=== PATIENT | male | born 1965 | race Caucasian/White ===

== ENCOUNTER → 2019-12-26 14:34 | Outpatient (CLI) | payer OTHER, SELFPAY ==
[2019-12-15 15:39] VITALS: BMI 32.6
--- NOTE | 2019-12-26 14:36 | ECHOD_ITS ---
Reason For Study: Palpitations Procedure This was a 2D Doppler, Color Flow transthoracic echocardiogram. The study was technically difficult. Exam performed in department. Left Ventricle Normal LV size. Mild concentric left ventricular hypertrophy. Left ventricular systolic function is normal. The estimated ejection fraction is 70 %. Transmitral doppler flow suggestive of impaired relaxation of left ventricle. No regional wall motion abnormalities noted. Right Ventricle Normal RV size. Normal systolic function. Atria The left atrium is mildly enlarged. Normal right atrium. No doppler evidence for ASD. Mitral Valve There is no mitral annular calcification. Mild (1+) mitral valve insufficiency. Tricuspid Valve Normal tricuspid valve. Trivial tricuspid valve insufficiency. Right ventricular systolic pressure estimated to be 27 mmHg. Aortic Valve The aortic valve is not well visualized, however, based upon the 2D echocardiographic images obtained there appears to be moderate focal thickening, calcification, and partial restriction. Mild to moderate aortic stenosis. Mild (1+) eccentric aortic valve insufficiency. Pulmonic Valve The pulmonic valve is not well visualized. Mild (1+) pulmonic valve insufficiency. Great Vessels Borderline enlarged aortic root. Pericardium/Pleural No pericardial effusion. MMode/2D Measurements & Calculations LVIDd: 4.3 cm IVSd: 1.3 cm LVOT diam: 2.2 cm LVIDs: 2.6 cm LVPWd: 1.3 cm LVOT area: 3.8 cm2 RVDd: 3.5 cm FS: 38.8 % Ao root diam: 3.9 cm LAV(MOD-bp): 57.0 ml LVAd ap4: 25.0 cm2 LAV(MOD-bp) Indexed: 26.7 ml/m2 EDV(MOD-sp4): 66.8 ml LAV(MOD-sp2): 43.8 ml EDV(sp4-el): 68.8 ml LAV(MOD-sp4): 54.8 ml LVAs ap4: 12.4 cm2 ESV(MOD-sp4): 21.3 ml ESV(sp4-el): 19.3 ml EF(MOD-sp4): 68.1 % EF(sp4-el): 71.9 % SV(MOD-sp4): 45.5 ml SV(sp4-el): 49.5 ml LA A4 area: 21.1 cm2 LA dimension(2D): 3.6 cm RA A4 area: 11.0 cm2 Doppler Measurements & Calculations MV E max tomas: 88.7 cm/sec Lat Peak E' Tomas: 12.3 cm/sec Med Peak E' Tomas: 7.7 cm/sec MV A max tomas: 101.9 cm/sec E/E' lat: 7.2 E/E' med: 11.5 MV E/A: 0.87 Ao V2 max: 328.5 cm/sec LV V1 max: 123.4 cm/sec SV(LVOT): 103.7 ml Ao max P.2 mmHg LV V1 max P.1 mmHg Ao V2 mean: 239.6 cm/sec LV V1 mean P.8 mmHg Ao mean P.8 mmHg LV V1 mean: 93.5 cm/sec Ao V2 VTI: 67.6 cm LV V1 VTI: 27.0 cm UMESH(I,D): 1.5 cm2 UMESH(V,D): 1.4 cm2 PA V2 max: 95.8 cm/sec TR max tomas: 244.6 cm/sec TR max P.9 mmHg Interpretation Summary The study was technically difficult. Left ventricular systolic function is normal. The estimated ejection fraction is 70 %. Mild concentric left ventricular hypertrophy. The left atrium is mildly enlarged. Mild (1+) mitral valve insufficiency. Trivial tricuspid valve insufficiency. The aortic valve is not well visualized, however, based upon the 2D echocardiographic images obtained there appears to be moderate focal thickening, calcification, and partial restriction. Mild to moderate aortic stenosis. Mild (1+) eccentric aortic valve insufficiency. Mild (1+) pulmonic valve insufficiency. Borderline enlarged aortic root. Right ventricular systolic pressure estimated to be 27 mmHg. Ordering Physician: Ruperto Villanueva Referring Physician: Verito Villegas Performed By: Ansley Scruggs, RDCS, RVT
== END ==
PROVIDERS: PCP Family Medicine; Referring Provider Internal Medicine Cardiovascular Disease; Visit Provider Internal Medicine Cardiovascular Disease
DX: I34.0 Nonrheumatic mitral (valve) insufficiency (principal); I49.9 Cardiac arrhythmia, unspecified
CPT/HCPCS: 93306

== ENCOUNTER → 2025-01-06 | Outpatient (CLI) | payer OTHER, SELFPAY ==
--- NOTE | 2025-01-06 06:21 | CT_ITS ---
PROCEDURE: CTA HEAD AND NECK W/ CONTRAST 01/06/2025 REASON FOR EXAM: TRANSIENT VISUAL LOSS, RULE OUT CAROTID OR VETEBRAL ARTERY DISSE Left visual loss. TECHNIQUE: Procedure Code: [id number].HDNCK Modality: CT Procedure: CTA HEAD AND NECK W/ CONTRAST Multiplanar Sagittal and Coronal images were obtained. 3D post processing was performed CONTRAST: Isovue 370 VOLUME: 100 mL One or more dose reduction techniques were used (e.g., Automated exposure control, adjustment of the mA and/or kV according to patient size, use of iterative reconstruction technique). RADIATION DOSE SUMMARY: CTDlvol: 90 mGy DLP: 1493 mGycm COMPARISON: None. FINDINGS: CT BRAIN: Cerebrum: Normal cerebral volume. Negative for mass the frontal, parietal, temporal and occipital lobes negative. White matter: Negative for periventricular white matter changes. Cerebellum: Negative. Negative for mass. Negative for acute infarction. CSF pathways and ventricles: Negative. Negative for ventricular dilatation or obstruction. Basal ganglia and thalami: Negative. No acute infarctions. Brainstem: Midbrain, diogo and medulla negative. Calvarium: Negative. Negative for fractures. Orbital structures: Globes negative. Extraocular muscles negative. Paranasal sinuses: No air fluid levels. Remainder of the sinuses negative. Vascular structures: [id number] calcifications of the intracranial structures. Other: : Negative for acute intracranial hemorrhage. Negative for acute infarction. Remainder of exam negative. CTA BRAIN: Codominant distal vertebral arteries. Otherwise distal vertebral arteries negative. Basilar artery negative. Posterior cerebral arteries: Right posterior communicating artery hypoplastic. Left posterior communicating artery hypoplastic. Negative for stenosis of the posterior cerebral arteries. Posterior cerebral arteries and distal branches negative. Distal internal carotid arteries: Mild vascular calcifications of the distal internal carotid arteries. Negative for stenosis. Anterior cerebral arteries: Anterior communicating artery patent. Anterior cerebral arteries and branches negative. Middle cerebral arteries: Negative for stenosis of the middle cerebral arteries. Middle cerebral arteries and distal branches negative. Negative for intracranial aneurysm or significant stenosis. CTA neck: Neck: Intracranial contents negative. Imaged orbits negative. Oropharynx, hypopharynx and larynx negative. Soft tissue neck negative. No cervical adenopathy. Imaged lungs and mediastinum negative. Aortic arch and branches patent. Right side: Origin of the right common carotid artery negative. Negative for vascular calcifications of the common carotid artery and/or internal carotid artery. Negative for hemodynamically significant stenosis of the right common carotid artery. Negative for hemodynamically significant stenosis of the right internal carotid artery. Left side: Origin of the left common carotid artery negative. Negative for vascular calcifications of the common carotid and/or internal carotid artery. Negative for hemodynamically significant stenosis of the right common carotid artery. Negative for hemodynamically significant stenosis of the left internal carotid artery. CT/CTA Head AND Neck W/ Contrast IMPRESSION: Negative CTA of the head. Negative CTA of the neck. Reading Location: [id number]
--- OUTSIDE RECORDS SUMMARY | 2025-01-06 06:21 | XMS RPT_ITS | CCD ---
Author Organization [facility] [place] [facility] Care Team Providers Care Senior Data Integration Developer Name Role Phone SNOW VILLEGAS DO Primary Care Physician Nicole PT, Rosetta Unavailable Unavailable NELLY DO, SNOW Primary Care Unavailable HEATHER ROBLES Attending Unavailable NELLY DO, SNOW Primary Care Unavailable HEATHER ROBLES Attending Unavailable NELLY ANTUNEZ, SNOW Primary Care Unavailable EDWIN MORAN, DR MAXWELL Attending Unavailab le NELLY ANTUNEZ, SNOW Primary Care Unavailable ALLISON MORAN, SHANAE Attending Unavailable NELLY DO, SNOW Primary Care Unavailable EDWIN MORAN, DR MAXWELL Attending Unavailab Kayla MORAN, SHANAE Admitting Unavailable DAYNA RENDON MD Consulting Unavailable NELLY DO, SNOW Primary Care Unavailable SHANAE COOPER MD Attending Unavailable CHELSEY MORAN, ILDA QUEVEDO Consulting U jacobo COOPER MD, SHANAE Consulting Unavailable EDWIN MORAN, DR MAXWELL Consulting Unavailab le NELLY ANTUNEZ, SNOW Primary Care Unavailable EDWIN MORAN, DR MAXWELL Attending Unavailab Kristopher MORAN, DR MAXWELL Consulting Unavailab le NELLY ANTUNEZ, SNOW Primary Care Unavailable EDWIN MORAN, DR MAXWELL Attending Unavailab le NELLY DO, SNOW Primary Care Unavailable HEATHER ROBLES Attending Unavailable NELLY DO, SNOW Primary Care Unavailable NELLY DOSNOW Attending Unavailable NELLY DO, SNOW Primary Care Unavailable NELLY DO, SNOW Attending Unavailable NELLY DO, SNOW Primary Care Unavailable HEATHER ROBLES Attending Unavailable NELLY DO, SNOW Primary Care Unavailable EDWIN MORAN, DR MAXWELL Attending Unavailab le NELLY DO, SNOW Primary Care Unavailable HEATHER ROBLES Attending Unavailable NELLY DO, SNOW Primary Care Unavailable HEATHER ROBLES Attending Unavailable NELLY DO, SNOW Primary Care Unavailable EDWIN MORAN, DR MAXWELL Attending Unavailab le NELLY DO, SNOW Primary Care Unavailable FLAVIO SQUAD SERGEANT, MELISSA TOMPKINS Attending Unavaila ble NELLY DO, SNOW Primary Care Unavailable FLAVIO SQUAD SERGEANT, MELISSA TOMPKINS Attending Unavaila ble NLELY DO, SNOW Primary Care Unavailable EDWIN MORAN, DR MAXWELL Attending Unavailab le NELLY DO, SNOW Primary Care Unavailable SHANAE COOPER MD Attending Unavailable NELLY DO, SNOW Primary Care Unavailable EDWIN MORAN, DR MAXWELL Attending Unavailab le NELLY DO, SNOW Primary Care Unavailable SHANAE COOPER MD Attending Unavailable NELLY DO, SNOW Primary Care Unavailable TUNG RN X RAY-ACCOUNTS RECEIVABLE ANALYST, JENNIFER Attending Unavailabl e NELLY DO, SNOW Primary Care Unavailable HEATHER ROBLES Attending Unavailable NELLY DO, SNOW Primary Care Unavailable FLAVIO SQUAD SERGEANT, MELISSA TOMPKINS Attending Unavaila ble NELLY DO, SNOW Primary Care Unavailable NELLY DO, SNWO Attending Unavailable NELLY DO, SNOW Primary Care Unavailable NELLY DO, SNOW Attending Unavailable NELLY DO, SNOW Primary Care Unavailable EDWIN MORAN, DR MAXWELL Attending Unavailab le NELLY DO, SNOW Primary Care Unavailable EDWIN MORAN, DR MAXWELL Attending Unavailab le NELLY DO, SNOW Primary Care Unavailable EDWIN MORAN, DR MAXWELL Attending Unavailab le NELLY DO, SNOW Primary Care Unavailable VIRAJ KOENGI PA-C Attending Unavailable NELLY DO, SNOW Primary Care Unavailable DR ALISSA KANG MD Attending Unavailab le NELLY DO, SNOW Primary Care Unavailable NELLY DO, SNOW Attending Unavailable NELLY DO, SNOW Primary Care Physician DR ALISSA KANG MD Attending Unavailab le NELLY DO, SNOW Primary Care Unavailable Nelly DO, Snow M Primary Care Provider [phone] BENTLEY ESCOBEDO Attending Unavailable BENTLEY ESCOBEDO Referring Unavailable NELLY, SNOW Primary Care Unavailable NELLY DO, SNOW Primary Care Unavailable NELLY DO, SNOW Attending Unavailable NELLY DO, SNOW Primary Care Unavailable NELLY DO, SNOW Attending Unavailable NELLY DO, SNOW Primary Care Unavailable EDWIN MORAN, DR MAXWELL Attending Unavailab mireya KANG MD, DR MAXWELL Attending Unavailab mireya VILLEGAS DO, SNOW Primary Care Unavailable NELLY ANTUNEZ, SNOW Primary Care Unavailable NELLY ANTUNEZ, SNOW Attending Unavailable NELLY ANTUNEZ, SNOW Primary Care Unavailable NELLY ANTUNEZ, SNOW Attending Unavailable NELLY ANTUNEZ, SNOW Attending Unavailable NELLY ANTUNEZ, SNOW Primary Care Unavailable Medications Current Medications Medication Drug Class(es) Dates Sig (Normalized) Sig (Original) acetaminophen 650 mg oral tablet (14 sources) Start: 08-02-2023 acetaminophen Dose : 650 mg = 2 tab(s), Oral, q4h, PRN Pain, scale 1-3, 0 Refill(s) Start Date: 08/02/23 Status: Ordered Start: 07-23-2023 Tylenol Extra Strength 500 mg oral tablet Dose : 1,000 mg = 2 tab(s), Oral, q4h, PRN as needed for pain, # 120 tab(s), 0 Refill(s) Start Date: 07/23/23 Status: Ordered amiodarone hydrochloride 200 mg oral tablet (4 sources) Antiarrhythmic Start: 08-02-2023 amiodarone 200 mg oral tablet Dose : 400 mg = 2 tab(s), Oral, BIDM, Take 2 tabs (400mg) twice a day through August 08 Take 1 tab (200mg) one a day starting August 09 for one month, # 56 tab(s), 0 Refill(s), Pharmacy: [id number], 175.3, cm, 07/28/23 6:13:00 EDT, Height, kg, 07/28/23 6:13:00 EDT, Dosing Weight Start Date: 08/02/23 Status: Ordered aspirin 81 mg delayed release oral tablet (20 sources) Platelet Aggregation Inhibitor, Nonsteroidal Anti-inflammatory Drug Start: 08-02-2023 aspirin 81 mg ora l delayed release tablet Dose : 81 mg = 1 tab(s), Oral, qDayM, 0 Refill(s) Start Date: 08/02/23 Status: Ordered Medication Dispense Status: Completed Total Allowed Fills: 1 Fills Dispensed: 0 Start: 12-30-2022 aspirin 81 mg oral delayed release tablet Dose : 81 mg = 1 tab(s), Oral, qHS, pt was not told to stop ASA but will ask tomorrow when talsk to [facility]vc to verify, # 90 tab(s), 3 Refill(s), Pharmacy: [id number], 175, cm, 12/19/22 8:22:00 EDT, Height, kg, 12/19/22 8:22:00 EDT, Dosing Weight Start Date: 12/30/22 Status: Ordered Start: 06-06-2022 aspirin 81 mg oral delayed release tablet Dose : 81 mg = 1 tab(s), Oral, qDay, # 30 tab(s), 6 Refill(s), [facility]: [id number], 175, cm, 06/06/22 10:12:00 EST, Height Start Date: 06/06/22 Status: Ordered betamethasone 0.5 mg/ml / clotrimazole 10 mg/ml topical cream (20 sources) Azole Antifungal, Corticosteroid Start: 08-16-2024 apply 1 dose topically twice daily betamethasone-clotrimazole 0.05%-1% topical cream Apply 1 appl, Topical, BID, # 45 gram(s), 1 Refill(s), Pharmacy: [id number], Cream, 175, cm, 04/01/24 9:02:00 EST, Height, 92.4, kg, 04/01/24 9:02:00 EST, Dosing Weight Start Date: 08/16/24 Status: Ordered Medication Dispense Status: Completed Quantity: 45.0 Unit: g Total Allowed Fills: 2 Fills Dispensed: 0 Indications: Tinea pedis; Start: 04-01-2024 betamethasone- clotrimazole 0.05%-1% topical cream Apply 1 appl, Topical, BID, # 45 gram(s), 1 Refill(s), Pharmacy: [id number], Cream, 175, cm, 04/01/24 9:02:00 EST, Height, 92.4, kg, 04/01/24 9:02:00 EST, Dosing Weight Start Date: 04/01/24 Status: Ordered Quantity: 45.0 Unit: g Repeat number: 2 Indications: Tinea pedis; Start: 04-03-2023 betamethasone- clotrimazole 0.05%-1% topical cream Apply 1 appl, Topical, BID, # 45 gram(s), 1 Refill(s), Pharmacy: [id number], Cream, 174, cm, 04/03/23 14:22:00 EST, Height, 97.4, kg, 04/03/23 14:22:00 EST, Dosing Weight Start Date: 04/03/23 Status: Ordered Start: 04-08-2022 betamethasone- clotrimazole 0.05%-1% topical cream Apply 1 appl, Topical, BID, # 45 gram(s), 1 Refill(s), [facility]acy: [facility] #[id number], Cream, 175, cm, 04/08/22 14:30:00 EST, Height, 98.5, kg, 04/08/22 14:30:00 EST, Dosing Weight Start Date: 04/08/22 Status: Ordered Start: 08-13-2021 betamethasone- clotrimazole 0.05%-1% topical cream Apply 1 appl, Topical, BID, # 45 gram(s), 1 Refill(s), [facility]acy: [facility], Cream, 175.5, cm, 08/13/21 9:45:00 EDT, Height, 95.5 Start Date: 08/13/21 Status: Ordered bumetanide 2 mg oral tablet (1 source) Loop Diuretic Start: 08-02-2023 End: 08-07-2023 bumetanide 2 mg oral tablet Dose : 2 mg = 1 tab(s), Oral, BID, # 10 tab(s), 0 Refill(s), Pharmacy: [id number], 175.3, cm, 07/28/23 6:13:00 EDT, Height, kg, 07/28/23 6:13:00 EDT, Dosing Weight Start Date: 08/02/23 Stop Date: 08/07/23 Status: Ordered cetirizine hydrochloride 10 mg oral tablet (8 sources) Histamine-1 Receptor Antagonist Start: 08-06-2023 Zyrtec 10 mg oral tablet Dose : 10 mg = 1 tab(s), Oral, qDay, # 30 tab(s), 0 Refill(s) Start Date: 08/06/23 Status: Ordered cyclobenzaprine hydrochloride 10 mg oral tablet (3 sources) Muscle Relaxant Start: 09-10-2023 End: 09-30-2023 cyclobenzaprine 10 mg oral tablet Dose : 10 mg = 1 tab(s), Oral, qHS, PRN for muscle spasm, X 10 day(s), # 10 tab(s), 1 Refill(s), 09/30/23 1:08:00 PM EDT, Pharmacy: [id number], Trapezius strain Spasm of thoracic back muscle, 174, cm, 09/10/23 11:55:00 EDT, Height, kg, 09/10/23 11:55:00 EDT, Dosing Weight Start Date: 09/10/23 Stop Date: 09/30/23 Status: Ordered dapagliflozin 5 mg oral tablet (8 sources) Sodium-Glucose Cotransporter 2 Inhibitor Start: 12-31-2023 Farxiga 5 mg oral tablet Dose : 5 mg = 1 tab(s), Oral, qDay, # 30 tab(s), 6 Refill(s), Pharmacy: [id number], 175, cm, 12/31/23 9:27:00 EDT, Height, kg, 12/31/23 9:27:00 EDT, Dosing Weight Start Date: 12/31/23 Status: Ordered Quantity: 30.0 Unit: tab(s) Repeat number: 7 Start: 09-14-2023 Farxiga 5 mg o ral tablet Dose : 5 mg = 1 tab(s), Oral, qDay, # 30 tab(s), 6 Refill(s), Pharmacy: [id number], 175.3, cm, 09/01/23 9:50:00 EDT, Height, kg, 09/01/23 9:50:00 EDT, Dosing Weight Start Date: 09/14/23 Status: Ordered Start: 09-14-2023 Farxiga 5 mg o ral tablet Dose : 5 mg = 1 tab(s), Oral, qDay, # 30 tab(s), 6 Refill(s), Pharmacy: [id number], 175.3, cm, 09/01/23 9:50:00 EDT, Height, kg, 09/01/23 9:50:00 EDT, Dosing Weight Start Date: 09/14/23 Status: Ordered Start: 09-14-2023 Farxiga 5 mg o ral tablet Dose : 5 mg = 1 tab(s), Oral, qDay, # 30 tab(s), 6 Refill(s), Pharmacy: [id number], 175.3, cm, 09/01/23 9:50:00 EDT, Height, kg, 09/01/23 9:50:00 EDT, Dosing Weight Start Date: 09/14/23 Status: Ordered Docusate (9 sources) Start: 09-29-2024 take 1 mg by mouth twice daily Dulcolax Stool Softener mg =, Oral, BID, 0 Refill(s) Start Date: 09/29/24 Status: Ordered Medication Dispense Status: Completed Total Allowed Fills: 1 Fills Dispensed: 0 Start: 08-06-2023 take 1 mg by mouth twice daily Dulcolax Stool Softener mg =, Oral, BID, 0 Refill(s) Start Date: 08/06/23 Status: Ordered ferrous sulfate 325 mg oral tablet (10 sources) Start: 09-29-2024 IRON (ferrous sulfate 325 mg) 65 mg oral tablet Dose : 325 mg = 1 tab(s), Oral, BIDM, Take with food., # 60 tab(s), 3 Refill(s) Start Date: 09/29/24 Status: Ordered Medication Dispense Status: Completed Quantity: 60.0 Unit: tab(s) Total Allowed Fills: 1 Fills Dispensed: 0 Start: 08-02-2023 End: 09-01-2023 ferrous sulfate 325 mg (65 m g elemental iron) oral tablet Dose : 325 mg = 1 tab(s), Oral, BIDM, # 60 tab(s), 0 Refill(s), Pharmacy: [id number], 175.3, cm, 07/28/23 6:13:00 EDT, Height, kg, 07/28/23 6:13:00 EDT, Dosing Weight Start Date: 08/02/23 Stop Date: 09/01/23 Status: Ordered 12 hr guaiFENesin 600 mg extended release oral tablet (5 sources) Start: 09-01-2023 Mucinex 600 mg oral tablet, extended release Dose : 600 mg = 1 tab(s), Oral, Daily, 0 Refill(s) Start Date: 09/01/23 Status: Ordered halobetasol propionate 0.0005 mg/mg topical ointment (19 sources) Corticosteroid Start: 04-01-2024 halobetasol 0. 05% topical ointment Apply 1 ycril, Topical, BID, APPLY TOPICALLY 2 TIMES A DAY FOR 10 DAYS, # 50 gram(s), 1 Refill(s), Pharmacy: [id number], Ointment, 175, cm, 04/01/24 9:02:00 EST, Height, 92.4, kg, 04/01/24 9:02:00 EST, Dosing Weight Start Date: 04/01/24 Status: Ordered Medication Dispense Status: Completed Quantity: 50.0 Unit: g Total Allowed Fills: 2 Fills Dispensed: 0 Indications: Psoriasis, unspecified; Start: 04-03-2023 End: 04-23-2023 halobetasol 0.05% topical oi ntment Apply 1 cyril, Topical, BID, X 10 day(s), # 50 gram(s), 1 Refill(s), Pharmacy: [id number], Ointment, 174, cm, 04/03/23 14:22:00 EST, Height, 97.4, kg, 04/03/23 14:22:00 EST, Dosing Weight Start Date: 04/03/23 Stop Date: 04/23/23 Status: Ordered Start: 10-11-2021 halobetasol 0. 05% topical ointment Apply 1 cyril, Topical, BID, # 15 gram(s), 0 Refill(s), Ointment, 95.5 Start Date: 10/11/21 Status: Ordered ibuprofen 200 mg oral tablet (2 sources) Nonsteroidal Anti-inflammatory Drug Start: 07-23-2023 ibuprofen 200 mg oral tablet Dose : 400 mg = 2 tab(s), Oral, q6h, PRN for pain, Take with food or milk., 0 Refill(s) Start Date: 07/23/23 Status: Ordered ipratropium bromide 0.021 mg/actuat metered dose nasal spray (3 sources) Anticholinergic Start: 08-21-2023 End: 09-10-2023 ipratropium 21 mcg/inh (0.03%) nasal spray 42 mcg Dose = 2 spray(s), Nasal, TID, X 10 day(s), # 1 EA, 1 Refill(s), Pharmacy: [id number], Nasal congestion, 175.3, cm, 08/12/23 14:31:00 EDT, Height, kg, 08/12/23 14:31:00 EDT, Dosing Weight Start Date: 08/21/23 Stop Date: 09/10/23 Status: Ordered levothyroxine sodium 0.125 mg oral tablet (20 sources) l-Thyroxine Start: 09-29-2024 levothyroxine 125 mcg (0.125 mg) oral tablet Dose : 125 mcg = 1 tab(s), Oral, qDay, Take 1 tablet daily except take 2 tablets by mouth daily on Wednesdays, # 110 tab(s), 1 Refill(s), Pharmacy: [id number], Hypothyroidism, 174, cm, 09/29/24 8:29:00 EDT, Height, kg, 09/29/24 8:29:00 EDT, Dosing Weight Start Date: 09/29/24 Status: Ordered Medication Dispense Status: Completed Quantity: 110.0 Unit: tab(s) Total Allowed Fills: 2 Fills Dispensed: 0 Indications: Hypothyroidism, unspecified; Start: 04-05-2024 levothyroxine 125 mcg (0.125 mg) oral tablet Dose : 125 mcg = 1 tab(s), Oral, qDay, Take 1 tablet daily except take 2 tablets by mouth daily on Wednesdays, # 110 tab(s), 1 Refill(s), Pharmacy: [id number], Hypothyroidism, 175, cm, 04/01/24 9:02:00 EST, Height, kg, 04/01/24 9:02:00 EST, Dosing Weight Start Date: 04/05/24 Status: Ordered Quantity: 110.0 Unit: tab(s) Repeat number: 2 Indications: Hypothyroidism, unspecified; Start: 11-13-2023 levothyroxine 100 mcg (0.1 mg) oral tablet Dose : 100 mcg = 1 tab(s), Oral, qDay, # 90 tab(s), 0 Refill(s), Pharmacy: [id number], Hypothyroidism, 174, cm, 11/13/23 9:16:00 EDT, Height, kg, 11/13/23 9:16:00 EDT, Dosing Weight Start Date: 11/13/23 Status: Ordered Start: 09-23-2023 levothyroxine 100 mcg (0.1 mg) oral tablet Dose : 100 mcg = 1 tab(s), Oral, qAM, # 90 tab(s), 0 Refill(s), Pharmacy: [facility] #330, 174, cm, 09/10/23 11:55:00 EDT, Height, kg, 09/10/23 11:55:00 EDT, Dosing Weight Start Date: 09/23/23 Status: Ordered Start: 04-03-2023 levothyroxine 100 mcg (0.1 mg) oral tablet Dose : 100 mcg = 1 tab(s), Oral, qAM, 0 Refill(s) Start Date: 04/03/23 Status: Ordered Start: 12-19-2022 take 1 tablet by reynaldo th in the morning levothyroxine 100 mcg (0.1 mg) oral tablet TAKE 1 TABLET BY MOUTH IN THE MORNING Start Date: 12/19/22 Status: Ordered Start: 08-12-2022 levothyroxine 50 mcg (0.05 mg) oral tablet Dose : 50 mcg = 1 tab(s), Oral, qDay, # 90 tab(s), 0 Refill(s), [facility]: [id number], Hypothyroidism, 175, cm, 06/06/22 10:12:00 EST, Height, kg, 06/06/22 10:12:00 EST, Dosing Weight Start Date: 08/12/22 Status: Ordered Start: 05-08-2022 levothyroxine 50 mcg (0.05 mg) oral tablet Dose : 50 mcg = 1 tab(s), Oral, qDay, # 90 tab(s), 0 Refill(s), [facility]: [facility] #[id number], Hypothyroidism, 174, cm, 05/08/22 13:26:00 EST, Height Start Date: 05/08/22 Status: Ordered 24 hr metoprolol succinate 25 mg extended release oral tablet (20 sources) beta-Adrenergic Waqas Start: 04-20-2024 metopr olol succinate 25 mg oral TABLET extended release Dose : 12.5 mg = 0.5 tab(s), Oral, qDay, Do not crush or chew (controlled release), # 60 tab(s), 6 Refill(s), Pharmacy: [id number], 175, cm, 04/01/24 9:02:00 EST, Height, kg, 04/01/24 9:02:00 EST, Dosing Weight Start Date: 04/20/24 Status: Ordered Medication Dispense Status: Completed Quantity: 60.0 Unit: tab(s) Total Allowed Fills: 7 Fills Dispensed: 0 Start: 09-01-2023 metoprolol suc cinate 25 mg oral TABLET extended release Dose : 25 mg = 1 tab(s), Oral, qDay, Do not crush or chew (controlled release), # 60 tab(s), 6 Refill(s), Pharmacy: [id number], 175.3, cm, 09/01/23 9:50:00 EDT, Height, kg, 09/01/23 9:50:00 EDT, Dosing Weight Start Date: 09/01/23 Status: Ordered Quantity: 60.0 Unit: tab(s) Repeat number: 7 Start: 08-02-2023 metoprolol tar trate 25 mg oral tablet Dose : 25 mg = 1 tab(s), Oral, BIDM, # 60 tab(s), 1 Refill(s), Pharmacy: [id number], 175.3, cm, 07/28/23 6:13:00 EDT, Height, kg, 07/28/23 6:13:00 EDT, Dosing Weight Start Date: 08/02/23 Status: Ordered Start: 08-02-2023 End: 08-02-2023 take 1 tablet by mouth in the morning metoprolol tartrate (Lopressor) Start: 08/02/23 8:00:00 AM EDT, Dose = 25 mg, = 1 tab(s), Oral, Hold if SBP (mmHg) Start Date: 08/02/23 Stop Date: 08/02/23 Status: Completed Start: 08-01-2023 End: 08-01-2023 take 1 tablet by mouth in the evening metoprolol tartrate (Lopressor) Start: 08/01/23 5:00:00 PM EDT, Dose = 25 mg, = 1 tab(s), Oral, Hold if SBP (mmHg) Start Date: 08/01/23 Stop Date: 08/01/23 Status: Completed Start: 08-01-2023 End: 08-01-2023 take 1 tablet by mouth in the morning metoprolol tartrate (Lopressor) Start: 08/01/23 8:00:00 AM EDT, Dose = 25 mg, = 1 tab(s), Oral, Hold if SBP (mmHg) Start Date: 08/01/23 Stop Date: 08/01/23 Status: Completed Start: 06-30-2023 metoprolol suc cinate 25 mg oral TABLET extended release Dose : 12.5 mg = 0.5 tab(s), Oral, qHS, Do not crush or chew (controlled release), # 15 tab(s), 6 Refill(s), Pharmacy: [id number], 175.3, cm, 06/30/23 9:00:00 EDT, Height, kg, 06/30/23 9:00:00 EDT, Dosing Weight Start Date: 06/30/23 Status: Ordered Start: 2023 metoprolol suc cinate 25 mg oral TABLET extended release Dose : 25 mg = 1 tab(s), Oral, qDay, Do not crush or chew (controlled release), # 30 tab(s), 6 Refill(s), Pharmacy: [id number], 175, cm, 06/01/23 9:46:00 EST, Height, kg, 06/01/23 9:46:00 EST, Dosing Weight Start Date: 06/01/23 Status: Ordered midodrine hydrochloride 5 mg oral tablet (1 source) alpha-Adrenergic Agonist Start: 08-02-2023 midod rine 5 mg oral tablet Dose : 10 mg = 2 tab(s), Oral, BID, # 120 tab(s), 0 Refill(s), Pharmacy: [facility], 175.3, cm, 07/28/23 6:13:00 EDT, Height, kg, 07/28/23 6:13:00 EDT, Dosing Weight Start Date: 08/02/23 Status: Ordered mupirocin 0.02 mg/mg topical ointment (2 sources) RNA Synthetase Inhibitor Antibacterial Start: 07-23-2023 mupirocin 2% topical ointment Apply 1 cyril, Topical, TID, APPLY IN BOTH NOSTRILS TWICE A DAY DIRECTED. START 5 DAYS PRIOR TO SURGERY Start Date: 07/23/23 Status: Ordered potassium chloride 20 meq oral tablet (1 source) Start: 08-02-2023 End: 08-07-2023 potassium chloride 20 mEq oral tablet, extended release Dose : 20 mEq = 1 tab(s), Oral, BID, take for 5 days with Bumex, # 10 tab(s), 0 Refill(s), Pharmacy: [id number], 175.3, cm, 07/28/23 6:13:00 EDT, Height, kg, 07/28/23 6:13:00 EDT, Dosing Weight Start Date: 08/02/23 Stop Date: 08/07/23 Status: Ordered rosuvastatin calcium 40 mg oral tablet (20 sources) HMG-CoA Reductase Inhibitor Start: 09-29-2024 rosuvastatin 40 mg oral tablet Dose : 40 mg = 1 tab(s), Oral, qDay, # 90 tab(s), 1 Refill(s), Pharmacy: [id number], Dyslipidemia, 174, cm, 09/29/24 8:29:00 EDT, Height, kg, 09/29/24 8:29:00 EDT, Dosing Weight Start Date: 09/29/24 Status: Ordered Medication Dispense Status: Completed Quantity: 90.0 Unit: tab(s) Total Allowed Fills: 2 Fills Dispensed: 0 Indications: Hyperlipidemia, unspecified; Start: 04-01-2024 rosuvastatin 4 0 mg oral tablet Dose : 40 mg = 1 tab(s), Oral, qDay, # 90 tab(s), 1 Refill(s), Pharmacy: [id number], Dyslipidemia, 175, cm, 04/01/24 9:02:00 EST, Height, kg, 04/01/24 9:02:00 EST, Dosing Weight Start Date: 05/31/24 Status: Ordered Quantity: 90.0 Unit: tab(s) Repeat number: 2 Indications: Hyperlipidemia, unspecified; Start: 11-13-2023 rosuvastatin 4 0 mg oral tablet Dose : 40 mg = 1 tab(s), Oral, qDay, # 90 tab(s), 1 Refill(s), Pharmacy: [id number], Dyslipidemia, 174, cm, 11/13/23 9:16:00 EDT, Height, kg, 11/13/23 9:16:00 EDT, Dosing Weight Start Date: 11/13/23 Status: Ordered Start: 07-15-2023 rosuvastatin 4 0 mg oral tablet Dose : 40 mg = 1 tab(s), Oral, qHS, # 90 tab(s), 0 Refill(s), Pharmacy: [id number], 175.3, cm, 07/13/23 9:24:00 EDT, Height, kg, 07/13/23 9:24:00 EDT, Dosing Weight Start Date: 07/15/23 Status: Ordered Start: 12-30-2022 rosuvastatin 4 0 mg oral tablet Dose : 40 mg = 1 tab(s), Oral, qDay, # 30 tab(s), 6 Refill(s), Pharmacy: [id number], 175, cm, 12/19/22 8:22:00 EDT, Height, kg, 12/19/22 8:22:00 EDT, Dosing Weight Start Date: 12/30/22 Status: Ordered Start: 06-06-2022 rosuvastatin 4 0 mg oral tablet Dose : 40 mg = 1 tab(s), Oral, qDay, # 30 tab(s), 6 Refill(s), [facility]acy: [facility] #[id number], 175, cm, 06/06/22 10:12:00 EST, Height Start Date: 06/06/22 Status: Ordered spironolactone 25 mg oral tablet (8 sources) Aldosterone Antagonist Start: 09-01-2023 spironolactone 25 mg oral tablet Dose : 12.5 mg = 0.5 tab(s), Oral, qDay, Take with food hold if sBP Start Date: 09/01/23 Status: Ordered traMADol hydrochloride 50 mg oral tablet (1 source) Opioid Agonist Start: 08-02-2023 End: 08-09-2023 traMADol 50 mg oral tablet Dose : 50 mg = 1 tab(s), Oral, q6hr, PRN Pain, scale 4-10, X 7 day(s), # 28 tab(s), 0 Refill(s), 08/09/23 1:49:00 PM EDT, Pharmacy: [id number], Aortic stenosis s/p AVR, ALONDRA Clipping 07/28/23, EF 55%, 175.3, cm, 07/28/23 6:13:00 EDT, Height, 96.5, kg, 07/28/23 6:13:00 EDT, Dosing Weight Start Date: 08/02/23 Stop Date: 08/09/23 Status: Ordered traZODone hydrochloride 100 mg oral tablet (20 sources) Serotonin Reuptake Inhibitor Start: 09-29-2024 traZODone 100 mg ora l tablet Dose : 100 mg = 1 tab(s), Oral, qHS, please be scored tablets, # 90 tab(s), 1 Refill(s), Pharmacy: [id number], Insomnia, 174, cm, 09/29/24 8:29:00 EDT, Height, kg, 09/29/24 8:29:00 EDT, Dosing Weight Start Date: 09/29/24 Status: Ordered Medication Dispense Status: Completed Quantity: 90.0 Unit: tab(s) Total Allowed Fills: 2 Fills Dispensed: 0 Indications: Insomnia, unspecified; Start: 04-01-2024 traZODone 100 mg oral tablet Dose : 100 mg = 1 tab(s), Oral, qHS, please be scored tablets, # 90 tab(s), 1 Refill(s), Pharmacy: [id number], Insomnia, 175, cm, 04/01/24 9:02:00 EST, Height, kg, 04/01/24 9:02:00 EST, Dosing Weight Start Date: 04/01/24 Status: Ordered Quantity: 90.0 Unit: tab(s) Repeat number: 2 Indications: Insomnia, unspecified; Start: 04-03-2023 traZODone 100 mg oral tablet Dose : 100 mg = 1 tab(s), Oral, qHS, please be scored tablets, # 90 tab(s), 3 Refill(s), Pharmacy: [facility]. [id number], Insomnia, 174, cm, 04/03/23 14:22:00 EST, Height, kg, 04/03/23 14:22:00 EST, Dosing Weight Start Date: 04/03/23 Status: Ordered Start: 04-08-2022 traZODone 100 mg oral tablet Dose : 100 mg = 1 tab(s), Oral, qHS, please be scored tablets, # 90 tab(s), 3 Refill(s), Pharmacy: [facility] #[id number], Insomnia, 175, cm, 04/08/22 14:30:00 EST, Height, kg, 04/08/22 14:30:00 EST, Dosing Weight Start Date: 04/08/22 Status: Ordered Start: 08-13-2021 traZODone 100 mg oral tablet Dose : 100 mg = 1 tab(s), Oral, qHS, please be scored tablets, # 90 tab(s), 1 Refill(s), Pharmacy: [id number], Insomnia, 175.5, cm, 08/13/21 9:45:00 EDT, Height, kg, 08/13/21 9:45:00 EDT, Dosing Weight Start Date: 08/13/21 Status: Ordered vitamin B12 (1 source) Vitamin B12 Start: 09-29-2024 Vitamin B12 0 Refill(s) Start Date: 09/29/24 Status: Ordered Medication Dispense Status: Completed Total Allowed Fills: 1 Fills Dispensed: 0 Completed/Discontinued Medications Medication Drug Class(es) Dates Sig (Normalized) Sig (Original) amoxicillin 875 mg / clavulanate 125 mg oral tablet (3 sources) Penicillin-class Antibacterial Start: 4 End: 4 take 1 tablet by mouth every twelve hours amoxicillin-clavulana te 875 mg-125 mg oral tablet 1 tab(s), Oral, q12h, # 20 tab(s), 0 Refill(s), 90 Start Date: 11/13/23 Stop Date: 11/23/23 Status: Ordered folic acid 0.4 mg oral tablet (9 sources) Start: 4 End: 4 folic acid 0.4 mg oral tablet Dose : 0.8 mg = 2 tab(s), Oral, qDay, # 60 tab(s), 0 Refill(s), Pharmacy: [id number], 175.3, cm, 07/28/23 6:13:00 EDT, Height, kg, 07/28/23 6:13:00 EDT, Dosing Weight Start Date: 08/02/23 Stop Date: 09/01/23 Status: Ordered meloxicam 15 mg oral tablet (1 source) Nonsteroidal Anti-inflammatory Drug Start: 5 End: 5 meloxicam 15 mg oral tablet Dose : 15 mg = 1 tab(s), Oral, qDay, Hold aspirin while taking meloxicam, # 14 tab(s), 0 Refill(s), Pharmacy: [id number], Neck pain on left side Cervical radiculopathy, 174, cm, 10/25/24 14:22:00 EDT, Height, kg, 10/25/24 14:14:00 EDT, Dosing Weight Start Date: 10/25/24 Stop Date: 11/08/24 Status: Ordered Medication Dispense Status: Completed Quantity: 14.0 Unit: tab(s) Total Allowed Fills: 1 Fills Dispensed: 0 Indications: Radiculopathy, cervical region; Cervicalgia; methylPREDNISolone Dosepak 4 mg tablet (3 sources) Start: 4 End: 4 methylPREDNISolone Dosepak 4 mg tablet 1 packet(s), Oral, qDay, as directed on package labeling, # 21 tab(s), 0 Refill(s) Start Date: 11/13/23 Stop Date: 11/19/23 Status: Ordered Problems Active Problems Problem Classification Problem Date Documented Da te Episodic/Chronic Acquired foot deformities (20 sources) Foot-drop 10-09-2020 Episodic Acute and unspecified renal failure (15 sources) Acute renal failure syndrome 08-06-2023 Episodic Acute posthemorrhagic anemia (2 sources) Acute posthemorrhagic anemia; Translations: [Acute posthemorrhagic anemia] Onset: 07-28-2023 Episodic Cardiac and circulatory congenital anomalies (1 source) Congenital insufficiency of aortic valve; Translations: [Congenital insufficiency of aortic valve] Onset: 07-28-2023 Chronic Cardiac dysrhythmias (19 sources) Unspecified atrial fibrillation; Translations: [Atrial fibrillation] Onset: 07-31-2023 Chronic Congestive heart failure; nonhypertensive (20 sources) Chronic diastolic heart failure; Translations: [Chronic diastolic (congestive) heart failure] Onset: 06-11-2023 10-11-2021 Chronic Coronary atherosclerosis and other heart disease (20 sources) Coronary arteriosclerosis; Translations: [Coronary atherosclerosis] Onset: 07-28-2023 06-30-2023 Chronic Deficiency and other anemia (1 source) Anemia; Translations: [Anemia, unspecified] Episodic Diabetes mellitus without complication (2 sources) Hyperglycemia; Translations: [Hyperglycemia, unspecified] Onset: 07-29-2023 Episodic Disorders of lipid metabolism (20 sources) Dyslipidemia; Translations: [Hyperlipidemia] Onset: 06-11-2023 10-11-2021 Chronic Heart valve disorders (20 sources) Aortic valve stenosis; Translations: [Mitral valve regurgitation] Onset: 06-11-2023 08-13-2021 Chronic Mycoses (20 sources) Tinea pedis 10-09-2020 Episodic Other aftercare (16 sources) Surgical follow-up; Translations: [Encounter for surgical aftercare following surgery on the circulatory system] Episodic Other aftercare (15 sources) Post-discharge follow-up 08-06-2023 Episodic Other bone disease and musculoskeletal deformities (3 sources) Segmental and somatic dysfunction; Translations: [Segmental and somatic dysfunction of cervical region] Onset: 12-14-2024 12-14-2024 Episodic Other bone disease and musculoskeletal deformities (1 source) Segmental and somatic dysfunction of cervical region; Translations: [Segmental and somatic dysfunction of cervical region] Onset: 12-14-2024 Episodic Other connective tissue disease (20 sources) Foot pain 10-09-2020 Episodic Other connective tissue disease (1 source) Pain in left arm; Translations: [Pain in left arm] Episodic Other gastrointestinal disorders (15 sources) Constipation 08-06-2023 Episodic Other inflammatory condition of skin (20 sources) Psoriasis 01-05-2019 Chronic Other liver diseases (15 sources) Elevated liver enzymes level 08-06-2023 Episodic Other lower respiratory disease (20 sources) Cough 03-18-2023 Episodic Other lower respiratory disease (20 sources) Orthopnea 03-18-2023 Episodic Other lower respiratory disease (12 sources) 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 Other nervous system disorders (20 sources) Paresthesia of foot 10-09-2020 Episodic Other nutritional; endocrine; and metabolic disorders (20 sources) Body mass index 30+ - obesity 10-19-2021 Chronic Other nutritional; endocrine; and metabolic disorders (10 sources) Overweight in adulthood with body mass index of 25 or more but less than 30 09-10-2023 Episodic Other upper respiratory disease (18 sources) Seasonal allergy 07-13-2023 Chronic Other upper respiratory infections (20 sources) Acute sinusitis; Translations: [Posterior rhinorrhea] 05-08-2022 Episodic Linda-; endo-; and myocarditis; cardiomyopathy (except that caused by tuberculosis or sexually transmitted disease) (20 sources) Heart valve disorder; Translations: [Endocarditis] 10-11-2021 Chronic Residual codes; unclassified (20 sources) Insomnia; Translations: [Insomnia, unspecified] Onset: 07-29-2023 01-05-2019 Episodic Residual codes; unclassified (20 sources) Needs influenza immunization 02-03-2020 Episodic Residual codes; unclassified (20 sources) Screening due 04-03-2023 Episodic Residual codes; unclassified (18 sources) Preoperative state 07-13-2023 Episodic Residual codes; unclassified (1 source) Past history of procedure; Translations: [Other specified postprocedural states] Episodic Residual codes; unclassified (1 source) FH: Alzheimer's disease 09-29-2024 Episodic Screening and history of mental health and substance abuse codes (20 sources) Ex-smoker 04-03-2023 Episodic Spondylosis; intervertebral disc disorders; other back problems (20 sources) Muscle spasm of thoracic back; Translations: [Neck pain] Onset: 12-14-2024 09-10-2023 Episodic Sprains and strains (11 sources) Strain of trapezius muscle; Translations: [Injury of muscle and tendon at thorax level] 09-10-2023 Episodic Syncope (20 sources) Near syncope; Translations: [Syncope and collapse] Onset: 06-11-2023 2023 Episodic Thyroid disorders (20 sources) Hypothyroidism; Translations: [Other specified hypothyroidism] Onset: 07-28-2023 10-08-2020 Chronic Unclassified (20 sources) Patient encounter status 01-06-2019 Unclassified (20 sources) Severe aortic valve stenosis 03-18-2023 Past or Other Problems Problem Classification Problem Date Documented Da te Episodic/Chronic Other screening for suspected conditions (not mental disorders or infectious disease) (20 sources) Viral screening status; Translations: [Encounter for screening for malignant neoplasm of prostate] Onset: 04-01-2024 04-08-2022 Episodic Results Test Name Value Interpretation Reference Range Facility .Auto Diffon 08-13-2024 Basophil, Absolute 0.0 10 3/mcL Normal 0.0-0.3 [place] Comment on above: Performed By: #### A RIVER, PBNP, ADIFF, BMP, TSHR, GFR, CBC, LIPID #### [address] [address] Basophils/100 WBC (Bld) 1.0 % Normal 0.0-2.5 [facility] Comment on above: Performed By: #### A RIVER, PBNP, ADIFF, BMP, TSHR, GFR, CBC, LIPID #### [address] [address] Eosinophil, Absolute 0.1 10 3/mcL Normal 0.0-0.7 [facility] Comment on above: Performed By: #### A RIVER, PBNP, ADIFF, BMP, TSHR, GFR, CBC, LIPID #### [address] [address] Eosinophils/100 WBC (Bld) 1.9 % Normal 0.0-6.0 [facility] Comment on above: Performed By: #### A RIVER, PBNP, ADIFF, BMP, TSHR, GFR, CBC, LIPID #### [address] [address] Lymphocyte, Absolute 1.5 10 3/mcL Normal 0.9-4.3 [facility] Comment on above: Performed By: #### A RIVER, PBNP, ADIFF, BMP, TSHR, GFR, CBC, LIPID #### [address] [address] Lymphocytes/100 WBC (Bld) 29.8 % Normal 20.0-40.0 [facility] Comment on above: Performed By: #### A RIVER, PBNP, ADIFF, BMP, TSHR, GFR, CBC, LIPID #### [address] [address] Monocyte, Absolute 0.7 10 3/mcL Normal 0.1-1.4 [place] Comment on above: Performed By: #### A RIVER, PBNP, ADIFF, BMP, TSHR, GFR, CBC, LIPID #### [place] [place], [place] [address] Monocytes/100 WBC (Bld) 13.1 % High 2.0-13.0 [facility] Comment on above: Performed By: #### A RIVER, PBNP, ADIFF, BMP, TSHR, GFR, CBC, LIPID #### [address] [place], [place] [address] Neutrophils/100 WBC (Bld) 54.2 % Normal 50.0-75.0 [facility] Comment on above: Performed By: #### A RIVER, PBNP, ADIFF, BMP, TSHR, GFR, CBC, LIPID #### [address] [address] .GFRon 08-13-2024 Estimated Glomerular Filtration Rate 100 ml/min/1.73sqm Normal [facility] Comment on above: Result Comment: Stages of Chronic Kidney Disease (CKD) Stage Description eGFR(ml/min/1.73 sq.m.) CKD 1 Normal kidney function or >=90 normal kindney function with possible kidney damage (ex. Proteinuria) CKD 2 Kidney damage with mild loss 60-89 of kidney function CKD 3a Mild to moderate loss of kidney 45-59 function CKD 3b Moderate to severe loss of 30-44 of kindey function CKD 4 Severe loss of kidney function 15-29 CKD 5 Kidney failure <15 Note: (go live 2024) the eGFR calculation was updated to the 2020 CKD-EPI creatinine equation without a race factor to calculate the eGFR results. Performed By: #### A RIVER, PBNP, ADIFF, BMP, TSHR, GFR, CBC, LIPID #### [address] [place], [place] [address] .NEUABSon 08-13-2024 Neutrophil, Absolute 2.8 10 3/mcL Normal 2.3-8.1 [facility] Comment on above: Performed By: #### A RIVER, PBNP, ADIFF, BMP, TSHR, GFR, CBC, LIPID #### [address] [address] BMPon 08-13-2024 BUN/Creatinine Ratio 16 ratio Normal 7-27 [place] Comment on above: Performed By: #### A RIVER, PBNP, ADIFF, BMP, TSHR, GFR, CBC, LIPID #### [address] [address] Calcium [Mass/Vol] 9.7 mg/dL Normal 8.4-10.2 [facility] Comment on above: Performed By: #### A RIVER, PBNP, ADIFF, BMP, TSHR, GFR, CBC, LIPID #### [address] [address] Chloride [Moles/Vol] 106 mmol/L Normal 98-107 [place] Comment on above: Performed By: #### A RIVER, PBNP, ADIFF, BMP, TSHR, GFR, CBC, LIPID #### [address] [address] CO2 [Moles/Vol] 29 mmol/L Normal 22-29 [facility] Comment on above: Performed By: #### A RIVER, PBNP, ADIFF, BMP, TSHR, GFR, CBC, LIPID #### [address] [address] Creatinine [Mass/Vol] 0.90 mg/dL Normal 0.67-1.17 [facility] Comment on above: Performed By: #### A RIVER, PBNP, ADIFF, BMP, TSHR, GFR, CBC, LIPID #### [address] [address] Electrolyte Balance 6.0 mEq/L Normal 4.0-15.0 [facility] Comment on above: Performed By: #### A RIVER, PBNP, ADIFF, BMP, TSHR, GFR, CBC, LIPID #### [address] [address] Glucose [Mass/Vol] 98 mg/dL Normal 70-105 [facility] Comment on above: Performed By: #### A RIVER, PBNP, ADIFF, BMP, TSHR, GFR, CBC, LIPID #### [address] [address] Potassium [Moles/Vol] 5.3 mmol/L High 3.5-5.1 [facility] Comment on above: Performed By: #### A RIVER, PBNP, ADIFF, BMP, TSHR, GFR, CBC, LIPID #### [place] [address] Sodium [Moles/Vol] 141 mmol/L Normal 136-145 [facility] Comment on above: Performed By: #### A RIVER, PBNP, ADIFF, BMP, TSHR, GFR, CBC, LIPID #### [place] [address] Urea nitrogen [Mass/Vol] 14 mg/dL Normal 7-18 [facility] Comment on above: Performed By: #### A RIVER, PBNP, ADIFF, BMP, TSHR, GFR, CBC, LIPID #### [address] [address] CBCon 08-13-2024 Erythrocyte distribution width (RBC) [Ratio] 14.3 % Normal 11.5-15.5 [facility] Comment on above: Performed By: #### A RIVER, PBNP, ADIFF, BMP, TSHR, GFR, CBC, LIPID #### [place] [address] Hematocrit (Bld) [Volume fraction] 42.7 % Normal 40.0-52.0 [facility] Comment on above: Performed By: #### A RIVER, PBNP, ADIFF, BMP, TSHR, GFR, CBC, LIPID #### [address] [address] Hgb 14.6 G/dL Normal 13.0-17.5 [facility] Comment on above: Performed By: #### A RIVER, PBNP, ADIFF, BMP, TSHR, GFR, CBC, LIPID #### [address] [address] MCH (RBC) [Entitic mass] 32.4 pg Normal 27.0-33.0 [facility] Comment on above: Performed By: #### A RIVER, PBNP, ADIFF, BMP, TSHR, GFR, CBC, LIPID #### [address] [address] MCHC 34.1 G/dL Normal 32.0-36.0 [facility] Comment on above: Performed By: #### A RIVER, PBNP, ADIFF, BMP, TSHR, GFR, CBC, LIPID #### [address] [address] MCV (RBC) [Entitic vol] 95.1 fL Normal 81.0-100.0 [facility] Comment on above: Performed By: #### A RIVER, PBNP, ADIFF, BMP, TSHR, GFR, CBC, LIPID #### [place] [address] Platelet 204 10 3/mcL Normal 150-450 [facility] Comment on above: Performed By: #### A RIVER, PBNP, ADIFF, BMP, TSHR, GFR, CBC, LIPID #### [address] [address] Platelet mean volume (Bld) [Entitic vol] 10.2 fL Normal 6.4-10.5 [facility] Comment on above: Performed By: #### A RIVER, PBNP, ADIFF, BMP, TSHR, GFR, CBC, LIPID #### [address] [address] RBC 4.49 10 6/mcL Low 4.50-6.00 [facility] Comment on above: Performed By: #### A RIVER, PBNP, ADIFF, BMP, TSHR, GFR, CBC, LIPID #### [address] [address] WBC 5.1 10 3/mcL Normal 4.5-10.8 [facility] Comment on above: Performed By: #### A RIVER, PBNP, ADIFF, BMP, TSHR, GFR, CBC, LIPID #### [place] [address] LABORATORYOrdered By: SYSTEM SYSTEM on 08-13-2024 Basophils (Bld) [#/Vol] 0.0 103/mcL Normal 0.0 - 0.3 10^3/mcL AO Workflow SS Basophils/100 WBC (Bld) 1.0 % Normal 0.0 - 2.5 % AO Workflow SS Calcium [Mass/Vol] 9.7 mg/dL Normal 8.4 - 10. 2 mg/dL AO ADM SS Chloride [Moles/Vol] 106 mmol/L Normal 98 - 10 7 mmol/L AO ADM SS CO2 [Moles/Vol] 29 mmol/L Normal 22 - 29 mmol/L AO ADM SS Creatinine [Mass/Vol] 0.90 mg/dL Normal 0.67 - 1.17 mg/dL AO ADM SS Electrolyte Balance 6.0 mEq/L Normal 4.0 - 15 .0 mEq/L AO ADM SS Eosinophil, Absolute 0.1 103/mcL Normal 0.0 - 0 .7 10^3/mcL AO Workflow SS Eosinophils/100 WBC (Bld) 1.9 % Normal 0.0 - 6.0 % AO Workflow SS Erythrocyte distribution width (RBC) [Ratio] 14.3 % Normal 11.5 - 15.5 % AO Workflow SS Estimated Glomerular Filtration Rate 100 ml/min/1.73sqm Invalid Interpretation Code AO Chemistry S Comment on above: Interpretive Data: Stages of Chronic Kidney Disease (CKD) Stage Description eGFR(ml/min/1.73 sq.m.) CKD 1 Normal kidney function or >=90 normal kindney function with possible kidney damage (ex. Proteinuria) CKD 2 Kidney damage with mild loss 60-89 of kidney function CKD 3a Mild to moderate loss of kidney 45-59 function CKD 3b Moderate to severe loss of 30-44 of kindey function CKD 4 Severe loss of kidney function 15-29 CKD 5 Kidney failure <15 Note: (go live 2024) the eGFR calculation was updated to the 2020 CKD-EPI creatinine equation without a race factor to calculate the eGFR results. Glucose [Mass/Vol] 98 mg/dL Normal 70 - 105 mg/dL AO ADM SS Hematocrit (Bld) [Volume fraction] 42.7 % Normal 40.0 - 52.0 % AO Workflow SS Hemoglobin (Bld) [Mass/Vol] 14.6 G/dL Normal 13.0 - 17.5 G/dL AO Workflow SS Lymphocytes (Bld) [#/Vol] 1.5 103/mcL Normal 0.9 - 4.3 10^3/mcL AO Workflow SS Lymphocytes/100 WBC (Bld) 29.8 % Normal 20.0 - 40.0 % AO Workflow SS MCH (RBC) [Entitic mass] 32.4 pg Normal 27.0 - 33.0 pg AO Workflow SS MCHC 34.1 G/dL Normal 32.0 - 36.0 G/dL AO Workflow SS MCV (RBC) [Entitic vol] 95.1 fL Normal 81.0 - 100.0 fL AO Workflow SS Monocytes (Bld) [#/Vol] 0.7 103/mcL Normal 0.1 - 1.4 10^3/mcL AO Workflow SS Monocytes/100 WBC (Bld) 13.1 % High 2.0 - 13.0 % AO Workflow SS Natriuretic peptide.B prohormone N-Terminal [Mass/Vol] 105 pg/mL Normal 0 - 125 pg/mL AO ADM SS Comment on above: Interpretive Data: N T-proBNP results of less than 300 pg/mL effectively rules out acute congestive heart failure with 99% negative predictive value. Neutrophils (Bld) [#/Vol] 2.8 103/mcL Normal 2.3 - 8.1 10^3/mcL AO Workflow SS Neutrophils/100 WBC (Bld) 54.2 % Normal 50.0 - 75.0 % AO Workflow SS Platelet mean volume (Bld) [Entitic vol] 10.2 fL Normal 6.4 - 10.5 fL AO Workflow SS Platelets (Bld) [#/Vol] 204 103/mcL Normal 150 - 450 10^3/mcL AO Workflow SS Potassium [Moles/Vol] 5.3 mmol/L High 3.5 - 5.1 mmol/L AO ADM SS RBC (Bld) [#/Vol] 4.49 106/mcL Low 4.50 - 6.0 0 10^6/mcL AO Workflow SS Sodium [Moles/Vol] 141 mmol/L Normal 136 - 145 mmol/L AO ADM SS TSH Qn 3.54 m[IU]/L Normal 0.36 - 3.74 mcIU/mL AO ADM SS Urea nitrogen [Mass/Vol] 14 mg/dL Normal 7 - 18 mg/dL AO ADM SS Urea nitrogen/Creatinine [Mass ratio] 16 ratio Normal 7 - 27 ratio AO ADM SS WBC (Bld) [#/Vol] 5.1 103/mcL Normal 4.5 - 10.8 10^3/mcL AO Workflow SS LABORATORYOrdered By: Merry Pinto on 08-13-2024 Cholesterol [Mass/Vol] 117 mg/dL Normal 0 - 200 mg/dL AO ADM SS Comment on above: Interpretive Data: C holesterol Reference Interval: Less than 200 Desirable 200-239 Borderline high risk 240 and above High risk Cholesterol in HDL [Mass/Vol] 66 mg/dL High 40 - 60 mg/dL AO ADM SS Cholesterol in LDL [Mass/Vol] 41 mg/dL Normal 0 - 130 mg/dL AO ADM SS Triglyceride [Mass/Vol] 51 mg/dL Normal 0 - 150 mg/dL AO ADM SS Comment on above: Interpretive Data: T riglyceride Reference Interval: Less than 150 Normal 150-199 Borderline high risk 200-499 High risk 500 or higher Very high risk LIPIDon 08-13-2024 Cholesterol [Mass/Vol] 117 mg/dL Normal 0-200 [facility] Comment on above: Result Comment: Chol esterol Reference Interval: Less than 200 Desirable 200-239 Borderline high risk 240 and above High risk Performed By: #### A RIVER, PBNP, ADIFF, BMP, TSHR, GFR, CBC, LIPID #### [address] [address] Cholesterol in HDL [Mass/Vol] 66 mg/dL High 40-60 [facility] Comment on above: Performed By: #### A RIVER, PBNP, ADIFF, BMP, TSHR, GFR, CBC, LIPID #### [address] [place], [place] [address] Cholesterol in LDL [Mass/Vol] 41 mg/dL Normal 0-130 [facility] Comment on above: Performed By: #### A RIVER, PBNP, ADIFF, BMP, TSHR, GFR, CBC, LIPID #### [address] [place], [place] [address] Triglyceride [Mass/Vol] 51 mg/dL Normal 0-150 [facility] Comment on above: Result Comment: Trig lyceride Reference Interval: Less than 150 Normal 150-199 Borderline high risk 200-499 High risk 500 or higher Very high risk Performed By: #### A RIVER, PBNP, ADIFF, BMP, TSHR, GFR, CBC, LIPID #### [place] [address] PBNPon 08-13-2024 Natriuretic peptide B (Bld) [Mass/Vol] 105 pg/mL Normal 0-125 [facility] Comment on above: Result Comment: NT-p roBNP results of less than 300 pg/mL effectively rules out acute congestive heart failure with 99% negative predictive value. Performed By: #### A RIVER, PBNP, ADIFF, BMP, TSHR, GFR, CBC, LIPID #### [place] [address] TSHRon 08-13-2024 TSH Qn 3.54 m[IU]/L Normal 0.36-3.74 [facility] Comment on above: Performed By: #### A RIVER, PBNP, ADIFF, BMP, TSHR, GFR, CBC, LIPID #### [place] [address] FT4on 05-30-2024 Free T4 [Mass/Vol] 1.07 ng/dL Normal 0.76-1.46 [facility] Comment on above: Order Comment: Order ed by Discern Performed By: #### B MP, GFR #### [place] [address] LABORATORYOrdered By: SYSTEM SYSTEM on 05-30-2024 Free T4 [Mass/Vol] 1.07 ng/dL Normal 0.76 - 1. 46 ng/dL AO ADM SS TSH Qn 4.25 m[IU]/L High 0.36 - 3.74 mcIU/mL AO ADM SS TSHRon 05-30-2024 TSH Qn 4.25 m[IU]/L High 0.36-3.74 [facility] Comment on above: Performed By: #### B MP, GFR #### [address] [address] .GFRon 04-01-2024 GFR 96 ml/min/1.73sqm Normal [facility] Comment on above: Result Comment: GFR Population mean for , Non- Americans Ages 20-29 = 116 mL/min/1.73 sq.m. Ages 30-39 = 107 mL/min/1.73 sq.m. Ages 40-49 = 99 mL/min/1.73 sq.m. Ages 50-59 = 93 mL/min/1.73 sq.m. Ages 60-69 = 85 mL/min/1.73 sq.m. Ages 70+ = 75 mL/min/1.73 sq.m. Chronic Kidney Disease: Less than 60 mL/min/1.73 square meters End Stage Renal Disease: Less than 15 mL/min/1.73 square meters Performed By: #### B MP, GFR #### [address] [address] GFR Non- 79 ml/min/1.73sqm Normal [facility] Comment on above: Result Comment: GFR Population mean for , Non- Americans Ages 20-29 = 116 mL/min/1.73 sq.m. Ages 30-39 = 107 mL/min/1.73 sq.m. Ages 40-49 = 99 mL/min/1.73 sq.m. Ages 50-59 = 93 mL/min/1.73 sq.m. Ages 60-69 = 85 mL/min/1.73 sq.m. Ages 70+ = 75 mL/min/1.73 sq.m. Chronic Kidney Disease: Less than 60 mL/min/1.73 square meters End Stage Renal Disease: Less than 15 mL/min/1.73 square meters Performed By: #### B MP, GFR #### [address] [address] CMPon 04-01-2024 Albumin Level 4.2 G/dL Normal 3.5-5.0 [facility] Comment on above: Performed By: #### B MP, GFR #### [address] [address] Albumin/Globulin [Mass ratio] 1.5 {ratio} Normal 1.1-2.5 [facility] Comment on above: Performed By: #### B MP, GFR #### [address] [address] ALP [Catalytic activity/Vol] 82 U/L Normal 40-135 [facility] Comment on above: Performed By: #### B MP, GFR #### [address] [address] ALT [Catalytic activity/Vol] 29 U/L Normal 16-63 [facility] Comment on above: Performed By: #### B MP, GFR #### [address] [address] AST [Catalytic activity/Vol] 14 U/L Normal 10-40 [facility] Comment on above: Performed By: #### B MP, GFR #### [address] [address] Bili Total 0.4 mg/dL Normal 0.2-1.0 [facility] Comment on above: Result Comment: Use of this assay is not recommended for patients undergoing treatment with eltrombopag due to the potential for falsely elevated results. Performed By: #### B MP, GFR #### [address] [address] BUN/Creatinine Ratio 13 ratio Normal 7-27 [place] Comment on above: Performed By: #### B MP, GFR #### [address] [address] Calcium [Mass/Vol] 9.5 mg/dL Normal 8.4-10.2 [facility] Comment on above: Performed By: #### B MP, GFR #### [address] [address] Chloride [Moles/Vol] 103 mmol/L Normal 98-107 [place] Comment on above: Performed By: #### B MP, GFR #### [address] [address] CO2 [Moles/Vol] 32 mmol/L High 22-29 [facility] Comment on above: Performed By: #### B MP, GFR #### [address] [address] Creatinine [Mass/Vol] 0.98 mg/dL Normal 0.70-1.30 [facility] Comment on above: Result Comment: Test ing performed on Siemens Dimension EXL analyzer using a modified kinetic Anastasiia technique. Performed By: #### B MP, GFR #### [address] [address] Electrolyte Balance 5.0 mEq/L Normal 4.0-15.0 [facility] Comment on above: Performed By: #### B MP, GFR #### [place] [address] Globulin 2.8 G/dL Normal [facility] Comment on above: Performed By: #### B MP, GFR #### [place] [address] Glucose [Mass/Vol] 70 mg/dL Normal 70-105 [facility] Comment on above: Performed By: #### B MP, GFR #### [address] [address] Potassium [Moles/Vol] 4.6 mmol/L Normal 3.5-5.1 [facility] Comment on above: Performed By: #### B MP, GFR #### [address] [address] Sodium [Moles/Vol] 140 mmol/L Normal 136-145 [facility] Comment on above: Performed By: #### B MP, GFR #### [address] [address] Total Protein 7.0 G/dL Normal 6.4-8.2 [facility] Comment on above: Performed By: #### B MP, GFR #### [address] [address] Urea nitrogen [Mass/Vol] 13 mg/dL Normal 7-18 [facility] Comment on above: Performed By: #### B MP, GFR #### [address] [place], [place] [address] FT4on 04-01-2024 Free T4 [Mass/Vol] 0.87 ng/dL Normal 0.76-1.46 [facility] Comment on above: Order Comment: Order ed by Discern Performed By: #### B MP, GFR #### [address] [place], [place] [address] LABORATORYOrdered By: SYSTEM SYSTEM on 04-01-2024 25-hydroxyvitamin D3 [Mass/Vol] 41.6 ng/mL Invalid Interpretation Code AO ADM SS Comment on above: Interpretive Data: I nterpretive Values Based on Total 25(OH) Vitamin D: Deficient <20 ng/mL Insufficient 20 - <30 ng/mL Sufficient 30-100 ng/mL Albumin BCP dye [Mass/Vol] 4.2 G/dL Normal 3.5 - 5.0 G/dL AO ADM SS Albumin/Globulin [Mass ratio] 1.5 {ratio} Normal 1.1 - 2.5 ratio AO ADM SS ALP [Catalytic activity/Vol] 82 U/L Normal 40 - 135 U/L AO ADM SS ALT With P-5'-P [Catalytic activity/Vol] 29 U/L Normal 16 - 63 U/L AO ADM SS AST With P-5'-P [Catalytic activity/Vol] 14 U/L Normal 10 - 40 U/L AO ADM SS Bilirubin [Mass/Vol] 0.4 mg/dL Normal 0.2 - 1 .0 mg/dL AO ADM SS Comment on above: Interpretive Data: U se of this assay is not recommended for patients undergoing treatment with eltrombopag due to the potential for falsely elevated results. Calcium [Mass/Vol] 9.5 mg/dL Normal 8.4 - 10. 2 mg/dL AO ADM SS Chloride [Moles/Vol] 103 mmol/L Normal 98 - 10 7 mmol/L AO ADM SS CO2 [Moles/Vol] 32 mmol/L High 22 - 29 mmol/L AO ADM SS Creatinine [Mass/Vol] 0.98 mg/dL Normal 0.70 - 1.30 mg/dL AO ADM SS Comment on above: Interpretive Data: T esting performed on i[employer] Dimension EXL analyzer using a modified kinetic Anastasiia technique. Electrolyte Balance 5.0 mEq/L Normal 4.0 - 15 .0 mEq/L AO ADM SS Free T4 [Mass/Vol] 0.87 ng/dL Normal 0.76 - 1. 46 ng/dL AO ADM SS GFR/1.73 sq M.predicted among blacks MDRD (S/P/Bld) [Vol rate/Area] 96 ml/min/1.73sqm Invalid Interpretation Code AO Chemistry S Comment on above: Interpretive Data: GFR Population mean for , Non- Americans Ages 20-29 = 116 mL/min/1.73 sq.m. Ages 30-39 = 107 mL/min/1.73 sq.m. Ages 40-49 = 99 mL/min/1.73 sq.m. Ages 50-59 = 93 mL/min/1.73 sq.m. Ages 60-69 = 85 mL/min/1.73 sq.m. Ages 70+ = 75 mL/min/1.73 sq.m. Chronic Kidney Disease: Less than 60 mL/min/1.73 square meters End Stage Renal Disease: Less than 15 mL/min/1.73 square meters GFR/1.73 sq M.predicted among non-blacks MDRD (S/P/Bld) [Vol rate/Area] 79 ml/min/1.73sqm Invalid Interpretation Code AO Chemistry S Comment on above: Interpretive Data: GFR Population mean for , Non- Americans Ages 20-29 = 116 mL/min/1.73 sq.m. Ages 30-39 = 107 mL/min/1.73 sq.m. Ages 40-49 = 99 mL/min/1.73 sq.m. Ages 50-59 = 93 mL/min/1.73 sq.m. Ages 60-69 = 85 mL/min/1.73 sq.m. Ages 70+ = 75 mL/min/1.73 sq.m. Chronic Kidney Disease: Less than 60 mL/min/1.73 square meters End Stage Renal Disease: Less than 15 mL/min/1.73 square meters Globulin 2.8 G/dL Invalid Interpretation Code AO ADM SS Glucose [Mass/Vol] 70 mg/dL Normal 70 - 105 mg/dL AO ADM SS Potassium [Moles/Vol] 4.6 mmol/L Normal 3.5 - 5.1 mmol/L AO ADM SS Prostate specific Ag [Mass/Vol] 2.19 ng/mL Normal 0.00 - 4.00 ng/mL AO ADM SS Protein [Mass/Vol] 7.0 G/dL Normal 6.4 - 8.2 G/dL AO ADM SS Sodium [Moles/Vol] 140 mmol/L Normal 136 - 145 mmol/L AO ADM SS TSH Qn 15.68 m[IU]/L High 0.36 - 3.74 mcIU/mL AO ADM SS Urea nitrogen [Mass/Vol] 13 mg/dL Normal 7 - 18 mg/dL AO ADM SS Urea nitrogen/Creatinine [Mass ratio] 13 ratio Normal 7 - 27 ratio AO ADM SS PSAon 04-01-2024 Prostate Specific Antigen 2.19 ng/mL Normal 0.00-4.00 [facility] Comment on above: Performed By: #### B MP, GFR #### [place] [address] TSHRon 04-01-2024 TSH Qn 15.68 m[IU]/L High 0.36-3.74 [facility] Comment on above: Performed By: #### B MP, GFR #### [address] [address] VIDHon 04-01-2024 Vit. D 25-Hydroxy 41.6 ng/mL Normal [facility] Comment on above: Result Comment: Inte rpretive Values Based on Total 25(OH) Vitamin D: Deficient <20 ng/mL Insufficient 20 - <30 ng/mL Sufficient 30-100 ng/mL Performed By: #### B MP, GFR #### [address] [address] .GFRon 01-15-2024 GFR 107 ml/min/1.73sqm Normal [facility] Comment on above: Result Comment: GFR Population mean for , Non- Americans Ages 20-29 = 116 mL/min/1.73 sq.m. Ages 30-39 = 107 mL/min/1.73 sq.m. Ages 40-49 = 99 mL/min/1.73 sq.m. Ages 50-59 = 93 mL/min/1.73 sq.m. Ages 60-69 = 85 mL/min/1.73 sq.m. Ages 70+ = 75 mL/min/1.73 sq.m. Chronic Kidney Disease: Less than 60 mL/min/1.73 square meters End Stage Renal Disease: Less than 15 mL/min/1.73 square meters Performed By: #### B MP, GFR #### [address] [address] GFR Non- 88 ml/min/1.73sqm Normal [facility] Comment on above: Result Comment: GFR Population mean for , Non- Americans Ages 20-29 = 116 mL/min/1.73 sq.m. Ages 30-39 = 107 mL/min/1.73 sq.m. Ages 40-49 = 99 mL/min/1.73 sq.m. Ages 50-59 = 93 mL/min/1.73 sq.m. Ages 60-69 = 85 mL/min/1.73 sq.m. Ages 70+ = 75 mL/min/1.73 sq.m. Chronic Kidney Disease: Less than 60 mL/min/1.73 square meters End Stage Renal Disease: Less than 15 mL/min/1.73 square meters Performed By: #### B MP, GFR #### [address] [address] BMPon 01-15-2024 BUN/Creatinine Ratio 11 ratio Normal 7-27 [place] Comment on above: Performed By: #### B MP, GFR #### [address] [address] Calcium [Mass/Vol] 9.1 mg/dL Normal 8.4-10.2 [facility] Comment on above: Performed By: #### B MP, GFR #### [address] [address] Chloride [Moles/Vol] 103 mmol/L Normal 98-107 [place] Comment on above: Performed By: #### B MP, GFR #### [address] [address] CO2 [Moles/Vol] 30 mmol/L High 22-29 [facility] Comment on above: Performed By: #### B MP, GFR #### [place] [id number] Creatinine [Mass/Vol] 0.89 mg/dL Normal 0.70-1.30 [facility] Comment on above: Result Comment: Test ing performed on Siemens Dimension EXL analyzer using a modified kinetic Anastasiia technique. Performed By: #### B MP, GFR #### [place] [id number] Electrolyte Balance 6.0 mEq/L Normal 4.0-15.0 [facility] Comment on above: Performed By: #### B MP, GFR #### [place] [address] Glucose [Mass/Vol] 85 mg/dL Normal 70-105 [facility] Comment on above: Performed By: #### B MP, GFR #### [place] [id number] Potassium [Moles/Vol] 5.0 mmol/L Normal 3.5-5.1 [facility] Comment on above: Performed By: #### B MP, GFR #### [place] [address] Sodium [Moles/Vol] 139 mmol/L Normal 136-145 [facility] Comment on above: Performed By: #### B MP, GFR #### [place] [address] Urea nitrogen [Mass/Vol] 10 mg/dL Normal 7-18 [facility] Comment on above: Performed By: #### B MP, GFR #### [place] [address] LABORATORYOrdered By: SYSTEM SYSTEM on 01-15-2024 Calcium [Mass/Vol] 9.1 mg/dL Normal 8.4 - 10. 2 mg/dL AO ADM SS Chloride [Moles/Vol] 103 mmol/L Normal 98 - 10 7 mmol/L AO ADM SS CO2 [Moles/Vol] 30 mmol/L High 22 - 29 mmol/L AO ADM SS Creatinine [Mass/Vol] 0.89 mg/dL Normal 0.70 - 1.30 mg/dL AO ADM SS Comment on above: Interpretive Data: T esting performed on Siemens Dimension EXL analyzer using a modified kinetic Anastasiia technique. Electrolyte Balance 6.0 mEq/L Normal 4.0 - 15 .0 mEq/L AO ADM SS GFR/1.73 sq M.predicted among blacks MDRD (S/P/Bld) [Vol rate/Area] 107 ml/min/1.73sqm Invalid Interpretation Code AO Chemistry S Comment on above: Interpretive Data: GFR Population mean for , Non- Americans Ages 20-29 = 116 mL/min/1.73 sq.m. Ages 30-39 = 107 mL/min/1.73 sq.m. Ages 40-49 = 99 mL/min/1.73 sq.m. Ages 50-59 = 93 mL/min/1.73 sq.m. Ages 60-69 = 85 mL/min/1.73 sq.m. Ages 70+ = 75 mL/min/1.73 sq.m. Chronic Kidney Disease: Less than 60 mL/min/1.73 square meters End Stage Renal Disease: Less than 15 mL/min/1.73 square meters GFR/1.73 sq M.predicted among non-blacks MDRD (S/P/Bld) [Vol rate/Area] 88 ml/min/1.73sqm Invalid Interpretation Code AO Chemistry S Comment on above: Interpretive Data: GFR Population mean for , Non- Americans Ages 20-29 = 116 mL/min/1.73 sq.m. Ages 30-39 = 107 mL/min/1.73 sq.m. Ages 40-49 = 99 mL/min/1.73 sq.m. Ages 50-59 = 93 mL/min/1.73 sq.m. Ages 60-69 = 85 mL/min/1.73 sq.m. Ages 70+ = 75 mL/min/1.73 sq.m. Chronic Kidney Disease: Less than 60 mL/min/1.73 square meters End Stage Renal Disease: Less than 15 mL/min/1.73 square meters Glucose [Mass/Vol] 85 mg/dL Normal 70 - 105 mg/dL AO ADM SS Potassium [Moles/Vol] 5.0 mmol/L Normal 3.5 - 5.1 mmol/L AO ADM SS Sodium [Moles/Vol] 139 mmol/L Normal 136 - 145 mmol/L AO ADM SS Urea nitrogen [Mass/Vol] 10 mg/dL Normal 7 - 18 mg/dL AO ADM SS Urea nitrogen/Creatinine [Mass ratio] 11 ratio Normal 7 - 27 ratio AO ADM SS LABORATORYOrdered By: Star Ellis on 12-22-2023 Cholesterol [Mass/Vol] 109 mg/dL Normal 0 - 200 mg/dL AO ADM SS Comment on above: Interpretive Data: C holesterol Reference Interval: Less than 200 Desirable 200-239 Borderline high risk 240 and above High risk Cholesterol in HDL [Mass/Vol] 66 mg/dL High 40 - 60 mg/dL AO ADM SS Cholesterol in LDL [Mass/Vol] 36 mg/dL Normal 0 - 130 mg/dL AO ADM SS Triglyceride [Mass/Vol] 33 mg/dL Normal 0 - 150 mg/dL AO ADM SS Comment on above: Interpretive Data: T riglyceride Reference Interval: Less than 150 Normal 150-199 Borderline high risk 200-499 High risk 500 or higher Very high risk LABORATORYOrdered By: SYSTEM SYSTEM on 12-22-2023 Natriuretic peptide.B prohormone N-Terminal [Mass/Vol] 414 pg/mL High 0 - 125 pg/mL AO ADM SS Comment on above: Interpretive Data: N T-proBNP results of less than 300 pg/mL effectively rules out acute congestive heart failure with 99% negative predictive value. .GFRon 09-25-2023 GFR 98 ml/min/1.73sqm Normal [facility] ([place]) Comment on above: Result Comment: GFR Population mean for , Non- Americans Ages 20-29 = 116 mL/min/1.73 sq.m. Ages 30-39 = 107 mL/min/1.73 sq.m. Ages 40-49 = 99 mL/min/1.73 sq.m. Ages 50-59 = 93 mL/min/1.73 sq.m. Ages 60-69 = 85 mL/min/1.73 sq.m. Ages 70+ = 75 mL/min/1.73 sq.m.Chronic Kidney Disease: Less than 60 mL/min/1.73 square metersEnd Stage Renal Disease: Less than 15 mL/min/1.73 square meters Performed By: #### G FR, CMP ####[id number] [place], [place] [address] GFR Non- 81 ml/min/1.73sqm Normal [facility] ([place]) Comment on above: Result Comment: GFR Population mean for , Non- Americans Ages 20-29 = 116 mL/min/1.73 sq.m. Ages 30-39 = 107 mL/min/1.73 sq.m. Ages 40-49 = 99 mL/min/1.73 sq.m. Ages 50-59 = 93 mL/min/1.73 sq.m. Ages 60-69 = 85 mL/min/1.73 sq.m. Ages 70+ = 75 mL/min/1.73 sq.m.Chronic Kidney Disease: Less than 60 mL/min/1.73 square metersEnd Stage Renal Disease: Less than 15 mL/min/1.73 square meters Performed By: #### G FR, CMP ####[id number] [place], [place] [address] GFR Non- 83 ml/min/1.73sqm Normal [facility] ([place]) Comment on above: Result Comment: GFR Population mean for , Non- Americans Ages 20-29 = 116 mL/min/1.73 sq.m. Ages 30-39 = 107 mL/min/1.73 sq.m. Ages 40-49 = 99 mL/min/1.73 sq.m. Ages 50-59 = 93 mL/min/1.73 sq.m. Ages 60-69 = 85 mL/min/1.73 sq.m. Ages 70+ = 75 mL/min/1.73 sq.m.Chronic Kidney Disease: Less than 60 mL/min/1.73 square metersEnd Stage Renal Disease: Less than 15 mL/min/1.73 square meters Performed By: #### G FR, BMP, PBNP ####[id number] [place], [place] [address] GFR 101 ml/min/1.73sqm Normal [facility] ([place]) Comment on above: Result Comment: GFR Population mean for , Non- Americans Ages 20-29 = 116 mL/min/1.73 sq.m. Ages 30-39 = 107 mL/min/1.73 sq.m. Ages 40-49 = 99 mL/min/1.73 sq.m. Ages 50-59 = 93 mL/min/1.73 sq.m. Ages 60-69 = 85 mL/min/1.73 sq.m. Ages 70+ = 75 mL/min/1.73 sq.m.Chronic Kidney Disease: Less than 60 mL/min/1.73 square metersEnd Stage Renal Disease: Less than 15 mL/min/1.73 square meters Performed By: #### JOSE HWEELER PBNP ####[address] [place], [place] [address] BMPon 09-25-2023 BUN/Creatinine Ratio 10 ratio Normal 7-27 [facility] ([place]) Comment on above: Performed By: #### JOSE WHEELER PBNP ####[address] [place], [place] [address] Calcium [Mass/Vol] 9.4 mg/dL Normal 8.4-10.2 [facility] ([place]) Comment on above: Performed By: #### JOSE WHEELER PBNP ####[address] [place], [place] [address] Chloride [Moles/Vol] 98 mmol/L Normal 98-107 [facility] ([place] Comment on above: Performed By: #### JOSE WHEELER PBJAVED ####[address] [place], [place] [address] CO2 [Moles/Vol] 29 mmol/L Normal 22-29 [facility] ([place]) Comment on above: Performed By: #### JOSE WHEELER PBNP ####[address] [place], [place] [address] Creatinine [Mass/Vol] 0.94 mg/dL Normal 0.70-1.30 [facility] ([place]) Comment on above: Performed By: #### JOSE WHEELER PBNP ####[address] [place], [place] [address] Electrolyte Balance 5.0 mEq/L Normal 4.0-15.0 [facility] ([place]) Comment on above: Performed By: #### JOSE WHEELER, PBNP ####[address] [place], [place] [address] Glucose [Mass/Vol] 105 mg/dL Normal 70-105 [facility] ([place] Comment on above: Performed By: #### JOSE WHEELER, PBNP ####[address] [place], [place] [address] Potassium [Moles/Vol] 4.6 mmol/L Normal 3.5-5.1 [facility] ([place] Comment on above: Performed By: #### JOSE WHEELER, PBNP ####[address] [place], [place] [address] Sodium [Moles/Vol] 132 mmol/L Low 136-145 [facility] ([place] Comment on above: Performed By: #### JOSE WHEELER, PBNP ####[address] [place], [place] [address] Urea nitrogen [Mass/Vol] 9 mg/dL Normal 7-18 [facility] ([place] Comment on above: Performed By: #### JOSE WHEELER, PBNP ####[address] [place], [place] [address] CMPon 09-25-2023 Albumin Level 4.2 G/dL Normal 3.5-5.0 [facility] ([place] Comment on above: Performed By: #### Jaron STEVENS, CMP ####[address] [place], [place] [address] Albumin/Globulin [Mass ratio] 1.4 {ratio} Normal 1.1-2.5 [facility] ([place] Comment on above: Performed By: #### Jaron STEVENS, CMP ####[address] [place], [place] [address] ALP [Catalytic activity/Vol] 97 U/L Normal 40-135 [facility] ([place] Comment on above: Performed By: #### Jaron STEVENS, CMP ####[address] [place], [place] [address] ALT [Catalytic activity/Vol] 32 U/L Normal 16-63 [facility] ([place] Comment on above: Performed By: #### Jaron STEVENS, CMP ####[address] [place], [place] [address] AST [Catalytic activity/Vol] 19 U/L Normal 10-40 [facility] ([place] Comment on above: Performed By: #### Jaron STEVENS, CMP ####[id number] [place], [place] [address] Bili Total 0.4 mg/dL Normal 0.2-1.0 [facility] ([place]) Comment on above: Result Comment: Use of this assay is not recommended for patients undergoing treatment with eltrombopag due to the potential for falsely elevated results. Performed By: #### Jaron STEVENS, CMP ####[address] [place], [place] [address] BUN/Creatinine Ratio 8 ratio Normal 7-27 [facility] ([place] Comment on above: Performed By: #### Jaron STEVENS, CMP ####[id number] [place], [place] [address] Calcium [Mass/Vol] 9.3 mg/dL Normal 8.4-10.2 [facility] ([place] Comment on above: Performed By: #### Jaron STEVENS, CMP ####[address] [place], [place] [address] Chloride [Moles/Vol] 100 mmol/L Normal 98-107 [facility] ([place] Comment on above: Performed By: #### Jaron STEVENS, CMP ####[id number] [place], [place] [address] CO2 [Moles/Vol] 28 mmol/L Normal 22-29 [facility] ([place] Comment on above: Performed By: #### Jaron STEVENS, CMP ####[id number] [place], [place] [address] Creatinine [Mass/Vol] 0.96 mg/dL Normal 0.70-1.30 [facility] ([place] Comment on above: Performed By: #### Jaron STEVENS, CMP ####[id number] [place], [place] [address] Electrolyte Balance 7.0 mEq/L Normal 4.0-15.0 [facility] ([place]) Comment on above: Performed By: #### Jaron STEVENS, CMP ####[address] [place], [place] [address] Globulin 3.1 G/dL Normal [facility] ([place] Comment on above: Performed By: #### Jaron STEVENS, CMP ####[address] [place], [place] [address] Glucose [Mass/Vol] 105 mg/dL Normal 70-105 [facility] ([place] Comment on above: Performed By: #### Jaron STEVENS, CMP ####[address] [place], [place] [address] Potassium [Moles/Vol] 4.8 mmol/L Normal 3.5-5.1 [facility] ([place] Comment on above: Performed By: #### Jaron STEVENS, CMP ####[address] [place], [place] [address] Sodium [Moles/Vol] 135 mmol/L Low 136-145 [facility] ([place] Comment on above: Performed By: #### Jaron STEVENS, CMP ####[address] [place], [place] [address] Total Protein 7.3 G/dL Normal 6.4-8.2 [facility] ([place] Comment on above: Performed By: #### Jaron STEVENS, CMP ####[address] [place], [place] [address] Urea nitrogen [Mass/Vol] 8 mg/dL Normal 7-18 [facility] ([place] Comment on above: Performed By: #### Jaron STEVENS, CMP ####[id number] [place], [place] [address] LABORATORYOrdered By: SYSTEM SYSTEM on 09-25-2023 Albumin BCP dye [Mass/Vol] 4.2 G/dL Normal 3.5 - 5.0 G/dL AO ADM SS Albumin/Globulin [Mass ratio] 1.4 {ratio} Normal 1.1 - 2.5 ratio AO ADM SS ALP [Catalytic activity/Vol] 97 U/L Normal 40 - 135 U/L AO ADM SS ALT With P-5'-P [Catalytic activity/Vol] 32 U/L Normal 16 - 63 U/L AO ADM SS AST With P-5'-P [Catalytic activity/Vol] 19 U/L Normal 10 - 40 U/L AO ADM SS Bilirubin [Mass/Vol] 0.4 mg/dL Normal 0.2 - 1 .0 mg/dL AO ADM SS Comment on above: Interpretive Data: U se of this assay is not recommended for patients undergoing treatment with eltrombopag due to the potential for falsely elevated results. Calcium [Mass/Vol] 9.3 mg/dL Normal 8.4 - 10. 2 mg/dL AO ADM SS Chloride [Moles/Vol] 100 mmol/L Normal 98 - 10 7 mmol/L AO ADM SS CO2 [Moles/Vol] 28 mmol/L Normal 22 - 29 mmol/L AO ADM SS Creatinine [Mass/Vol] 0.96 mg/dL Normal 0.70 - 1.30 mg/dL AO ADM SS Electrolyte Balance 7.0 mEq/L Normal 4.0 - 15 .0 mEq/L AO ADM SS GFR/1.73 sq M.predicted among blacks MDRD (S/P/Bld) [Vol rate/Area] 98 ml/min/1.73sqm Invalid Interpretation Code AO Chemistry S Comment on above: Interpretive Data: GFR Population mean for , Non- Americans Ages 20-29 = 116 mL/min/1.73 sq.m. Ages 30-39 = 107 mL/min/1.73 sq.m. Ages 40-49 = 99 mL/min/1.73 sq.m. Ages 50-59 = 93 mL/min/1.73 sq.m. Ages 60-69 = 85 mL/min/1.73 sq.m. Ages 70+ = 75 mL/min/1.73 sq.m. Chronic Kidney Disease: Less than 60 mL/min/1.73 square meters End Stage Renal Disease: Less than 15 mL/min/1.73 square meters GFR/1.73 sq M.predicted among non-blacks MDRD (S/P/Bld) [Vol rate/Area] 81 ml/min/1.73sqm Invalid Interpretation Code AO Chemistry S Comment on above: Interpretive Data: GFR Population mean for , Non- Americans Ages 20-29 = 116 mL/min/1.73 sq.m. Ages 30-39 = 107 mL/min/1.73 sq.m. Ages 40-49 = 99 mL/min/1.73 sq.m. Ages 50-59 = 93 mL/min/1.73 sq.m. Ages 60-69 = 85 mL/min/1.73 sq.m. Ages 70+ = 75 mL/min/1.73 sq.m. Chronic Kidney Disease: Less than 60 mL/min/1.73 square meters End Stage Renal Disease: Less than 15 mL/min/1.73 square meters Globulin 3.1 G/dL Invalid Interpretation Code AO ADM SS Glucose [Mass/Vol] 105 mg/dL Normal 70 - 105 mg/dL AO ADM SS Potassium [Moles/Vol] 4.8 mmol/L Normal 3.5 - 5.1 mmol/L AO ADM SS Protein [Mass/Vol] 7.3 G/dL Normal 6.4 - 8.2 G/dL AO ADM SS Sodium [Moles/Vol] 135 mmol/L Low 136 - 145 mmol/L AO ADM SS Urea nitrogen [Mass/Vol] 8 mg/dL Normal 7 - 18 mg/dL AO ADM SS Urea nitrogen/Creatinine [Mass ratio] 8 ratio Normal 7 - 27 ratio AO ADM SS Calcium [Mass/Vol] 9.4 mg/dL Normal 8.4 - 10. 2 mg/dL AO ADM SS Chloride [Moles/Vol] 98 mmol/L Normal 98 - 10 7 mmol/L AO ADM SS CO2 [Moles/Vol] 29 mmol/L Normal 22 - 29 mmol/L AO ADM SS Creatinine [Mass/Vol] 0.94 mg/dL Normal 0.70 - 1.30 mg/dL AO ADM SS Electrolyte Balance 5.0 mEq/L Normal 4.0 - 15 .0 mEq/L AO ADM SS GFR/1.73 sq M.predicted among blacks MDRD (S/P/Bld) [Vol rate/Area] 101 ml/min/1.73sqm Invalid Interpretation Code AO Chemistry S Comment on above: Interpretive Data: GFR Population mean for , Non- Americans Ages 20-29 = 116 mL/min/1.73 sq.m. Ages 30-39 = 107 mL/min/1.73 sq.m. Ages 40-49 = 99 mL/min/1.73 sq.m. Ages 50-59 = 93 mL/min/1.73 sq.m. Ages 60-69 = 85 mL/min/1.73 sq.m. Ages 70+ = 75 mL/min/1.73 sq.m. Chronic Kidney Disease: Less than 60 mL/min/1.73 square meters End Stage Renal Disease: Less than 15 mL/min/1.73 square meters GFR/1.73 sq M.predicted among non-blacks MDRD (S/P/Bld) [Vol rate/Area] 83 ml/min/1.73sqm Invalid Interpretation Code AO Chemistry S Comment on above: Interpretive Data: GFR Population mean for , Non- Americans Ages 20-29 = 116 mL/min/1.73 sq.m. Ages 30-39 = 107 mL/min/1.73 sq.m. Ages 40-49 = 99 mL/min/1.73 sq.m. Ages 50-59 = 93 mL/min/1.73 sq.m. Ages 60-69 = 85 mL/min/1.73 sq.m. Ages 70+ = 75 mL/min/1.73 sq.m. Chronic Kidney Disease: Less than 60 mL/min/1.73 square meters End Stage Renal Disease: Less than 15 mL/min/1.73 square meters Glucose [Mass/Vol] 105 mg/dL Normal 70 - 105 mg/dL AO ADM SS Natriuretic peptide.B prohormone N-Terminal [Mass/Vol] 290 pg/mL High 0 - 125 pg/mL AO ADM SS Comment on above: Interpretive Data: N T-proBNP results of less than 300 pg/mL effectively rules out acute congestive heart failure with 99% negative predictive value. Potassium [Moles/Vol] 4.6 mmol/L Normal 3.5 - 5.1 mmol/L AO ADM SS Sodium [Moles/Vol] 132 mmol/L Low 136 - 145 mmol/L AO ADM SS Urea nitrogen [Mass/Vol] 9 mg/dL Normal 7 - 18 mg/dL AO ADM SS Urea nitrogen/Creatinine [Mass ratio] 10 ratio Normal 7 - 27 ratio AO ADM SS PBNPon 09-25-2023 Natriuretic peptide B (Bld) [Mass/Vol] 290 pg/mL High 0-125 [facility] ([place]) Comment on above: Result Comment: NT-p roBNP results of less than 300 pg/mL effectivelyrules out acute congestive heart failure with 99% negative predictive value. Performed By: #### G FR, BMP, PBNP ####[address] [place], [place] [address] .GFRon 09-04-2023 GFR 93 ml/min/1.73sqm Normal [facility] ([place]) Comment on above: Result Comment: GFR Population mean for , Non- Americans Ages 20-29 = 116 mL/min/1.73 sq.m. Ages 30-39 = 107 mL/min/1.73 sq.m. Ages 40-49 = 99 mL/min/1.73 sq.m. Ages 50-59 = 93 mL/min/1.73 sq.m. Ages 60-69 = 85 mL/min/1.73 sq.m. Ages 70+ = 75 mL/min/1.73 sq.m.Chronic Kidney Disease: Less than 60 mL/min/1.73 square metersEnd Stage Renal Disease: Less than 15 mL/min/1.73 square meters Performed By: #### T 4 ####[place] [address]#### PBNP, CMP, GFR, TSH ####[id number] [place] [id number] GFR Non- 76 ml/min/1.73sqm Normal [facility] ([place]) Comment on above: Result Comment: GFR Population mean for , Non- Americans Ages 20-29 = 116 mL/min/1.73 sq.m. Ages 30-39 = 107 mL/min/1.73 sq.m. Ages 40-49 = 99 mL/min/1.73 sq.m. Ages 50-59 = 93 mL/min/1.73 sq.m. Ages 60-69 = 85 mL/min/1.73 sq.m. Ages 70+ = 75 mL/min/1.73 sq.m.Chronic Kidney Disease: Less than 60 mL/min/1.73 square metersEnd Stage Renal Disease: Less than 15 mL/min/1.73 square meters Performed By: #### T 4 ####[place] [address]#### PBNP, CMP, GFR, TSH ####[address] [place], [place] [address] CMPon 09-04-2023 Albumin Level 3.8 G/dL Normal 3.5-5.0 [facility] ([place]) Comment on above: Performed By: #### T 4 ####[place] [address]#### PBNP, CMP, GFR, TSH ####[address] [place], [place] [address] Albumin/Globulin [Mass ratio] 1.1 {ratio} Normal 1.1-2.5 [facility] ([place]) Comment on above: Performed By: #### T 4 ####[place] [address]#### PBNP, CMP, GFR, TSH ####[address] [place], [place] [address] ALP [Catalytic activity/Vol] 134 U/L Normal 40-135 [facility] ([place]) Comment on above: Performed By: #### T 4 ####[place] [address]#### PBNP, CMP, GFR, TSH ####[address] [place], [place] [address] ALT [Catalytic activity/Vol] 41 U/L Normal 16-63 [facility] ([place]) Comment on above: Performed By: #### T 4 ####[place] [address]#### PBNP, CMP, GFR, TSH ####[address] [place], [place] [address] AST [Catalytic activity/Vol] 18 U/L Normal 10-40 [facility] ([place]) Comment on above: Performed By: #### T 4 ####[place] [address]#### PBNP, CMP, GFR, TSH ####[employer] [address] [place], [place] [address] Bili Total 0.2 mg/dL Normal 0.2-1.0 [facility] ([place]) Comment on above: Result Comment: Use of this assay is not recommended for patients undergoing treatment with eltrombopag due to the potential for falsely elevated results. Performed By: #### T 4 ####[place] [address]#### PBNP, CMP, GFR, TSH ####[place] [address] [place], [place] [address] BUN/Creatinine Ratio 10 ratio Normal 7-27 [facility] ([place]) Comment on above: Performed By: #### T 4 ####[place] [address]#### PBNP, CMP, GFR, TSH ####[place] [address] [place] [id number] Calcium [Mass/Vol] 9.2 mg/dL Normal 8.4-10.2 [facility] ([place]) Comment on above: Performed By: #### T 4 ####[place] [address]#### PBNP, CMP, GFR, TSH ####[facility] [place], [place] [address] Chloride [Moles/Vol] 102 mmol/L Normal 98-107 [facility] ([place]) Comment on above: Performed By: #### T 4 ####[place] [address]#### PBNP, CMP, GFR, TSH ####[facility] [place], [place] [address] CO2 [Moles/Vol] 25 mmol/L Normal 22-29 [facility] ([place]) Comment on above: Performed By: #### T 4 ####[place] [address]#### PBNP, CMP, GFR, TSH ####[facility] [place], [place] [address] Creatinine [Mass/Vol] 1.01 mg/dL Normal 0.70-1.30 [facility] ([place]) Comment on above: Performed By: #### T 4 ####[address] [address]#### PBNP, CMP, GFR, TSH ####[place] [address] [place], [place] [address] Electrolyte Balance 12.0 mEq/L Normal 4.0-15.0 [facility] ([place]) Comment on above: Performed By: #### T 4 ####[place] [address]#### PBNP, CMP, GFR, TSH ####[place] [address] [place] [address] Globulin 3.6 G/dL Normal [facility] ([place]) Comment on above: Performed By: #### T 4 ####[place] [address]#### PBNP, CMP, GFR, TSH ####[place] [address] [place], [place] [address] Glucose [Mass/Vol] 125 mg/dL High 70-105 [facility] ([place]) Comment on above: Performed By: #### T 4 ####[place] [address]#### PBNP, CMP, GFR, TSH ####[address] [place], [place] [address] Potassium [Moles/Vol] 4.8 mmol/L Normal 3.5-5.1 [facility] ([place]) Comment on above: Performed By: #### T 4 ####[place] [address]#### PBNP, CMP, GFR, TSH ####[place] [address] [place], [place] [address] Sodium [Moles/Vol] 139 mmol/L Normal 136-145 [facility] ([place]) Comment on above: Performed By: #### T 4 ####[address] [address]#### PBNP, CMP, GFR, TSH ####[facility] [address] [place], [place] [address] Total Protein 7.4 G/dL Normal 6.4-8.2 [facility] ([place]) Comment on above: Performed By: #### T 4 ####[address] [address]#### PBNP, CMP, GFR, TSH ####[address] [place], [place] [address] Urea nitrogen [Mass/Vol] 10 mg/dL Normal 7-18 [facility] ([place]) Comment on above: Performed By: #### T 4 ####[place] [address]#### PBNP, CMP, GFR, TSH ####[address] [place], [place] [address] LABORATORYOrdered By: SYSTEM SYSTEM on 09-04-2023 Albumin BCP dye [Mass/Vol] 3.8 G/dL Normal 3.5 - 5.0 G/dL AO ADM SS Albumin/Globulin [Mass ratio] 1.1 {ratio} Normal 1.1 - 2.5 ratio AO ADM SS ALP [Catalytic activity/Vol] 134 U/L Normal 40 - 135 U/L AO ADM SS ALT With P-5'-P [Catalytic activity/Vol] 41 U/L Normal 16 - 63 U/L AO ADM SS AST With P-5'-P [Catalytic activity/Vol] 18 U/L Normal 10 - 40 U/L AO ADM SS Bilirubin [Mass/Vol] 0.2 mg/dL Normal 0.2 - 1 .0 mg/dL AO ADM SS Comment on above: Interpretive Data: U se of this assay is not recommended for patients undergoing treatment with eltrombopag due to the potential for falsely elevated results. Calcium [Mass/Vol] 9.2 mg/dL Normal 8.4 - 10. 2 mg/dL AO ADM SS Chloride [Moles/Vol] 102 mmol/L Normal 98 - 10 7 mmol/L AO ADM SS CO2 [Moles/Vol] 25 mmol/L Normal 22 - 29 mmol/L AO ADM SS Creatinine [Mass/Vol] 1.01 mg/dL Normal 0.70 - 1.30 mg/dL AO ADM SS Electrolyte Balance 12.0 mEq/L Normal 4.0 - 15 .0 mEq/L AO ADM SS GFR/1.73 sq M.predicted among blacks MDRD (S/P/Bld) [Vol rate/Area] 93 ml/min/1.73sqm Invalid Interpretation Code AO Chemistry S Comment on above: Interpretive Data: GFR Population mean for , Non- Americans Ages 20-29 = 116 mL/min/1.73 sq.m. Ages 30-39 = 107 mL/min/1.73 sq.m. Ages 40-49 = 99 mL/min/1.73 sq.m. Ages 50-59 = 93 mL/min/1.73 sq.m. Ages 60-69 = 85 mL/min/1.73 sq.m. Ages 70+ = 75 mL/min/1.73 sq.m. Chronic Kidney Disease: Less than 60 mL/min/1.73 square meters End Stage Renal Disease: Less than 15 mL/min/1.73 square meters GFR/1.73 sq M.predicted among non-blacks MDRD (S/P/Bld) [Vol rate/Area] 76 ml/min/1.73sqm Invalid Interpretation Code AO Chemistry S Comment on above: Interpretive Data: GFR Population mean for , Non- Americans Ages 20-29 = 116 mL/min/1.73 sq.m. Ages 30-39 = 107 mL/min/1.73 sq.m. Ages 40-49 = 99 mL/min/1.73 sq.m. Ages 50-59 = 93 mL/min/1.73 sq.m. Ages 60-69 = 85 mL/min/1.73 sq.m. Ages 70+ = 75 mL/min/1.73 sq.m. Chronic Kidney Disease: Less than 60 mL/min/1.73 square meters End Stage Renal Disease: Less than 15 mL/min/1.73 square meters Globulin 3.6 G/dL Invalid Interpretation Code AO ADM SS Glucose [Mass/Vol] 125 mg/dL High 70 - 105 mg/dL AO ADM SS Natriuretic peptide.B prohormone N-Terminal [Mass/Vol] 383 pg/mL High 0 - 125 pg/mL AO ADM SS Comment on above: Interpretive Data: N T-proBNP results of less than 300 pg/mL effectively rules out acute congestive heart failure with 99% negative predictive value. Potassium [Moles/Vol] 4.8 mmol/L Normal 3.5 - 5.1 mmol/L AO ADM SS Protein [Mass/Vol] 7.4 G/dL Normal 6.4 - 8.2 G/dL AO ADM SS Sodium [Moles/Vol] 139 mmol/L Normal 136 - 145 mmol/L AO ADM SS T4 [Mass/Vol] 12.7 ug/dL High 4.5 - 10.9 mcg/dL AH ADM SS Comment on above: Interpretive Data: * *Note - New Reference Range in effect 19 TSH Qn 8.47 m[IU]/L High 0.36 - 3.74 mcIU/mL AO ADM SS Urea nitrogen [Mass/Vol] 10 mg/dL Normal 7 - 18 mg/dL AO ADM SS Urea nitrogen/Creatinine [Mass ratio] 10 ratio Normal 7 - 27 ratio AO ADM SS PBNPon 09-04-2023 Natriuretic peptide B (Bld) [Mass/Vol] 383 pg/mL High 0-125 [facility] ([place]) Comment on above: Result Comment: NT-p roBNP results of less than 300 pg/mL effectivelyrules out acute congestive heart failure with 99% negative predictive value. Performed By: #### T 4 ####[place] [address]#### PBNP, CMP, GFR, TSH ####[address] [place], [place] [address] T409-04-2023 T4 [Mass/Vol] 12.7 ug/dL High 4.5-10.9 [facility] ([place]) Comment on above: Result Comment: No te - New Reference Range in effect 19 Performed By: #### T 4 ####[place] [address]#### PBNP, CMP, GFR, TSH ####[place] [address] [place], [place] [address] TSHon 09-04-2023 TSH Qn 8.47 m[IU]/L High 0.36-3.74 [facility] ([place]) Comment on above: Performed By: #### T 4 ####[place] [address]#### PBNP, CMP, GFR, TSH ####[facility] [place], [place] [address] CT THORAX W/O CONTRASTon CT THORAX W/O CONTRAST Normal [facility] ([place]) XR CHEST FLUOROSCOPY (SNIFF TEST)on 08-27-2023 XR CHEST FLUOROSCOPY (SNIFF TEST) Normal [facility] ([place]) .Auto Diffon 08-17-2023 Basophil, Absolute 0.1 10 3/mcL Normal 0.0-0.2 [facility] ([place]) Comment on above: Performed By: #### V IDH, ANEU, GFR, CMP, ADIFF, CBC ####[place] [address]#### B12 ####[place] [address] Basophils/100 WBC (Bld) 1.0 % Normal 0.0-2.5 [facility] ([place]) Comment on above: Performed By: #### V IDH, ANEU, GFR, CMP, ADIFF, CBC ####[place] [address]#### B12 ####[place] [address] Eosinophil, Absolute 0.1 10 3/mcL Normal 0.0-0.4 [facility] ([place]) Comment on above: Performed By: #### V IDH, ANEU, GFR, CMP, ADIFF, CBC ####[place] [address]#### B12 ####[place] [address] Eosinophils/100 WBC (Bld) 1.8 % Normal 0.0-7.0 [facility] ([place] Comment on above: Performed By: #### V IDH, ANEU, GFR, CMP, ADIFF, CBC ####[place] [address]#### B12 ####[address] [address] Lymphocyte, Absolute 0.7 10 3/mcL Low 0.8-3.9 [facility] ([place]) Comment on above: Performed By: #### V IDH, ANEU, GFR, CMP, ADIFF, CBC ####[place] [address]#### B12 ####[address] [address] Lymphocytes/100 WBC (Bld) 13.6 % Normal 10.0-50.0 [facility] ([place] Comment on above: Performed By: #### V IDH, ANEU, GFR, CMP, ADIFF, CBC ####[place] [address]#### B12 ####[address] [address] Monocyte, Absolute 0.6 10 3/mcL Normal 0.2-1.0 [facility] ([place] Comment on above: Performed By: #### V IDH, ANEU, GFR, CMP, ADIFF, CBC ####[place] [address]#### B12 ####[address] [address] Monocytes/100 WBC (Bld) 10.1 % Normal 1.7-13.0 [facility] ([place] Comment on above: Performed By: #### V IDH, ANEU, GFR, CMP, ADIFF, CBC ####[place] [address]#### B12 ####[address] [address] Neutrophils/100 WBC (Bld) 73.5 % Normal 37.0-80.0 [facility] ([place] Comment on above: Performed By: #### V IDH, ANEU, GFR, CMP, ADIFF, CBC ####[place] [address]#### B12 ####[address] [address] .GFRon 08-17-2023 GFR 96 ml/min/1.73sqm Normal [facility] ([place]) Comment on above: Result Comment: GFR Population mean for , Non- Americans Ages 20-29 = 116 mL/min/1.73 sq.m. Ages 30-39 = 107 mL/min/1.73 sq.m. Ages 40-49 = 99 mL/min/1.73 sq.m. Ages 50-59 = 93 mL/min/1.73 sq.m. Ages 60-69 = 85 mL/min/1.73 sq.m. Ages 70+ = 75 mL/min/1.73 sq.m.Chronic Kidney Disease: Less than 60 mL/min/1.73 square metersEnd Stage Renal Disease: Less than 15 mL/min/1.73 square meters Performed By: #### V IDH, ANEU, GFR, CMP, ADIFF, CBC ####[facility] [address] [place] [id number]#### B12 ####[place] [address] GFR Non- 79 ml/min/1.73sqm Normal [facility] ([place] Comment on above: Result Comment: GFR Population mean for , Non- Americans Ages 20-29 = 116 mL/min/1.73 sq.m. Ages 30-39 = 107 mL/min/1.73 sq.m. Ages 40-49 = 99 mL/min/1.73 sq.m. Ages 50-59 = 93 mL/min/1.73 sq.m. Ages 60-69 = 85 mL/min/1.73 sq.m. Ages 70+ = 75 mL/min/1.73 sq.m.Chronic Kidney Disease: Less than 60 mL/min/1.73 square metersEnd Stage Renal Disease: Less than 15 mL/min/1.73 square meters Performed By: #### V IDH, ANEU, GFR, CMP, ADIFF, CBC ####[facility] [address] [place], [place] [address]#### B12 ####[place] [id number] .NEUABSon 08-17-2023 Neutrophil, Absolute 4.0 10 3/mcL Normal 2.9-6.2 [facility] ([place]) Comment on above: Performed By: #### V IDH, ANEU, GFR, CMP, ADIFF, CBC ####[place] [address]#### B12 ####[place] [address] B12on 08-17-2023 Cobalamin (Vitamin B12) [Mass/Vol] 526 pg/mL Normal 211-911 [facility] ([place]) Comment on above: Performed By: #### V IDH, ANEU, GFR, CMP, ADIFF, CBC ####[place] [address]#### B12 ####[place] [address] CBCon 08-17-2023 Erythrocyte distribution width (RBC) [Ratio] 16.8 % High 11.5-14.5 [facility] ([place] Comment on above: Performed By: #### V IDH, ANEU, GFR, CMP, ADIFF, CBC ####[place] [address]#### B12 ####[place] [address] Hematocrit (Bld) [Volume fraction] 27.4 % Low 42.0-52.0 [facility] ([place] Comment on above: Performed By: #### V IDH, ANEU, GFR, CMP, ADIFF, CBC ####[place] [address]#### B12 ####[place] [address] Hgb 9.5 G/dL Low 14.0-18.0 [facility] ([place] Comment on above: Performed By: #### V IDH, ANEU, GFR, CMP, ADIFF, CBC ####[place] [address]#### B12 ####[place] [address] MCH (RBC) [Entitic mass] 33.9 pg High 27.0-31.2 [facility] ([place] Comment on above: Performed By: #### V IDH, ANEU, GFR, CMP, ADIFF, CBC ####[place] [address]#### B12 ####[place] [address] MCHC 34.5 G/dL Normal 31.8-35.4 [facility] ([place] Comment on above: Performed By: #### V IDH, ANEU, GFR, CMP, ADIFF, CBC ####[place] [address]#### B12 ####[place] [address] MCV (RBC) [Entitic vol] 98.3 fL High 80.0-94.0 [facility] ([place] Comment on above: Performed By: #### V IDH, ANEU, GFR, CMP, ADIFF, CBC ####[place] [address]#### B12 ####[place] [address] Platelet 436 10 3/mcL High 130-400 [facility] ([place]) Comment on above: Performed By: #### V IDH, ANEU, GFR, CMP, ADIFF, CBC ####[place] [address]#### B12 ####[place] [address] Platelet mean volume (Bld) [Entitic vol] 7.8 fL Normal 7.4-10.4 [facility] ([place] Comment on above: Performed By: #### V IDH, ANEU, GFR, CMP, ADIFF, CBC ####[place] [address]#### B12 ####[place] [address] RBC 2.79 10 6/mcL Low 4.04-6.13 [facility] ([place] Comment on above: Performed By: #### V IDH, ANEU, GFR, CMP, ADIFF, CBC ####[place] [address]#### B12 ####[address] [address] WBC 5.5 10 3/mcL Normal 4.6-10.8 [facility] ([place] Comment on above: Performed By: #### V IDH, ANEU, GFR, CMP, ADIFF, CBC ####[place] [address]#### B12 ####[place] [address] CMPon 08-17-2023 Albumin Level 3.4 G/dL Low 3.5-5.0 [facility] ([place] Comment on above: Performed By: #### V IDH, ANEU, GFR, CMP, ADIFF, CBC ####[place] [address]#### B12 ####[place] [address] Albumin/Globulin [Mass ratio] 1.1 {ratio} Normal 1.1-2.5 [facility] ([place] Comment on above: Performed By: #### V IDH, ANEU, GFR, CMP, ADIFF, CBC ####[place] [address]#### B12 ####[address] [address] ALP [Catalytic activity/Vol] 150 U/L High 40-135 [facility] ([place] Comment on above: Performed By: #### V IDH, ANEU, GFR, CMP, ADIFF, CBC ####[place] [address]#### B12 ####[address] [address] ALT [Catalytic activity/Vol] 51 U/L Normal 16-63 [facility] ([place] Comment on above: Performed By: #### V IDH, ANEU, GFR, CMP, ADIFF, CBC ####[place] [address]#### B12 ####[place] [address] AST [Catalytic activity/Vol] 21 U/L Normal 10-40 [facility] ([place] Comment on above: Performed By: #### V IDH, ANEU, GFR, CMP, ADIFF, CBC ####[place] [address]#### B12 ####[place] [address] Bili Total 0.3 mg/dL Normal 0.2-1.0 [facility] ([place] Comment on above: Result Comment: Use of this assay is not recommended for patients undergoing treatment with eltrombopag due to the potential for falsely elevated results. Performed By: #### V IDH, ANEU, GFR, CMP, ADIFF, CBC ####[place] [address]#### B12 ####[place] [address] BUN/Creatinine Ratio 15 ratio Normal 7-27 [facility] [place] Comment on above: Performed By: #### V IDH, ANEU, GFR, CMP, ADIFF, CBC ####[place] [address]#### B12 ####[place] [address] Calcium [Mass/Vol] 8.9 mg/dL Normal 8.4-10.2 [facility] ([place] Comment on above: Performed By: #### V IDH, ANEU, GFR, CMP, ADIFF, CBC ####[place] [address]#### B12 ####[place] [address] Chloride [Moles/Vol] 103 mmol/L Normal 98-107 [facility] ([place] Comment on above: Performed By: #### V IDH, ANEU, GFR, CMP, ADIFF, CBC ####[place] [address]#### B12 ####[place] [address] CO2 [Moles/Vol] 25 mmol/L Normal 22-29 [facility] ([place] Comment on above: Performed By: #### V IDH, ANEU, GFR, CMP, ADIFF, CBC ####[place] [address]#### B12 ####[place] [address] Creatinine [Mass/Vol] 0.98 mg/dL Normal 0.70-1.30 [facility] ([place] Comment on above: Performed By: #### V IDH, ANEU, GFR, CMP, ADIFF, CBC ####[place] [address]#### B12 ####[place] [address] Electrolyte Balance 11.0 mEq/L Normal 4.0-15.0 [facility] ([place] Comment on above: Performed By: #### V IDH, ANEU, GFR, CMP, ADIFF, CBC ####[place] [address]#### B12 ####[place] [address] Globulin 3.1 G/dL Normal [facility] ([place] Comment on above: Performed By: #### V IDH, ANEU, GFR, CMP, ADIFF, CBC ####[place] [address]#### B12 ####[place] [address] Glucose [Mass/Vol] 90 mg/dL Normal 70-105 [facility] ([place] Comment on above: Performed By: #### V IDH, ANEU, GFR, CMP, ADIFF, CBC ####[place] [address]#### B12 ####[address] [address] Potassium [Moles/Vol] 4.7 mmol/L Normal 3.5-5.1 [facility] ([place] Comment on above: Performed By: #### V IDH, ANEU, GFR, CMP, ADIFF, CBC ####[address] [address]#### B12 ####[address] [address] Sodium [Moles/Vol] 139 mmol/L Normal 136-145 [facility] ([place] Comment on above: Performed By: #### V IDH, ANEU, GFR, CMP, ADIFF, CBC ####[place] [address]#### B12 ####[address] [address] Total Protein 6.5 G/dL Normal 6.4-8.2 [facility] ([place] Comment on above: Performed By: #### V IDH, ANEU, GFR, CMP, ADIFF, CBC ####[place] [address]#### B12 ####[address] [address] Urea nitrogen [Mass/Vol] 15 mg/dL Normal 7-18 [facility] ([place] Comment on above: Performed By: #### V IDH, ANEU, GFR, CMP, ADIFF, CBC ####[place] [address]#### B12 ####[address] [address] LIPIDon 08-17-2023 Cholesterol [Mass/Vol] 141 mg/dL Normal 0-200 [facility] ([place] Comment on above: Result Comment: Chol esterol Reference Interval:Less than 200 [id number] Borderline high [id number] and above High risk Performed By: #### P BNP, LIPID ####[facility] [place], [place] [address] Cholesterol in HDL [Mass/Vol] 45 mg/dL Normal 40-60 [facility] ([place] Comment on above: Performed By: #### P BNP, LIPID ####[facility] [place], [place] [address] Cholesterol in LDL [Mass/Vol] 74 mg/dL Normal 0-130 [facility] ([place] Comment on above: Performed By: #### P BNP, LIPID ####[facility] [address] [place], [place] [address] Triglyceride [Mass/Vol] 112 mg/dL Normal 0-150 [facility] ([place] Comment on above: Result Comment: Trig lyceride Reference Interval:Less than 150 [id number] Borderline high [id number] High [id number] or higher Very high risk Performed By: #### P BNP, LIPID ####[facility] [address] [place], [place] [address] PBNPon 08-17-2023 Natriuretic peptide B (Bld) [Mass/Vol] 979 pg/mL High 0-125 [facility] ([place] Comment on above: Result Comment: NT-p roBNP results of less than 300 pg/mL effectivelyrules out acute congestive heart failure with 99% negative predictive value. Performed By: #### P BNP, LIPID ####[facility] [address] [place], [place] [address] VIDHon 08-17-2023 Vit. D 25-Hydroxy 28.7 ng/mL Normal [facility] ([place] Comment on above: Result Comment: Inte rpretive Values Based on Total 25(OH) Vitamin D:Deficient <20 ng/mLInsufficient 20 - <30 ng/mLSufficient 30-100 ng/mL Performed By: #### V IDH, ANEU, GFR, CMP, ADIFF, CBC ####[facility] [place] [id number]#### B12 ####[place] [address] XR CHEST 2 VIEWSon 4 XR CHEST 2 VIEWS Normal [facility] ([place]) .Auto Diffon 08-12-2023 Basophil, Absolute 0.0 10 3/mcL Normal 0.0-0.2 [facility] [place] Comment on above: Performed By: #### A DIFF, BMP, CBC, GFR, ANEU ####[facility] [address] [place], [place] [address] Basophils/100 WBC (Bld) 0.6 % Normal 0.0-2.5 [facility] ([place] Comment on above: Performed By: #### A DIFF, BMP, CBC, GFR, ANEU ####[facility] [address] [place], [place] [address] Eosinophil, Absolute 0.1 10 3/mcL Normal 0.0-0.4 [facility] ([place]) Comment on above: Performed By: #### A DIFF, BMP, CBC, GFR, ANEU ####[facility] [address] [place], [place] [address] Eosinophils/100 WBC (Bld) 0.9 % Normal 0.0-7.0 [facility] ([place] Comment on above: Performed By: #### A DIFF, BMP, CBC, GFR, ANEU ####[address] [place] [address] Lymphocyte, Absolute 1.1 10 3/mcL Normal 0.8-3.9 [facility] ([place] Comment on above: Performed By: #### A DIFF, BMP, CBC, GFR, ANEU ####[address] [place] [address] Lymphocytes/100 WBC (Bld) 15.0 % Normal 10.0-50.0 [facility] ([place] Comment on above: Performed By: #### A DIFF, BMP, CBC, GFR, ANEU ####[address] [place] [address] Monocyte, Absolute 0.8 10 3/mcL Normal 0.2-1.0 [facility] [place] Comment on above: Performed By: #### A DIFF, BMP, CBC, GFR, ANEU ####[facility] [address] [place], [place] [address] Monocytes/100 WBC (Bld) 10.7 % Normal 1.7-13.0 [facility] ([place] Comment on above: Performed By: #### A DIFF, BMP, CBC, GFR, ANEU ####Case [address] [place], [place] [address] Neutrophils/100 WBC (Bld) 72.8 % Normal 37.0-80.0 [facility] ([place] Comment on above: Performed By: #### A DIFF, BMP, CBC, GFR, ANEU ####Case [address] [place], [place] [address] .GFRon 08-12-2023 GFR Non- 76 ml/min/1.73sqm Normal [facility] ([place] Comment on above: Result Comment: GFR Population mean for , Non- Americans Ages 20-29 = 116 mL/min/1.73 sq.m. Ages 30-39 = 107 mL/min/1.73 sq.m. Ages 40-49 = 99 mL/min/1.73 sq.m. Ages 50-59 = 93 mL/min/1.73 sq.m. Ages 60-69 = 85 mL/min/1.73 sq.m. Ages 70+ = 75 mL/min/1.73 sq.m.Chronic Kidney Disease: Less than 60 mL/min/1.73 square metersEnd Stage Renal Disease: Less than 15 mL/min/1.73 square meters Performed By: #### A DIFF, BMP, CBC, GFR, ANEU ####Case [address] [place], [place] [address] GFR 92 ml/min/1.73sqm Normal [facility] ([place] Comment on above: Result Comment: GFR Population mean for , Non- Americans Ages 20-29 = 116 mL/min/1.73 sq.m. Ages 30-39 = 107 mL/min/1.73 sq.m. Ages 40-49 = 99 mL/min/1.73 sq.m. Ages 50-59 = 93 mL/min/1.73 sq.m. Ages 60-69 = 85 mL/min/1.73 sq.m. Ages 70+ = 75 mL/min/1.73 sq.m.Chronic Kidney Disease: Less than 60 mL/min/1.73 square metersEnd Stage Renal Disease: Less than 15 mL/min/1.73 square meters Performed By: #### A DIFF, BMP, CBC, GFR, ANEU ####Case [address] [place], [place] [address] .NEUABSon 08-12-2023 Neutrophil, Absolute 5.3 10 3/mcL Normal 2.9-6.2 [facility] ([place] Comment on above: Performed By: #### A DIFF, BMP, CBC, GFR, ANEU ####Case [address] [place], [place] [address] BMPon 08-12-2023 BUN/Creatinine Ratio 18 ratio Normal 7-27 [facility] [place] Comment on above: Performed By: #### A DIFF, BMP, CBC, GFR, ANEU ####Case [address] [place], [place] [address] Calcium [Mass/Vol] 9.0 mg/dL Normal 8.4-10.2 [facility] [place] Comment on above: Performed By: #### A DIFF, BMP, CBC, GFR, ANEU ####Case [address] [place], [place] [address] Chloride [Moles/Vol] 103 mmol/L Normal 98-107 [facility] [place] Comment on above: Performed By: #### A DIFF, BMP, CBC, GFR, ANEU ####Case [address] [place], [place] [address] CO2 [Moles/Vol] 26 mmol/L Normal 22-29 [facility] [place] Comment on above: Performed By: #### A DIFF, BMP, CBC, GFR, ANEU ####Case [address] [place], [place] [address] Creatinine [Mass/Vol] 1.02 mg/dL Normal 0.70-1.30 [facility] ([place] Comment on above: Performed By: #### A DIFF, BMP, CBC, GFR, ANEU ####Case [address] [place], [place] [address] Electrolyte Balance 10.0 mEq/L Normal 4.0-15.0 [facility] ([place] Comment on above: Performed By: #### A DIFF, BMP, CBC, GFR, ANEU ####[facility] [place] [place], [place] [address] Glucose [Mass/Vol] 97 mg/dL Normal 70-105 [facility] [place] Comment on above: Performed By: #### A DIFF, BMP, CBC, GFR, ANEU ####[facility] [address] [place], [place] [address] Potassium [Moles/Vol] 5.4 mmol/L High 3.5-5.1 [facility] ([place] Comment on above: Performed By: #### A DIFF, BMP, CBC, GFR, ANEU ####[facility] [address] [place], [place] [address] Sodium [Moles/Vol] 139 mmol/L Normal 136-145 [facility] [place] Comment on above: Performed By: #### A DIFF, BMP, CBC, GFR, ANEU ####[facility] [address] [place], [place] [address] Urea nitrogen [Mass/Vol] 18 mg/dL Normal 7-18 [facility] [place] Comment on above: Performed By: #### A DIFF, BMP, CBC, GFR, ANEU ####[facility] [address] [place], [place] [address] CBCon 08-12-2023 Erythrocyte distribution width (RBC) [Ratio] 16.6 % High 11.5-14.5 [facility] ([place] Comment on above: Performed By: #### A DIFF, BMP, CBC, GFR, ANEU ####[facility] [address] [place], [place] [address] Hematocrit (Bld) [Volume fraction] 26.6 % Low 42.0-52.0 [facility] [place]) Comment on above: Performed By: #### A DIFF, BMP, CBC, GFR, ANEU ####[id number] [place], [place] [address] Hgb 9.2 G/dL Low 14.0-18.0 [facility] [place] Comment on above: Performed By: #### A DIFF, BMP, CBC, GFR, ANEU ####[address] [place], [place] [address] MCH (RBC) [Entitic mass] 33.8 pg High 27.0-31.2 [facility] ([place] Comment on above: Performed By: #### A DIFF, BMP, CBC, GFR, ANEU ####[address] [place], [place] [address] MCHC 34.4 G/dL Normal 31.8-35.4 [facility] ([place] Comment on above: Performed By: #### A DIFF, BMP, CBC, GFR, ANEU ####[address] [place], [place] [address] MCV (RBC) [Entitic vol] 98.3 fL High 80.0-94.0 [facility] ([place]) Comment on above: Performed By: #### A DIFF, BMP, CBC, GFR, ANEU ####[address] [place], [place] [address] Platelet 403 10 3/mcL High 130-400 [facility] ([place]) Comment on above: Performed By: #### A DIFF, BMP, CBC, GFR, ANEU ####[address] [place], [place] [address] Platelet mean volume (Bld) [Entitic vol] 7.5 fL Normal 7.4-10.4 [facility] ([place] Comment on above: Performed By: #### A DIFF, BMP, CBC, GFR, ANEU ####[address] [place], [place] [address] RBC 2.71 10 6/mcL Low 4.04-6.13 [facility] ([place] Comment on above: Performed By: #### A DIFF, BMP, CBC, GFR, ANEU ####[address] [place], [place] [address] WBC 7.3 10 3/mcL Normal 4.6-10.8 [facility] ([place]) Comment on above: Performed By: #### A DIFF, BMP, CBC, GFR, ANEU ####[address] [place], [place] [address] LABORATORYOrdered By: SYSTEM SYSTEM on 08-12-2023 Basophil, Absolute 0.0 103/mcL Normal 0.0 - 0.2 10^3/mcL AO Workflow SS Basophils/100 WBC (Bld) 0.6 % Normal 0.0 - 2.5 % AO Workflow SS Calcium [Mass/Vol] 9.0 mg/dL Normal 8.4 - 10. 2 mg/dL AO ADM SS Chloride [Moles/Vol] 103 mmol/L Normal 98 - 10 7 mmol/L AO ADM SS CO2 [Moles/Vol] 26 mmol/L Normal 22 - 29 mmol/L AO ADM SS Creatinine [Mass/Vol] 1.02 mg/dL Normal 0.70 - 1.30 mg/dL AO ADM SS Electrolyte Balance 10.0 mEq/L Normal 4.0 - 15 .0 mEq/L AO ADM SS Eosinophil, Absolute 0.1 103/mcL Normal 0.0 - 0 .4 10^3/mcL AO Workflow SS Eosinophils/100 WBC (Bld) 0.9 % Normal 0.0 - 7.0 % AO Workflow SS Erythrocyte distribution width (RBC) [Ratio] 16.6 % High 11.5 - 14.5 % AO Workflow SS GFR/1.73 sq M.predicted among blacks MDRD (S/P/Bld) [Vol rate/Area] 92 ml/min/1.73sqm Invalid Interpretation Code AO Chemistry S Comment on above: Interpretive Data: GFR Population mean for , Non- Americans Ages 20-29 = 116 mL/min/1.73 sq.m. Ages 30-39 = 107 mL/min/1.73 sq.m. Ages 40-49 = 99 mL/min/1.73 sq.m. Ages 50-59 = 93 mL/min/1.73 sq.m. Ages 60-69 = 85 mL/min/1.73 sq.m. Ages 70+ = 75 mL/min/1.73 sq.m. Chronic Kidney Disease: Less than 60 mL/min/1.73 square meters End Stage Renal Disease: Less than 15 mL/min/1.73 square meters GFR/1.73 sq M.predicted among non-blacks MDRD (S/P/Bld) [Vol rate/Area] 76 ml/min/1.73sqm Invalid Interpretation Code AO Chemistry S Comment on above: Interpretive Data: GFR Population mean for , Non- Americans Ages 20-29 = 116 mL/min/1.73 sq.m. Ages 30-39 = 107 mL/min/1.73 sq.m. Ages 40-49 = 99 mL/min/1.73 sq.m. Ages 50-59 = 93 mL/min/1.73 sq.m. Ages 60-69 = 85 mL/min/1.73 sq.m. Ages 70+ = 75 mL/min/1.73 sq.m. Chronic Kidney Disease: Less than 60 mL/min/1.73 square meters End Stage Renal Disease: Less than 15 mL/min/1.73 square meters Glucose [Mass/Vol] 97 mg/dL Normal 70 - 105 mg/dL AO ADM SS Hematocrit (Bld) [Volume fraction] 26.6 % Low 42.0 - 52.0 % AO Workflow SS Hemoglobin (Bld) [Mass/Vol] 9.2 G/dL Low 14.0 - 18.0 G/dL AO Workflow SS Lymphocyte, Absolute 1.1 103/mcL Normal 0.8 - 3 .9 10^3/mcL AO Workflow SS Lymphocytes/100 WBC (Bld) 15.0 % Normal 10.0 - 50.0 % AO Workflow SS MCH (RBC) [Entitic mass] 33.8 pg High 27.0 - 31.2 pg AO Workflow SS MCHC 34.4 G/dL Normal 31.8 - 35.4 G/dL AO Workflow SS MCV (RBC) [Entitic vol] 98.3 fL High 80.0 - 94.0 fL AO Workflow SS Monocyte, Absolute 0.8 103/mcL Normal 0.2 - 1.0 10^3/mcL AO Workflow SS Monocytes/100 WBC (Bld) 10.7 % Normal 1.7 - 13.0 % AO Workflow SS Neutrophil, Absolute 5.3 103/mcL Normal 2.9 - 6 .2 10^3/mcL AO Workflow SS Neutrophils/100 WBC (Bld) 72.8 % Normal 37.0 - 80.0 % AO Workflow SS Platelet mean volume (Bld) [Entitic vol] 7.5 fL Normal 7.4 - 10.4 fL AO Workflow SS Platelets (Bld) [#/Vol] 403 103/mcL High 130 - 400 10^3/mcL AO Workflow SS Potassium [Moles/Vol] 5.4 mmol/L High 3.5 - 5.1 mmol/L AO ADM SS RBC (Bld) [#/Vol] 2.71 106/mcL Low 4.04 - 6.1 3 10^6/mcL AO Workflow SS Sodium [Moles/Vol] 139 mmol/L Normal 136 - 145 mmol/L AO ADM SS Urea nitrogen [Mass/Vol] 18 mg/dL Normal 7 - 18 mg/dL AO ADM SS Urea nitrogen/Creatinine [Mass ratio] 18 ratio Normal 7 - 27 ratio AO ADM SS WBC (Bld) [#/Vol] 7.3 103/mcL Normal 4.6 - 10.8 10^3/mcL AO Workflow SS .GFRon 08-04-2023 GFR 68 ml/min/1.73sqm Normal [facility] ([place]) Comment on above: Result Comment: GFR Population mean for , Non- Americans Ages 20-29 = 116 mL/min/1.73 sq.m. Ages 30-39 = 107 mL/min/1.73 sq.m. Ages 40-49 = 99 mL/min/1.73 sq.m. Ages 50-59 = 93 mL/min/1.73 sq.m. Ages 60-69 = 85 mL/min/1.73 sq.m. Ages 70+ = 75 mL/min/1.73 sq.m.Chronic Kidney Disease: Less than 60 mL/min/1.73 square metersEnd Stage Renal Disease: Less than 15 mL/min/1.73 square meters Performed By: #### G FR, BMP ####[id number] [place], [place] [address] GFR Non- 56 ml/min/1.73sqm Normal [facility] ([place]) Comment on above: Result Comment: GFR Population mean for , Non- Americans Ages 20-29 = 116 mL/min/1.73 sq.m. Ages 30-39 = 107 mL/min/1.73 sq.m. Ages 40-49 = 99 mL/min/1.73 sq.m. Ages 50-59 = 93 mL/min/1.73 sq.m. Ages 60-69 = 85 mL/min/1.73 sq.m. Ages 70+ = 75 mL/min/1.73 sq.m.Chronic Kidney Disease: Less than 60 mL/min/1.73 square metersEnd Stage Renal Disease: Less than 15 mL/min/1.73 square meters Performed By: #### G , BMP ####[address] [place], [place] [address] BMPon 08-04-2023 BUN/Creatinine Ratio 15 ratio Normal 7-27 [facility] ([place]) Comment on above: Performed By: #### G , BMP ####[address] [place], [place] [address] Calcium [Mass/Vol] 9.1 mg/dL Normal 8.4-10.2 [facility] ([place]) Comment on above: Performed By: #### Jaron STVEENS, BMP ####[address] [place], [place] [address] Chloride [Moles/Vol] 97 mmol/L Low 98-107 [facility] ([place] Comment on above: Performed By: #### Jaron STEVENS, BMP ####[address] [place], [place] [address] CO2 [Moles/Vol] 29 mmol/L Normal 22-29 [facility] ([place] Comment on above: Performed By: #### Jaron STEVENS, BMP ####[address] [place], [place] [address] Creatinine [Mass/Vol] 1.32 mg/dL High 0.70-1.30 [facility] ([place]) Comment on above: Performed By: #### Jaron STEVENS, BMP ####[id number] [place], [place] [address] Electrolyte Balance 11.0 mEq/L Normal 4.0-15.0 [facility] ([place]) Comment on above: Performed By: #### G FR, BMP ####[id number] [place], [place] [address] Glucose [Mass/Vol] 122 mg/dL High 70-105 [facility] ([place] Comment on above: Performed By: #### G FR, BMP ####[address] [place], [place] [address] Potassium [Moles/Vol] 4.5 mmol/L Normal 3.5-5.1 [facility] ([place] Comment on above: Performed By: #### G FR, BMP ####[address] [place], [place] [address] Sodium [Moles/Vol] 137 mmol/L Normal 136-145 [facility] ([place] Comment on above: Performed By: #### G FR, BMP ####[id number] [place], [place] [address] Urea nitrogen [Mass/Vol] 20 mg/dL High 7-18 [facility] ([place] Comment on above: Performed By: #### G FR, BMP ####[address] [place], [place] [address] XR CHEST 2 VIEWSon XR CHEST 2 VIEWS Normal [facility] ([place]) .Auto Diffon 08-02-2023 Basophil, Absolute 0.0 10 3/mcL Normal 0.0-0.3 [facility] ([place] Comment on above: Performed By: #### A RIVER, GFR, CMP, CBC, ADIFF ####[address] [address] Basophils/100 WBC (Bld) 0.6 % Normal 0.0-2.5 [facility] ([place] Comment on above: Performed By: #### A RIVER, GFR, CMP, CBC, ADIFF ####[place] [id number] [place] [address] Eosinophil, Absolute 0.1 10 3/mcL Normal 0.0-0.7 [facility] ([place]) Comment on above: Performed By: #### A RIVER, GFR, CMP, CBC, ADIFF ####[facility] [place] [address] Eosinophils/100 WBC (Bld) 1.3 % Normal 0.0-6.0 [facility] ([place] Comment on above: Performed By: #### A RIVER, GFR, CMP, CBC, ADIFF ####[place] [id number] [place] [address] Lymphocyte, Absolute 1.4 10 3/mcL Normal 0.9-4.3 [facility] ([place] Comment on above: Performed By: #### A RIVER, GFR, CMP, CBC, ADIFF ####[address] [address] Lymphocytes/100 WBC (Bld) 21.3 % Normal 20.0-40.0 [facility] ([place] Comment on above: Performed By: #### A RIVER, GFR, CMP, CBC, ADIFF ####[address] [address] Monocyte, Absolute 1.0 10 3/mcL Normal 0.1-1.4 [facility] ([place] Comment on above: Performed By: #### A RIVER, GFR, CMP, CBC, ADIFF ####[address] [address] Monocytes/100 WBC (Bld) 15.4 % High 2.0-13.0 [facility] ([place] Comment on above: Performed By: #### A RIVER, GFR, CMP, CBC, ADIFF ####[address] [address] Neutrophils/100 WBC (Bld) 61.4 % Normal 50.0-75.0 [facility] ([place] Comment on above: Performed By: #### A RIVER, GFR, CMP, CBC, ADIFF ####[address] [address] .GFRon 08-02-2023 GFR Non- >60 Normal [facility] ([place] Comment on above: Result Comment: GFR Population mean for , Non- Americans Ages 20-29 = 116 mL/min/1.73 sq.m. Ages 30-39 = 107 mL/min/1.73 sq.m. Ages 40-49 = 99 mL/min/1.73 sq.m. Ages 50-59 = 93 mL/min/1.73 sq.m. Ages 60-69 = 85 mL/min/1.73 sq.m. Ages 70+ = 75 mL/min/1.73 sq.m.Chronic Kidney Disease: Less than 60 mL/min/1.73 square metersEnd Stage Renal Disease: Less than 15 mL/min/1.73 square meters Performed By: #### A RIVER, GFR, CMP, CBC, ADIFF ####[address] [address] GFR >60 Normal [facility] ([place] Comment on above: Result Comment: GFR Population mean for , Non- Americans Ages 20-29 = 116 mL/min/1.73 sq.m. Ages 30-39 = 107 mL/min/1.73 sq.m. Ages 40-49 = 99 mL/min/1.73 sq.m. Ages 50-59 = 93 mL/min/1.73 sq.m. Ages 60-69 = 85 mL/min/1.73 sq.m. Ages 70+ = 75 mL/min/1.73 sq.m.Chronic Kidney Disease: Less than 60 mL/min/1.73 square metersEnd Stage Renal Disease: Less than 15 mL/min/1.73 square meters Performed By: #### A RIVER, GFR, CMP, CBC, ADIFF ####[place] [address] .NEUABSon 08-02-2023 Neutrophil, Absolute 3.9 10 3/mcL Normal 2.3-8.1 [facility] ([place] Comment on above: Performed By: #### A RIVER, GFR, CMP, CBC, ADIFF ####[place] [address] CBCon 08-02-2023 Erythrocyte distribution width (RBC) [Ratio] 13.9 % Normal 11.5-15.5 [facility] ([place] Comment on above: Performed By: #### A RIVER, GFR, CMP, CBC, ADIFF ####[place] [address] Hematocrit (Bld) [Volume fraction] 22.3 % Low 40.0-52.0 [facility] ([place] Comment on above: Performed By: #### A RIVER, GFR, CMP, CBC, ADIFF ####[place] [address] Hgb 7.7 G/dL Low 13.0-17.5 [facility] ([place] Comment on above: Performed By: #### A RIVER, GFR, CMP, CBC, ADIFF ####[place] [address] MCH (RBC) [Entitic mass] 32.6 pg Normal 27.0-33.0 [facility] ([place] Comment on above: Performed By: #### A RIVER, GFR, CMP, CBC, ADIFF ####[place] [address] MCHC 34.3 G/dL Normal 32.0-36.0 [facility] ([place] Comment on above: Performed By: #### A RIVER, GFR, CMP, CBC, ADIFF ####[place] [address] MCV (RBC) [Entitic vol] 94.9 fL Normal 81.0-100.0 [facility] ([place] Comment on above: Performed By: #### A RIVER, GFR, CMP, CBC, ADIFF ####[place] [address] Platelet 213 10 3/mcL Normal 150-450 [facility] ([place] Comment on above: Performed By: #### A RIVER, GFR, CMP, CBC, ADIFF ####[place] [address] Platelet mean volume (Bld) [Entitic vol] 8.6 fL Normal 6.4-10.5 [facility] ([place] Comment on above: Performed By: #### A RIVER, GFR, CMP, CBC, ADIFF ####[place] [address] RBC 2.35 10 6/mcL Low 4.50-6.00 [facility] ([place] Comment on above: Performed By: #### A RIVER, GFR, CMP, CBC, ADIFF ####[place] [address] WBC 6.4 10 3/mcL Normal 4.5-10.8 [facility] ([place] Comment on above: Performed By: #### A RIVER, GFR, CMP, CBC, ADIFF ####[place] [address] CMPon 08-02-2023 Albumin Level 3.5 G/dL Normal 3.2-4.8 [facility] ([place] Comment on above: Performed By: #### A RIVER, GFR, CMP, CBC, ADIFF ####[address] [address] Albumin/Globulin [Mass ratio] 1.1 {ratio} Normal 0.9-1.6 [facility] ([place] Comment on above: Performed By: #### A RIVER, GFR, CMP, CBC, ADIFF ####[address] [address] ALP [Catalytic activity/Vol] 96 U/L Normal 38-126 [facility] ([place] Comment on above: Performed By: #### A RIVER, GFR, CMP, CBC, ADIFF ####[address] [address] ALT [Catalytic activity/Vol] 63 U/L High 12-55 [facility] ([place] Comment on above: Performed By: #### A RIVER, GFR, CMP, CBC, ADIFF ####[address] [address] AST [Catalytic activity/Vol] 55 U/L High 8-34 [facility] ([place] Comment on above: Performed By: #### A RIVER, GFR, CMP, CBC, ADIFF ####[address] [address] Bili Total 0.70 mg/dL Normal 0.20-1.20 [facility] ([place] Comment on above: Result Comment: Use of this assay is not recommended for patients undergoing treatment with eltrombopag due to the potential for falsely elevated results. Performed By: #### A RIVER, GFR, CMP, CBC, ADIFF ####[address] [address] BUN/Creatinine Ratio 21.5 ratio Normal 10.0-22.0 [facility] ([place] Comment on above: Performed By: #### A RIVER, GFR, CMP, CBC, ADIFF ####[address] [address] Calcium [Mass/Vol] 8.9 mg/dL Normal 8.7-10.4 [facility] ([place] Comment on above: Performed By: #### A RIVER, GFR, CMP, CBC, ADIFF ####[address] [address] Chloride [Moles/Vol] 100 mmol/L Normal 98-110 [facility] ([place] Comment on above: Performed By: #### A RIVER, GFR, CMP, CBC, ADIFF ####[address] [address] CO2 [Moles/Vol] 30 mmol/L Normal 22-32 [facility] ([place] Comment on above: Performed By: #### A RIVER, GFR, CMP, CBC, ADIFF ####[address] [address] Creatinine [Mass/Vol] 0.93 mg/dL Normal 0.60-1.40 [facility] ([place] Comment on above: Performed By: #### A RIVER, GFR, CMP, CBC, ADIFF ####[place] [address] Electrolyte Balance 7.0 mEq/L Normal 4.0-15.0 [facility] ([place] Comment on above: Performed By: #### A RIVER, GFR, CMP, CBC, ADIFF ####[place] [address] Globulin 3.1 G/dL Normal 1.5-3.8 [facility] ([place] Comment on above: Performed By: #### A RIVER, GFR, CMP, CBC, ADIFF ####[address] [address] Glucose [Mass/Vol] 119 mg/dL High 70-110 [facility] ([place] Comment on above: Performed By: #### A RIVER, GFR, CMP, CBC, ADIFF ####[address] [address] Potassium [Moles/Vol] 3.8 mmol/L Normal 3.5-5.0 [facility] ([place] Comment on above: Performed By: #### A RIVER, GFR, CMP, CBC, ADIFF ####[address] [address] Sodium [Moles/Vol] 137 mmol/L Normal 136-145 [facility] ([place] Comment on above: Performed By: #### A RIVER, GFR, CMP, CBC, ADIFF ####[facility] [place] [address] Total Protein 6.6 G/dL Normal 5.7-8.2 [facility] ([place] Comment on above: Result Comment: No te - New Reference Range in effect 19 Performed By: #### A RIVER, GFR, CMP, CBC, ADIFF ####[facility] [place] [address] Urea nitrogen [Mass/Vol] 20.0 mg/dL Normal 8.0-22.0 [facility] ([place] Comment on above: Performed By: #### A RIVER, GFR, CMP, CBC, ADIFF ####[facility] [place] [address] LABORATORYOrdered By: SYSTEM SYSTEM on 08-02-2023 Albumin BCP dye [Mass/Vol] 3.5 G/dL Normal 3.2 - 4.8 G/dL ADM SS Albumin/Globulin [Mass ratio] 1.1 {ratio} Normal 0.9 - 1.6 ratio AH ADM SS ALP [Catalytic activity/Vol] 96 U/L Normal 38 - 126 U/L ADM SS ALT No additional P-5'-P [Catalytic activity/Vol] 63 U/L High 12 - 55 U/L ADM SS AST [Catalytic activity/Vol] 55 U/L High 8 - 34 U/L AH ADM SS Basophils (Bld) [#/Vol] 0.0 103/mcL Normal 0.0 - 0.3 10^3/mcL Workflow SS Basophils/100 WBC (Bld) 0.6 % Normal 0.0 - 2.5 % Workflow SS Bilirubin [Mass/Vol] 0.70 mg/dL Normal 0.20 - 1.20 mg/dL ADM SS Comment on above: Interpretive Data: U se of this assay is not recommended for patients undergoing treatment with eltrombopag due to the potential for falsely elevated results. Calcium [Mass/Vol] 8.9 mg/dL Normal 8.7 - 10. 4 mg/dL AH ADM SS Chloride [Moles/Vol] 100 mmol/L Normal 98 - 11 0 mEq/L ADM SS CO2 [Moles/Vol] 30 mmol/L Normal 22 - 32 mEq/L ADM SS Creatinine [Mass/Vol] 0.93 mg/dL Normal 0.60 - 1.40 mg/dL ADM SS Electrolyte Balance 7.0 mEq/L Normal 4.0 - 15 .0 mEq/L ADM SS Eosinophils (Bld) [#/Vol] 0.1 103/mcL Normal 0.0 - 0.7 10^3/mcL Workflow SS Eosinophils/100 WBC (Bld) 1.3 % Normal 0.0 - 6.0 % Workflow SS Erythrocyte distribution width (RBC) [Ratio] 13.9 % Normal 11.5 - 15.5 % Workflow SS GFR/1.73 sq M.predicted among blacks MDRD (S/P/Bld) [Vol rate/Area] ml/min/1.73sqm Invalid Interpretation Code ADM SS Comment on above: Interpretive Data: GFR Population mean for , Non- Americans Ages 20-29 = 116 mL/min/1.73 sq.m. Ages 30-39 = 107 mL/min/1.73 sq.m. Ages 40-49 = 99 mL/min/1.73 sq.m. Ages 50-59 = 93 mL/min/1.73 sq.m. Ages 60-69 = 85 mL/min/1.73 sq.m. Ages 70+ = 75 mL/min/1.73 sq.m. Chronic Kidney Disease: Less than 60 mL/min/1.73 square meters End Stage Renal Disease: Less than 15 mL/min/1.73 square meters GFR/1.73 sq M.predicted among non-blacks MDRD (S/P/Bld) [Vol rate/Area] ml/min/1.73sqm Invalid Interpretation Code ADM SS Comment on above: Interpretive Data: GFR Population mean for , Non- Americans Ages 20-29 = 116 mL/min/1.73 sq.m. Ages 30-39 = 107 mL/min/1.73 sq.m. Ages 40-49 = 99 mL/min/1.73 sq.m. Ages 50-59 = 93 mL/min/1.73 sq.m. Ages 60-69 = 85 mL/min/1.73 sq.m. Ages 70+ = 75 mL/min/1.73 sq.m. Chronic Kidney Disease: Less than 60 mL/min/1.73 square meters End Stage Renal Disease: Less than 15 mL/min/1.73 square meters Globulin 3.1 G/dL Normal 1.5 - 3.8 G/dL AH ADM SS Glucose [Mass/Vol] 119 mg/dL High 70 - 110 mg/dL AH ADM SS Hematocrit (Bld) [Volume fraction] 22.3 % Low 40.0 - 52.0 % AH Workflow SS Hemoglobin (Bld) [Mass/Vol] 7.7 G/dL Low 13.0 - 17.5 G/dL AH Workflow SS Lymphocytes (Bld) [#/Vol] 1.4 103/mcL Normal 0.9 - 4.3 10^3/mcL AH Workflow SS Lymphocytes/100 WBC (Bld) 21.3 % Normal 20.0 - 40.0 % AH Workflow SS MCH (RBC) [Entitic mass] 32.6 pg Normal 27.0 - 33.0 pg AH Workflow SS MCHC 34.3 G/dL Normal 32.0 - 36.0 G/dL AH Workflow SS MCV (RBC) [Entitic vol] 94.9 fL Normal 81.0 - 100.0 fL AH Workflow SS Monocytes (Bld) [#/Vol] 1.0 103/mcL Normal 0.1 - 1.4 10^3/mcL AH Workflow SS Monocytes/100 WBC (Bld) 15.4 % High 2.0 - 13.0 % AH Workflow SS Neutrophils (Bld) [#/Vol] 3.9 103/mcL Normal 2.3 - 8.1 10^3/mcL AH Workflow SS Neutrophils/100 WBC (Bld) 61.4 % Normal 50.0 - 75.0 % AH Workflow SS Platelet mean volume (Bld) [Entitic vol] 8.6 fL Normal 6.4 - 10.5 fL AH Workflow SS Platelets (Bld) [#/Vol] 213 103/mcL Normal 150 - 450 10^3/mcL AH Workflow SS Potassium [Moles/Vol] 3.8 mmol/L Normal 3.5 - 5.0 mEq/L AH ADM SS Protein [Mass/Vol] 6.6 G/dL Normal 5.7 - 8.2 G/dL ADM SS Comment on above: Interpretive Data: * *Note - New Reference Range in effect 19 RBC (Bld) [#/Vol] 2.35 106/mcL Low 4.50 - 6.0 0 10^6/mcL Workflow SS Sodium [Moles/Vol] 137 mmol/L Normal 136 - 145 mEq/L ADM SS Urea nitrogen [Mass/Vol] 20.0 mg/dL Normal 8.0 - 22.0 mg/dL ADM SS Urea nitrogen/Creatinine [Mass ratio] 21.5 ratio Normal 10.0 - 22.0 ratio ADM SS WBC (Bld) [#/Vol] 6.4 103/mcL Normal 4.5 - 10.8 10^3/mcL Workflow SS XR CHEST 2 VIEWSon XR CHEST 2 VIEWS Normal [facility] ([place]) .Auto Diffon 08-01-2023 Basophil, Absolute 0.0 10 3/mcL Normal 0.0-0.3 [facility] ([place] Comment on above: Performed By: #### C MP, ADIFF, ANEU, CBC, GFR ####[address] [address] Basophils/100 WBC (Bld) 0.4 % Normal 0.0-2.5 [facility] ([place] Comment on above: Performed By: #### C MP, ADIFF, ANEU, CBC, GFR ####[address] [address] Eosinophil, Absolute 0.1 10 3/mcL Normal 0.0-0.7 [facility] ([place] Comment on above: Performed By: #### C MP, ADIFF, ANEU, CBC, GFR ####[address] [address] Eosinophils/100 WBC (Bld) 0.8 % Normal 0.0-6.0 [facility] ([place] Comment on above: Performed By: #### C MP, ADIFF, ANEU, CBC, GFR ####[address] [address] Lymphocyte, Absolute 1.3 10 3/mcL Normal 0.9-4.3 [facility] ([place] Comment on above: Performed By: #### C MP, ADIFF, ANEU, CBC, GFR ####[address] [address] Lymphocytes/100 WBC (Bld) 17.2 % Low 20.0-40.0 [facility] ([place] Comment on above: Performed By: #### C MP, ADIFF, ANEU, CBC, GFR ####[address] [address] Monocyte, Absolute 1.0 10 3/mcL Normal 0.1-1.4 [facility] ([place] Comment on above: Performed By: #### C MP, ADIFF, ANEU, CBC, GFR ####[address] [address] Monocytes/100 WBC (Bld) 13.7 % High 2.0-13.0 [facility] ([place] Comment on above: Performed By: #### C MP, ADIFF, ANEU, CBC, GFR ####[address] [address] Neutrophils/100 WBC (Bld) 67.9 % Normal 50.0-75.0 [facility] ([place] Comment on above: Performed By: #### C MP, ADIFF, ANEU, CBC, GFR ####[address] [address] .GFRon 08-01-2023 GFR >60 Normal [facility] ([place] Comment on above: Result Comment: GFR Population mean for , Non- Americans Ages 20-29 = 116 mL/min/1.73 sq.m. Ages 30-39 = 107 mL/min/1.73 sq.m. Ages 40-49 = 99 mL/min/1.73 sq.m. Ages 50-59 = 93 mL/min/1.73 sq.m. Ages 60-69 = 85 mL/min/1.73 sq.m. Ages 70+ = 75 mL/min/1.73 sq.m.Chronic Kidney Disease: Less than 60 mL/min/1.73 square metersEnd Stage Renal Disease: Less than 15 mL/min/1.73 square meters Performed By: #### C MP, ADIFF, ANEU, CBC, GFR ####[place] [address] GFR Non- >60 Normal [facility] ([place] Comment on above: Result Comment: GFR Population mean for , Non- Americans Ages 20-29 = 116 mL/min/1.73 sq.m. Ages 30-39 = 107 mL/min/1.73 sq.m. Ages 40-49 = 99 mL/min/1.73 sq.m. Ages 50-59 = 93 mL/min/1.73 sq.m. Ages 60-69 = 85 mL/min/1.73 sq.m. Ages 70+ = 75 mL/min/1.73 sq.m.Chronic Kidney Disease: Less than 60 mL/min/1.73 square metersEnd Stage Renal Disease: Less than 15 mL/min/1.73 square meters Performed By: #### C MP, ADIFF, ANEU, CBC, GFR ####[place] [address] .NEUABSon 08-01-2023 Neutrophil, Absolute 5.0 10 3/mcL Normal 2.3-8.1 [facility] ([place] Comment on above: Performed By: #### C MP, ADIFF, ANEU, CBC, GFR ####[place] [address] CBCon 08-01-2023 Erythrocyte distribution width (RBC) [Ratio] 14.0 % Normal 11.5-15.5 [facility] ([place] Comment on above: Performed By: #### C MP, ADIFF, ANEU, CBC, GFR ####[place] [address] Hematocrit (Bld) [Volume fraction] 21.4 % Low 40.0-52.0 [facility] ([place] Comment on above: Performed By: #### C MP, ADIFF, ANEU, CBC, GFR ####[place] [address] Hgb 7.3 G/dL Low 13.0-17.5 [facility] ([place] Comment on above: Performed By: #### C MP, ADIFF, ANEU, CBC, GFR ####[place] [address] MCH (RBC) [Entitic mass] 32.3 pg Normal 27.0-33.0 [facility] ([place] Comment on above: Performed By: #### C MP, ADIFF, ANEU, CBC, GFR ####[place] [address] MCHC 34.2 G/dL Normal 32.0-36.0 [facility] ([place] Comment on above: Performed By: #### C MP, ADIFF, ANEU, CBC, GFR ####[place] [address] MCV (RBC) [Entitic vol] 94.6 fL Normal 81.0-100.0 [facility] ([place] Comment on above: Performed By: #### C MP, ADIFF, ANEU, CBC, GFR ####[place] [address] Platelet 171 10 3/mcL Normal 150-450 [facility] ([place] Comment on above: Performed By: #### C MP, ADIFF, ANEU, CBC, GFR ####[place] [address] Platelet mean volume (Bld) [Entitic vol] 9.2 fL Normal 6.4-10.5 [facility] ([place] Comment on above: Performed By: #### C MP, ADIFF, ANEU, CBC, GFR ####[place] [address] RBC 2.26 10 6/mcL Low 4.50-6.00 [facility] ([place] Comment on above: Performed By: #### C MP, ADIFF, ANEU, CBC, GFR ####[place] [address] WBC 7.4 10 3/mcL Normal 4.5-10.8 [facility] ([place]) Comment on above: Performed By: #### C MP, ADIFF, ANEU, CBC, GFR ####[place] [address] CMPon 08-01-2023 Albumin Level 3.5 G/dL Normal 3.2-4.8 [facility] ([place]) Comment on above: Performed By: #### C MP, ADIFF, ANEU, CBC, GFR ####[address] [address] Albumin/Globulin [Mass ratio] 1.2 {ratio} Normal 0.9-1.6 [facility] ([place]) Comment on above: Performed By: #### C MP, ADIFF, ANEU, CBC, GFR ####[address] [address] ALP [Catalytic activity/Vol] 73 U/L Normal 38-126 [facility] ([place]) Comment on above: Performed By: #### C MP, ADIFF, ANEU, CBC, GFR ####[address] [address] ALT [Catalytic activity/Vol] 61 U/L High 12-55 [facility] ([place]) Comment on above: Performed By: #### C MP, ADIFF, ANEU, CBC, GFR ####[address] [address] AST [Catalytic activity/Vol] 82 U/L High 8-34 [facility] ([place] Comment on above: Performed By: #### C MP, ADIFF, ANEU, CBC, GFR ####[address] [address] Bili Total 0.70 mg/dL Normal 0.20-1.20 [facility] ([place]) Comment on above: Result Comment: Use of this assay is not recommended for patients undergoing treatment with eltrombopag due to the potential for falsely elevated results. Performed By: #### C MP, ADIFF, ANEU, CBC, GFR ####[address] [address] BUN/Creatinine Ratio 23.6 ratio High 10.0-22.0 [facility] ([place]) Comment on above: Performed By: #### C MP, ADIFF, ANEU, CBC, GFR ####[address] [address] Calcium [Mass/Vol] 9.1 mg/dL Normal 8.7-10.4 [facility] ([place]) Comment on above: Performed By: #### C MP, ADIFF, ANEU, CBC, GFR ####[address] [address] Chloride [Moles/Vol] 104 mmol/L Normal 98-110 [facility] ([place] Comment on above: Performed By: #### C MP, ADIFF, ANEU, CBC, GFR ####[address] [address] CO2 [Moles/Vol] 28 mmol/L Normal 22-32 [facility] ([place]) Comment on above: Performed By: #### C MP, ADIFF, ANEU, CBC, GFR ####[address] [address] Creatinine [Mass/Vol] 0.89 mg/dL Normal 0.60-1.40 [facility] ([place]) Comment on above: Performed By: #### C MP, ADIFF, ANEU, CBC, GFR ####[address] [address] Electrolyte Balance 0.0 mEq/L Low 4.0-15.0 [facility] ([place]) Comment on above: Performed By: #### C MP, ADIFF, ANEU, CBC, GFR ####[address] [address] Globulin 2.9 G/dL Normal 1.5-3.8 [facility] ([place]) Comment on above: Performed By: #### C MP, ADIFF, ANEU, CBC, GFR ####[address] [address] Glucose [Mass/Vol] 99 mg/dL Normal 70-110 [facility] ([place]) Comment on above: Performed By: #### C MP, ADIFF, ANEU, CBC, GFR ####[place] [address] Potassium [Moles/Vol] 4.7 mmol/L Normal 3.5-5.0 [facility] ([place]) Comment on above: Performed By: #### C MP, ADIFF, ANEU, CBC, GFR ####[place] [id number] [place] [address] Sodium [Moles/Vol] 132 mmol/L Low 136-145 [facility] ([place]) Comment on above: Performed By: #### C MP, ADIFF, ANEU, CBC, GFR ####[address] [address] Total Protein 6.4 G/dL Normal 5.7-8.2 [facility] ([place]) Comment on above: Result Comment: No te - New Reference Range in effect 19 Performed By: #### C MP, ADIFF, ANEU, CBC, GFR ####[place] [id number] [place] [address] Urea nitrogen [Mass/Vol] 21.0 mg/dL Normal 8.0-22.0 [facility] ([place]) Comment on above: Performed By: #### C MP, ADIFF, ANEU, CBC, GFR ####[address] [address] LABORATORYOrdered By: Mulu Mathews on 08-01-2023 Blood Glucose Testing Reason Routine (08/01/23 7:54 AM) [facility] Glucose [Mass/Vol] 99 mg/dL Normal 70 - 110 mg/dL [facility] LABORATORYOrdered By: SYSTEM SYSTEM on 08-01-2023 Albumin BCP dye [Mass/Vol] 3.5 G/dL Normal 3.2 - 4.8 G/dL ADM SS Albumin/Globulin [Mass ratio] 1.2 {ratio} Normal 0.9 - 1.6 ratio ADM SS ALP [Catalytic activity/Vol] 73 U/L Normal 38 - 126 U/L ADM SS ALT No additional P-5'-P [Catalytic activity/Vol] 61 U/L High 12 - 55 U/L AH ADM SS AST [Catalytic activity/Vol] 82 U/L High 8 - 34 U/L ADM SS Basophils (Bld) [#/Vol] 0.0 103/mcL Normal 0.0 - 0.3 10^3/mcL AH Workflow SS Basophils/100 WBC (Bld) 0.4 % Normal 0.0 - 2.5 % Workflow SS Bilirubin [Mass/Vol] 0.70 mg/dL Normal 0.20 - 1.20 mg/dL ADM SS Comment on above: Interpretive Data: U se of this assay is not recommended for patients undergoing treatment with eltrombopag due to the potential for falsely elevated results. Calcium [Mass/Vol] 9.1 mg/dL Normal 8.7 - 10. 4 mg/dL ADM SS Chloride [Moles/Vol] 104 mmol/L Normal 98 - 11 0 mEq/L ADM SS CO2 [Moles/Vol] 28 mmol/L Normal 22 - 32 mEq/L ADM SS Creatinine [Mass/Vol] 0.89 mg/dL Normal 0.60 - 1.40 mg/dL ADM SS Electrolyte Balance 0.0 mEq/L Low 4.0 - 15 .0 mEq/L ADM SS Eosinophils (Bld) [#/Vol] 0.1 103/mcL Normal 0.0 - 0.7 10^3/mcL Workflow SS Eosinophils/100 WBC (Bld) 0.8 % Normal 0.0 - 6.0 % Workflow SS Erythrocyte distribution width (RBC) [Ratio] 14.0 % Normal 11.5 - 15.5 % Workflow SS GFR/1.73 sq M.predicted among blacks MDRD (S/P/Bld) [Vol rate/Area] ml/min/1.73sqm Invalid Interpretation Code ADM SS Comment on above: Interpretive Data: GFR Population mean for , Non- Americans Ages 20-29 = 116 mL/min/1.73 sq.m. Ages 30-39 = 107 mL/min/1.73 sq.m. Ages 40-49 = 99 mL/min/1.73 sq.m. Ages 50-59 = 93 mL/min/1.73 sq.m. Ages 60-69 = 85 mL/min/1.73 sq.m. Ages 70+ = 75 mL/min/1.73 sq.m. Chronic Kidney Disease: Less than 60 mL/min/1.73 square meters End Stage Renal Disease: Less than 15 mL/min/1.73 square meters GFR/1.73 sq M.predicted among non-blacks MDRD (S/P/Bld) [Vol rate/Area] ml/min/1.73sqm Invalid Interpretation Code AH ADM SS Comment on above: Interpretive Data: GFR Population mean for , Non- Americans Ages 20-29 = 116 mL/min/1.73 sq.m. Ages 30-39 = 107 mL/min/1.73 sq.m. Ages 40-49 = 99 mL/min/1.73 sq.m. Ages 50-59 = 93 mL/min/1.73 sq.m. Ages 60-69 = 85 mL/min/1.73 sq.m. Ages 70+ = 75 mL/min/1.73 sq.m. Chronic Kidney Disease: Less than 60 mL/min/1.73 square meters End Stage Renal Disease: Less than 15 mL/min/1.73 square meters Globulin 2.9 G/dL Normal 1.5 - 3.8 G/dL ADM SS Glucose [Mass/Vol] 99 mg/dL Normal 70 - 110 mg/dL ADM SS Hematocrit (Bld) [Volume fraction] 21.4 % Low 40.0 - 52.0 % AH Workflow SS Hemoglobin (Bld) [Mass/Vol] 7.3 G/dL Low 13.0 - 17.5 G/dL AH Workflow SS Lymphocytes (Bld) [#/Vol] 1.3 103/mcL Normal 0.9 - 4.3 10^3/mcL AH Workflow SS Lymphocytes/100 WBC (Bld) 17.2 % Low 20.0 - 40.0 % AH Workflow SS MCH (RBC) [Entitic mass] 32.3 pg Normal 27.0 - 33.0 pg AH Workflow SS MCHC 34.2 G/dL Normal 32.0 - 36.0 G/dL AH Workflow SS MCV (RBC) [Entitic vol] 94.6 fL Normal 81.0 - 100.0 fL AH Workflow SS Monocytes (Bld) [#/Vol] 1.0 103/mcL Normal 0.1 - 1.4 10^3/mcL AH Workflow SS Monocytes/100 WBC (Bld) 13.7 % High 2.0 - 13.0 % AH Workflow SS Neutrophils (Bld) [#/Vol] 5.0 103/mcL Normal 2.3 - 8.1 10^3/mcL AH Workflow SS Neutrophils/100 WBC (Bld) 67.9 % Normal 50.0 - 75.0 % AH Workflow SS Platelet mean volume (Bld) [Entitic vol] 9.2 fL Normal 6.4 - 10.5 fL AH Workflow SS Platelets (Bld) [#/Vol] 171 103/mcL Normal 150 - 450 10^3/mcL AH Workflow SS Potassium [Moles/Vol] 4.7 mmol/L Normal 3.5 - 5.0 mEq/L AH ADM SS Protein [Mass/Vol] 6.4 G/dL Normal 5.7 - 8.2 G/dL AH ADM SS Comment on above: Interpretive Data: * *Note - New Reference Range in effect 19 RBC (Bld) [#/Vol] 2.26 106/mcL Low 4.50 - 6.0 0 10^6/mcL AH Workflow SS Sodium [Moles/Vol] 132 mmol/L Low 136 - 145 mEq/L ADM SS Urea nitrogen [Mass/Vol] 21.0 mg/dL Normal 8.0 - 22.0 mg/dL AH ADM SS Urea nitrogen/Creatinine [Mass ratio] 23.6 ratio High 10.0 - 22.0 ratio AH ADM SS WBC (Bld) [#/Vol] 7.4 103/mcL Normal 4.5 - 10.8 10^3/mcL Workflow SS XR CHEST 2 VIEWSon XR CHEST 2 VIEWS Normal [facility] ([place]) .Auto Diffon 07-31-2023 Basophil, Absolute 0.0 10 3/mcL Normal 0.0-0.3 [facility] ([place]) Comment on above: Performed By: #### A DIFF, ANEU, BMP, CBC, GFR ####[address] [address] Basophils/100 WBC (Bld) 0.3 % Normal 0.0-2.5 [facility] ([place]) Comment on above: Performed By: #### A DIFF, ANEU, BMP, CBC, GFR ####[address] [address] Eosinophil, Absolute 0.0 10 3/mcL Normal 0.0-0.7 [facility] ([place]) Comment on above: Performed By: #### A DIFF, ANEU, BMP, CBC, GFR ####[address] [address] Eosinophils/100 WBC (Bld) 0.2 % Normal 0.0-6.0 [facility] ([place]) Comment on above: Performed By: #### A DIFF, ANEU, BMP, CBC, GFR ####[address] [address] Lymphocyte, Absolute 1.4 10 3/mcL Normal 0.9-4.3 [facility] ([place]) Comment on above: Performed By: #### A DIFF, ANEU, BMP, CBC, GFR ####[address] [address] Lymphocytes/100 WBC (Bld) 13.4 % Low 20.0-40.0 [facility] ([place]) Comment on above: Performed By: #### A DIFF, ANEU, BMP, CBC, GFR ####[address] [address] Monocyte, Absolute 1.3 10 3/mcL Normal 0.1-1.4 [facility] ([place]) Comment on above: Performed By: #### A DIFF, ANEU, BMP, CBC, GFR ####[address] [address] Monocytes/100 WBC (Bld) 12.6 % Normal 2.0-13.0 [facility] ([place]) Comment on above: Performed By: #### A DIFF, ANEU, BMP, CBC, GFR ####[address] [address] Neutrophils/100 WBC (Bld) 73.5 % Normal 50.0-75.0 [facility] ([place]) Comment on above: Performed By: #### A DIFF, ANEU, BMP, CBC, GFR ####[address] [address] .GFRon 07-31-2023 GFR >60 Normal [facility] ([place]) Comment on above: Result Comment: GFR Population mean for , Non- Americans Ages 20-29 = 116 mL/min/1.73 sq.m. Ages 30-39 = 107 mL/min/1.73 sq.m. Ages 40-49 = 99 mL/min/1.73 sq.m. Ages 50-59 = 93 mL/min/1.73 sq.m. Ages 60-69 = 85 mL/min/1.73 sq.m. Ages 70+ = 75 mL/min/1.73 sq.m.Chronic Kidney Disease: Less than 60 mL/min/1.73 square metersEnd Stage Renal Disease: Less than 15 mL/min/1.73 square meters Performed By: #### A DIFF, ANEU, BMP, CBC, GFR ####[address] [address] GFR Non- >60 Normal [facility] ([place]) Comment on above: Result Comment: GFR Population mean for , Non- Americans Ages 20-29 = 116 mL/min/1.73 sq.m. Ages 30-39 = 107 mL/min/1.73 sq.m. Ages 40-49 = 99 mL/min/1.73 sq.m. Ages 50-59 = 93 mL/min/1.73 sq.m. Ages 60-69 = 85 mL/min/1.73 sq.m. Ages 70+ = 75 mL/min/1.73 sq.m.Chronic Kidney Disease: Less than 60 mL/min/1.73 square metersEnd Stage Renal Disease: Less than 15 mL/min/1.73 square meters Performed By: #### A DIFF, ANEU, BMP, CBC, GFR ####[address] [address] .NEUABSon 07-31-2023 Neutrophil, Absolute 7.5 10 3/mcL Normal 2.3-8.1 [facility] ([place]) Comment on above: Performed By: #### A DIFF, ANEU, BMP, CBC, GFR ####[address] [address] BMPon 07-31-2023 BUN/Creatinine Ratio 23.8 ratio High 10.0-22.0 [facility] ([place] Comment on above: Performed By: #### A DIFF, ANEU, BMP, CBC, GFR ####[address] [address] Calcium [Mass/Vol] 9.1 mg/dL Normal 8.7-10.4 [facility] ([place]) Comment on above: Performed By: #### A DIFF, ANEU, BMP, CBC, GFR ####[address] [address] Chloride [Moles/Vol] 103 mmol/L Normal 98-110 [facility] ([place] Comment on above: Performed By: #### A DIFF, ANEU, BMP, CBC, GFR ####[address] [address] CO2 [Moles/Vol] 28 mmol/L Normal 22-32 [facility] ([place]) Comment on above: Performed By: #### A DIFF, ANEU, BMP, CBC, GFR ####[place] [address] Creatinine [Mass/Vol] 0.84 mg/dL Normal 0.60-1.40 [facility] ([place]) Comment on above: Performed By: #### A DIFF, ANEU, BMP, CBC, GFR ####[place] [address] Electrolyte Balance 5.0 mEq/L Normal 4.0-15.0 [facility] ([place]) Comment on above: Performed By: #### A DIFF, ANEU, BMP, CBC, GFR ####[place] [address] Glucose [Mass/Vol] 130 mg/dL High 70-110 [facility] ([place]) Comment on above: Performed By: #### A DIFF, ANEU, BMP, CBC, GFR ####[place] [address] Potassium [Moles/Vol] 4.6 mmol/L Normal 3.5-5.0 [facility] ([place]) Comment on above: Performed By: #### A DIFF, ANEU, BMP, CBC, GFR ####[place] [address] Sodium [Moles/Vol] 136 mmol/L Normal 136-145 [facility] ([place] Comment on above: Performed By: #### A DIFF, ANEU, BMP, CBC, GFR ####[place] [address] Urea nitrogen [Mass/Vol] 20.0 mg/dL Normal 8.0-22.0 [facility] ([place]) Comment on above: Performed By: #### A DIFF, ANEU, BMP, CBC, GFR ####[place] [address] CBCon 07-31-2023 Erythrocyte distribution width (RBC) [Ratio] 13.8 % Normal 11.5-15.5 [facility] ([place]) Comment on above: Performed By: #### A DIFF, ANEU, BMP, CBC, GFR ####[place] [address] Hematocrit (Bld) [Volume fraction] 22.9 % Low 40.0-52.0 [facility] ([place] Comment on above: Performed By: #### A DIFF, ANEU, BMP, CBC, GFR ####[place] [address] Hgb 8.0 G/dL Low 13.0-17.5 [facility] ([place] Comment on above: Performed By: #### A DIFF, ANEU, BMP, CBC, GFR ####[place] [address] MCH (RBC) [Entitic mass] 33.9 pg High 27.0-33.0 [facility] ([place]) Comment on above: Performed By: #### A DIFF, ANEU, BMP, CBC, GFR ####[place] [address] MCHC 35.0 G/dL Normal 32.0-36.0 [facility] ([place] Comment on above: Performed By: #### A DIFF, ANEU, BMP, CBC, GFR ####[place] [address] MCV (RBC) [Entitic vol] 96.8 fL Normal 81.0-100.0 [facility] ([place] Comment on above: Performed By: #### A DIFF, ANEU, BMP, CBC, GFR ####[place] [address] Platelet 137 10 3/mcL Low 150-450 [facility] ([place]) Comment on above: Performed By: #### A DIFF, ANEU, BMP, CBC, GFR ####[place] [address] Platelet mean volume (Bld) [Entitic vol] 9.7 fL Normal 6.4-10.5 [facility]) Comment on above: Performed By: #### A DIFF, ANEU, BMP, CBC, GFR ####[place] [address] RBC 2.37 10 6/mcL Low 4.50-6.00 [facility] ([place]) Comment on above: Performed By: #### A DIFF, ANEU, BMP, CBC, GFR ####[place] [address] WBC 10.1 10 3/mcL Normal 4.5-10.8 [facility]) Comment on above: Performed By: #### A DIFF, ANEU, BMP, CBC, GFR ####[place] [address] Final Surgical Pathology Rep [facility] 07-31-2023 Final Surgical Pathology Report Normal [facility] ([place]) [place] 07-31-2023 Potassium [Moles/Vol] 4.5 mmol/L Normal 3.5-5.0 [facility]) Comment on above: Performed By: #### M G, K ####[place] [address] LABORATORYOrdered By: Mac Nieves on 07-31-2023 Blood Glucose Testing Reason Routine (07/31/23 9:20 PM) [facility] Glucose [Mass/Vol] 113 mg/dL High 70 - 110 mg/dL [facility] Blood Glucose Testing Reason Routine (07/31/23 3:03 PM) [facility] Glucose [Mass/Vol] 119 mg/dL High 70 - 110 mg/dL [facility] LABORATORYOrdered By: SYSTEM SYSTEM on 07-31-2023 Basophils (Bld) [#/Vol] 0.0 103/mcL Normal 0.0 - 0.3 10^3/mcL AH Workflow SS Basophils/100 WBC (Bld) 0.3 % Normal 0.0 - 2.5 % AH Workflow SS Calcium [Mass/Vol] 9.1 mg/dL Normal 8.7 - 10. 4 mg/dL AH ADM SS Chloride [Moles/Vol] 103 mmol/L Normal 98 - 11 0 mEq/L AH ADM SS CO2 [Moles/Vol] 28 mmol/L Normal 22 - 32 mEq/L AH ADM SS Creatinine [Mass/Vol] 0.84 mg/dL Normal 0.60 - 1.40 mg/dL ADM SS Electrolyte Balance 5.0 mEq/L Normal 4.0 - 15 .0 mEq/L AH ADM SS Eosinophils (Bld) [#/Vol] 0.0 103/mcL Normal 0.0 - 0.7 10^3/mcL AH Workflow SS Eosinophils/100 WBC (Bld) 0.2 % Normal 0.0 - 6.0 % Workflow SS Erythrocyte distribution width (RBC) [Ratio] 13.8 % Normal 11.5 - 15.5 % Workflow SS GFR/1.73 sq M.predicted among blacks MDRD (S/P/Bld) [Vol rate/Area] ml/min/1.73sqm Invalid Interpretation Code ADM SS Comment on above: Interpretive Data: GFR Population mean for , Non- Americans Ages 20-29 = 116 mL/min/1.73 sq.m. Ages 30-39 = 107 mL/min/1.73 sq.m. Ages 40-49 = 99 mL/min/1.73 sq.m. Ages 50-59 = 93 mL/min/1.73 sq.m. Ages 60-69 = 85 mL/min/1.73 sq.m. Ages 70+ = 75 mL/min/1.73 sq.m. Chronic Kidney Disease: Less than 60 mL/min/1.73 square meters End Stage Renal Disease: Less than 15 mL/min/1.73 square meters GFR/1.73 sq M.predicted among non-blacks MDRD (S/P/Bld) [Vol rate/Area] ml/min/1.73sqm Invalid Interpretation Code ADM SS Comment on above: Interpretive Data: GFR Population mean for , Non- Americans Ages 20-29 = 116 mL/min/1.73 sq.m. Ages 30-39 = 107 mL/min/1.73 sq.m. Ages 40-49 = 99 mL/min/1.73 sq.m. Ages 50-59 = 93 mL/min/1.73 sq.m. Ages 60-69 = 85 mL/min/1.73 sq.m. Ages 70+ = 75 mL/min/1.73 sq.m. Chronic Kidney Disease: Less than 60 mL/min/1.73 square meters End Stage Renal Disease: Less than 15 mL/min/1.73 square meters Glucose [Mass/Vol] 130 mg/dL High 70 - 110 mg/dL AH ADM SS Hematocrit (Bld) [Volume fraction] 22.9 % Low 40.0 - 52.0 % AH Workflow SS Hemoglobin (Bld) [Mass/Vol] 8.0 G/dL Low 13.0 - 17.5 G/dL AH Workflow SS Lymphocytes (Bld) [#/Vol] 1.4 103/mcL Normal 0.9 - 4.3 10^3/mcL AH Workflow SS Lymphocytes/100 WBC (Bld) 13.4 % Low 20.0 - 40.0 % AH Workflow SS MCH (RBC) [Entitic mass] 33.9 pg High 27.0 - 33.0 pg AH Workflow SS MCHC 35.0 G/dL Normal 32.0 - 36.0 G/dL AH Workflow SS MCV (RBC) [Entitic vol] 96.8 fL Normal 81.0 - 100.0 fL AH Workflow SS Monocytes (Bld) [#/Vol] 1.3 103/mcL Normal 0.1 - 1.4 10^3/mcL AH Workflow SS Monocytes/100 WBC (Bld) 12.6 % Normal 2.0 - 13.0 % AH Workflow SS Neutrophils (Bld) [#/Vol] 7.5 103/mcL Normal 2.3 - 8.1 10^3/mcL AH Workflow SS Neutrophils/100 WBC (Bld) 73.5 % Normal 50.0 - 75.0 % AH Workflow SS Platelet mean volume (Bld) [Entitic vol] 9.7 fL Normal 6.4 - 10.5 fL AH Workflow SS Platelets (Bld) [#/Vol] 137 103/mcL Low 150 - 450 10^3/mcL Workflow SS Potassium [Moles/Vol] 4.6 mmol/L Normal 3.5 - 5.0 mEq/L AH ADM SS RBC (Bld) [#/Vol] 2.37 106/mcL Low 4.50 - 6.0 0 10^6/mcL AH Workflow SS Sodium [Moles/Vol] 136 mmol/L Normal 136 - 145 mEq/L AH ADM SS Urea nitrogen [Mass/Vol] 20.0 mg/dL Normal 8.0 - 22.0 mg/dL AH ADM SS Urea nitrogen/Creatinine [Mass ratio] 23.8 ratio High 10.0 - 22.0 ratio AH ADM SS WBC (Bld) [#/Vol] 10.1 103/mcL Normal 4.5 - 10.8 10^3/mcL Workflow SS Magnesium [Mass/Vol] 1.9 mg/dL Normal 1.6 - 2 .4 mg/dL ADM SS MGon 07-31-2023 Magnesium [Mass/Vol] 1.9 mg/dL Normal 1.6-2.4 [facility] ([place] Comment on above: Performed By: #### M Jaron K ####[place] [address] XR CHEST 1 VIEWon 07-31-2023 XR CHEST 1 VIEW Normal [facility] ([place]) .Auto Diffon 07-30-2023 Basophil, Absolute 0.0 10 3/mcL Normal 0.0-0.3 [facility] ([place] Comment on above: Performed By: #### A DIFF, ANEU, CBC, GFR, BMP ####[address] [address] Basophils/100 WBC (Bld) 0.2 % Normal 0.0-2.5 [facility] ([place]) Comment on above: Performed By: #### A DIFF, ANEU, CBC, GFR, BMP ####[address] [address] Eosinophil, Absolute 0.0 10 3/mcL Normal 0.0-0.7 [facility] ([place]) Comment on above: Performed By: #### A DIFF, ANEU, CBC, GFR, BMP ####[address] [address] Eosinophils/100 WBC (Bld) 0.1 % Normal 0.0-6.0 [facility] ([place] Comment on above: Performed By: #### A DIFF, ANEU, CBC, GFR, BMP ####[address] [address] Lymphocyte, Absolute 1.3 10 3/mcL Normal 0.9-4.3 [facility] ([place]) Comment on above: Performed By: #### A DIFF, ANEU, CBC, GFR, BMP ####[address] [address] Lymphocytes/100 WBC (Bld) 13.0 % Low 20.0-40.0 [facility] ([place] Comment on above: Performed By: #### A DIFF, ANEU, CBC, GFR, BMP ####[address] [address] Monocyte, Absolute 1.5 10 3/mcL High 0.1-1.4 [facility] ([place] Comment on above: Performed By: #### A DIFF, ANEU, CBC, GFR, BMP ####[address] [address] Monocytes/100 WBC (Bld) 14.5 % High 2.0-13.0 [facility] ([place] Comment on above: Performed By: #### A DIFF, ANEU, CBC, GFR, BMP ####[address] [address] Neutrophils/100 WBC (Bld) 72.2 % Normal 50.0-75.0 [facility] ([place] Comment on above: Performed By: #### A DIFF, ANEU, CBC, GFR, BMP ####[address] [address] .GFRon 07-30-2023 GFR >60 Normal [facility] ([place] Comment on above: Result Comment: GFR Population mean for , Non- Americans Ages 20-29 = 116 mL/min/1.73 sq.m. Ages 30-39 = 107 mL/min/1.73 sq.m. Ages 40-49 = 99 mL/min/1.73 sq.m. Ages 50-59 = 93 mL/min/1.73 sq.m. Ages 60-69 = 85 mL/min/1.73 sq.m. Ages 70+ = 75 mL/min/1.73 sq.m.Chronic Kidney Disease: Less than 60 mL/min/1.73 square metersEnd Stage Renal Disease: Less than 15 mL/min/1.73 square meters Performed By: #### A DIFF, ANEU, CBC, GFR, BMP ####[address] [address] GFR Non- >60 Normal [facility] ([place] Comment on above: Result Comment: GFR Population mean for , Non- Americans Ages 20-29 = 116 mL/min/1.73 sq.m. Ages 30-39 = 107 mL/min/1.73 sq.m. Ages 40-49 = 99 mL/min/1.73 sq.m. Ages 50-59 = 93 mL/min/1.73 sq.m. Ages 60-69 = 85 mL/min/1.73 sq.m. Ages 70+ = 75 mL/min/1.73 sq.m.Chronic Kidney Disease: Less than 60 mL/min/1.73 square metersEnd Stage Renal Disease: Less than 15 mL/min/1.73 square meters Performed By: #### A DIFF, ANEU, CBC, GFR, BMP ####[address] [address] .NEUABSon 07-30-2023 Neutrophil, Absolute 7.3 10 3/mcL Normal 2.3-8.1 [facility] ([place]) Comment on above: Performed By: #### A DIFF, ANEU, CBC, GFR, BMP ####[address] [address] BMPon 07-30-2023 BUN/Creatinine Ratio 25.9 ratio High 10.0-22.0 [facility] ([place] Comment on above: Performed By: #### A DIFF, ANEU, CBC, GFR, BMP ####[address] [address] Calcium [Mass/Vol] 9.0 mg/dL Normal 8.7-10.4 [facility] ([place] Comment on above: Performed By: #### A DIFF, ANEU, CBC, GFR, BMP ####[address] [address] Chloride [Moles/Vol] 103 mmol/L Normal 98-110 [facility] ([place] Comment on above: Performed By: #### A DIFF, ANEU, CBC, GFR, BMP ####[address] [address] CO2 [Moles/Vol] 29 mmol/L Normal 22-32 [facility] ([place] Comment on above: Performed By: #### A DIFF, ANEU, CBC, GFR, BMP ####[address] [address] Creatinine [Mass/Vol] 0.85 mg/dL Normal 0.60-1.40 [facility] ([place] Comment on above: Performed By: #### A DIFF, ANEU, CBC, GFR, BMP ####[address] [address] Electrolyte Balance 3.0 mEq/L Low 4.0-15.0 [facility] ([place]) Comment on above: Performed By: #### A DIFF, ANEU, CBC, GFR, BMP ####[address] [address] Glucose [Mass/Vol] 122 mg/dL High 70-110 [facility] ([place] Comment on above: Performed By: #### A DIFF, ANEU, CBC, GFR, BMP ####[address] [address] Potassium [Moles/Vol] 4.1 mmol/L Normal 3.5-5.0 [facility] ([place] Comment on above: Performed By: #### A DIFF, ANEU, CBC, GFR, BMP ####[address] [address] Sodium [Moles/Vol] 135 mmol/L Low 136-145 [facility] ([place] Comment on above: Performed By: #### A DIFF, ANEU, CBC, GFR, BMP ####[address] [address] Urea nitrogen [Mass/Vol] 22.0 mg/dL Normal 8.0-22.0 [facility] ([place]) Comment on above: Performed By: #### A DIFF, ANEU, CBC, GFR, BMP ####[place] [address] CBCon 07-30-2023 Erythrocyte distribution width (RBC) [Ratio] 13.9 % Normal 11.5-15.5 [facility] ([place] Comment on above: Performed By: #### A DIFF, ANEU, CBC, GFR, BMP ####[place] [address] Hematocrit (Bld) [Volume fraction] 23.0 % Low 40.0-52.0 [facility] ([place] Comment on above: Performed By: #### A DIFF, ANEU, CBC, GFR, BMP ####[place] [address] Hgb 8.0 G/dL Low 13.0-17.5 [facility] ([place] Comment on above: Performed By: #### A DIFF, ANEU, CBC, GFR, BMP ####[place] [address] MCH (RBC) [Entitic mass] 33.0 pg Normal 27.0-33.0 [facility] ([place] Comment on above: Performed By: #### A DIFF, ANEU, CBC, GFR, BMP ####[place] [address] MCHC 34.8 G/dL Normal 32.0-36.0 [facility] ([place] Comment on above: Performed By: #### A DIFF, ANEU, CBC, GFR, BMP ####[place] [address] MCV (RBC) [Entitic vol] 94.7 fL Normal 81.0-100.0 [facility] ([place] Comment on above: Performed By: #### A DIFF, ANEU, CBC, GFR, BMP ####[place] [address] Platelet 117 10 3/mcL Low 150-450 [facility] ([place] Comment on above: Performed By: #### A DIFF, ANEU, CBC, GFR, BMP ####[address] [address] Platelet mean volume (Bld) [Entitic vol] 9.5 fL Normal 6.4-10.5 [facility] ([place]) Comment on above: Performed By: #### A DIFF, ANEU, CBC, GFR, BMP ####[address] [address] RBC 2.43 10 6/mcL Low 4.50-6.00 [facility] ([place] Comment on above: Performed By: #### A DIFF, ANEU, CBC, GFR, BMP ####[address] [address] WBC 10.1 10 3/mcL Normal 4.5-10.8 [facility] ([place] Comment on above: Performed By: #### A DIFF, ANEU, CBC, GFR, BMP ####[place] [address] XR CHEST 1 VIEWon 07-30-2023 XR CHEST 1 VIEW Normal [facility] ([place] XR CHEST 1 VIEW Normal [facility] [place] .Auto Diffon 07-29-2023 Basophil, Absolute 0.0 10 3/mcL Normal 0.0-0.3 [facility] ([place] Comment on above: Performed By: #### C BC, GFR, CMP, ADIFF, ANEU ####[address] [address] Basophils/100 WBC (Bld) 0.2 % Normal 0.0-2.5 [facility] ([place]) Comment on above: Performed By: #### C BC, GFR, CMP, ADIFF, ANEU ####[address] [address] Eosinophil, Absolute 0.0 10 3/mcL Normal 0.0-0.7 [facility] ([place]) Comment on above: Performed By: #### C BC, GFR, CMP, ADIFF, ANEU ####[address] [address] Eosinophils/100 WBC (Bld) 0.0 % Normal 0.0-6.0 [facility] ([place]) Comment on above: Performed By: #### C BC, GFR, CMP, ADIFF, ANEU ####[address] [address] Lymphocyte, Absolute 0.3 10 3/mcL Low 0.9-4.3 [facility] ([place]) Comment on above: Performed By: #### C BC, GFR, CMP, ADIFF, ANEU ####[address] [address] Lymphocytes/100 WBC (Bld) 3.0 % Low 20.0-40.0 [facility] ([place]) Comment on above: Performed By: #### C BC, GFR, CMP, ADIFF, ANEU ####[address] [address] Monocyte, Absolute 0.9 10 3/mcL Normal 0.1-1.4 [facility] ([place]) Comment on above: Performed By: #### C BC, GFR, CMP, ADIFF, ANEU ####[address] [address] Monocytes/100 WBC (Bld) 10.3 % Normal 2.0-13.0 [facility] ([place]) Comment on above: Performed By: #### C BC, GFR, CMP, ADIFF, ANEU ####[address] [address] Neutrophils/100 WBC (Bld) 86.5 % High 50.0-75.0 [facility] ([place]) Comment on above: Performed By: #### C BC, GFR, CMP, ADIFF, ANEU ####[address] [address] .GFRon 07-29-2023 GFR Non- >60 Normal [facility] ([place]) Comment on above: Result Comment: GFR Population mean for , Non- Americans Ages 20-29 = 116 mL/min/1.73 sq.m. Ages 30-39 = 107 mL/min/1.73 sq.m. Ages 40-49 = 99 mL/min/1.73 sq.m. Ages 50-59 = 93 mL/min/1.73 sq.m. Ages 60-69 = 85 mL/min/1.73 sq.m. Ages 70+ = 75 mL/min/1.73 sq.m.Chronic Kidney Disease: Less than 60 mL/min/1.73 square metersEnd Stage Renal Disease: Less than 15 mL/min/1.73 square meters Performed By: #### C BC, GFR, CMP, ADIFF, ANEU ####[place] [address] GFR >60 Normal [facility] ([place]) Comment on above: Result Comment: GFR Population mean for , Non- Americans Ages 20-29 = 116 mL/min/1.73 sq.m. Ages 30-39 = 107 mL/min/1.73 sq.m. Ages 40-49 = 99 mL/min/1.73 sq.m. Ages 50-59 = 93 mL/min/1.73 sq.m. Ages 60-69 = 85 mL/min/1.73 sq.m. Ages 70+ = 75 mL/min/1.73 sq.m.Chronic Kidney Disease: Less than 60 mL/min/1.73 square metersEnd Stage Renal Disease: Less than 15 mL/min/1.73 square meters Performed By: #### C BC, GFR, CMP, ADIFF, ANEU ####[place] [address] .NEUABSon 07-29-2023 Neutrophil, Absolute 7.4 10 3/mcL Normal 2.3-8.1 [facility] ([place]) Comment on above: Performed By: #### C BC, GFR, CMP, ADIFF, ANEU ####[address] [address] BGon 07-29-2023 Base excess Calc (Bld) [Moles/Vol] -2.7000 mmol/L Normal [facility] ([place]) Comment on above: Performed By: #### B G ####[place] [address] CO2 [Moles/Vol] 22.4 mmol/L Normal 22.0-30.0 [facility] ([place]) Comment on above: Performed By: #### B G ####[place] [address] HCO3 (Bld) [Moles/Vol] 21.4 mmol/L Normal 21.0-29.0 [facility] ([place] Comment on above: Performed By: #### B G ####[place] [address] Oxygen (Bld) [Partial pressure] 88.9 mm[Hg] Normal 74.0-108.0 [facility] ([place] Comment on above: Performed By: #### B G ####[place] [address] Oxygen saturation in Blood 96.6 % High 92.0-96.0 [facility] ([place] Comment on above: Performed By: #### B G ####[place] [address] pCO2 34.1 mmHg Normal 32.0-46.0 [facility] ([place] Comment on above: Performed By: #### Manolo G ####[place] [address] pH (Bld) 7.415 [pH] Normal 7.380-7.460 [facility] ([place]) Comment on above: Performed By: #### B G ####[place] [address] CBCon 07-29-2023 Erythrocyte distribution width (RBC) [Ratio] 14.1 % Normal 11.5-15.5 [facility] ([place] Comment on above: Performed By: #### C BC, GFR, CMP, ADIFF, ANEU ####[place] [address] Hematocrit (Bld) [Volume fraction] 26.1 % Low 40.0-52.0 [facility] ([place] Comment on above: Performed By: #### C BC, GFR, CMP, ADIFF, ANEU ####[place] [address] Hgb 9.2 G/dL Low 13.0-17.5 [facility] ([place] Comment on above: Performed By: #### C BC, GFR, CMP, ADIFF, ANEU ####[place] [address] MCH (RBC) [Entitic mass] 33.0 pg Normal 27.0-33.0 [facility] ([place] Comment on above: Performed By: #### C BC, GFR, CMP, ADIFF, ANEU ####[place] [address] MCHC 35.1 G/dL Normal 32.0-36.0 [facility] ([place] Comment on above: Performed By: #### C BC, GFR, CMP, ADIFF, ANEU ####[place] [address] MCV (RBC) [Entitic vol] 94.0 fL Normal 81.0-100.0 [facility] ([place] Comment on above: Performed By: #### C BC, GFR, CMP, ADIFF, ANEU ####[place] [address] Platelet 153 10 3/mcL Normal 150-450 [facility] ([place] Comment on above: Performed By: #### C BC, GFR, CMP, ADIFF, ANEU ####[place] [address] Platelet mean volume (Bld) [Entitic vol] 9.3 fL Normal 6.4-10.5 [facility] ([place] Comment on above: Performed By: #### C BC, GFR, CMP, ADIFF, ANEU ####[place] [address] RBC 2.78 10 6/mcL Low 4.50-6.00 [facility] ([place] Comment on above: Performed By: #### C BC, GFR, CMP, ADIFF, ANEU ####[place] [address] WBC 8.6 10 3/mcL Normal 4.5-10.8 [facility] ([place] Comment on above: Performed By: #### C BC, GFR, CMP, ADIFF, ANEU ####[place] [address] CMPon 07-29-2023 Albumin Level 4.0 G/dL Normal 3.2-4.8 [facility] ([place] Comment on above: Performed By: #### C BC, GFR, CMP, ADIFF, ANEU ####[address] [address] Albumin/Globulin [Mass ratio] 2.2 {ratio} High 0.9-1.6 [facility] ([place] Comment on above: Performed By: #### C BC, GFR, CMP, ADIFF, ANEU ####[address] [address] ALP [Catalytic activity/Vol] 38 U/L Normal 38-126 [facility] ([place] Comment on above: Performed By: #### C BC, GFR, CMP, ADIFF, ANEU ####[address] [address] ALT [Catalytic activity/Vol] 13 U/L Normal 12-55 [facility] ([place] Comment on above: Performed By: #### C BC, GFR, CMP, ADIFF, ANEU ####[address] [address] AST [Catalytic activity/Vol] 42 U/L High 8-34 [facility] ([place] Comment on above: Performed By: #### C BC, GFR, CMP, ADIFF, ANEU ####[address] [address] Bili Total 0.90 mg/dL Normal 0.20-1.20 [facility] ([place] Comment on above: Result Comment: Use of this assay is not recommended for patients undergoing treatment with eltrombopag due to the potential for falsely elevated results. Performed By: #### C BC, GFR, CMP, ADIFF, ANEU ####[address] [address] BUN/Creatinine Ratio 14.9 ratio Normal 10.0-22.0 [facility] ([place] Comment on above: Performed By: #### C BC, GFR, CMP, ADIFF, ANEU ####[address] [address] Calcium [Mass/Vol] 8.7 mg/dL Normal 8.7-10.4 [facility] ([place]) Comment on above: Performed By: #### C BC, GFR, CMP, ADIFF, ANEU ####[address] [address] Chloride [Moles/Vol] 107 mmol/L Normal 98-110 [facility] ([place] Comment on above: Performed By: #### C BC, GFR, CMP, ADIFF, ANEU ####[address] [address] CO2 [Moles/Vol] 25 mmol/L Normal 22-32 [facility] ([place] Comment on above: Performed By: #### C BC, GFR, CMP, ADIFF, ANEU ####[address] [address] Creatinine [Mass/Vol] 0.74 mg/dL Normal 0.60-1.40 [facility] ([place] Comment on above: Performed By: #### C BC, GFR, CMP, ADIFF, ANEU ####[address] [address] Electrolyte Balance 7.0 mEq/L Normal 4.0-15.0 [facility] ([place] Comment on above: Performed By: #### C BC, GFR, CMP, ADIFF, ANEU ####[address] [address] Globulin 1.8 G/dL Normal 1.5-3.8 [facility] ([place] Comment on above: Performed By: #### C BC, GFR, CMP, ADIFF, ANEU ####[address] [address] Glucose [Mass/Vol] 156 mg/dL High 70-110 [facility] [place] Comment on above: Performed By: #### C BC, GFR, CMP, ADIFF, ANEU ####[address] [address] Potassium [Moles/Vol] 3.8 mmol/L Normal 3.5-5.0 [facility] ([place] Comment on above: Performed By: #### C BC, GFR, CMP, ADIFF, ANEU ####[address] [address] Sodium [Moles/Vol] 139 mmol/L Normal 136-145 [facility] [place] Comment on above: Performed By: #### C BC, GFR, CMP, ADIFF, ANEU ####[address] [address] Total Protein 5.8 G/dL Normal 5.7-8.2 [facility] ([place]) Comment on above: Result Comment: No te - New Reference Range in effect 19 Performed By: #### C BC, GFR, CMP, ADIFF, ANEU ####[place] [address] Urea nitrogen [Mass/Vol] 11.0 mg/dL Normal 8.0-22.0 [facility] ([place] Comment on above: Performed By: #### C BC, GFR, CMP, ADIFF, ANEU ####[place] [address] Fr[place] 07-29-2023 Potassium [Moles/Vol] 4.8 mmol/L Normal 3.5-5.0 [facility] ([place] Comment on above: Performed By: #### K ####[place] [address] LABORATORYOrdered By: SYSTEM SYSTEM on 07-29-2023 Magnesium [Mass/Vol] 2.3 mg/dL Normal 1.6 - 2 .4 mg/dL ADM SS Albumin BCP dye [Mass/Vol] 4.0 G/dL Normal 3.2 - 4.8 G/dL ADM SS Albumin/Globulin [Mass ratio] 2.2 {ratio} High 0.9 - 1.6 ratio AH ADM SS ALP [Catalytic activity/Vol] 38 U/L Normal 38 - 126 U/L ADM SS ALT No additional P-5'-P [Catalytic activity/Vol] 13 U/L Normal 12 - 55 U/L ADM SS AST [Catalytic activity/Vol] 42 U/L High 8 - 34 U/L ADM SS Bilirubin [Mass/Vol] 0.90 mg/dL Normal 0.20 - 1.20 mg/dL AH ADM SS Comment on above: Interpretive Data: U se of this assay is not recommended for patients undergoing treatment with eltrombopag due to the potential for falsely elevated results. Globulin 1.8 G/dL Normal 1.5 - 3.8 G/dL AH ADM SS Protein [Mass/Vol] 5.8 G/dL Normal 5.7 - 8.2 G/dL AH ADM SS Comment on above: Interpretive Data: * *Note - New Reference Range in effect 19 LABORATORYOrdered By: Susan Abreu on 07-29-2023 Base Excess -2.7 mmol/L Invalid Interpretation Code [facility] CO2 [Moles/Vol] 22.4 mmol/L Normal 22.0 - 30.0 mmol/L [facility] HCO3 (Bld) [Moles/Vol] 21.4 mmol/L Normal 21.0 - 29.0 mmol/L [facility] Oxygen (Bld) [Partial pressure] 88.9 mm[Hg] Normal 74.0 - 108.0 mm Hg [facility] pCO2 34.1 mm[Hg] Normal 32.0 - 46.0 mm Hg [facility] pH (Bld) 7.415 [pH] Normal 7.380 - 7.460 [facility] MGon 07-29-2023 Magnesium [Mass/Vol] 2.3 mg/dL Normal 1.6-2.4 [facility] ([place] Comment on above: Performed By: #### Juana Salmeron ####[address] [address] XR CHEST 1 VIEWon 07-29-2023 XR CHEST 1 VIEW Normal [facility] ([place]) .Auto Diffon 07-28-2023 Basophil, Absolute 0.1 10 3/mcL Normal 0.0-0.3 [facility] [place] Comment on above: Performed By: #### M Jaron, BREA, ADIFF, GFR, BMP, CAION, CBC, PHOS ####[address] [address] Basophils/100 WBC (Bld) 0.5 % Normal 0.0-2.5 [facility] ([place] Comment on above: Performed By: #### M G, ANEU, ADIFF, GFR, BMP, CAION, CBC, PHOS ####[address] [address] Eosinophil, Absolute 0.0 10 3/mcL Normal 0.0-0.7 [facility] ([place]) Comment on above: Performed By: #### M G, ANEU, ADIFF, GFR, BMP, CAION, CBC, PHOS ####[address] [address] Eosinophils/100 WBC (Bld) 0.4 % Normal 0.0-6.0 [facility] ([place]) Comment on above: Performed By: #### M G, ANEU, ADIFF, GFR, BMP, CAION, CBC, PHOS ####[address] [address] Lymphocyte, Absolute 0.6 10 3/mcL Low 0.9-4.3 [facility] ([place]) Comment on above: Performed By: #### M G, ANEU, ADIFF, GFR, BMP, CAION, CBC, PHOS ####[address] [address] Lymphocytes/100 WBC (Bld) 6.3 % Low 20.0-40.0 [facility] ([place] Comment on above: Performed By: #### M G, ANEU, ADIFF, GFR, BMP, CAION, CBC, PHOS ####[address] [address] Monocyte, Absolute 0.8 10 3/mcL Normal 0.1-1.4 [facility] [place] Comment on above: Performed By: #### M G, ANEU, ADIFF, GFR, BMP, CAION, CBC, PHOS ####[address] [address] Monocytes/100 WBC (Bld) 7.9 % Normal 2.0-13.0 [facility] ([place] Comment on above: Performed By: #### M G, ANEU, ADIFF, GFR, BMP, CAION, CBC, PHOS ####[address] [address] Neutrophils/100 WBC (Bld) 84.9 % High 50.0-75.0 [facility] ([place] Comment on above: Performed By: #### M G, ANEU, ADIFF, GFR, BMP, CAION, CBC, PHOS ####[address] [address] .GFRon 07-28-2023 GFR Non- >60 Normal [facility] ([place] Comment on above: Result Comment: GFR Population mean for , Non- Americans Ages 20-29 = 116 mL/min/1.73 sq.m. Ages 30-39 = 107 mL/min/1.73 sq.m. Ages 40-49 = 99 mL/min/1.73 sq.m. Ages 50-59 = 93 mL/min/1.73 sq.m. Ages 60-69 = 85 mL/min/1.73 sq.m. Ages 70+ = 75 mL/min/1.73 sq.m.Chronic Kidney Disease: Less than 60 mL/min/1.73 square metersEnd Stage Renal Disease: Less than 15 mL/min/1.73 square meters Performed By: #### M G, ANEU, ADIFF, GFR, BMP, CAION, CBC, PHOS ####[place] [address] GFR >60 Normal [facility] [place] Comment on above: Result Comment: GFR Population mean for , Non- Americans Ages 20-29 = 116 mL/min/1.73 sq.m. Ages 30-39 = 107 mL/min/1.73 sq.m. Ages 40-49 = 99 mL/min/1.73 sq.m. Ages 50-59 = 93 mL/min/1.73 sq.m. Ages 60-69 = 85 mL/min/1.73 sq.m. Ages 70+ = 75 mL/min/1.73 sq.m.Chronic Kidney Disease: Less than 60 mL/min/1.73 square metersEnd Stage Renal Disease: Less than 15 mL/min/1.73 square meters Performed By: #### M G, ANEU, ADIFF, GFR, BMP, CAION, CBC, PHOS ####[address] [address] .NEUABSon 07-28-2023 Neutrophil, Absolute 8.3 10 3/mcL High 2.3-8.1 [facility] ([place] Comment on above: Performed By: #### M G, ANEU, ADIFF, GFR, BMP, CAION, CBC, PHOS ####[address] [address] ABO/Rh (Gel)on 07-28-2023 ABO/Rh Interp Positive Invalid Interpretation Code [facility] ([place] Comment [place] above: Performed By: #### A MEMO ABSGEL ####[address] [address] ABS (Gel)on 07-28-2023 ABSC Interp (Gel) Negative Normal [facility] ([place] Comment on above: Performed By: #### A MEMO ABSGEL ####[place] [address] APTTon 07-28-2023 aPTT Coag (Bld) [Time] 28.7 s Normal 25.0-35.0 [facility] ([place] Comment on above: Result Comment: For Heparin anticoagulation therapy, the recommendedtherapeutic range is: 54-77 seconds (APTT Correlationwith Anti-Xa therapeutic range of 0.3-0.7 units/ml).PLEASE REFERENCE THE PHARMACY PROTOCOL FOR DOSING. Performed By: #### F IB, PRO ####[address] [address] Heparin dose (APTT) None Normal [facility] ([place] Comment on above: Performed By: #### F IB, PRO ####[address] [address] BGon 07-28-2023 Base excess Calc (Bld) [Moles/Vol] -4.4000 mmol/L Normal [facility] ([place] Comment on above: Performed By: #### B G, HH ####[address] [address] CO2 [Moles/Vol] 21.4 mmol/L Low 22.0-30.0 [facility] ([place] Comment on above: Performed By: #### Manolo Salmeron, ####[address] [address] HCO3 (Bld) [Moles/Vol] 20.3 mmol/L Low 21.0-29.0 [facility] ([place] Comment on above: Performed By: #### Manolo Salmeron, ####[address] [address] Oxygen (Bld) [Partial pressure] 75.6 mm[Hg] Normal 74.0-108.0 [facility] ([place]) Comment on above: Performed By: #### Manolo Salmeron, ####[address] [address] Oxygen saturation in Blood 94.5 % Normal 92.0-96.0 [facility] ([place] Comment on above: Performed By: #### Manolo Salmeron, ####[address] [address] pCO2 35.6 mmHg Normal 32.0-46.0 [facility] ([place]) Comment on above: Performed By: #### Manolo Salmeron, ####[address] [address] pH (Bld) 7.373 [pH] Low 7.380-7.460 [facility] ([place]) Comment on above: Performed By: #### Manolo Salmeron, ####[address] [address] Base excess Calc (Bld) [Moles/Vol] -3.3000 mmol/L Normal [facility] ([place] Comment on above: Performed By: #### Manolo Salmeron ####[address] [address] CO2 [Moles/Vol] 23.1 mmol/L Normal 22.0-30.0 [facility] ([place] Comment on above: Performed By: #### Manolo Salmeron ####[address] [address] HCO3 (Bld) [Moles/Vol] 21.9 mmol/L Normal 21.0-29.0 [facility] ([place] Comment on above: Performed By: #### Manolo Salmeron ####[place] [id number] Oxygen (Bld) [Partial pressure] 141.5 mm[Hg] High 74.0-108.0 [facility] [place] Comment on above: Performed By: #### B G ####[place] [id number] Oxygen saturation in Blood 98.4 % High 92.0-96.0 [facility] [place] Comment on above: Performed By: #### B G ####[address] [address] pCO2 40.0 mmHg Normal 32.0-46.0 [facility] [place] Comment on above: Performed By: #### Manolo G ####[place] [id number] pH (Bld) 7.356 [pH] Low 7.380-7.460 [facility] [place] Comment on above: Performed By: #### Manolo G ####[place] [id number] Base excess Calc (Bld) [Moles/Vol] -4.5000 mmol/L Normal [facility] [place] Comment on above: Performed By: #### B G ####[place] [address] CO2 [Moles/Vol] 22.5 mmol/L Normal 22.0-30.0 [facility] [place] Comment on above: Performed By: #### B G ####[address] [address] HCO3 (Bld) [Moles/Vol] 21.2 mmol/L Normal 21.0-29.0 [facility] ([place] Comment on above: Performed By: #### B G ####[address] [address] Oxygen (Bld) [Partial pressure] 149.9 mm[Hg] High 74.0-108.0 [facility] ([place] Comment on above: Performed By: #### Manolo G ####[address] [place] [address] Oxygen saturation in Blood 98.9 % High 92.0-96.0 [facility] ([place] Comment on above: Performed By: #### Manolo G ####[address] [address] pCO2 41.4 mmHg Normal 32.0-46.0 [facility] ([place] Comment on above: Performed By: #### B G ####[address] [address] pH (Bld) 7.328 [pH] Low 7.380-7.460 [facility] [place] Comment on above: Performed By: #### B G ####[address] [address] Base excess Calc (Bld) [Moles/Vol] -1.5000 mmol/L Normal [facility] [place] Comment on above: Performed By: #### B G ####[address] [address] CO2 [Moles/Vol] 24.6 mmol/L Normal 22.0-30.0 [facility] [place] Comment on above: Performed By: #### B G ####[address] [address] HCO3 (Bld) [Moles/Vol] 23.3 mmol/L Normal 21.0-29.0 [facility] [place] Comment on above: Performed By: #### B G ####[address] [address] Oxygen (Bld) [Partial pressure] 311.6 mm[Hg] High 74.0-108.0 [facility] [place] Comment on above: Performed By: #### B G ####[address] [address] Oxygen saturation in Blood 99.6 % High 92.0-96.0 [facility] [place] Comment on above: Performed By: #### B G ####[place] [id number] [address] [place] [address] pCO2 39.8 mmHg Normal 32.0-46.0 [facility] ([place] Comment on above: Performed By: #### B G ####[place] [address] pH (Bld) 7.386 [pH] Normal 7.380-7.460 [facility] ([place] Comment on above: Performed By: #### B G ####[place] [address] BGRPon 07-28-2023 Base Excess - POC -0.6 mmol/L Normal [facility] [place] Comment [place] above: Performed By: #### H GBRP, NARP, BGRP, HCTRP, CARP, GLURP, CLRP, KRP ####[place] [address] CO2 [Moles/Vol] 25.0 mmol/L Normal 22.0-30.0 [facility] [place] Comment [place] above: Performed By: #### H GBRP, NARP, BGRP, HCTRP, CARP, GLURP, CLRP, KRP ####[place] [address] HCO3 (Bld) [Moles/Vol] 23.8 mmol/L Normal 21.0-29.0 [facility] [place] Comment on above: Performed By: #### H GBRP, NARP, BGRP, HCTRP, CARP, GLURP, CLRP, KRP ####[place] [address] Oxygen saturation in Blood 99.1 % High 92.0-96.0 [facility] [place] Comment on above: Performed By: #### H GBRP, NARP, BGRP, HCTRP, CARP, GLURP, CLRP, KRP ####[place] [address] PCO2 - POC 38.2 mmHg Normal 32.0-46.0 [facility] ([place] Comment on above: Performed By: #### H GBRP, NARP, BGRP, HCTRP, CARP, GLURP, CLRP, KRP ####[place] [address] pH (poct) - POC 7.412 Normal 7.380-7.460 [facility] ([place] Comment on above: Performed By: #### H GBRP, NARP, BGRP, HCTRP, CARP, GLURP, CLRP, KRP ####[place] [address] PO2 - POC 335.5 mmHg High 74.0-108.0 [facility] ([place] Comment on above: Performed By: #### H GBRP, NARP, BGRP, HCTRP, CARP, GLURP, CLRP, KRP ####[place] [address] Base Excess - POC -0.6 mmol/L Normal [facility] [place] Comment on above: Performed By: #### N MANAN, HGBRP, CARP, CLRP, BGRP, KRP, HCTRP, GLURP ####[place] [address] CO2 [Moles/Vol] 26.8 mmol/L Normal 22.0-30.0 [facility] [place] Comment on above: Performed By: #### N MANAN, HGBRP, CARP, CLRP, BGRP, KRP, HCTRP, GLURP ####[place] [address] HCO3 (Bld) [Moles/Vol] 25.3 mmol/L Normal 21.0-29.0 [facility] [place] Comment on above: Performed By: #### N MANAN, HGBRP, CARP, CLRP, BGRP, KRP, HCTRP, GLURP ####[place] [address] Oxygen saturation in Blood 99.1 % High 92.0-96.0 [facility] ([place] Comment on above: Performed By: #### N MANAN, HGBRP, CARP, CLRP, BGRP, KRP, HCTRP, GLURP ####[place] [address] PCO2 - POC 47.7 mmHg High 32.0-46.0 [facility] ([place] Comment on above: Performed By: #### N MANAN, HGBRP, CARP, CLRP, BGRP, KRP, HCTRP, GLURP ####[place] [address] pH (poct) - POC 7.343 Low 7.380-7.460 [facility] ([place] Comment on above: Performed By: #### N MANAN, HGBRP, CARP, CLRP, BGRP, KRP, HCTRP, GLURP ####[place] [address] PO2 - POC 469.1 mmHg High 74.0-108.0 [facility] ([place] Comment on above: Performed By: #### N MANAN, HGBRP, CARP, CLRP, BGRP, KRP, HCTRP, GLURP ####[place] [address] Base Excess - POC -3.9 mmol/L Normal [facility] [place] Comment on above: Performed By: #### N MANAN, HCTRP, CARP, BGRP, HGBRP, CLRP, GLURP, KRP ####[place] [address] CO2 [Moles/Vol] 24.0 mmol/L Normal 22.0-30.0 [facility] [place] Comment on above: Performed By: #### N MANAN, HCTRP, CARP, BGRP, HGBRP, CLRP, GLURP, KRP ####[place] [address] HCO3 (Bld) [Moles/Vol] 22.6 mmol/L Normal 21.0-29.0 [facility] ([place] Comment on above: Performed By: #### N MANAN, HCTRP, CARP, BGRP, HGBRP, CLRP, GLURP, KRP ####[place] [address] Oxygen saturation in Blood 99.0 % High 92.0-96.0 [facility] [place] Comment on above: Performed By: #### N MANAN, HCTRP, CARP, BGRP, HGBRP, CLRP, GLURP, KRP ####[place] [address] PCO2 - POC 47.4 mmHg High 32.0-46.0 [facility] [place] Comment on above: Performed By: #### N MANAN, HCTRP, CARP, BGRP, HGBRP, CLRP, GLURP, KRP ####[place] [address] pH (poct) - POC 7.296 Low 7.380-7.460 [facility] ([place] Comment on above: Performed By: #### N MANAN, HCTRP, CARP, BGRP, HGBRP, CLRP, GLURP, KRP ####[place] [address] PO2 - POC 449.6 mmHg High 74.0-108.0 [facility] [place] Comment on above: Performed By: #### N MANAN, HCTRP, CARP, BGRP, HGBRP, CLRP, GLURP, KRP ####[place] [address] Base Excess - POC -2.8 mmol/L Normal [facility] [place] Comment on above: Performed By: #### C LRP, HGBRP, NARP, GLURP, BGRP, CARP, KRP, HCTRP ####[place] [address] CO2 [Moles/Vol] 23.5 mmol/L Normal 22.0-30.0 [facility] [place] Comment on above: Performed By: #### C LRP, HGBRP, NARP, GLURP, BGRP, CARP, KRP, HCTRP ####[place] [address] HCO3 (Bld) [Moles/Vol] 22.3 mmol/L Normal 21.0-29.0 [facility] [place] Comment on above: Performed By: #### C LRP, HGBRP, NARP, GLURP, BGRP, CARP, KRP, HCTRP ####[place] [address] Oxygen saturation in Blood 99.1 % High 92.0-96.0 [facility] [place] Comment on above: Performed By: #### C LRP, HGBRP, NARP, GLURP, BGRP, CARP, KRP, HCTRP ####[place] [address] PCO2 - POC 40.0 mmHg Normal 32.0-46.0 [facility] ([place] Comment on above: Performed By: #### C LRP, HGBRP, NARP, GLURP, BGRP, CARP, KRP, HCTRP ####[place] [id number] pH (poct) - POC 7.364 Low 7.380-7.460 [facility] ([place] Comment on above: Performed By: #### C LRP, HGBRP, NARP, GLURP, BGRP, CARP, KRP, HCTRP ####[place] [address] PO2 - POC 522.7 mmHg High 74.0-108.0 [facility] ([place] Comment on above: Performed By: #### C LRP, HGBRP, NARP, GLURP, BGRP, CARP, KRP, HCTRP ####[place] [address] Base Excess - POC -2.1 mmol/L Normal [facility] [place] Comment on above: Performed By: #### G LURP, HCTRP, KRP, BGRP, HGBRP, CLRP, NARP, CARP ####[place] [id number] CO2 [Moles/Vol] 23.0 mmol/L Normal 22.0-30.0 [facility] [place] Comment on above: Performed By: #### G LURP, HCTRP, KRP, BGRP, HGBRP, CLRP, NARP, CARP ####[place] [id number] HCO3 (Bld) [Moles/Vol] 21.9 mmol/L Normal 21.0-29.0 [facility] ([place] Comment on above: Performed By: #### G LURP, HCTRP, KRP, BGRP, HGBRP, CLRP, NARP, CARP ####[place] [address] Oxygen saturation in Blood 99.4 % High 92.0-96.0 [facility] ([place] Comment on above: Performed By: #### G LURP, HCTRP, KRP, BGRP, HGBRP, CLRP, NARP, CARP ####[place] [address] PCO2 - POC 35.2 mmHg Normal 32.0-46.0 [facility] ([place] Comment on above: Performed By: #### G LURP, HCTRP, KRP, BGRP, HGBRP, CLRP, NARP, CARP ####[place] [address] pH (poct) - POC 7.412 Normal 7.380-7.460 [facility] ([place] Comment on above: Performed By: #### G LURP, HCTRP, KRP, BGRP, HGBRP, CLRP, NARP, CARP ####[place] [address] PO2 - POC 413.5 mmHg High 74.0-108.0 [facility] ([place] Comment on above: Performed By: #### G LURP, HCTRP, KRP, BGRP, HGBRP, CLRP, NARP, CARP ####[place] [address] Base Excess - POC -1.6 mmol/L Normal [facility] [place] Comment on above: Performed By: #### H GBRP, NARP, GLURP, KRP, CARP, HCTRP, CLRP, BGRP ####[place] [address] CO2 [Moles/Vol] 25.2 mmol/L Normal 22.0-30.0 [facility] ([place] Comment on above: Performed By: #### H GBRP, NARP, GLURP, KRP, CARP, HCTRP, CLRP, BGRP ####[place] [address] HCO3 (Bld) [Moles/Vol] 23.9 mmol/L Normal 21.0-29.0 [facility] [place] Comment on above: Performed By: #### H GBRP, NARP, GLURP, KRP, CARP, HCTRP, CLRP, BGRP ####[place] [address] Oxygen saturation in Blood 99.7 % High 92.0-96.0 [facility] ([place]) Comment on above: Performed By: #### H GBRP, NARP, GLURP, KRP, CARP, HCTRP, CLRP, BGRP ####[place] [address] PCO2 - POC 42.8 mmHg Normal 32.0-46.0 [facility] ([place]) Comment on above: Performed By: #### H GBRP, NARP, GLURP, KRP, CARP, HCTRP, CLRP, BGRP ####[place] [address] pH (poct) - POC 7.364 Low 7.380-7.460 [facility] ([place]) Comment on above: Performed By: #### H GBRP, NARP, GLURP, KRP, CARP, HCTRP, CLRP, BGRP ####[place] [address] PO2 - POC 457.7 mmHg High 74.0-108.0 [facility] ([place] Comment on above: Performed By: #### H GBRP, NARP, GLURP, KRP, CARP, HCTRP, CLRP, BGRP ####[place] [address] BMPon 07-28-2023 BUN/Creatinine Ratio 14.9 ratio Normal 10.0-22.0 [facility] ([place]) Comment on above: Performed By: #### M G, ANEU, ADIFF, GFR, BMP, CAION, CBC, PHOS ####[place] [address] Calcium [Mass/Vol] 8.5 mg/dL Low 8.7-10.4 [facility] ([place]) Comment on above: Performed By: #### M G, ANEU, ADIFF, GFR, BMP, CAION, CBC, PHOS ####[address] [address] Chloride [Moles/Vol] 108 mmol/L Normal 98-110 [facility] ([place]) Comment on above: Performed By: #### M G, ANEU, ADIFF, GFR, BMP, CAION, CBC, PHOS ####[address] [address] CO2 [Moles/Vol] 24 mmol/L Normal 22-32 [facility] ([place]) Comment on above: Performed By: #### M G, ANEU, ADIFF, GFR, BMP, CAION, CBC, PHOS ####[place] [address] Creatinine [Mass/Vol] 0.74 mg/dL Normal 0.60-1.40 [facility] ([place]) Comment on above: Performed By: #### M G, ANEU, ADIFF, GFR, BMP, CAION, CBC, PHOS ####[place] [address] Electrolyte Balance 7.0 mEq/L Normal 4.0-15.0 [facility] ([place]) Comment on above: Performed By: #### M G, ANEU, ADIFF, GFR, BMP, CAION, CBC, PHOS ####[place] [address] Glucose [Mass/Vol] 117 mg/dL High 70-110 [facility] ([place]) Comment on above: Performed By: #### M G, ANEU, ADIFF, GFR, BMP, CAION, CBC, PHOS ####[address] [address] Potassium [Moles/Vol] 4.5 mmol/L Normal 3.5-5.0 [facility] ([place]) Comment on above: Performed By: #### M G, ANEU, ADIFF, GFR, BMP, CAION, CBC, PHOS ####[place] [address] Sodium [Moles/Vol] 139 mmol/L Normal 136-145 [facility] ([place]) Comment on above: Performed By: #### M G, ANEU, ADIFF, GFR, BMP, CAION, CBC, PHOS ####[place] [address] Urea nitrogen [Mass/Vol] 11.0 mg/dL Normal 8.0-22.0 [facility] ([place]) Comment on above: Performed By: #### M G, ANEU, ADIFF, GFR, BMP, CAION, CBC, PHOS ####[place] [address] CAIONon 07-28-2023 Calcium Ionized 1.18 mmol/L Normal 1.12-1.32 [facility] ([place]) Comment on above: Performed By: #### M G, ANEU, ADIFF, GFR, BMP, CAION, CBC, PHOS ####[place] [address] CARPon 07-28-2023 Ionized Calcium - POC 1.29 mmol/L Normal 1.12-1.32 [facility] ([place]) Comment on above: Performed By: #### H GBRP, NARP, BGRP, HCTRP, CARP, GLURP, CLRP, KRP ####[place] [address] Ionized Calcium - POC 1.07 mmol/L Low 1.12-1.32 [facility] ([place]) Comment on above: Performed By: #### N MANAN, HGBRP, CARP, CLRP, BGRP, KRP, HCTRP, GLURP ####[place] [address] Ionized Calcium - POC 1.10 mmol/L Low 1.12-1.32 [facility] ([place] Comment on above: Performed By: #### N MANAN, HCTRP, CARP, BGRP, HGBRP, CLRP, GLURP, KRP ####[place] [address] Ionized Calcium - POC 1.06 mmol/L Low 1.12-1.32 [facility] ([place] Comment on above: Performed By: #### C LRP, HGBRP, NARP, GLURP, BGRP, CARP, KRP, HCTRP ####[place] [address] Ionized Calcium - POC 1.18 mmol/L Normal 1.12-1.32 [facility] ([place] Comment on above: Performed By: #### G LURP, HCTRP, KRP, BGRP, HGBRP, CLRP, NARP, CARP ####[place] [address] Ionized Calcium - POC 1.20 mmol/L Normal 1.12-1.32 [facility] ([place] Comment on above: Performed By: #### H GBRP, NARP, GLURP, KRP, CARP, HCTRP, CLRP, BGRP ####[place] [address] CBCon 07-28-2023 Erythrocyte distribution width (RBC) [Ratio] 13.8 % Normal 11.5-15.5 [facility] ([place] Comment on above: Performed By: #### M G, ANEU, ADIFF, GFR, BMP, CAION, CBC, PHOS ####[place] [address] Hematocrit (Bld) [Volume fraction] 33.1 % Low 40.0-52.0 [facility] [place] Comment on above: Performed By: #### M G, ANEU, ADIFF, GFR, BMP, CAION, CBC, PHOS ####[place] [address] Hgb 11.4 G/dL Low 13.0-17.5 [facility] [place] Comment on above: Performed By: #### M G, ANEU, ADIFF, GFR, BMP, CAION, CBC, PHOS ####[place] [address] MCH (RBC) [Entitic mass] 32.8 pg Normal 27.0-33.0 [facility] [place] Comment on above: Performed By: #### M G, ANEU, ADIFF, GFR, BMP, CAION, CBC, PHOS ####[place] [address] MCHC 34.5 G/dL Normal 32.0-36.0 [facility] [place] Comment on above: Performed By: #### M G, ANEU, ADIFF, GFR, BMP, CAION, CBC, PHOS ####[place] [address] MCV (RBC) [Entitic vol] 95.1 fL Normal 81.0-100.0 [facility] [place] Comment on above: Performed By: #### M G, ANEU, ADIFF, GFR, BMP, CAION, CBC, PHOS ####[place] [address] Platelet 123 10 3/mcL Low 150-450 [facility] [place] Comment on above: Performed By: #### M G, ANEU, ADIFF, GFR, BMP, CAION, CBC, PHOS ####[place] [address] Platelet mean volume (Bld) [Entitic vol] 9.1 fL Normal 6.4-10.5 [facility] [place] Comment on above: Performed By: #### M G, ANEU, ADIFF, GFR, BMP, CAION, CBC, PHOS ####[place] [address] RBC 3.48 10 6/mcL Low 4.50-6.00 [facility] [place] Comment on above: Performed By: #### M G, ANEU, ADIFF, GFR, BMP, CAION, CBC, PHOS ####[place] [address] WBC 9.8 10 3/mcL Normal 4.5-10.8 [facility] [place] Comment on above: Performed By: #### M G, ANEU, ADIFF, GFR, BMP, CAION, CBC, PHOS ####[place] [id number] CLRPon 07-28-2023 Chloride [Moles/Vol] 103 mmol/L Normal 98-110 [facility] ([place] Comment on above: Performed By: #### H GBRP, NARP, BGRP, HCTRP, CARP, GLURP, CLRP, KRP ####[address] [address] Chloride [Moles/Vol] 101 mmol/L Normal 98-110 [facility] [place] Comment on above: Performed By: #### N MANAN, HGBRP, CARP, CLRP, BGRP, KRP, HCTRP, GLURP ####[address] [address] Chloride [Moles/Vol] 102 mmol/L Normal 98-110 [facility] [place] Comment on above: Performed By: #### N MANAN, HCTRP, CARP, BGRP, HGBRP, CLRP, GLURP, KRP ####[address] [address] Chloride [Moles/Vol] 101 mmol/L Normal 98-110 [facility] [place] Comment on above: Performed By: #### C LRP, HGBRP, NARP, GLURP, BGRP, CARP, KRP, HCTRP ####[address] [address] Chloride [Moles/Vol] 103 mmol/L Normal 98-110 [facility] [place] Comment on above: Performed By: #### G LURP, HCTRP, KRP, BGRP, HGBRP, CLRP, NARP, CARP ####[address] [address] Chloride [Moles/Vol] 103 mmol/L Normal 98-110 [facility] [place] Comment on above: Performed By: #### H GBRP, NARP, GLURP, KRP, CARP, HCTRP, CLRP, BGRP ####[address] [address] [address] CORONARY CALCIUM SCORING W/O CONTRASTon 07-28-2023 CT CORONARY CALCIUM SCORING W/O CONTRAST Normal [facility] ([place] HEAD OR BRAIN W/ + W/O CO NTRASTon 07-28-2023 CT HEAD OR BRAIN W/ + W/O CONTRAST Normal [facility] [place] FIBon 07-28-2023 Fibrinogen 324 mg/dL Normal 250-560 [facility] [place] Comment on above: Performed By: #### F IB, PRO ####[address] [address] GLURPon 07-28-2023 Glucose [Mass/Vol] 122 mg/dL High 70-110 [facility] ([place] Comment on above: Performed By: #### H GBRP, NARP, BGRP, HCTRP, CARP, GLURP, CLRP, KRP ####[place] [address] Glucose [Mass/Vol] 129 mg/dL High 70-110 [facility] [place] Comment on above: Performed By: #### N MANAN, HGBRP, CARP, CLRP, BGRP, KRP, HCTRP, GLURP ####[address] [address] Glucose [Mass/Vol] 118 mg/dL High 70-110 [facility] [place] Comment on above: Performed By: #### N MANAN, HCTRP, CARP, BGRP, HGBRP, CLRP, GLURP, KRP ####[address] [address] Glucose [Mass/Vol] 90 mg/dL Normal 70-110 [facility] [place] Comment on above: Performed By: #### C LRP, HGBRP, NARP, GLURP, BGRP, CARP, KRP, HCTRP ####[address] [address] Glucose [Mass/Vol] 82 mg/dL Normal 70-110 [facility] [place] Comment on above: Performed By: #### G LURP, HCTRP, KRP, BGRP, HGBRP, CLRP, NARP, CARP ####[address] [address] Glucose [Mass/Vol] 81 mg/dL Normal 70-110 [facility] [place] Comment on above: Performed By: #### H GBRP, NARP, GLURP, KRP, CARP, HCTRP, CLRP, BGRP ####[address] [address] HCTRPon 07-28-2023 Hematocrit (Bld) [Volume fraction] 30.0 % Low 42.0-52.0 [facility] [place] Comment on above: Performed By: #### H GBRP, NARP, BGRP, HCTRP, CARP, GLURP, CLRP, KRP ####[place] [address] Hematocrit (Bld) [Volume fraction] 30.0 % Low 42.0-52.0 [facility] [place] Comment on above: Performed By: #### N MANAN, HGBRP, CARP, CLRP, BGRP, KRP, HCTRP, GLURP ####[place] [address] Hematocrit (Bld) [Volume fraction] 30.0 % Low 42.0-52.0 [facility] [place] Comment on above: Performed By: #### N MANAN, HCTRP, CARP, BGRP, HGBRP, CLRP, GLURP, KRP ####[place] [address] Hematocrit (Bld) [Volume fraction] 30.0 % Low 42.0-52.0 [facility] [place] Comment on above: Performed By: #### C LRP, HGBRP, NARP, GLURP, BGRP, CARP, KRP, HCTRP ####[place] [address] Hematocrit (Bld) [Volume fraction] 39.0 % Low 42.0-52.0 [facility] [place] Comment on above: Performed By: #### G LURP, HCTRP, KRP, BGRP, HGBRP, CLRP, NARP, CARP ####[place] [address] Hematocrit (Bld) [Volume fraction] 39.0 % Low 42.0-52.0 [facility] [place] Comment on above: Performed By: #### H GBRP, NARP, GLURP, KRP, CARP, HCTRP, CLRP, BGRP ####[address] [address] HGBRPon 07-28-2023 Hemoglobin (POC) 10.2 G/dL Low 13.0-17.5 [facility] [place] Comment on above: Performed By: #### H GBRP, NARP, BGRP, HCTRP, CARP, GLURP, CLRP, KRP ####[address] [address] Hemoglobin (POC) 10.2 G/dL Low 13.0-17.5 [facility] [place] Comment on above: Performed By: #### N MANAN, HGBRP, CARP, CLRP, BGRP, KRP, HCTRP, GLURP ####[address] [address] Hemoglobin (POC) 10.2 G/dL Low 13.0-17.5 [facility] [place] Comment on above: Performed By: #### N MANAN, HCTRP, CARP, BGRP, HGBRP, CLRP, GLURP, KRP ####[address] [address] Hemoglobin (POC) 10.1 G/dL Low 13.0-17.5 [facility] [place] Comment on above: Performed By: #### C LRP, HGBRP, NARP, GLURP, BGRP, CARP, KRP, HCTRP ####[address] [address] Hemoglobin (POC) 13.2 G/dL Normal 13.0-17.5 [facility] [place] Comment on above: Performed By: #### G LURP, HCTRP, KRP, BGRP, HGBRP, CLRP, NARP, CARP ####[address] [address] Hemoglobin (POC) 13.4 G/dL Normal 13.0-17.5 [facility] [place] Comment on above: Performed By: #### H GBRP, NARP, GLURP, KRP, CARP, HCTRP, CLRP, BGRP ####[place] [address] HHon 07-28-2023 Hematocrit (Bld) [Volume fraction] 31.0 % Low 40.0-52.0 [facility] [place] Comment on above: Performed By: #### Manolo Salmeron, HH ####[place] [address] Hgb 10.7 G/dL Low 13.0-17.5 [facility] [place] Comment on above: Performed By: #### Manolo Salmeron, ####[place] [address] [place] 07-28-2023 Potassium [Moles/Vol] 4.5 mmol/L Normal 3.5-5.0 [facility] [place] Comment on above: Performed By: #### K ####[place] [address] KRPon 07-28-2023 Potassium [Moles/Vol] 4.5 mmol/L Normal 3.5-5.0 [facility] [place] Comment on above: Performed By: #### H GBRP, NARP, BGRP, HCTRP, CARP, GLURP, CLRP, KRP ####[place] [address] Potassium [Moles/Vol] 5.0 mmol/L Normal 3.5-5.0 [facility] [place] Comment on above: Performed By: #### N MANAN, HGBRP, CARP, CLRP, BGRP, KRP, HCTRP, GLURP ####[place] [address] Potassium [Moles/Vol] 4.8 mmol/L Normal 3.5-5.0 [facility] [place] Comment on above: Performed By: #### N MANAN, HCTRP, CARP, BGRP, HGBRP, CLRP, GLURP, KRP ####[address] [address] Potassium [Moles/Vol] 4.4 mmol/L Normal 3.5-5.0 [facility] [place] Comment on above: Performed By: #### C LRP, HGBRP, NARP, GLURP, BGRP, CARP, KRP, HCTRP ####[place] [id number] [address] [place] [address] Potassium [Moles/Vol] 4.0 mmol/L Normal 3.5-5.0 [facility] [place] Comment on above: Performed By: #### G LURP, HCTRP, KRP, BGRP, HGBRP, CLRP, NARP, CARP ####[address] [address] Potassium [Moles/Vol] 4.0 mmol/L Normal 3.5-5.0 [facility] [place] Comment on above: Performed By: #### H GBRP, NARP, GLURP, KRP, CARP, HCTRP, CLRP, BGRP ####[address] [address] LABORATORYOrdered By: Raegan Weber on 07-28-2023 Base Excess -4.4 mmol/L Invalid Interpretation Code [facility] CO2 [Moles/Vol] 21.4 mmol/L Low 22.0 - 30.0 mmol/L [facility] HCO3 (Bld) [Moles/Vol] 20.3 mmol/L Low 21.0 - 29.0 mmol/L [facility] Oxygen (Bld) [Partial pressure] 75.6 mm[Hg] Normal 74.0 - 108.0 mm Hg [facility] SS pCO2 35.6 mm[Hg] Normal 32.0 - 46.0 mm Hg [facility] SS pH (Bld) 7.373 [pH] Low 7.380 - 7.460 [facility] SS Base Excess -3.3 mmol/L Invalid Interpretation Code Main [facility] SS CO2 [Moles/Vol] 23.1 mmol/L Normal 22.0 - 30.0 mmol/L [facility] SS HCO3 (Bld) [Moles/Vol] 21.9 mmol/L Normal 21.0 - 29.0 mmol/L [facility] SS Oxygen (Bld) [Partial pressure] 141.5 mm[Hg] High 74.0 - 108.0 mm Hg AH [facility] SS pCO2 40.0 mm[Hg] Normal 32.0 - 46.0 mm Hg AH [facility] SS pH (Bld) 7.356 [pH] Low 7.380 - 7.460 AH [facility] SS LABORATORYOrdered By: Star Reeves on 07-28-2023 Platelet Product Ready Platelet Ready for Pickup (07/28/23 6:20 PM) Normal AH BB Manual SS LABORATORYOrdered By: Jasmin Prieto on 07-28-2023 aPTT Coag (Bld) [Time] 28.7 s Normal 25.0 - 35.0 seconds AH [facility] SS Comment on above: Interpretive Data: F or Heparin anticoagulation therapy, the recommended therapeutic range is: 54-77 seconds (APTT Correlation with Anti-Xa therapeutic range of 0.3-0.7 units/ml). PLEASE REFERENCE THE PHARMACY PROTOCOL FOR DOSING. Fibrinogen 324 mg/dL Normal 250 - 560 mg/dL [facility] SS Heparin dose (APTT) None Normal Coagulation S LABORATORYOrdered By: Mehnaz Cristina on 07-28-2023 Calcium Ionized 1.18 mmol/L Normal 1.12 - 1.32 mmol/L Chemistry S LABORATORYOrdered By: Quantum on 07-28-2023 Magnesium [Mass/Vol] 2.6 mg/dL High 1.6 - 2 .4 mg/dL ADM SS Phosphate [Mass/Vol] 3.2 mg/dL Normal 2.4 - 5 .1 mg/dL ADM SS Comment on above: Interpretive Data: * *Note - New Reference Range in effect 19 Base Excess - POC -0.6 mmol/L Invalid Interpretation Code AH [facility] SS Chloride [Moles/Vol] 103 mmol/L Normal 98 - 11 0 mEq/L AH [facility] SS CO2 [Moles/Vol] 25.0 mmol/L Normal 22.0 - 30.0 mmol/L AH [facility] SS Glucose [Mass/Vol] 122 mg/dL High 70 - 110 mg/dL AH [facility] SS HCO3 (Bld) [Moles/Vol] 23.8 mmol/L Normal 21.0 - 29.0 mmol/L Rapid [facility] SS Hematocrit (Bld) [Volume fraction] 30.0 % Low 42.0 - 52.0 % Rapid [facility] SS Hemoglobin (POC) 10.2 G/dL Low 13.0 - 17.5 G/dL Rapid [facility] SS Ionized Calcium - POC 1.29 mmol/L Normal 1.12 - 1.32 mmol/L [facility] SS Oxygen saturation in Blood 99.1 % High 92.0 - 96.0 % Rapid [facility] SS PCO2 - POC 38.2 mm[Hg] Normal 32.0 - 46.0 mm Hg [facility] SS pH (Bld) 7.412 [pH] Normal 7.380 - 7.460 [facility] SS PO2 - POC 335.5 mm[Hg] High 74.0 - 108.0 mm Hg [facility] SS Potassium [Moles/Vol] 4.5 mmol/L Normal 3.5 - 5.0 mEq/L [facility] SS Sodium [Moles/Vol] 135 mmol/L Low 136 - 145 mEq/L Rapid [facility] SS Base Excess - POC -0.6 mmol/L Invalid Interpretation Code Rapid [facility] SS Chloride [Moles/Vol] 101 mmol/L Normal 98 - 11 0 mEq/L [facility] SS CO2 [Moles/Vol] 26.8 mmol/L Normal 22.0 - 30.0 mmol/L [facility] SS Glucose [Mass/Vol] 129 mg/dL High 70 - 110 mg/dL [facility] SS HCO3 (Bld) [Moles/Vol] 25.3 mmol/L Normal 21.0 - 29.0 mmol/L [facility] SS Hematocrit (Bld) [Volume fraction] 30.0 % Low 42.0 - 52.0 % Rapid [facility] SS Hemoglobin (POC) 10.2 G/dL Low 13.0 - 17.5 G/dL Rapid [facility] SS Ionized Calcium - POC 1.07 mmol/L Low 1.12 - 1.32 mmol/L [facility] SS Oxygen saturation in Blood 99.1 % High 92.0 - 96.0 % Rapid Comm SS PCO2 - POC 47.7 mm[Hg] High 32.0 - 46.0 mm Hg Rapid [facility] SS pH (Bld) 7.343 [pH] Low 7.380 - 7.460 Rapid [facility] SS PO2 - POC 469.1 mm[Hg] High 74.0 - 108.0 mm Hg [facility] SS Potassium [Moles/Vol] 5.0 mmol/L Normal 3.5 - 5.0 mEq/L AH [facility] SS Sodium [Moles/Vol] 135 mmol/L Low 136 - 145 mEq/L AH [facility] SS Base Excess - POC -3.9 mmol/L Invalid Interpretation Code [facility] SS Chloride [Moles/Vol] 102 mmol/L Normal 98 - 11 0 mEq/L [facility] SS CO2 [Moles/Vol] 24.0 mmol/L Normal 22.0 - 30.0 mmol/L [facility] SS Glucose [Mass/Vol] 118 mg/dL High 70 - 110 mg/dL [facility] SS HCO3 (Bld) [Moles/Vol] 22.6 mmol/L Normal 21.0 - 29.0 mmol/L [facility] SS Hematocrit (Bld) [Volume fraction] 30.0 % Low 42.0 - 52.0 % Rapid [facility] SS Hemoglobin (POC) 10.2 G/dL Low 13.0 - 17.5 G/dL Rapid [facility] SS Ionized Calcium - POC 1.10 mmol/L Low 1.12 - 1.32 mmol/L Rapid [facility] SS Oxygen saturation in Blood 99.0 % High 92.0 - 96.0 % Rapid [facility] SS PCO2 - POC 47.4 mm[Hg] High 32.0 - 46.0 mm Hg Rapid [facility] SS pH (Bld) 7.296 [pH] Low 7.380 - 7.460 Rapid [facility] SS PO2 - POC 449.6 mm[Hg] High 74.0 - 108.0 mm Hg [facility] SS Potassium [Moles/Vol] 4.8 mmol/L Normal 3.5 - 5.0 mEq/L [facility] SS Sodium [Moles/Vol] 134 mmol/L Low 136 - 145 mEq/L Rapid [facility] SS LABORATORYOrdered By: Bee Tran on 07-28-2023 PT Coag (PPP) [Time] 14.9 s High 9.0 - 1 4.2 seconds [facility] SS Comment on above: Interpretive Data: E ffective 10/26/07, Protime results may be affected by some antibiotics (i.e. Ciprofloxacin, Azithromycin, Bactrim) which may potentiate the action of oral anticoagulants, with further increases in Protime/INR. PT International Ratio 1.3 ratio Invalid Interpretation Code AH [facility] SS Comment on above: Interpretive Data: Jared saxena [employer] (CHEST, 1992, 102:[id number]) recommended therapeutic range for oral anticoagulant therapy is: LOW RISK: Prophylaxis of venous thrombosis INR: 2.0-3.0 Treatment of pulmonary embolism 2.0-3.0 Prevention of systemic embolism 2.0-3.0 HIGH RISK: Mechanical prosthetic valves 2.5-3.5 LABORATORYOrdered By: Kodak Hennessy on 07-28-2023 ABO and Rh group Nom (Bld) Blood group A Rh(D) positive Invalid Interpretation Code BB Auto SS Blood group antibody screen Ql Negative ABSC (07/28/23 6:15 AM) Normal BB Auto SS Platelet Product Ready Platelet Ready for Pickup (07/28/23 5:30 AM) Normal BB Manual SS LABORATORYOrdered By: Naga Modi on 07-28-2023 RBC Product Ready RBC Ready for Pickup (07/28/23 5:00 AM) Normal BB Manual SS MGon 07-28-2023 Magnesium [Mass/Vol] 2.6 mg/dL High 1.6-2.4 [facility] [place] Comment on above: Performed By: #### M G, ANEU, ADIFF, GFR, BMP, CAION, CBC, PHOS ####[address] [address] NARPon 07-28-2023 Sodium [Moles/Vol] 135 mmol/L Low 136-145 [facility] [place] Comment on above: Performed By: #### H GBRP, NARP, BGRP, HCTRP, CARP, GLURP, CLRP, KRP ####[address] [address] Sodium [Moles/Vol] 135 mmol/L Low 136-145 [facility] [place] Comment on above: Performed By: #### N MANAN, HGBRP, CARP, CLRP, BGRP, KRP, HCTRP, GLURP ####[address] [address] Sodium [Moles/Vol] 134 mmol/L Low 136-145 [facility] [place] Comment on above: Performed By: #### N MANAN, HCTRP, CARP, BGRP, HGBRP, CLRP, GLURP, KRP ####[address] [address] Sodium [Moles/Vol] 133 mmol/L Low 136-145 [facility] [place] Comment on above: Performed By: #### C LRP, HGBRP, NARP, GLURP, BGRP, CARP, KRP, HCTRP ####[address] [address] Sodium [Moles/Vol] 138 mmol/L Normal 136-145 [facility] [place] Comment on above: Performed By: #### G LURP, HCTRP, KRP, BGRP, HGBRP, CLRP, NARP, CARP ####[address] [address] Sodium [Moles/Vol] 141 mmol/L Normal 136-145 [facility] [place] Comment on above: Performed By: #### H GBRP, NARP, GLURP, KRP, CARP, HCTRP, CLRP, BGRP ####[place] [address] PHOSon 07-28-2023 Phosphate [Mass/Vol] 3.2 mg/dL Normal 2.4-5.1 [facility] ([place] Comment on above: Result Comment: No te - New Reference Range in effect 19 Performed By: #### M G, ANEU, ADIFF, GFR, BMP, CAION, CBC, PHOS ####[address] [address] PROon 07-28-2023 INR Coag (PPP) [Relative time] 1.3 {INR} Normal [facility] ([place]) Comment on above: Result Comment: [employer] (CHEST, 1992, [id number])recommended therapeutic range for oral anticoagulant therapy is:LOW RISK: Prophylaxis of venous thrombosis INR: 2.0-3.0 Treatment of pulmonary embolism 2.0-3.0 Prevention of systemic embolism 2.0-3.0HIGH RISK: Mechanical prosthetic valves 2.5-3.5 Performed By: #### F IB, PRO ####[place] [address] PT Coag (PPP) [Time] 14.9 s High 9.0-14.2 [facility] [place] Comment on above: Result Comment: Effe ctive 10/26/07, Protime results may be affected by some antibiotics (i.e. Ciprofloxacin, Azithromycin, Bactrim) which may potentiate the action of oral anticoagulants, with further increases in Protime/INR. Performed By: #### F IB, PRO ####[place] [address] Platelet (Product)on 024 Platelet Product Ready Platelet Ready for Pickup Normal [facility] ([place] Comment on above: Performed By: #### P LTP ####[place] [address] Platelet Product Ready Platelet Ready for Pickup Normal [facility] ([place] Comment on above: Order Comment: ON HO LD FOR CVOR Performed By: #### P LTP ####[place] [address] RBC (Product)on 07-28-2023 RBC Product Ready RBC Ready for Pickup Normal [facility] [place] Comment on above: Performed By: #### R BCP ####[place] [address] XR CHEST 1 VIEWon 07-28-2023 XR CHEST 1 VIEW Normal [facility] [place] XR CHEST 1 VIEW Normal [facility] [place] .Auto Diffon 07-23-2023 Basophil, Absolute 0.1 10 3/mcL Normal 0.0-0.3 [facility] [place] Comment on above: Performed By: #### F IB, ANEU, CMP, GFR, A1C, PRO, ADIFF, CBC, TSH ####[place] [address] Basophils/100 WBC (Bld) 1.0 % Normal 0.0-2.5 [facility] ([place] Comment on above: Performed By: #### F IB, ANEU, CMP, GFR, A1C, PRO, ADIFF, CBC, TSH ####[address] [address] Eosinophil, Absolute 0.1 10 3/mcL Normal 0.0-0.7 [facility] ([place]) Comment on above: Performed By: #### F IB, ANEU, CMP, GFR, A1C, PRO, ADIFF, CBC, TSH ####[address] [address] Eosinophils/100 WBC (Bld) 2.7 % Normal 0.0-6.0 [facility] [place] Comment on above: Performed By: #### F IB, ANEU, CMP, GFR, A1C, PRO, ADIFF, CBC, TSH ####[address] [address] Lymphocyte, Absolute 1.5 10 3/mcL Normal 0.9-4.3 [facility] ([place] Comment on above: Performed By: #### F IB, ANEU, CMP, GFR, A1C, PRO, ADIFF, CBC, TSH ####[address] [address] Lymphocytes/100 WBC (Bld) 30.9 % Normal 20.0-40.0 [facility] [place] Comment on above: Performed By: #### F IB, ANEU, CMP, GFR, A1C, PRO, ADIFF, CBC, TSH ####[address] [address] Monocyte, Absolute 0.5 10 3/mcL Normal 0.1-1.4 [facility] [place] Comment on above: Performed By: #### F IB, ANEU, CMP, GFR, A1C, PRO, ADIFF, CBC, TSH ####[address] [address] Monocytes/100 WBC (Bld) 11.5 % Normal 2.0-13.0 [facility] [place] Comment on above: Performed By: #### F IB, ANEU, CMP, GFR, A1C, PRO, ADIFF, CBC, TSH ####[address] [address] Neutrophils/100 WBC (Bld) 53.9 % Normal 50.0-75.0 [facility] [place] Comment on above: Performed By: #### F IB, ANEU, CMP, GFR, A1C, PRO, ADIFF, CBC, TSH ####[address] [address] .GFRon 07-23-2023 GFR >60 Normal [facility] [place] Comment on above: Result Comment: GFR Population mean for , Non- Americans Ages 20-29 = 116 mL/min/1.73 sq.m. Ages 30-39 = 107 mL/min/1.73 sq.m. Ages 40-49 = 99 mL/min/1.73 sq.m. Ages 50-59 = 93 mL/min/1.73 sq.m. Ages 60-69 = 85 mL/min/1.73 sq.m. Ages 70+ = 75 mL/min/1.73 sq.m.Chronic Kidney Disease: Less than 60 mL/min/1.73 square metersEnd Stage Renal Disease: Less than 15 mL/min/1.73 square meters Performed By: #### F IB, ANEU, CMP, GFR, A1C, PRO, ADIFF, CBC, TSH ####[address] [address] GFR Non- >60 Normal [facility] ([place] Comment on above: Result Comment: GFR Population mean for , Non- Americans Ages 20-29 = 116 mL/min/1.73 sq.m. Ages 30-39 = 107 mL/min/1.73 sq.m. Ages 40-49 = 99 mL/min/1.73 sq.m. Ages 50-59 = 93 mL/min/1.73 sq.m. Ages 60-69 = 85 mL/min/1.73 sq.m. Ages 70+ = 75 mL/min/1.73 sq.m.Chronic Kidney Disease: Less than 60 mL/min/1.73 square metersEnd Stage Renal Disease: Less than 15 mL/min/1.73 square meters Performed By: #### F IB, ANEU, CMP, GFR, A1C, PRO, ADIFF, CBC, TSH ####[address] [address] .NEUABSon 07-23-2023 Neutrophil, Absolute 2.6 10 3/mcL Normal 2.3-8.1 [facility] ([place] Comment on above: Performed By: #### F IB, ANEU, CMP, GFR, A1C, PRO, ADIFF, CBC, TSH ####[place] [id number] A1Con 07-23-2023 HbA1c (Bld) [Mass fraction] 5.3 % Normal 4.0-6.0 [facility] [place] Comment on above: Performed By: #### F IB, ANEU, CMP, GFR, A1C, PRO, ADIFF, CBC, TSH ####[place] [address] ABO/Rh (Gel)on 07-23-2023 ABO/Rh Interp Positive Invalid Interpretation Code [facility] ([place]) Comment on above: Performed By: #### A BSGEL, ABOGEL ####[place] [id number] ABS (Gel)on 07-23-2023 ABSC Interp (Gel) Negative Normal [facility] ([place]) Comment on above: Performed By: #### A BSGEL, ABOGEL ####[place] [address] APTTon 07-23-2023 aPTT Coag (Bld) [Time] 32.7 s Normal 25.0-35.0 [facility] ([place]) Comment on above: Result Comment: For Heparin anticoagulation therapy, the recommendedtherapeutic range is: 54-77 seconds (APTT Correlationwith Anti-Xa therapeutic range of 0.3-0.7 units/ml).PLEASE REFERENCE THE PHARMACY PROTOCOL FOR DOSING. Performed By: #### F IB, ANEU, CMP, GFR, A1C, PRO, ADIFF, CBC, TSH ####[place] [id number] Heparin dose (APTT) Unknown Normal [facility] ([place]) Comment on above: Performed By: #### F IB, ANEU, CMP, GFR, A1C, PRO, ADIFF, CBC, TSH ####[place] [id number] CBCon 07-23-2023 Erythrocyte distribution width (RBC) [Ratio] 14.0 % Normal 11.5-15.5 [facility] ([place]) Comment on above: Performed By: #### F IB, ANEU, CMP, GFR, A1C, PRO, ADIFF, CBC, TSH ####[place] [address] Hematocrit (Bld) [Volume fraction] 39.0 % Low 40.0-52.0 [facility] ([place] Comment on above: Performed By: #### F IB, ANEU, CMP, GFR, A1C, PRO, ADIFF, CBC, TSH ####[place] [address] Hgb 13.5 G/dL Normal 13.0-17.5 [facility] ([place]) Comment on above: Performed By: #### F IB, ANEU, CMP, GFR, A1C, PRO, ADIFF, CBC, TSH ####[place] [address] MCH (RBC) [Entitic mass] 32.7 pg Normal 27.0-33.0 [facility] ([place] Comment on above: Performed By: #### F IB, ANEU, CMP, GFR, A1C, PRO, ADIFF, CBC, TSH ####[place] [address] MCHC 34.6 G/dL Normal 32.0-36.0 [facility] ([place] Comment on above: Performed By: #### F IB, ANEU, CMP, GFR, A1C, PRO, ADIFF, CBC, TSH ####[place] [address] MCV (RBC) [Entitic vol] 94.3 fL Normal 81.0-100.0 [facility] ([place] Comment on above: Performed By: #### F IB, ANEU, CMP, GFR, A1C, PRO, ADIFF, CBC, TSH ####[place] [id number] Platelet 198 10 3/mcL Normal 150-450 [facility] ([place]) Comment on above: Performed By: #### F IB, ANEU, CMP, GFR, A1C, PRO, ADIFF, CBC, TSH ####[place] [address] Platelet mean volume (Bld) [Entitic vol] 9.1 fL Normal 6.4-10.5 [facility] ([place]) Comment on above: Performed By: #### F IB, ANEU, CMP, GFR, A1C, PRO, ADIFF, CBC, TSH ####[place] [address] RBC 4.14 10 6/mcL Low 4.50-6.00 [facility] ([place]) Comment on above: Performed By: #### F IB, ANEU, CMP, GFR, A1C, PRO, ADIFF, CBC, TSH ####[place] [address] WBC 4.8 10 3/mcL Normal 4.5-10.8 [facility] ([place]) Comment on above: Performed By: #### F IB, ANEU, CMP, GFR, A1C, PRO, ADIFF, CBC, TSH ####[place] [address] CMPon 07-23-2023 Albumin Level 4.1 G/dL Normal 3.2-4.8 [facility]) Comment on above: Performed By: #### F IB, ANEU, CMP, GFR, A1C, PRO, ADIFF, CBC, TSH ####[place] [address] Albumin/Globulin [Mass ratio] 1.4 {ratio} Normal 0.9-1.6 [facility]) Comment on above: Performed By: #### F IB, ANEU, CMP, GFR, A1C, PRO, ADIFF, CBC, TSH ####[place] [address] ALP [Catalytic activity/Vol] 73 U/L Normal 38-126 [facility] ([place]) Comment on above: Performed By: #### F IB, ANEU, CMP, GFR, A1C, PRO, ADIFF, CBC, TSH ####[address] [address] ALT [Catalytic activity/Vol] 30 U/L Normal 12-55 [facility] ([place]) Comment on above: Performed By: #### F IB, ANEU, CMP, GFR, A1C, PRO, ADIFF, CBC, TSH ####[address] [address] AST [Catalytic activity/Vol] 25 U/L Normal 8-34 [facility] ([place] Comment on above: Performed By: #### F IB, ANEU, CMP, GFR, A1C, PRO, ADIFF, CBC, TSH ####[address] [address] Bili Total 0.50 mg/dL Normal 0.20-1.20 [facility] ([place]) Comment on above: Result Comment: Use of this assay is not recommended for patients undergoing treatment with eltrombopag due to the potential for falsely elevated results. Performed By: #### F IB, ANEU, CMP, GFR, A1C, PRO, ADIFF, CBC, TSH ####[place] [address] BUN/Creatinine Ratio 20.5 ratio Normal 10.0-22.0 [facility] ([place]) Comment on above: Performed By: #### F IB, ANEU, CMP, GFR, A1C, PRO, ADIFF, CBC, TSH ####[address] [address] Calcium [Mass/Vol] 9.9 mg/dL Normal 8.7-10.4 [facility] ([place]) Comment on above: Performed By: #### F IB, ANEU, CMP, GFR, A1C, PRO, ADIFF, CBC, TSH ####[address] [address] Chloride [Moles/Vol] 105 mmol/L Normal 98-110 [facility] ([place] Comment on above: Performed By: #### F IB, ANEU, CMP, GFR, A1C, PRO, ADIFF, CBC, TSH ####[address] [address] CO2 [Moles/Vol] 28 mmol/L Normal 22-32 [facility] ([place] Comment on above: Performed By: #### F IB, ANEU, CMP, GFR, A1C, PRO, ADIFF, CBC, TSH ####[address] [address] Creatinine [Mass/Vol] 0.83 mg/dL Normal 0.60-1.40 [facility] ([place] Comment on above: Performed By: #### F IB, ANEU, CMP, GFR, A1C, PRO, ADIFF, CBC, TSH ####[address] [address] Electrolyte Balance 6.0 mEq/L Normal 4.0-15.0 [facility] ([place]) Comment on above: Performed By: #### F IB, ANEU, CMP, GFR, A1C, PRO, ADIFF, CBC, TSH ####[place] [address] Globulin 2.9 G/dL Normal 1.5-3.8 [facility] ([place] Comment on above: Performed By: #### F IB, ANEU, CMP, GFR, A1C, PRO, ADIFF, CBC, TSH ####[address] [address] Glucose [Mass/Vol] 94 mg/dL Normal 70-110 [facility] ([place] Comment on above: Performed By: #### F IB, ANEU, CMP, GFR, A1C, PRO, ADIFF, CBC, TSH ####[address] [address] Potassium [Moles/Vol] 5.1 mmol/L High 3.5-5.0 [facility] ([place] Comment on above: Performed By: #### F IB, ANEU, CMP, GFR, A1C, PRO, ADIFF, CBC, TSH ####[address] [address] Sodium [Moles/Vol] 139 mmol/L Normal 136-145 [facility] ([place] Comment on above: Performed By: #### F IB, ANEU, CMP, GFR, A1C, PRO, ADIFF, CBC, TSH ####[address] [address] Total Protein 7.0 G/dL Normal 5.7-8.2 [facility] ([place]) Comment on above: Result Comment: No te - New Reference Range in effect 19 Performed By: #### F IB, ANEU, CMP, GFR, A1C, PRO, ADIFF, CBC, TSH ####[place] [address] Urea nitrogen [Mass/Vol] 17.0 mg/dL Normal 8.0-22.0 [facility] ([place]) Comment on above: Performed By: #### F IB, ANEU, CMP, GFR, A1C, PRO, ADIFF, CBC, TSH ####[place] [id number] [address] [place] [address] FIBon 07-23-2023 Fibrinogen 485 mg/dL Normal 250-560 [facility] ([place]) Comment on above: Performed By: #### F IB, ANEU, CMP, GFR, A1C, PRO, ADIFF, CBC, TSH ####[place] [address] LABORATORYOrdered By: Adrien Phillips on 07-23-2023 ABO and Rh group Nom (Bld) Blood group A Rh(D) positive Invalid Interpretation Code BB Auto SS Blood group antibody screen Ql Negative ABSC (07/23/23 9:35 AM) Normal AH BB Auto SS LABORATORYOrdered By: SYSTEM SYSTEM on 07-23-2023 Albumin BCP dye [Mass/Vol] 4.1 G/dL Normal 3.2 - 4.8 G/dL AH ADM SS Albumin/Globulin [Mass ratio] 1.4 {ratio} Normal 0.9 - 1.6 ratio AH ADM SS ALP [Catalytic activity/Vol] 73 U/L Normal 38 - 126 U/L AH ADM SS ALT No additional P-5'-P [Catalytic activity/Vol] 30 U/L Normal 12 - 55 U/L AH ADM SS AST [Catalytic activity/Vol] 25 U/L Normal 8 - 34 U/L AH ADM SS Basophils (Bld) [#/Vol] 0.1 103/mcL Normal 0.0 - 0.3 10^3/mcL AH Workflow SS Basophils/100 WBC (Bld) 1.0 % Normal 0.0 - 2.5 % AH Workflow SS Bilirubin [Mass/Vol] 0.50 mg/dL Normal 0.20 - 1.20 mg/dL ADM SS Comment on above: Interpretive Data: U se of this assay is not recommended for patients undergoing treatment with eltrombopag due to the potential for falsely elevated results. Calcium [Mass/Vol] 9.9 mg/dL Normal 8.7 - 10. 4 mg/dL ADM SS Chloride [Moles/Vol] 105 mmol/L Normal 98 - 11 0 mEq/L ADM SS CO2 [Moles/Vol] 28 mmol/L Normal 22 - 32 mEq/L ADM SS Creatinine [Mass/Vol] 0.83 mg/dL Normal 0.60 - 1.40 mg/dL ADM SS Electrolyte Balance 6.0 mEq/L Normal 4.0 - 15 .0 mEq/L ADM SS Eosinophils (Bld) [#/Vol] 0.1 103/mcL Normal 0.0 - 0.7 10^3/mcL Workflow SS Eosinophils/100 WBC (Bld) 2.7 % Normal 0.0 - 6.0 % Workflow SS Erythrocyte distribution width (RBC) [Ratio] 14.0 % Normal 11.5 - 15.5 % Workflow SS GFR/1.73 sq M.predicted among blacks MDRD (S/P/Bld) [Vol rate/Area] ml/min/1.73sqm Invalid Interpretation Code Chemistry S Comment on above: Interpretive Data: GFR Population mean for , Non- Americans Ages 20-29 = 116 mL/min/1.73 sq.m. Ages 30-39 = 107 mL/min/1.73 sq.m. Ages 40-49 = 99 mL/min/1.73 sq.m. Ages 50-59 = 93 mL/min/1.73 sq.m. Ages 60-69 = 85 mL/min/1.73 sq.m. Ages 70+ = 75 mL/min/1.73 sq.m. Chronic Kidney Disease: Less than 60 mL/min/1.73 square meters End Stage Renal Disease: Less than 15 mL/min/1.73 square meters GFR/1.73 sq M.predicted among non-blacks MDRD (S/P/Bld) [Vol rate/Area] ml/min/1.73sqm Invalid Interpretation Code Chemistry S Comment on above: Interpretive Data: GFR Population mean for , Non- Americans Ages 20-29 = 116 mL/min/1.73 sq.m. Ages 30-39 = 107 mL/min/1.73 sq.m. Ages 40-49 = 99 mL/min/1.73 sq.m. Ages 50-59 = 93 mL/min/1.73 sq.m. Ages 60-69 = 85 mL/min/1.73 sq.m. Ages 70+ = 75 mL/min/1.73 sq.m. Chronic Kidney Disease: Less than 60 mL/min/1.73 square meters End Stage Renal Disease: Less than 15 mL/min/1.73 square meters Globulin 2.9 G/dL Normal 1.5 - 3.8 G/dL ADM SS Glucose [Mass/Vol] 94 mg/dL Normal 70 - 110 mg/dL ADM SS HbA1c (Bld) [Mass fraction] 5.3 % Normal 4.0 - 6.0 % Auto Chem SS Hematocrit (Bld) [Volume fraction] 39.0 % Low 40.0 - 52.0 % Workflow SS Hemoglobin (Bld) [Mass/Vol] 13.5 G/dL Normal 13.0 - 17.5 G/dL AH Workflow SS Lymphocytes (Bld) [#/Vol] 1.5 103/mcL Normal 0.9 - 4.3 10^3/mcL AH Workflow SS Lymphocytes/100 WBC (Bld) 30.9 % Normal 20.0 - 40.0 % AH Workflow SS MCH (RBC) [Entitic mass] 32.7 pg Normal 27.0 - 33.0 pg AH Workflow SS MCHC 34.6 G/dL Normal 32.0 - 36.0 G/dL AH Workflow SS MCV (RBC) [Entitic vol] 94.3 fL Normal 81.0 - 100.0 fL AH Workflow SS Monocytes (Bld) [#/Vol] 0.5 103/mcL Normal 0.1 - 1.4 10^3/mcL AH Workflow SS Monocytes/100 WBC (Bld) 11.5 % Normal 2.0 - 13.0 % AH Workflow SS Neutrophils (Bld) [#/Vol] 2.6 103/mcL Normal 2.3 - 8.1 10^3/mcL AH Workflow SS Neutrophils/100 WBC (Bld) 53.9 % Normal 50.0 - 75.0 % AH Workflow SS Platelet mean volume (Bld) [Entitic vol] 9.1 fL Normal 6.4 - 10.5 fL AH Workflow SS Platelets (Bld) [#/Vol] 198 103/mcL Normal 150 - 450 10^3/mcL AH Workflow SS Potassium [Moles/Vol] 5.1 mmol/L High 3.5 - 5.0 mEq/L AH ADM SS Protein [Mass/Vol] 7.0 G/dL Normal 5.7 - 8.2 G/dL AH ADM SS Comment on above: Interpretive Data: * *Note - New Reference Range in effect 19 RBC (Bld) [#/Vol] 4.14 106/mcL Low 4.50 - 6.0 0 10^6/mcL AH Workflow SS Sodium [Moles/Vol] 139 mmol/L Normal 136 - 145 mEq/L AH ADM SS TSH Qn 2.819 mIU/mL Normal 0.550 - 4.780 mIU/mL AH ADM SS Comment on above: Interpretive Data: * *Note - New Reference Range in effect 19 Urea nitrogen [Mass/Vol] 17.0 mg/dL Normal 8.0 - 22.0 mg/dL AH ADM SS Urea nitrogen/Creatinine [Mass ratio] 20.5 ratio Normal 10.0 - 22.0 ratio AH ADM SS WBC (Bld) [#/Vol] 4.8 103/mcL Normal 4.5 - 10.8 10^3/mcL AH Workflow SS LABORATORYOrdered By: Jaida Villa on 07-23-2023 Appearance (U) Clear (07/23/23 9:32 AM) Normal AH Auto Urine SS Bilirubin Ql (U) Negative (07/23/23 9:32 AM) Normal AH Auto Urine SS Color (U) Yellow (07/23/23 9:32 AM) Normal AH Auto Urine SS Glucose Test strip (U) [Mass/Vol] Negative Normal AH Auto Urine SS Hemoglobin Auto test strip (U) [Mass/Vol] Negative (07/23/23 9:32 AM) Normal AH Auto Urine SS Ketones Ql (U) Negative Normal AH Auto Ur ine SS UA Leuk Est Negative (07/23/23 9:32 AM) Normal AH Auto Urine SS UA Nitrite Negative (07/23/23 9:32 AM) Normal AH Auto Urine SS UA pH 5.5 (07/23/23 9:32 AM) Normal AH Auto Urine SS UA Protein Negative Normal AH Auto Urine SS UA Spec Grav 1.020 (07/23/23 9:32 AM) Normal Auto Urine SS UA Specimen Type Clean Catch (07/23/23 9:32 AM) Normal Auto Urine SS UA Urobilinogen 0.2 E.U./dL Normal Auto Urine SS LABORATORYOrdered By: Sherlyn Long on 07-23-2023 aPTT Coag (Bld) [Time] 32.7 s Normal 25.0 - 35.0 seconds [facility] Comment on above: Interpretive Data: F or Heparin anticoagulation therapy, the recommended therapeutic range is: 54-77 seconds (APTT Correlation with Anti-Xa therapeutic range of 0.3-0.7 units/ml). PLEASE REFERENCE THE PHARMACY PROTOCOL FOR DOSING. Fibrinogen 485 mg/dL Normal 250 - 560 mg/dL [facility] Heparin dose (APTT) Unknown (07/23/23 9:32 AM) Normal Coagulation S PT Coag (PPP) [Time] 10.8 s Normal 9.0 - 1 4.2 seconds [facility] Comment on above: Interpretive Data: E ffective 10/26/07, Protime results may be affected by some antibiotics (i.e. Ciprofloxacin, Azithromycin, Bactrim) which may potentiate the action of oral anticoagulants, with further increases in Protime/INR. PT International Ratio 1.0 ratio Invalid Interpretation Code [facility] Comment on above: Interpretive Data: Jared saxena [employer] (CHEST, 1991, 102:312S-25S) recommended therapeutic range for oral anticoagulant therapy is: LOW RISK: Prophylaxis of venous thrombosis INR: 2.0-3.0 Treatment of pulmonary embolism 2.0-3.0 Prevention of systemic embolism 2.0-3.0 HIGH RISK: Mechanical prosthetic valves 2.5-3.5 PROon 07-23-2023 INR Coag (PPP) [Relative time] 1.0 {INR} Normal [facility] ([place]) Comment on above: Result Comment: [employer] (CHEST, 1991, 102:[id number])recommended therapeutic range for oral anticoagulant therapy is:LOW RISK: Prophylaxis of venous thrombosis INR: 2.0-3.0 Treatment of pulmonary embolism 2.0-3.0 Prevention of systemic embolism 2.0-3.0HIGH RISK: Mechanical prosthetic valves 2.5-3.5 Performed By: #### F IB, ANEU, CMP, GFR, A1C, PRO, ADIFF, CBC, TSH ####[place] [address] PT Coag (PPP) [Time] 10.8 s Normal 9.0-14.2 [facility] ([place]) Comment on above: Result Comment: Effe ctive 10/26/07, Protime results may be affected by some antibiotics (i.e. Ciprofloxacin, Azithromycin, Bactrim) which may potentiate the action of oral anticoagulants, with further increases in Protime/INR. Performed By: #### F IB, ANEU, CMP, GFR, A1C, PRO, ADIFF, CBC, TSH ####[place] [address] TSHon 07-23-2023 TSH 2.819 mIU/mL Normal 0.550-4.780 [facility] ([place]) Comment on above: Result Comment: No te - New Reference Range in effect 19 Performed By: #### F IB, ANEU, CMP, GFR, A1C, PRO, ADIFF, CBC, TSH ####[place] [address] UAon 07-23-2023 Color (U) Yellow Normal [facility] ([place]) Comment on above: Performed By: #### U A ####[place] [address] Glucose (U) [Mass/Vol] Negative Normal Negative [facility] ([place] Comment on above: Performed By: #### U A ####[place] [address] Ketones Ql (U) Negative Normal Neg-Trace [facility] ([place] Comment on above: Performed By: #### U A ####[place] [address] UA Appear Clear Normal Clear [facility] ([place] Comment on above: Performed By: #### U A ####[place] [address] UA Blood Negative Normal Neg-Trace [facility] ([place] Comment on above: Performed By: #### U A ####[place] [address] UA Leuk Est Negative Normal Negative [facility] ([place] Comment on above: Performed By: #### U A ####[place] [address] UA Nitrite Negative Normal Negative [facility] ([place] Comment on above: Performed By: #### U A ####[place] [address] UA pH 5.5 Normal 5.0 - 8.0 [facility] ([place] Comment on above: Performed By: #### U A ####[place] [address] UA Protein Negative Normal Negative [facility] ([place] Comment on above: Performed By: #### U A ####[place] [address] UA Spec Grav 1.020 Normal 1.006-1.029 [facility] ([place] Comment on above: Performed By: #### U A ####[place] [address] UA Specimen Type Clean Catch Normal [facility] ([place] Comment on above: Performed By: #### U A ####[place] [address] UA Urobilinogen 0.2 E.U./dL Normal 0.2-1.0 [facility] ([place] Comment on above: Performed By: #### U A ####[place] [address] Urobilinogen (U) [Mass/Vol] Negative Normal Neg-Trace [facility] ([place] Comment on above: Performed By: #### U A ####[place] [address] .Auto Diff06-20-2023 Basophil, Absolute 0.1 10 3/mcL Normal 0.0-0.2 [facility] ([place] Comment on above: Performed By: #### M G, BMP, CBC, ADIFF, PRO, ANEU, GFR ####[address] [place], [place] [address] Basophils/100 WBC (Bld) 1.0 % Normal 0.0-2.5 [facility] ([place] Comment on above: Performed By: #### M G, BMP, CBC, ADIFF, PRO, ANEU, GFR ####[address] [place], [place] [address] Eosinophil, Absolute 0.1 10 3/mcL Normal 0.0-0.4 [facility] ([place]) Comment on above: Performed By: #### M G, BMP, CBC, ADIFF, PRO, ANEU, GFR ####[address] [place], [place] [address] Eosinophils/100 WBC (Bld) 2.0 % Normal 0.0-7.0 [facility] ([place] Comment on above: Performed By: #### M G, BMP, CBC, ADIFF, PRO, ANEU, GFR ####[address] [place], [place] [address] Lymphocyte, Absolute 1.4 10 3/mcL Normal 0.8-3.9 [facility] ([place] Comment on above: Performed By: #### M G, BMP, CBC, ADIFF, PRO, ANEU, GFR ####[address] [place], [place] [address] Lymphocytes/100 WBC (Bld) 25.8 % Normal 10.0-50.0 [facility] ([place] Comment on above: Performed By: #### M G, BMP, CBC, ADIFF, PRO, ANEU, GFR ####[address] [place], [place] [address] Monocyte, Absolute 0.6 10 3/mcL Normal 0.2-1.0 [facility] ([place] Comment on above: Performed By: #### M G, BMP, CBC, ADIFF, PRO, ANEU, GFR ####[address] [place], [place] [address] Monocytes/100 WBC (Bld) 10.4 % Normal 1.7-13.0 [facility] ([place]) Comment on above: Performed By: #### M G, BMP, CBC, ADIFF, PRO, ANEU, GFR ####[address] [place], [place] [address] Neutrophils/100 WBC (Bld) 60.8 % Normal 37.0-80.0 [facility] ([place]) Comment on above: Performed By: #### M G, BMP, CBC, ADIFF, PRO, ANEU, GFR ####[address] [place], [place] [address] .GFRon 06-20-2023 GFR 95 ml/min/1.73sqm Normal [facility] ([place]) Comment on above: Result Comment: GFR Population mean for , Non- Americans Ages 20-29 = 116 mL/min/1.73 sq.m. Ages 30-39 = 107 mL/min/1.73 sq.m. Ages 40-49 = 99 mL/min/1.73 sq.m. Ages 50-59 = 93 mL/min/1.73 sq.m. Ages 60-69 = 85 mL/min/1.73 sq.m. Ages 70+ = 75 mL/min/1.73 sq.m.Chronic Kidney Disease: Less than 60 mL/min/1.73 square metersEnd Stage Renal Disease: Less than 15 mL/min/1.73 square meters Performed By: #### M G, BMP, CBC, ADIFF, PRO, ANEU, GFR ####[address] [place], [place] [address] GFR Non- 78 ml/min/1.73sqm Normal [facility] ([place]) Comment on above: Result Comment: GFR Population mean for , Non- Americans Ages 20-29 = 116 mL/min/1.73 sq.m. Ages 30-39 = 107 mL/min/1.73 sq.m. Ages 40-49 = 99 mL/min/1.73 sq.m. Ages 50-59 = 93 mL/min/1.73 sq.m. Ages 60-69 = 85 mL/min/1.73 sq.m. Ages 70+ = 75 mL/min/1.73 sq.m.Chronic Kidney Disease: Less than 60 mL/min/1.73 square metersEnd Stage Renal Disease: Less than 15 mL/min/1.73 square meters Performed By: #### M G, BMP, CBC, ADIFF, PRO, ANEU, GFR ####[address] [place], [place] [address] .NEUABSon 06-20-2023 Neutrophil, Absolute 3.3 10 3/mcL Normal 2.9-6.2 [facility] ([place] Comment on above: Performed By: #### M G, BMP, CBC, ADIFF, PRO, ANEU, GFR ####[address] [place], [place] [address] BMPon 06-20-2023 BUN/Creatinine Ratio 16 ratio Normal 7-27 [facility] [place] Comment on above: Performed By: #### M G, BMP, CBC, ADIFF, PRO, ANEU, GFR ####[address] [place], [place] [address] Calcium [Mass/Vol] 9.5 mg/dL Normal 8.4-10.2 [facility] ([place] Comment on above: Performed By: #### M G, BMP, CBC, ADIFF, PRO, ANEU, GFR ####[address] [place], [place] [address] Chloride [Moles/Vol] 103 mmol/L Normal 98-107 [facility] ([place] Comment on above: Performed By: #### M G, BMP, CBC, ADIFF, PRO, ANEU, GFR ####[place] [address] [place], [place] [address] CO2 [Moles/Vol] 29 mmol/L Normal 22-29 [facility] ([place] Comment on above: Performed By: #### M G, BMP, CBC, ADIFF, PRO, ANEU, GFR ####[place] [address] [place], [place] [address] Creatinine [Mass/Vol] 0.99 mg/dL Normal 0.70-1.30 [facility] ([place] Comment on above: Performed By: #### M G, BMP, CBC, ADIFF, PRO, ANEU, GFR ####[address] [place], [place] [address] Electrolyte Balance 6.0 mEq/L Normal 4.0-15.0 [facility] ([place] Comment on above: Performed By: #### M G, BMP, CBC, ADIFF, PRO, ANEU, GFR ####[address] [place], [place] [address] Glucose [Mass/Vol] 101 mg/dL Normal 70-105 [facility] [place] Comment on above: Performed By: #### M G, BMP, CBC, ADIFF, PRO, ANEU, GFR ####[address] [place], [place] [address] Potassium [Moles/Vol] 4.8 mmol/L Normal 3.5-5.1 [facility] ([place] Comment on above: Performed By: #### M G, BMP, CBC, ADIFF, PRO, ANEU, GFR ####[address] [place], [place] [address] Sodium [Moles/Vol] 138 mmol/L Normal 136-145 [facility] ([place] Comment on above: Performed By: #### M G, BMP, CBC, ADIFF, PRO, ANEU, GFR ####[address] [place], [place] [address] Urea nitrogen [Mass/Vol] 16 mg/dL Normal 7-18 [facility] [place] Comment on above: Performed By: #### M G, BMP, CBC, ADIFF, PRO, ANEU, GFR ####[address] [place], [place] [address] CBCon 06-20-2023 Erythrocyte distribution width (RBC) [Ratio] 14.1 % Normal 11.5-14.5 [facility] ([place] Comment on above: Performed By: #### M G, BMP, CBC, ADIFF, PRO, ANEU, GFR ####[address] [place], [place] [address] Hematocrit (Bld) [Volume fraction] 38.5 % Low 42.0-52.0 [facility] [place] Comment on above: Performed By: #### M G, BMP, CBC, ADIFF, PRO, ANEU, GFR ####[address] [place], [place] [address] Hgb 13.4 G/dL Low 14.0-18.0 [facility] [place] Comment on above: Performed By: #### M G, BMP, CBC, ADIFF, PRO, ANEU, GFR ####[address] [place], [place] [address] MCH (RBC) [Entitic mass] 32.7 pg High 27.0-31.2 [facility] ([place] Comment on above: Performed By: #### M G, BMP, CBC, ADIFF, PRO, ANEU, GFR ####[address] [place], [place] [address] MCHC 34.8 G/dL Normal 31.8-35.4 [facility] [place] Comment on above: Performed By: #### M G, BMP, CBC, ADIFF, PRO, ANEU, GFR ####[address] [place], [place] [address] MCV (RBC) [Entitic vol] 93.9 fL Normal 80.0-94.0 [facility] ([place] Comment on above: Performed By: #### M G, BMP, CBC, ADIFF, PRO, ANEU, GFR ####[address] [place], [place] [address] Platelet 184 10 3/mcL Normal 130-400 [facility] ([place] Comment on above: Performed By: #### M G, BMP, CBC, ADIFF, PRO, ANEU, GFR ####[address] [place], [place] [address] Platelet mean volume (Bld) [Entitic vol] 10.5 fL High 7.4-10.4 [facility] ([place] Comment on above: Performed By: #### M G, BMP, CBC, ADIFF, PRO, ANEU, GFR ####[address] [place], [place] [address] RBC 4.10 10 6/mcL Normal 4.04-6.13 [facility] ([place] Comment on above: Performed By: #### M G, BMP, CBC, ADIFF, PRO, ANEU, GFR ####[address] [place], [place] [address] WBC 5.5 10 3/mcL Normal 4.6-10.8 [facility] ([place] Comment on above: Performed By: #### M G, BMP, CBC, ADIFF, PRO, ANEU, GFR ####[address] [place], [place] [address] MGon 06-20-2023 Magnesium [Mass/Vol] 1.9 mg/dL Normal 1.8-2.4 [facility] [place] Comment on above: Performed By: #### M G, BMP, CBC, ADIFF, PRO, ANEU, GFR ####[address] [place], [place] [address] PROon 06-20-2023 PT Coag (PPP) [Time] 11.6 s Normal 9.0-14.2 [facility] [place] Comment on above: Performed By: #### M G, BMP, CBC, ADIFF, PRO, ANEU, GFR ####[address] [place], [place] [address] PT International Ratio 1.0 Normal [facility] ([place] Comment on above: Result Comment: [employer] (CHEST, 1992, 102:312S-25S)recommended therapeutic range for oral anticoagulant therapy is:LOW RISK: Prophylaxis of venous thrombosis INR: 2.0-3.0 Treatment of pulmonary embolism 2.0-3.0 Prevention of systemic embolism 2.0-3.0HIGH RISK: Mechanical prosthetic valves 2.5-3.5 Performed By: #### M G, BMP, CBC, ADIFF, PRO, ANEU, GFR ####[address] [place], [place] [address] B12on 05-26-2023 Cobalamin (Vitamin B12) [Mass/Vol] 330 pg/mL Normal 211-911 [facility] ([place] Comment on above: Performed By: #### A RIVER, FE, VIDH, ADIFF, CBC ####[place] [address]#### B12 ####[address] [address] .Auto Diffon 05-25-2023 Basophil, Absolute 0.0 10 3/mcL Normal 0.0-0.2 [facility] ([place] Comment on above: Performed By: #### A RIVER, FE, VIDH, ADIFF, CBC ####[place] [address]#### B12 ####[place] [address] Basophils/100 WBC (Bld) 0.7 % Normal 0.0-2.5 [facility] ([place] Comment on above: Performed By: #### A RIVER, FE, VIDH, ADIFF, CBC ####[place] [address]#### B12 ####[place] [address] Eosinophil, Absolute 0.1 10 3/mcL Normal 0.0-0.4 [facility] ([place] Comment on above: Performed By: #### A RIVER, FE, VIDH, ADIFF, CBC ####[place] [address]#### B12 ####[place] [address] Eosinophils/100 WBC (Bld) 1.1 % Normal 0.0-7.0 [facility] ([place] Comment on above: Performed By: #### A RIVER, FE, VIDH, ADIFF, CBC ####[place] [address]#### B12 ####[address] [address] Lymphocyte, Absolute 1.6 10 3/mcL Normal 0.8-3.9 [facility] ([place] Comment on above: Performed By: #### A RIVER, FE, VIDH, ADIFF, CBC ####[place] [address]#### B12 ####[address] [address] Lymphocytes/100 WBC (Bld) 24.5 % Normal 10.0-50.0 [facility] ([place] Comment on above: Performed By: #### A RIVER, FE, VIDH, ADIFF, CBC ####[place] [address]#### B12 ####[address] [address] Monocyte, Absolute 0.6 10 3/mcL Normal 0.2-1.0 [facility] ([place] Comment on above: Performed By: #### A RIVER, FE, VIDH, ADIFF, CBC ####[place] [address]#### B12 ####[address] [address] Monocytes/100 WBC (Bld) 9.5 % Normal 1.7-13.0 [facility] ([place] Comment on above: Performed By: #### A RIVER, FE, VIDH, ADIFF, CBC ####[place] [id number]#### B12 ####[address] [address] Neutrophils/100 WBC (Bld) 64.2 % Normal 37.0-80.0 [facility] ([place]) Comment on above: Performed By: #### A RIVER, FE, VIDH, ADIFF, CBC ####[place] [id number]#### B12 ####[address] [address] .GFRon 05-25-2023 GFR Non- 79 ml/min/1.73sqm Normal [facility] ([place]) Comment on above: Result Comment: GFR Population mean for , Non- Americans Ages 20-29 = 116 mL/min/1.73 sq.m. Ages 30-39 = 107 mL/min/1.73 sq.m. Ages 40-49 = 99 mL/min/1.73 sq.m. Ages 50-59 = 93 mL/min/1.73 sq.m. Ages 60-69 = 85 mL/min/1.73 sq.m. Ages 70+ = 75 mL/min/1.73 sq.m.Chronic Kidney Disease: Less than 60 mL/min/1.73 square metersEnd Stage Renal Disease: Less than 15 mL/min/1.73 square meters Performed By: #### T SH, GFR, FT4, BMP ####[id number] [place], [place] [address] GFR 96 ml/min/1.73sqm Normal [facility] ([place]) Comment on above: Result Comment: GFR Population mean for , Non- Americans Ages 20-29 = 116 mL/min/1.73 sq.m. Ages 30-39 = 107 mL/min/1.73 sq.m. Ages 40-49 = 99 mL/min/1.73 sq.m. Ages 50-59 = 93 mL/min/1.73 sq.m. Ages 60-69 = 85 mL/min/1.73 sq.m. Ages 70+ = 75 mL/min/1.73 sq.m.Chronic Kidney Disease: Less than 60 mL/min/1.73 square metersEnd Stage Renal Disease: Less than 15 mL/min/1.73 square meters Performed By: #### T SH, GFR, FT4, BMP ####[id number] [place], [place] [address] .NEUABSon 05-25-2023 Neutrophil, Absolute 4.2 10 3/mcL Normal 2.9-6.2 [facility] ([place]) Comment on above: Performed By: #### A RIVER, FE, VITRACY, ADRYAN, CBC ####[id number] [place], [place] [address]#### B12 ####[place] [address] BMPon 05-25-2023 BUN/Creatinine Ratio 13 ratio Normal 7-27 [facility] ([place]) Comment on above: Performed By: #### T CARLOS, GFR, FT4, BMP ####[address] [place], [place] [address] Calcium [Mass/Vol] 9.6 mg/dL Normal 8.4-10.2 [facility] ([place]) Comment on above: Performed By: #### T CARLOS, GFR, FT4, BMP ####[address] [place], [place] [address] Chloride [Moles/Vol] 100 mmol/L Normal 98-107 [facility] ([place] Comment on above: Performed By: #### T CARLOS, GFR, FT4, BMP ####[address] [place], [place] [address] CO2 [Moles/Vol] 27 mmol/L Normal 22-29 [facility] ([place]) Comment on above: Performed By: #### T CARLOS, GFR, FT4, BMP ####[address] [place], [place] [address] Creatinine [Mass/Vol] 0.98 mg/dL Normal 0.70-1.30 [facility] ([place]) Comment on above: Performed By: #### T CARLOS, GFR, FT4, BMP ####[address] [place], [place] [address] Electrolyte Balance 12.0 mEq/L Normal 4.0-15.0 [facility] ([place]) Comment on above: Performed By: #### T SH, GFR, FT4, BMP ####[address] [place], [place] [address] Glucose [Mass/Vol] 88 mg/dL Normal 70-105 [facility] ([place]) Comment on above: Performed By: #### T CARLOS, GFR, FT4, BMP ####[address] [place], [place] [address] Potassium [Moles/Vol] 4.4 mmol/L Normal 3.5-5.1 [facility] ([place]) Comment on above: Performed By: #### T SH, GFR, FT4, BMP ####[address] [place], [place] [address] Sodium [Moles/Vol] 139 mmol/L Normal 136-145 [facility] ([place] Comment on above: Performed By: #### T CARLOS, GFR, FT4, BMP ####[address] [place], [place] [address] Urea nitrogen [Mass/Vol] 13 mg/dL Normal 7-18 [facility] ([place]) Comment on above: Performed By: #### T CARLOS, GFR, FT4, BMP ####[id number] [place], [place] [address] CBCon 05-25-2023 Erythrocyte distribution width (RBC) [Ratio] 13.9 % Normal 11.5-14.5 [facility] ([place]) Comment on above: Performed By: #### A RIVER, FE, VIDH, ADIFF, CBC ####[place] [address]#### B12 ####[place] [address] Hematocrit (Bld) [Volume fraction] 39.0 % Low 42.0-52.0 [facility] ([place] Comment on above: Performed By: #### A RIVRE, FE, VIDH, ADIFF, CBC ####[place] [address]#### B12 ####[place] [address] Hgb 13.4 G/dL Low 14.0-18.0 [facility] ([place]) Comment on above: Performed By: #### A RIVER, FE, VIDH, ADIFF, CBC ####[place] [address]#### B12 ####[place] [address] MCH (RBC) [Entitic mass] 32.3 pg High 27.0-31.2 [facility] ([place] Comment on above: Performed By: #### A RIVER, FE, VIDH, ADIFF, CBC ####[place] [address]#### B12 ####[place] [address] MCHC 34.4 G/dL Normal 31.8-35.4 [facility] ([place] Comment on above: Performed By: #### A RIVER, FE, VIDH, ADIFF, CBC ####[place] [address]#### B12 ####[place] [address] MCV (RBC) [Entitic vol] 93.9 fL Normal 80.0-94.0 [facility] ([place] Comment on above: Performed By: #### A RIVER, FE, VIDH, ADIFF, CBC ####[place] [address]#### B12 ####[place] [address] Platelet 205 10 3/mcL Normal 130-400 [facility] ([place]) Comment on above: Performed By: #### A RIVER, FE, VIDH, ADIFF, CBC ####[place] [address]#### B12 ####[place] [address] Platelet mean volume (Bld) [Entitic vol] 9.4 fL Normal 7.4-10.4 [facility] ([place] Comment on above: Performed By: #### A RIVER, FE, VIDH, ADIFF, CBC ####[place] [address]#### B12 ####[place] [address] RBC 4.15 10 6/mcL Normal 4.04-6.13 [facility] ([place] Comment on above: Performed By: #### A RIVER, FE, VIDH, ADIFF, CBC ####[place] [address]#### B12 ####[place] [address] WBC 6.6 10 3/mcL Normal 4.6-10.8 [facility] ([place] Comment on above: Performed By: #### A RIVER, FE, VIDH, ADIFF, CBC ####[address] [place] [address]#### B12 ####[place] [address] FEon 05-25-2023 Iron [Mass/Vol] 120 ug/dL Normal 65-175 [facility] ([place]) Comment on above: Performed By: #### A RIVER, FE, VIDH, ADIFF, CBC ####[facility] [place] [address]#### B12 ####[place] [address] FT4on 05-25-2023 Free T4 [Mass/Vol] 1.28 ng/dL Normal 0.76-1.46 [facility] ([place]) Comment on above: Performed By: #### T SH, GFR, FT4, BMP ####[facility] [place] [address] LABORATORYOrdered By: SYSTEM SYSTEM on 05-25-2023 25-hydroxyvitamin D3 [Mass/Vol] 31.8 ng/mL Invalid Interpretation Code AO ADM SS Comment on above: Interpretive Data: I nterpretive Values Based on Total 25(OH) Vitamin D: Deficient <20 ng/mL Insufficient 20 - <30 ng/mL Sufficient 30-100 ng/mL Basophil, Absolute 0.0 103/mcL Normal 0.0 - 0.2 10^3/mcL AO Workflow SS Basophils/100 WBC (Bld) 0.7 % Normal 0.0 - 2.5 % AO Workflow SS Calcium [Mass/Vol] 9.6 mg/dL Normal 8.4 - 10. 2 mg/dL AO ADM SS Chloride [Moles/Vol] 100 mmol/L Normal 98 - 10 7 mmol/L AO ADM SS CO2 [Moles/Vol] 27 mmol/L Normal 22 - 29 mmol/L AO ADM SS Cobalamin (Vitamin B12) [Mass/Vol] 330 pg/mL Normal 211 - 911 pg/mL AH ADM SS Creatinine [Mass/Vol] 0.98 mg/dL Normal 0.70 - 1.30 mg/dL AO ADM SS Electrolyte Balance 12.0 mEq/L Normal 4.0 - 15 .0 mEq/L AO ADM SS Eosinophil, Absolute 0.1 103/mcL Normal 0.0 - 0 .4 10^3/mcL AO Workflow SS Eosinophils/100 WBC (Bld) 1.1 % Normal 0.0 - 7.0 % AO Workflow SS Erythrocyte distribution width (RBC) [Ratio] 13.9 % Normal 11.5 - 14.5 % AO Workflow SS Free T4 [Mass/Vol] 1.28 ng/dL Normal 0.76 - 1. 46 ng/dL AO ADM SS GFR/1.73 sq M.predicted among blacks MDRD (S/P/Bld) [Vol rate/Area] 96 ml/min/1.73sqm Invalid Interpretation Code AO Chemistry S Comment on above: Interpretive Data: GFR Population mean for , Non- Americans Ages 20-29 = 116 mL/min/1.73 sq.m. Ages 30-39 = 107 mL/min/1.73 sq.m. Ages 40-49 = 99 mL/min/1.73 sq.m. Ages 50-59 = 93 mL/min/1.73 sq.m. Ages 60-69 = 85 mL/min/1.73 sq.m. Ages 70+ = 75 mL/min/1.73 sq.m. Chronic Kidney Disease: Less than 60 mL/min/1.73 square meters End Stage Renal Disease: Less than 15 mL/min/1.73 square meters GFR/1.73 sq M.predicted among non-blacks MDRD (S/P/Bld) [Vol rate/Area] 79 ml/min/1.73sqm Invalid Interpretation Code AO Chemistry S Comment on above: Interpretive Data: GFR Population mean for , Non- Americans Ages 20-29 = 116 mL/min/1.73 sq.m. Ages 30-39 = 107 mL/min/1.73 sq.m. Ages 40-49 = 99 mL/min/1.73 sq.m. Ages 50-59 = 93 mL/min/1.73 sq.m. Ages 60-69 = 85 mL/min/1.73 sq.m. Ages 70+ = 75 mL/min/1.73 sq.m. Chronic Kidney Disease: Less than 60 mL/min/1.73 square meters End Stage Renal Disease: Less than 15 mL/min/1.73 square meters Glucose [Mass/Vol] 88 mg/dL Normal 70 - 105 mg/dL AO ADM SS Hematocrit (Bld) [Volume fraction] 39.0 % Low 42.0 - 52.0 % AO Workflow SS Hemoglobin (Bld) [Mass/Vol] 13.4 G/dL Low 14.0 - 18.0 G/dL AO Workflow SS Iron [Mass/Vol] 120 ug/dL Normal 65 - 175 mcg/dL AO ADM SS Lymphocyte, Absolute 1.6 103/mcL Normal 0.8 - 3 .9 10^3/mcL AO Workflow SS Lymphocytes/100 WBC (Bld) 24.5 % Normal 10.0 - 50.0 % AO Workflow SS MCH (RBC) [Entitic mass] 32.3 pg High 27.0 - 31.2 pg AO Workflow SS MCHC 34.4 G/dL Normal 31.8 - 35.4 G/dL AO Workflow SS MCV (RBC) [Entitic vol] 93.9 fL Normal 80.0 - 94.0 fL AO Workflow SS Monocyte, Absolute 0.6 103/mcL Normal 0.2 - 1.0 10^3/mcL AO Workflow SS Monocytes/100 WBC (Bld) 9.5 % Normal 1.7 - 13.0 % AO Workflow SS Neutrophil, Absolute 4.2 103/mcL Normal 2.9 - 6 .2 10^3/mcL AO Workflow SS Neutrophils/100 WBC (Bld) 64.2 % Normal 37.0 - 80.0 % AO Workflow SS Platelet mean volume (Bld) [Entitic vol] 9.4 fL Normal 7.4 - 10.4 fL AO Workflow SS Platelets (Bld) [#/Vol] 205 103/mcL Normal 130 - 400 10^3/mcL AO Workflow SS Potassium [Moles/Vol] 4.4 mmol/L Normal 3.5 - 5.1 mmol/L AO ADM SS RBC (Bld) [#/Vol] 4.15 106/mcL Normal 4.04 - 6.1 3 10^6/mcL AO Workflow SS Sodium [Moles/Vol] 139 mmol/L Normal 136 - 145 mmol/L AO ADM SS TSH Qn 2.21 m[IU]/L Normal 0.36 - 3.74 mcIU/mL AO ADM SS Urea nitrogen [Mass/Vol] 13 mg/dL Normal 7 - 18 mg/dL AO ADM SS Urea nitrogen/Creatinine [Mass ratio] 13 ratio Normal 7 - 27 ratio AO ADM SS WBC (Bld) [#/Vol] 6.6 103/mcL Normal 4.6 - 10.8 10^3/mcL AO Workflow SS TSHon 05-25-2023 TSH Qn 2.21 m[IU]/L Normal 0.36-3.74 [facility] ([place]) Comment on above: Performed By: #### T SH, GFR, FT4, BMP ####[address] [place], [place] [address] VIDHon 05-25-2023 Vit. D 25-Hydroxy 31.8 ng/mL Normal [facility] ([place]) Comment on above: Result Comment: Inte rpretive Values Based on Total 25(OH) Vitamin D:Deficient <20 ng/mLInsufficient 20 - <30 ng/mLSufficient 30-100 ng/mL Performed By: #### A RIVER, FE, VIDH, ADIFF, CBC ####[id number] [place], [place] [address]#### B12 ####[place] [address] CT THORAX SCREENING W/O CONT RASTon 05-12-2023 CT THORAX SCREENING W/O CONTRAST Normal [facility] ([place]) .Auto Diffon 04-04-2023 Basophil, Absolute 0.0 10 3/mcL Normal 0.0-0.2 [facility] ([place] Comment on above: Performed By: #### C MP, ANEU, CBC, PSA, LIPID, ADIFF, GFR ####[address] [place], [place] [address] Basophils/100 WBC (Bld) 0.8 % Normal 0.0-2.5 [facility] ([place]) Comment on above: Performed By: #### C MP, ANEU, CBC, PSA, LIPID, ADIFF, GFR ####[address] [place], [place] [address] Eosinophil, Absolute 0.1 10 3/mcL Normal 0.0-0.4 [facility] ([place]) Comment on above: Performed By: #### C MP, ANEU, CBC, PSA, LIPID, ADIFF, GFR ####[address] [place], [place] [address] Eosinophils/100 WBC (Bld) 2.8 % Normal 0.0-7.0 [facility] ([place] Comment on above: Performed By: #### C MP, ANEU, CBC, PSA, LIPID, ADIFF, GFR ####[address] [place], [place] [address] Lymphocyte, Absolute 1.0 10 3/mcL Normal 0.8-3.9 [facility] ([place]) Comment on above: Performed By: #### C MP, ANEU, CBC, PSA, LIPID, ADIFF, GFR ####[address] [place], [place] [address] Lymphocytes/100 WBC (Bld) 19.2 % Normal 10.0-50.0 [facility] ([place] Comment on above: Performed By: #### C MP, ANEU, CBC, PSA, LIPID, ADIFF, GFR ####[address] [place], [place] [address] Monocyte, Absolute 0.6 10 3/mcL Normal 0.2-1.0 [facility] ([place] Comment on above: Performed By: #### C MP, ANEU, CBC, PSA, LIPID, ADIFF, GFR ####[address] [place], [place] [address] Monocytes/100 WBC (Bld) 11.3 % Normal 1.7-13.0 [facility] ([place] Comment on above: Performed By: #### C MP, ANEU, CBC, PSA, LIPID, ADIFF, GFR ####[id number] [place], [place] [address] Neutrophils/100 WBC (Bld) 65.9 % Normal 37.0-80.0 [facility] ([place] Comment on above: Performed By: #### C MP, ANEU, CBC, PSA, LIPID, ADIFF, GFR ####[address] [place], [place] [address] .GFRon 04-04-2023 GFR 104 ml/min/1.73sqm Normal [facility] ([place]) Comment on above: Result Comment: GFR Population mean for , Non- Americans Ages 20-29 = 116 mL/min/1.73 sq.m. Ages 30-39 = 107 mL/min/1.73 sq.m. Ages 40-49 = 99 mL/min/1.73 sq.m. Ages 50-59 = 93 mL/min/1.73 sq.m. Ages 60-69 = 85 mL/min/1.73 sq.m. Ages 70+ = 75 mL/min/1.73 sq.m.Chronic Kidney Disease: Less than 60 mL/min/1.73 square metersEnd Stage Renal Disease: Less than 15 mL/min/1.73 square meters Performed By: #### C MP, ANEU, CBC, PSA, LIPID, ADIFF, GFR ####[id number] [place], [place] [address] GFR Non- 85 ml/min/1.73sqm Normal [facility] ([place] Comment on above: Result Comment: GFR Population mean for , Non- Americans Ages 20-29 = 116 mL/min/1.73 sq.m. Ages 30-39 = 107 mL/min/1.73 sq.m. Ages 40-49 = 99 mL/min/1.73 sq.m. Ages 50-59 = 93 mL/min/1.73 sq.m. Ages 60-69 = 85 mL/min/1.73 sq.m. Ages 70+ = 75 mL/min/1.73 sq.m.Chronic Kidney Disease: Less than 60 mL/min/1.73 square metersEnd Stage Renal Disease: Less than 15 mL/min/1.73 square meters Performed By: #### C MP, ANEU, CBC, PSA, LIPID, ADIFF, GFR ####[address] [place], [place] [address] .NEUABSon 04-04-2023 Neutrophil, Absolute 3.5 10 3/mcL Normal 2.9-6.2 [facility] ([place]) Comment on above: Performed By: #### C MP, ANEU, CBC, PSA, LIPID, ADIFF, GFR ####[id number] [place], [place] [address] CBCon 04-04-2023 Erythrocyte distribution width (RBC) [Ratio] 14.4 % Normal 11.5-14.5 [facility] ([place] Comment on above: Performed By: #### C MP, ANEU, CBC, PSA, LIPID, ADIFF, GFR ####[address] [place], [place] [address] Hematocrit (Bld) [Volume fraction] 40.6 % Low 42.0-52.0 [facility] ([place] Comment on above: Performed By: #### C MP, ANEU, CBC, PSA, LIPID, ADIFF, GFR ####[address] [place], [place] [address] Hgb 13.9 G/dL Low 14.0-18.0 [facility] ([place] Comment on above: Performed By: #### C MP, ANEU, CBC, PSA, LIPID, ADIFF, GFR ####[address] [place], [place] [address] MCH (RBC) [Entitic mass] 32.1 pg High 27.0-31.2 [facility] ([place] Comment on above: Performed By: #### C MP, ANEU, CBC, PSA, LIPID, ADIFF, GFR ####[address] [place], [place] [address] MCHC 34.2 G/dL Normal 31.8-35.4 [facility] ([place] Comment on above: Performed By: #### C MP, ANEU, CBC, PSA, LIPID, ADIFF, GFR ####[address] [place], [place] [address] MCV (RBC) [Entitic vol] 94.0 fL Normal 80.0-94.0 [facility] ([place] Comment on above: Performed By: #### C MP, ANEU, CBC, PSA, LIPID, ADIFF, GFR ####[id number] [place], [place] [address] Platelet 196 10 3/mcL Normal 130-400 [facility] ([place] Comment on above: Performed By: #### C MP, ANEU, CBC, PSA, LIPID, ADIFF, GFR ####[address] [place], [place] [address] Platelet mean volume (Bld) [Entitic vol] 9.4 fL Normal 7.4-10.4 [facility] ([place] Comment on above: Performed By: #### C MP, ANEU, CBC, PSA, LIPID, ADIFF, GFR ####[address] [place], [place] [address] RBC 4.32 10 6/mcL Normal 4.04-6.13 [facility] ([place] Comment on above: Performed By: #### C MP, ANEU, CBC, PSA, LIPID, ADIFF, GFR ####[address] [place], [place] [address] WBC 5.4 10 3/mcL Normal 4.6-10.8 [facility] ([place] Comment on above: Performed By: #### C MP, ANEU, CBC, PSA, LIPID, ADIFF, GFR ####[address] [place], [place] [address] CMPon 04-04-2023 Albumin Level 4.1 G/dL Normal 3.5-5.0 [facility] ([place] Comment on above: Performed By: #### C MP, ANEU, CBC, PSA, LIPID, ADIFF, GFR ####[address] [place], [place] [address] Albumin/Globulin [Mass ratio] 1.1 {ratio} Normal 1.1-2.5 [facility] ([place]) Comment on above: Performed By: #### C MP, ANEU, CBC, PSA, LIPID, ADIFF, GFR ####[address] [place], [place] [address] ALP [Catalytic activity/Vol] 81 U/L Normal 40-135 [facility] ([place] Comment on above: Performed By: #### C MP, ANEU, CBC, PSA, LIPID, ADIFF, GFR ####[address] [place], [place] [address] ALT [Catalytic activity/Vol] 41 U/L Normal 16-63 [facility] ([place] Comment on above: Performed By: #### C MP, ANEU, CBC, PSA, LIPID, ADIFF, GFR ####[address] [place], [place] [address] AST [Catalytic activity/Vol] 21 U/L Normal 10-40 [facility] ([place] Comment on above: Performed By: #### C MP, ANEU, CBC, PSA, LIPID, ADIFF, GFR ####[address] [place], [place] [address] Bili Total 0.6 mg/dL Normal 0.2-1.0 [facility] ([place]) Comment on above: Result Comment: Use of this assay is not recommended for patients undergoing treatment with eltrombopag due to the potential for falsely elevated results. Performed By: #### C MP, ANEU, CBC, PSA, LIPID, ADIFF, GFR ####[id number] [place], [place] [address] BUN/Creatinine Ratio 17 ratio Normal 7-27 [facility] ([place] Comment on above: Performed By: #### C MP, ANEU, CBC, PSA, LIPID, ADIFF, GFR ####[address] [place], [place] [address] Calcium [Mass/Vol] 9.5 mg/dL Normal 8.4-10.2 [facility] ([place]) Comment on above: Performed By: #### C MP, ANEU, CBC, PSA, LIPID, ADIFF, GFR ####[address] [place], [place] [address] Chloride [Moles/Vol] 104 mmol/L Normal 98-107 [facility] ([place] Comment on above: Performed By: #### C MP, ANEU, CBC, PSA, LIPID, ADIFF, GFR ####[id number] [place], [place] [address] CO2 [Moles/Vol] 30 mmol/L High 22-29 [facility] ([place]) Comment on above: Performed By: #### C MP, ANEU, CBC, PSA, LIPID, ADIFF, GFR ####[address] [place], [place] [address] Creatinine [Mass/Vol] 0.92 mg/dL Normal 0.70-1.30 [facility] ([place] Comment on above: Performed By: #### C MP, ANEU, CBC, PSA, LIPID, ADIFF, GFR ####[address] [place], [place] [address] Electrolyte Balance 7.0 mEq/L Normal 4.0-15.0 [facility] ([place] Comment on above: Performed By: #### C MP, ANEU, CBC, PSA, LIPID, ADIFF, GFR ####[address] [place], [place] [address] Globulin 3.8 G/dL Normal [facility] ([place]) Comment on above: Performed By: #### C MP, ANEU, CBC, PSA, LIPID, ADIFF, GFR ####[id number] [place], [place] [address] Glucose [Mass/Vol] 93 mg/dL Normal 70-105 [facility] ([place] Comment on above: Performed By: #### C MP, ANEU, CBC, PSA, LIPID, ADIFF, GFR ####Case [id number] [place], [place] [address] Potassium [Moles/Vol] 5.3 mmol/L High 3.5-5.1 [facility] ([place]) Comment on above: Performed By: #### C MP, ANEU, CBC, PSA, LIPID, ADIFF, GFR ####[address] [place], [place] [address] Sodium [Moles/Vol] 141 mmol/L Normal 136-145 [facility] ([place] Comment on above: Performed By: #### C MP, ANEU, CBC, PSA, LIPID, ADIFF, GFR ####[address] [place], [place] [address] Total Protein 7.9 G/dL Normal 6.4-8.2 [facility] ([place] Comment on above: Performed By: #### C MP, ANEU, CBC, PSA, LIPID, ADIFF, GFR ####[id number] [place], [place] [address] Urea nitrogen [Mass/Vol] 16 mg/dL Normal 7-18 [facility] ([place] Comment on above: Performed By: #### C MP, ANEU, CBC, PSA, LIPID, ADIFF, GFR ####[id number] [place], [place] [address] FT4on 04-04-2023 Free T4 [Mass/Vol] 1.08 ng/dL Normal 0.76-1.46 [facility] ([place]) Comment on above: Performed By: #### F T4, TSH ####[address] [place], [place] [address] LABORATORYOrdered By: SYSTEM SYSTEM on 04-04-2023 Natriuretic peptide.B prohormone N-Terminal [Mass/Vol] 46 pg/mL Normal 0 - 125 pg/mL AO ADM SS Comment on above: Interpretive Data: N T-proBNP results of less than 300 pg/mL effectively rules out acute congestive heart failure with 99% negative predictive value. Free T4 [Mass/Vol] 1.08 ng/dL Normal 0.76 - 1. 46 ng/dL AO ADM SS TSH Qn 5.08 m[IU]/L High 0.36 - 3.74 mcIU/mL AO ADM SS Albumin BCP dye [Mass/Vol] 4.1 G/dL Normal 3.5 - 5.0 G/dL AO ADM SS Albumin/Globulin [Mass ratio] 1.1 {ratio} Normal 1.1 - 2.5 ratio AO ADM SS ALP [Catalytic activity/Vol] 81 U/L Normal 40 - 135 U/L AO ADM SS ALT With P-5'-P [Catalytic activity/Vol] 41 U/L Normal 16 - 63 U/L AO ADM SS AST With P-5'-P [Catalytic activity/Vol] 21 U/L Normal 10 - 40 U/L AO ADM SS Basophil, Absolute 0.0 103/mcL Normal 0.0 - 0.2 10^3/mcL AO Workflow SS Basophils/100 WBC (Bld) 0.8 % Normal 0.0 - 2.5 % AO Workflow SS Bilirubin [Mass/Vol] 0.6 mg/dL Normal 0.2 - 1 .0 mg/dL AO ADM SS Comment on above: Interpretive Data: U se of this assay is not recommended for patients undergoing treatment with eltrombopag due to the potential for falsely elevated results. Calcium [Mass/Vol] 9.5 mg/dL Normal 8.4 - 10. 2 mg/dL AO ADM SS Chloride [Moles/Vol] 104 mmol/L Normal 98 - 10 7 mmol/L AO ADM SS CO2 [Moles/Vol] 30 mmol/L High 22 - 29 mmol/L AO ADM SS Creatinine [Mass/Vol] 0.92 mg/dL Normal 0.70 - 1.30 mg/dL AO ADM SS Electrolyte Balance 7.0 mEq/L Normal 4.0 - 15 .0 mEq/L AO ADM SS Eosinophil, Absolute 0.1 103/mcL Normal 0.0 - 0 .4 10^3/mcL AO Workflow SS Eosinophils/100 WBC (Bld) 2.8 % Normal 0.0 - 7.0 % AO Workflow SS Erythrocyte distribution width (RBC) [Ratio] 14.4 % Normal 11.5 - 14.5 % AO Workflow SS GFR/1.73 sq M.predicted among blacks MDRD (S/P/Bld) [Vol rate/Area] 104 ml/min/1.73sqm Invalid Interpretation Code AO Chemistry S Comment on above: Interpretive Data: GFR Population mean for , Non- Americans Ages 20-29 = 116 mL/min/1.73 sq.m. Ages 30-39 = 107 mL/min/1.73 sq.m. Ages 40-49 = 99 mL/min/1.73 sq.m. Ages 50-59 = 93 mL/min/1.73 sq.m. Ages 60-69 = 85 mL/min/1.73 sq.m. Ages 70+ = 75 mL/min/1.73 sq.m. Chronic Kidney Disease: Less than 60 mL/min/1.73 square meters End Stage Renal Disease: Less than 15 mL/min/1.73 square meters GFR/1.73 sq M.predicted among non-blacks MDRD (S/P/Bld) [Vol rate/Area] 85 ml/min/1.73sqm Invalid Interpretation Code AO Chemistry S Comment on above: Interpretive Data: GFR Population mean for , Non- Americans Ages 20-29 = 116 mL/min/1.73 sq.m. Ages 30-39 = 107 mL/min/1.73 sq.m. Ages 40-49 = 99 mL/min/1.73 sq.m. Ages 50-59 = 93 mL/min/1.73 sq.m. Ages 60-69 = 85 mL/min/1.73 sq.m. Ages 70+ = 75 mL/min/1.73 sq.m. Chronic Kidney Disease: Less than 60 mL/min/1.73 square meters End Stage Renal Disease: Less than 15 mL/min/1.73 square meters Globulin 3.8 G/dL Invalid Interpretation Code AO ADM SS Glucose [Mass/Vol] 93 mg/dL Normal 70 - 105 mg/dL AO ADM SS Hematocrit (Bld) [Volume fraction] 40.6 % Low 42.0 - 52.0 % AO Workflow SS Hemoglobin (Bld) [Mass/Vol] 13.9 G/dL Low 14.0 - 18.0 G/dL AO Workflow SS Lymphocyte, Absolute 1.0 103/mcL Normal 0.8 - 3 .9 10^3/mcL AO Workflow SS Lymphocytes/100 WBC (Bld) 19.2 % Normal 10.0 - 50.0 % AO Workflow SS MCH (RBC) [Entitic mass] 32.1 pg High 27.0 - 31.2 pg AO Workflow SS MCHC 34.2 G/dL Normal 31.8 - 35.4 G/dL AO Workflow SS MCV (RBC) [Entitic vol] 94.0 fL Normal 80.0 - 94.0 fL AO Workflow SS Monocyte, Absolute 0.6 103/mcL Normal 0.2 - 1.0 10^3/mcL AO Workflow SS Monocytes/100 WBC (Bld) 11.3 % Normal 1.7 - 13.0 % AO Workflow SS Neutrophil, Absolute 3.5 103/mcL Normal 2.9 - 6 .2 10^3/mcL AO Workflow SS Neutrophils/100 WBC (Bld) 65.9 % Normal 37.0 - 80.0 % AO Workflow SS Platelet mean volume (Bld) [Entitic vol] 9.4 fL Normal 7.4 - 10.4 fL AO Workflow SS Platelets (Bld) [#/Vol] 196 103/mcL Normal 130 - 400 10^3/mcL AO Workflow SS Potassium [Moles/Vol] 5.3 mmol/L High 3.5 - 5.1 mmol/L AO ADM SS Prostate specific Ag [Mass/Vol] 1.73 ng/mL Normal 0.00 - 4.00 ng/mL AO ADM SS Protein [Mass/Vol] 7.9 G/dL Normal 6.4 - 8.2 G/dL AO ADM SS RBC (Bld) [#/Vol] 4.32 106/mcL Normal 4.04 - 6.1 3 10^6/mcL AO Workflow SS Sodium [Moles/Vol] 141 mmol/L Normal 136 - 145 mmol/L AO ADM SS Urea nitrogen [Mass/Vol] 16 mg/dL Normal 7 - 18 mg/dL AO ADM SS Urea nitrogen/Creatinine [Mass ratio] 17 ratio Normal 7 - 27 ratio AO ADM SS WBC (Bld) [#/Vol] 5.4 103/mcL Normal 4.6 - 10.8 10^3/mcL AO Workflow SS LABORATORYOrdered By: Merry Pinto on 04-04-2023 Cholesterol [Mass/Vol] 125 mg/dL Normal 0 - 200 mg/dL AO ADM SS Comment on above: Interpretive Data: C holesterol Reference Interval: Less than 200 Desirable 200-239 Borderline high risk 240 and above High risk Cholesterol in HDL [Mass/Vol] 71 mg/dL High 40 - 60 mg/dL AO ADM SS Cholesterol in LDL [Mass/Vol] 46 mg/dL Normal 0 - 130 mg/dL AO ADM SS Triglyceride [Mass/Vol] 41 mg/dL Normal 0 - 150 mg/dL AO ADM SS Comment on above: Interpretive Data: T riglyceride Reference Interval: Less than 150 Normal 150-199 Borderline high risk 200-499 High risk 500 or higher Very high risk LIPIDon 04-04-2023 Cholesterol [Mass/Vol] 125 mg/dL Normal 0-200 [facility] ([place]) Comment on above: Result Comment: Chol esterol Reference Interval:Less than 200 [id number] Borderline high [id number] and above High risk Performed By: #### C MP, ANEU, CBC, PSA, LIPID, ADIFF, GFR ####[id number] [place], [place] [address] Cholesterol in HDL [Mass/Vol] 71 mg/dL High 40-60 [facility] ([place]) Comment on above: Performed By: #### C MP, ANEU, CBC, PSA, LIPID, ADIFF, GFR ####[id number] [place], [place] [address] Cholesterol in LDL [Mass/Vol] 46 mg/dL Normal 0-130 [facility] ([place]) Comment on above: Performed By: #### C MP, ANEU, CBC, PSA, LIPID, ADIFF, GFR ####[id number] [place], [place] [address] Triglyceride [Mass/Vol] 41 mg/dL Normal 0-150 [facility] ([place]) Comment on above: Result Comment: Trig lyceride Reference Interval:Less than 150 [id number] Borderline high [id number] High [id number] or higher Very high risk Performed By: #### C MP, ANEU, CBC, PSA, LIPID, ADIFF, GFR ####[id number] [place], [place] [address] PBNPon 04-04-2023 Natriuretic peptide B (Bld) [Mass/Vol] 46 pg/mL Normal 0-125 [facility] ([place]) Comment on above: Result Comment: NT-p roBNP results of less than 300 pg/mL effectivelyrules out acute congestive heart failure with 99% negative predictive value. Performed By: #### P BNP ####[id number] [place], [place] [address] PSAon 04-04-2023 Prostate Specific Antigen 1.73 ng/mL Normal 0.00-4.00 [facility] ([place]) Comment on above: Performed By: #### C MP, ANEU, CBC, PSA, LIPID, ADIFF, GFR ####[id number] [place], [place] [address] TSHon 04-04-2023 TSH Qn 5.08 m[IU]/L High 0.36-3.74 [facility] ([place]) Comment on above: Performed By: #### F T4, TSH ####[id number] [place], [place] [address] XR CHEST 2 VIEWSon 3 XR CHEST 2 VIEWS Normal [facility] [facility] ([place]) FT4on 01-30-2023 Free T4 [Mass/Vol] 1.00 ng/dL Normal 0.76-1.46 [facility] ([place]) Comment on above: Performed By: #### F T4, TSH ####[address] [place], [place] [address] LABORATORYOrdered By: SYSTEM SYSTEM on 01-30-2023 Free T4 [Mass/Vol] 1.00 ng/dL Invalid Interpretation Code 0.76 - 1.46 ng/dL AO ADM SS TSH Qn 8.04 m[IU]/L Invalid Interpretation Code 0.36 - 3.74 mcIU/mL AO ADM SS TSHon 01-30-2023 TSH Qn 8.04 m[IU]/L High 0.36-3.74 [facility] ([place]) Comment on above: Performed By: #### F T4, TSH ####[address] [place], [place] [address] LABORATORYOrdered By: SYSTEM SYSTEM on 11-05-2022 Calcium [Mass/Vol] 9.4 mg/dL Invalid Interpretation Code 8.4 - 10.2 mg/dL AO ADM SS Chloride [Moles/Vol] 100 mmol/L Invalid Interpretation Code 98 - 107 mmol/L AO ADM SS CO2 [Moles/Vol] 30 mmol/L Invalid Interpretation Code 22 - 29 mmol/L AO ADM SS Creatinine [Mass/Vol] 1.06 mg/dL Invalid Interpretation Code 0.70 - 1.30 mg/dL AO ADM SS Electrolyte Balance 8.0 mEq/L Invalid Interpretation Code 4.0 - 15.0 mEq/L AO ADM SS GFR/1.73 sq M.predicted among blacks MDRD (S/P/Bld) [Vol rate/Area] 88 ml/min/1.73sqm Invalid Interpretation Code AO Chemistry S Comment on above: Interpretive Data: GFR Population mean for , Non- Americans Ages 20-29 = 116 mL/min/1.73 sq.m. Ages 30-39 = 107 mL/min/1.73 sq.m. Ages 40-49 = 99 mL/min/1.73 sq.m. Ages 50-59 = 93 mL/min/1.73 sq.m. Ages 60-69 = 85 mL/min/1.73 sq.m. Ages 70+ = 75 mL/min/1.73 sq.m. Chronic Kidney Disease: Less than 60 mL/min/1.73 square meters End Stage Renal Disease: Less than 15 mL/min/1.73 square meters GFR/1.73 sq M.predicted among non-blacks MDRD (S/P/Bld) [Vol rate/Area] 73 ml/min/1.73sqm Invalid Interpretation Code AO Chemistry S Comment on above: Interpretive Data: GFR Population mean for , Non- Americans Ages 20-29 = 116 mL/min/1.73 sq.m. Ages 30-39 = 107 mL/min/1.73 sq.m. Ages 40-49 = 99 mL/min/1.73 sq.m. Ages 50-59 = 93 mL/min/1.73 sq.m. Ages 60-69 = 85 mL/min/1.73 sq.m. Ages 70+ = 75 mL/min/1.73 sq.m. Chronic Kidney Disease: Less than 60 mL/min/1.73 square meters End Stage Renal Disease: Less than 15 mL/min/1.73 square meters Glucose [Mass/Vol] 98 mg/dL Invalid Interpretation Code 70 - 105 mg/dL AO ADM SS Natriuretic peptide.B prohormone N-Terminal [Mass/Vol] 31 pg/mL Invalid Interpretation Code 0 - 125 pg/mL AO ADM SS Comment on above: Interpretive Data: N T-proBNP results of less than 300 pg/mL effectively rules out acute congestive heart failure with 99% negative predictive value. Potassium [Moles/Vol] 5.0 mmol/L Invalid Interpretation Code 3.5 - 5.1 mmol/L AO ADM SS Sodium [Moles/Vol] 138 mmol/L Invalid Interpretation Code 136 - 145 mmol/L AO ADM SS T4 [Mass/Vol] 8.6 ug/dL Invalid Interpretation Code 4.5 - 10.9 mcg/dL AH ADM SS Comment on above: Interpretive Data: * *Note - New Reference Range in effect 19 TSH Qn 17.89 m[IU]/L Invalid Interpretation Code 0.36 - 3.74 mcIU/mL AO ADM SS Urea nitrogen [Mass/Vol] 17 mg/dL Invalid Interpretation Code 7 - 18 mg/dL AO ADM SS Urea nitrogen/Creatinine [Mass ratio] 16 ratio Invalid Interpretation Code 7 - 27 ratio AO ADM SS LABORATORYOrdered By: Clau Corral on 11-05-2022 Cholesterol [Mass/Vol] 131 mg/dL Invalid Interpretation Code 0 - 200 mg/dL AO ADM SS Comment on above: Interpretive Data: C holesterol Reference Interval: Less than 200 Desirable 200-239 Borderline high risk 240 and above High risk Cholesterol in HDL [Mass/Vol] 64 mg/dL Invalid Interpretation Code 40 - 60 mg/dL AO ADM SS Cholesterol in LDL [Mass/Vol] 52 mg/dL Invalid Interpretation Code 0 - 130 mg/dL AO ADM SS Triglyceride [Mass/Vol] 76 mg/dL Invalid Interpretation Code 0 - 150 mg/dL AO ADM SS Comment on above: Interpretive Data: T riglyceride Reference Interval: Less than 150 Normal 150-199 Borderline high risk 200-499 High risk 500 or higher Very high risk LABORATORYOrdered By: Quantum on 06-06-2022 Natriuretic peptide.B prohormone N-Terminal [Mass/Vol] 22 pg/mL Invalid Interpretation Code 0 - 125 pg/mL AO ADM SS LABORATORYOrdered By: [employer] SYSTEM on 04-16-2022 Free T3 [Mass/Vol] 2.39 pg/mL Invalid Interpretation Code 2.30 - 4.00 pg/mL AO ADM SS Free T4 [Mass/Vol] 0.74 ng/dL Invalid Interpretation Code 0.76 - 1.46 ng/dL AO ADM SS Thyroglobulin Ab IA Qn 200 unit/mL Invalid Interpretation Code 15 - 60 unit/mL AH ADM SS TPO Ab IA Qn unit/mL Invalid Interpretation Code 0 - 60 unit/mL AH ADM SS LABORATORYOrdered By: [employer] on 04-14-2022 Albumin BCP dye [Mass/Vol] 4.4 G/dL Invalid Interpretation Code 3.5 - 5.0 G/dL AO ADM SS Albumin/Globulin [Mass ratio] 1.4 {ratio} Invalid Interpretation Code 1.1 - 2.5 ratio AO ADM SS ALP [Catalytic activity/Vol] 75 U/L Invalid Interpretation Code 40 - 135 U/L AO ADM SS ALT With P-5'-P [Catalytic activity/Vol] 32 U/L Invalid Interpretation Code 16 - 63 U/L AO ADM SS AST With P-5'-P [Catalytic activity/Vol] 19 U/L Invalid Interpretation Code 10 - 40 U/L AO ADM SS Bilirubin [Mass/Vol] 0.5 mg/dL Invalid Interpretation Code 0.2 - 1.0 mg/dL AO ADM SS Calcium [Mass/Vol] 9.6 mg/dL Invalid Interpretation Code 8.4 - 10.2 mg/dL AO ADM SS Chloride [Moles/Vol] 100 mmol/L Invalid Interpretation Code 98 - 107 mmol/L AO ADM SS CO2 [Moles/Vol] 29 mmol/L Invalid Interpretation Code 22 - 29 mmol/L AO ADM SS Creatinine [Mass/Vol] 0.96 mg/dL Invalid Interpretation Code 0.70 - 1.30 mg/dL AO ADM SS Electrolyte Balance 9.0 mEq/L Invalid Interpretation Code 4.0 - 15.0 mEq/L AO ADM SS GFR 99 ml/min/1.73sqm Invalid Interpretation Code AO Chemistry S GFR Non- 82 ml/min/1.73sqm Invalid Interpretation Code AO Chemistry S Globulin 3.2 G/dL Invalid Interpretation Code AO ADM SS Glucose [Mass/Vol] 87 mg/dL Invalid Interpretation Code 70 - 105 mg/dL AO ADM SS Natriuretic peptide.B prohormone N-Terminal [Mass/Vol] 46 pg/mL Invalid Interpretation Code 0 - 125 pg/mL AO ADM SS Potassium [Moles/Vol] 4.8 mmol/L Invalid Interpretation Code 3.5 - 5.1 mmol/L AO ADM SS Prostate specific Ag [Mass/Vol] 2.31 ng/mL Invalid Interpretation Code 0.00 - 4.00 ng/mL AO ADM SS Protein [Mass/Vol] 7.6 G/dL Invalid Interpretation Code 6.4 - 8.2 G/dL AO ADM SS Sodium [Moles/Vol] 138 mmol/L Invalid Interpretation Code 136 - 145 mmol/L AO ADM SS TSH Qn 26.40 m[IU]/L Invalid Interpretation Code 0.36 - 3.74 mcIU/mL AO ADM SS Urea nitrogen [Mass/Vol] 11 mg/dL Invalid Interpretation Code 7 - 18 mg/dL AO ADM SS Urea nitrogen/Creatinine [Mass ratio] 11 ratio Invalid Interpretation Code 7 - 27 ratio AO ADM SS LABORATORYOrdered By: Clau Corral on 04-14-2022 Cholesterol [Mass/Vol] 247 mg/dL Invalid Interpretation Code 0 - 200 mg/dL AO ADM SS Cholesterol in HDL [Mass/Vol] 69 mg/dL Invalid Interpretation Code 40 - 60 mg/dL AO ADM SS Cholesterol in LDL [Mass/Vol] 160 mg/dL Invalid Interpretation Code 0 - 130 mg/dL AO ADM SS Triglyceride [Mass/Vol] 92 mg/dL Invalid Interpretation Code 0 - 150 mg/dL AO ADM SS LABORATORYOrdered By: Althea Lam on 10-15-2021 Fibrin D-dimer DDU (PPP) [Mass/Vol] ng/mL D-DU Invalid Interpretation Code 0 - 230 ng/mL D-DU AO Coag SS LABORATORYOrdered By: Mateusz Muller on 10-15-2021 Natriuretic peptide.B prohormone N-Terminal [Mass/Vol] 49 pg/mL Invalid Interpretation Code 0 - 125 pg/mL AO ADM SS Cardiology Visit Reporton Cardiology Visit Report [facility] [address] [place] [address] OFFICE VISIT Date of Service: 12/10/20 MR#: [id number] Acct: [id number] Name: YAA SILVA Jr. Rep #: [id number] : 1965 Provider: Dr. Ruperto ruiz MD Age/Sex: 55/M Location: [facility] Status: Signed HPI HPI History of Present Illness Details: This is a 55-year-old white male who presents today for outpatient cardiovascular follow-up with concerns of aortic valve stenosis, mitral valve regurgitation, and palpitations. The patient denies symptoms considered classic for angina pectoris, CHF / pulmonary edema (with respect to orthopnea / PND), ongoing palpitations, or near syncope / syncope. The patient denies ongoing peripheral pitting edema. He states his PCP is monitoring his lipid labs. He believes they have been under better control. He also notes his PCP has been adjusting his thyroid supplement. He believes this is now under better control as well. Intake Vital Signs 12/10/20 15:29 Height 5 ft 8 in Weight: 208 lb 5 oz BP 126/88 H Blood Pressure Location Lt brachial Position Sitting Respiration 16 Pulse 56 L Pulse Source Auscultation Intake Visit Reasons: 6 - 10 MO F/U Business Performance Advisor Required: No Accompanied by: Self Allergies No Known Allergies Allergy (Verified 12/10/20 15:32) Medications halobetasol propionate 0.05 % topical ointment 1 applic TOPICAL DAILY PRN 12/15/19 [History Confirmed 12/10/20] trazodone 50 mg tablet 50 mg PO QHS tab 12/15/19 [History Confirmed 12/10/20] metoprolol succinate 25 mg tablet,extended release 24 hr 25 mg PO DAILY #30 tab 04/09/20 [Rx Confirmed 12/10/20] levothyroxine 150 mcg tablet 150 mcg PO DAILY 12/10/20 [History Confirmed 12/10/20] [facility] Medical History (Updated 12/10/20 @ 15:[address] Ruperto Villanueva MD) Aortic valve stenosis with insufficiency Irregular heart beat Lipoma Non-rheumatic mitral regurgitation Psoriasis Surgical History History of tonsillectomy Status post repair of nerve Social History Smoking Status: Former smoker alcohol intake: current details: occasional substance use type: does not use caffeine: Yes Type: coffee Number of servings: 1 ROS Const Const: Negative for fatigue, weakness, frequent falls, excessive sweating, weight gain or weight loss Eyes Eyes: Negative for transient loss of vision, blurry vision or change in vision ENT ENT: Negative for dizziness or balance problems Cardio Chest Pain: No Palpitations: Yes (has improved with medication) feels like its: fast (1-2 beats and then stops) Edema: None Muscle aches with walking: None Resp Respiratory: Negative for SOB with activity or SOB at rest GI GI: Negative vomiting or vomiting blood/hematemesis : Negative for hematuria Musc Musc: Negative for muscle aches/ myalgia, muscle weakness, joint pain or balance problems Skin Skin: Negative non-healing lesions or rash Neuro Neuro: Negative for dizziness, lightheadedness, orthostatic symptoms, frequent falls, weakness or blurry vision Alejandro Hematologic/Lymphatic: Negative for easy bleeding Endo Endo: Negative for fatigue or excessive sweating Psych Psych: Negative for anxiety or depression Allergy Allergy/Immunology: Negative for hives and Negative for rash Cardiology Exam Const Appearance: cooperative, healthy appearing, comfortable, no acute distress, well developed and well groomed Nutritional Appearance: overweight Orientation: alert, awake and oriented x3 Head Head: normal to inspection, normocephalic and atraumatic Ears: hearing grossly normal bilaterally Nose: external nose normal Face and Sinus: face symmetric Eyes Eyelids: eyelids normal Conjunctivae: conjunctivae normal Pupils: PERRL EOM: EOM intact bilaterally Neck Neck: normal visual inspection and full ROM Carotids: normal carotid upstroke Chest Chest inspection: normal inspection of the chest, symmetric chest movement and normal respiratory effort Auscultation: Bilateral: Clear to Auscultation Cardio Palpation: normal PMI Rhythm: regular rhythm Heart sounds: S1 normal, S2 normal and murmur Murmur: Grade 3/6, harsh, crescendo, LLSB, LVOT and sternal notch GI GI: normal to inspection, soft and bowel sounds present Neuro General: patient alert, patient awake, patient oriented x3 and moves all extremities Skin Skin: no rashes or lesions noted Extremities Pulses: Normal: Right Radial Pulse and Left Radial Pulse Lower Extremity Edema: None: Bilateral Psych Psychological: normal affect Assessment and Plan Assessment and Plan (1) Aortic valve stenosis with insufficiency: Status: Acute Orders: Orders: (more content not included)... Normal [facility] Cardiology Visit Reporton Cardiology Visit Report [facility] [address] [place] [address] OFFICE VISIT Date of Service: 04/09/20 MR#: [id number] Acct: [id number] Name: YAA SILVA Rep #: [id number] : 1965 Provider: MONTY alvarez Age/Sex: 54/M Location: [facility] Status: Signed [facility] History of Present Illness Details: This is a 54-year-old white male who presents today for outpatient follow-up for concerns of mitral valve regurgitation and an irregular heartbeat/palpitation. He states in the past he was diagnosed with a bicuspid aortic valve. However on a subsequent follow-up transthoracic echocardiogram which appears to been performed at [facility] in [place], [place] in January 2016 it stated he did not have a bicuspid aortic valve but he had mild to moderate MR with an LV that was thought to be normal with an LVEF of 60 to 65%. He denies chest, arm, jaw, or neck discomfort. His exercise tolerance is stable. He denies symptoms of CHF, lightheadedness, dizziness, near syncope, or syncopal episodes. He denies edema or claudication issues. He denies orthopnea, PND, fever, chills, blood in urine, blood in stool, or myalgia. He states his palpitations can result in extreme fatigue. He does acknowledges snoring and diagnosed with sleep apnea. He does not currently undergo treatment. He uses trazodone in the morning. Intake Vital Signs 04/09/20 Height 5 ft 8 in 04/09/20 Weight: 216 lb 04/09/20 BMI 32.8 04/09/20 BP 122/84 H 04/09/20 Blood Pressure Location Lt brachial 04/09/20 Position Sitting 04/09/20 Respiration 16 04/09/20 Pulse 80 04/09/20 Pulse Source Auscultation Intake Visit Reasons: 2 M FU Business Performance Advisor Required: No Accompanied by: None Is patient in pain?: No Allergies No Known Allergies Allergy (Verified 04/09/20 15:50) Medications halobetasol propionate 0.05 % topical ointment 1 applic TOPICAL DAILY PRN 12/15/19 [History Confirmed 04/09/20] trazodone 50 mg tablet 50 mg PO QHS tab 12/15/19 [History Confirmed 04/09/20] levothyroxine 50 mcg tablet 50 mcg PO DAILY #30 tab 04/09/20 [Rx Confirmed 04/09/20] metoprolol succinate 25 mg tablet,extended release 24 hr 25 mg PO DAILY #30 tab 04/09/20 [Rx Confirmed 04/09/20] Ejection fraction %: 65 to 70 PFSH Medical History Non-rheumatic mitral regurgitation (Chronic) Irregular heart beat (Chronic) Psoriasis (Chronic) Lipoma (Resolved) Surgical History History of tonsillectomy (Resolved) Status post repair of nerve (Resolved) Social History (Updated 04/10/20 @ 16:49 by Shanae Scruggs [employer]GE[employer], [employer]-C) Smoking Status: Former smoker alcohol intake: current details: occasional substance use type: does not use caffeine: Yes Type: coffee Number of servings: 1 ROS Const Const: Positive for fatigue; negative for weakness, headache(s), frequent falls, difficulty sleeping or excessive sweating Eyes Eyes: Negative for loss of peripheral vision, transient loss of vision, blurry vision, double vision or tunnel vision ENT ENT: Negative for headache(s), dizziness, Nosebleed/epistaxis or balance problems Cardio Chest Pain: No Palpitations: Yes feels like its: skipping Edema: None Muscle aches with walking: None Resp Respiratory: Positive for snoring; negative for SOB with activity, SOB at rest, SOB orthopnea SOB lying down, Cough or paroxysmal nocturnal dyspnea GI GI: Negative nausea, vomiting, heartburn or black,tarry stools : Negative for hematuria Musc Musc: Negative for muscle aches/ myalgia, muscle weakness, joint pain or balance problems Skin Skin: Negative non-healing lesions, rash or unusual bruising Neuro Neuro: Negative for dizziness, lightheadedness, near syncope, syncope, frequent falls, headache(s), weakness, blurry vision, double vision or lack of coordination Alejandro Hematologic/Lymphatic: Negative for easy bleeding or easy bruising Endo Endo: Positive for fatigue; negative for excessive sweating or increased thirst/drinking Psych Psych: Negative for anxiety or depression Allergy Allergy/Immunology: Negative for hives, Negative for rash Cardiology Exam Const Appearance: cooperative, healthy appearing, comfortable and no acute distress Nutritional Appearance: average body habitus and well nourished Orientation: alert, awake and oriented x3 Head Head: normal to inspection Ears: hearing grossly normal bilaterally Nose: external nose normal Face and Sinus: face symmetric Mouth: oral mucosae normal Eyes General: appearance normal, both eyes and all related structures Eyelids: eyelids normal EOM: EOM intact bilaterally Neck Neck: normal visual inspection and no JVD Carotids: normal carotid upstroke Chest Chest inspection: (more content not included)... Normal [facility] Echo Completeon 12-26-2019 Echo Complete [facility] [address] [place] [address] Echo Complete 12/26/19 1505 MR#: [id number] Acct: [id number] Name: YAA SILVA Valorie Barahona Rep #: [id number] : 1965 54 From: Ruperto Villanueva MD Attending Dr: Dr. Ruperto Villanueva MD Status: [facility] Ordering Dr: Ruperto Villanueva MD Date: 12/26/19 Location: [facility] Sex: M C Admitted: Reason For Study: Palpitations Procedure This was a 2D Doppler, Color Flow transthoracic echocardiogram. The study was technically difficult. Exam performed in department. Left Ventricle Normal LV size. Mild concentric left ventricular hypertrophy. Left ventricular systolic function is normal. The estimated ejection fraction is 70 %. Transmitral doppler flow suggestive of impaired relaxation of left ventricle. No regional wall motion abnormalities noted. Right Ventricle Normal RV size. Normal systolic function. Atria The left atrium is mildly enlarged. Normal right atrium. No doppler evidence for ASD. Mitral Valve There is no mitral annular calcification. Mild (1+) mitral valve insufficiency. Tricuspid Valve Normal tricuspid valve. Trivial tricuspid valve insufficiency. Right ventricular systolic pressure estimated to be 27 mmHg. Aortic Valve The aortic valve is not well visualized, however, based upon the 2D echocardiographic images obtained there appears to be moderate focal thickening, calcification, and partial restriction. Mild to moderate aortic stenosis. Mild (1+) eccentric aortic valve insufficiency. Pulmonic Valve The pulmonic valve is not well visualized. Mild (1+) pulmonic valve insufficiency. Great Vessels Borderline enlarged aortic root. Pericardium/Pleural No pericardial effusion. MMode/2D Measurements Calculations LVIDd: 4.3 cm IVSd: 1.3 cm LVOT diam: 2.2 cm LVIDs: 2.6 cm LVPWd: 1.3 cm LVOT area: 3.8 cm2 RVDd: 3.5 cm FS: 38.8 % Ao root diam: 3.9 cm LAV(MOD-bp): 57.0 ml LVAd ap4: 25.0 cm2 LAV(MOD-bp) Indexed: 26.7 ml/m2 EDV(MOD-sp4): 66.8 ml LAV(MOD-sp2): 43.8 ml EDV(sp4-el): 68.8 ml LAV(MOD-sp4): 54.8 ml LVAs ap4: 12.4 cm2 ESV(MOD-sp4): 21.3 ml ESV(sp4-el): 19.3 ml EF(MOD-sp4): 68.1 % EF(sp4-el): 71.9 % SV(MOD-sp4): 45.5 ml SV(sp4-el): 49.5 ml LA A4 area: 21.1 cm2 LA dimension(2D): 3.6 cm RA A4 area: 11.0 cm2 Doppler Measurements Calculations MV E max bekah: 88.7 cm/sec Lat Peak E' Bekah: 12.3 cm/sec Med Peak E' Bekah: 7.7 cm/sec MV A max bekah: 101.9 cm/sec E/E' lat: 7.2 E/E' med: 11.5 MV E/A: 0.87 Ao V2 max: 328.5 cm/sec LV V1 max: 123.4 cm/sec SV(LVOT): 103.7 ml Ao max P.2 mmHg LV V1 max P.1 mmHg Ao V2 mean: 239.6 cm/sec LV V1 mean P.8 mmHg Ao mean P.8 mmHg LV V1 mean: 93.5 cm/sec Ao V2 VTI: 67.6 cm LV V1 VTI: 27.0 cm UMESH(I,D): 1.5 cm2 UMESH(V,D): 1.4 cm2 PA V2 max: 95.8 cm/sec TR max bekah: 244.6 cm/sec TR max P.9 mmHg Interpretation Summary The study was technically difficult. Left ventricular systolic function is normal. The estimated ejection fraction is 70 %. Mild concentric left ventricular hypertrophy. The left atrium is mildly enlarged. Mild (1+) mitral valve insufficiency. Trivial tricuspid valve insufficiency. The aortic valve is not well visualized, however, based upon the 2D echocardiographic images obtained there appears to be moderate focal thickening, calcification, and partial restriction. Mild to moderate aortic stenosis. Mild (1+) eccentric aortic valve insufficiency. Mild (1+) pulmonic valve insufficiency. Borderline enlarged aortic root. Right ventricular systolic pressure estimated to be 27 mmHg. _ Ordering Physician: Ruperto Villanueva Referring Physician: Snow Villegas Performed By: Ansley Scruggs, RDCS, RVT 12/26/19 180 Date Ruperto Villanueva MD CC: Dr. Snow Villegas DO; Dr. Ruperto Villanueva MD Date Dictated: 12/26/19 1505 Date Transcribed: 12/26/19 180 Well Shooter: Signed Normal [facility] 12 Lead EKG performed by [facility] on 12-15-2019 12 Lead EKG performed by [facility] [address] [place] [address] 12 Lead EKG performed by [facility] 12/15/19 1549 MR#: [id number] Acct: [id number] Name: YAA SILVA Rep #: [id number] : 1965 54 From: Ruperto Villanueva MD Attending Dr: Dr. Ruperto Villanueva MD Status: DE P AMB Ordering Dr: Ruperto Villanueva MD Date: 12/15/19 Location: [facility] Sex: M C Admitted: BMS/12 Lead EKG performed by [facility] ECG Report Interpretation -Sinus Rhythm Electronically signed on 12/15/2019 at 17:28 by Ruperto Villanueva Software Version [id number] 12/15/19 1750 Date Ruperto Villanueva MD CC: Date Dictated: 12/15/19 1549 Date Transcribed: 12/15/19 154 Well Shooter: PM Signed Normal [facility] Cardiology Visit Reporton Cardiology Visit Report [facility] [address] [place] [address] OFFICE VISIT Date of Service: 12/15/19 MR#: [id number] Acct: [id number] Name: YAA SILVA Rep #: [id number] : 1965 Provider: Dr. Ruperto ruiz MD Age/Sex: 54/M Location: [facility] Status: Signed HPI [facility] History of Present Illness Details: This is a 54-year-old white male who presents today for outpatient follow-up for concerns of mitral valve regurgitation and an irregular heartbeat/palpitation. He states in the past he was diagnosed with a bicuspid aortic valve. However on a subsequent follow-up transthoracic echocardiogram which appears to been performed at [facility] in [place], [place] in January 2016 it stated he did not have a bicuspid aortic valve but he had mild to moderate MR with an LV that was thought to be normal with an LVEF of 60 to 65%. He has not had follow-up of his valvular heart disease since that time. He states he is more concerned about his palpitations and/or irregular heartbeat. He states he senses these in the evening hours. He notes his heart rate seems to go fast and become irregular. After this occurs for greater than 5 minutes he feels exhausted. However he knows that eventually go away. Thus he is not presented to the emergency department for further evaluation. He does not note this during the daytime hours. He has not had near syncope or syncope. During the daytime hours he is up and active and working. He does not complain of ongoing symptoms of classic angina pectoris and has not had overt episodes of CHF or pulmonary edema. He states he has had no further cardiac evaluation. He does recall in the he had a Holter monitor performed. He states after that he was placed on medical therapy with diltiazem for period of time. He stopped it. He states he has been on no medical therapy for his heart related issues since that time. He had an ECG in the office today. He was in sinus rhythm with no obvious ECG changes. Intake Vital Signs 12/15/19 Height 5 ft 8 in 12/15/19 Weight: 214 lb 9 oz 12/15/19 BP 126/80 H 12/15/19 Blood Pressure Location Lt brachial 12/15/19 Position Sitting 12/15/19 Respiration 18 12/15/19 Pulse 80 12/15/19 Pulse Source Auscultation 12/15/19 BMI 31.3 Intake Visit Reasons: IRREGULAR HB/SELF REF. /LM Business Performance Advisor Required: No Accompanied by: Self Allergies No Known Allergies Allergy (Verified 12/15/19 15:39) Medications halobetasol propionate 0.05 % topical ointment 1 applic TOPICAL DAILY PRN 12/15/19 [History Confirmed 12/15/19] trazodone 50 mg tablet 50 mg PO QHS tab 12/15/19 [History Confirmed 12/15/19] [facility] Medical History Non-rheumatic mitral regurgitation (Acute) Irregular heart beat (Acute) Psoriasis (Chronic) Lipoma (Resolved) Surgical History History of tonsillectomy (Resolved) Status post repair of nerve (Resolved) Social History (Updated 12/15/19 @ 17:[address] Ruperto Villanueva MD) Smoking Status: Former smoker alcohol intake: current details: occasional substance use type: does not use caffeine: Yes Type: coffee Number of servings: 1 ROS Const Const: Negative for fatigue, weakness, frequent falls, excessive sweating, weight gain or weight loss Eyes Eyes: Negative for transient loss of vision, blurry vision or change in vision ENT ENT: Negative for dizziness or balance problems Cardio Chest Pain: No Palpitations: Yes (occasional) feels like its: skipping, other (flutter) Edema: None Muscle aches with walking: None Resp Respiratory: Positive for SOB orthopnea SOB lying down (occasional after palpitation episode); negative for SOB with activity or SOB at rest GI GI: Negative vomiting or vomiting blood/hematemesis : Negative for hematuria Musc Musc: Negative for muscle aches/ myalgia, muscle weakness, joint pain or balance problems Skin Skin: Negative non-healing lesions or rash Neuro Neuro: Negative for dizziness, lightheadedness, orthostatic symptoms, frequent falls, weakness or blurry vision Alejandro Hematologic/Lymphatic: Negative for easy bleeding Endo Endo: Negative for fatigue or excessive sweating Psych Psych: Negative for anxiety or depression Allergy Allergy/Immunology: Negative for hives, Negative for rash Cardiology Exam Const Appearance: cooperative, healthy appearing, comfortable, no acute distress, well developed and well groomed Nutritional Appearance: overweight Orientation: alert, awake and oriented x3 Head Head: normal to inspection, normocephalic and atraumatic Ears: hearing grossly normal bilaterally Nose: external nose normal Mouth: oral mucosae normal Eyes Eyelids: eyelids normal Co (more content not included)... Normal [facility] Vital Signs Date Time Vital Sign Value Performing Clinician Faci lity 08-02-2023 11:20-0400 Body temperature 98.06 [degF] SHANAE COOPER MD [facility] 08-02-2023 11:20-0400 Diastolic Blood Pressure Non-Invasive 76 mm[Hg] SHANAE COOPER MD [facility] 08-02-2023 11:20-0400 Heart rate 76 /min SHANAE COOPER MD [facility] 08-02-2023 11:20-0400 Mean blood pressure 86 mm[Hg] SHANAE COOPER MD [facility] 08-02-2023 11:20-0400 Reason For Taking VItal Signs SHANAE COOPER MD [address] [place] [id number] 08-02-2023 11:20-0400 Respiratory rate 18 /min SHANAE COOPER MD [address] [place] [id number] 08-02-2023 11:20-0400 Systolic Blood Pressure Non-Invasive 105 mm[Hg] SHANAE COOPER MD [address] [place] [id number] 08-02-2023 07:41-0400 Heart rate 81 /min SHANAE COOPER MD [address] [place] [id number] 08-02-2023 07:25-0400 Body temperature 98.06 [degF] SHANAE COOPER MD [facility] 08-02-2023 07:25-0400 Diastolic Blood Pressure Non-Invasive 89 mm[Hg] SHANAE COOPER MD [facility] 08-02-2023 07:25-0400 Heart rate 90 /min SHANAE COOPER MD [facility] 08-02-2023 07:25-0400 Mean blood pressure 100 mm[Hg] SHANAE COOPER MD [address] [place] [id number] 08-02-2023 07:25-0400 Reason For Taking VItal Signs SHANAE COOPER MD [facility] 08-02-2023 07:25-0400 Respiratory rate 17 /min SHANAE COOPER MD [address] [place] [id number] 08-02-2023 07:25-0400 Systolic Blood Pressure Non-Invasive 120 mm[Hg] SHANAE COOPER MD [facility] 08-02-2023 03:20-0400 Heart rate 75 /min SHANAE COOPER MD [facility] 08-02-2023 02:45-0400 Blood Pressure Cuff Size SHANAE COOPER MD [address] [place] [id number] 08-02-2023 02:45-0400 Blood Pressure Location SHANAE COOPRE MD [address] [place] [id number] 08-02-2023 02:45-0400 Blood Pressure Method SHANAE COOPER MD [address] [place] [id number] 08-02-2023 02:45-0400 Body temperature 98.24 [degF] SHANAE COOPER MD [address] [place] [id number] 08-02-2023 02:45-0400 Diastolic Blood Pressure Non-Invasive 74 mm[Hg] SHANAE COOPER MD [facility] 08-02-2023 02:45-0400 Mean blood pressure 84 mm[Hg] SHANAE COOPER MD [address] [place] [id number] 08-02-2023 02:45-0400 Reason For Taking VItal Signs SHANAE COOPER MD [facility] 08-02-2023 02:45-0400 Respiratory rate 18 /min SHANAE COOPER MD [facility] 08-02-2023 02:45-0400 Systolic Blood Pressure Non-Invasive 106 mm[Hg] SHANAE COOPER MD [address] [place] [id number] 08-01-2023 16:32-0400 Heart rate 80 /min SHANAE COOPER MD [facility] 08-01-2023 15:15-0400 Blood Pressure Cuff Size SHANAE COOPER MD [facility] 08-01-2023 15:15-0400 Blood Pressure Location SHANAE COOPER MD [address] [place] [address] 08-01-2023 15:15-0400 Blood Pressure Method SHANAE COOPER MD [facility] 08-01-2023 07:54-0400 Heart rate 77 /min SHANAE COOPER MD [facility] 07-30-2023 19:09-0400 Blood Pressure Cuff Size SHANAE COOPER MD [address] [place] [id number] 07-30-2023 19:09-0400 Blood Pressure Location SHANAE COOPER MD [address] [place] [id number] 07-30-2023 19:09-0400 Blood Pressure Method SHANAE COOPER MD [facility] 07-29-2023 09:15-0400 Diastolic blood pressure 80 mm[Hg] SHANAE COOPER MD [facility] 07-29-2023 09:15-0400 Mean blood pressure 95 mm[Hg] SHANAE COOPER MD [address] [place] [id number] 07-29-2023 09:15-0400 Systolic blood pressure 127 mm[Hg] SHANAE COOPER MD [facility] 07-29-2023 08:45-0400 Diastolic blood pressure 74 mm[Hg] SHANAE COOPER MD [facility] 07-29-2023 08:45-0400 Mean blood pressure 90 mm[Hg] SHANAE COOPER MD [facility] 07-29-2023 08:45-0400 Systolic blood pressure 124 mm[Hg] SHANAE COOPER MD [facility] 07-29-2023 08:00-0400 Diastolic blood pressure 73 mm[Hg] SHANAE COOPER MD [facility] 07-29-2023 08:00-0400 Mean blood pressure 91 mm[Hg] SHANAE COOPER MD [facility] 07-29-2023 08:00-0400 Systolic blood pressure 125 mm[Hg] SHANAE COOPER MD [facility] 07-29-2023 01:04-0400 SaO2% (BldA) [Mass fraction] 96.6 % SHANAE COOPER MD [facility] 07-28-2023 23:15-0400 SaO2% (BldA) [Mass fraction] 94.5 % SHANAE COOPER MD [facility] 07-28-2023 21:50-0400 SaO2% (BldA) [Mass fraction] 98.4 % SHANAE COOPER MD [facility] 07-28-2023 20:46-0400 Signs/Symptoms Transfusion Reaction SHANAE COOPER MD [facility] 07-28-2023 20:13-0400 Signs/Symptoms Transfusion Reaction SHANAE COOPER MD [facility] 07-28-2023 19:47-0400 Diastolic blood pressure 63 mm[Hg] SHANAE COOPER MD [facility] 07-28-2023 19:47-0400 Heart rate 80 /min SHANAE COOPER MD [facility] 07-28-2023 19:47-0400 Systolic blood pressure 109 mm[Hg] SHANAE COOPER MD [facility] 07-28-2023 19:46-0400 Signs/Symptoms Transfusion Reaction No SHANAE COOPER MD [facility] 07-28-2023 19:18-0400 Diastolic blood pressure 58 mm[Hg] SHANAE COOPER MD [facility] 07-28-2023 19:18-0400 Heart rate 77 /min SHANAE COOPER MD [facility] 07-28-2023 19:18-0400 Systolic blood pressure 99 mm[Hg] SHANAE COOPER MD [facility] 07-28-2023 16:40-0400 Body temperature 97.07 [degF] SHANAE COOPER MD [facility] 07-28-2023 16:40-0400 Respiratory Rate - Anes 14 br/min SHANAE COOPER MD [facility] 07-28-2023 16:35-0400 Body temperature 99 [degF] SHANAE COOPER MD [facility] 07-28-2023 16:35-0400 Body temperature 97.25 [degF] SHANAE COOPER MD [facility] 07-28-2023 16:35-0400 Respiratory Rate - Anes 14 br/min SHANAE COOPER MD [facility] 07-28-2023 16:30-0400 Body temperature 99.07 [degF] SHANAE COOPER MD [address] [place] [id number] 07-28-2023 16:30-0400 Body temperature 97.41 [degF] SHANAE COOPER MD [address] [place] [id number] 07-28-2023 16:30-0400 Respiratory Rate - Anes 14 br/min SHANAE COOPER MD [facility] 07-28-2023 16:25-0400 Body temperature 99.16 [degF] SHANAE COOPER MD [facility] 07-28-2023 06:06-0400 Body height 175.3 cm SHANAE COOPER MD [address] [place] [address] 07-28-2023 06:06-0400 Body weight 96.5 kg SHANAE COOPER MD [facility] 07-28-2023 06:06-0400 Body weight 31.4 kg/m2 SHANAE COOPER MD [facility] 07-28-2023 06:06-0400 Heart rate 70 /min SHANAE COOPER MD [facility] 07-28-2023 06:02-0400 Body weight 31.4 kg/m2 SHANAE COOPER MD [facility] 07-23-2023 09:25-0400 Blood Pressure Cuff Size SHANAE COOPER MD [address] [place] [id number] 07-23-2023 09:25-0400 Blood Pressure Location SHANAE COOPER MD [address] [place] [address] 07-23-2023 09:25-0400 Blood Pressure Method SHANAE COOPER MD [address] [place] [id number] 07-23-2023 09:25-0400 Body height 172.5 cm SHANAE COOPER MD [address] [place] [id number] 07-23-2023 09:25-0400 Body temperature 97.52 [degF] SHANAE COOPER MD [address] [place] [id number] 07-23-2023 09:25-0400 Body weight 96.3 kg SHANAE COOPER MD [address] 07-23-2023 09:25-0400 Diastolic Blood Pressure Non-Invasive 78 mm[Hg] SHANAE COOPER MD [address] [place] [id number] 07-23-2023 09:25-0400 Heart rate 65 /min SHANAE COOPER MD [address] [place] [id number] 07-23-2023 09:25-0400 Systolic Blood Pressure Non-Invasive 108 mm[Hg] SHANAE COOPER MD [address] [place] [id number] 06-23-2023 05:51-0400 Body height 175.[address] ALISSA KANG MD [facility] 06-23-2023 05:51-0400 Body temperature 97.16 [degF] DR ALISSA KANG MD [facility] 06-23-2023 05:51-0400 Body weight 99.[address] ALISSA KANG MD [facility] 06-23-2023 05:51-0400 Body weight 32.31 kg/m2 DR ALISSA KANG MD [facility] 06-23-2023 05:51-0400 Diastolic Blood Pressure Non-Invasive 84 mm[Hg] DR ALISSA KANG MD [facility] 06-23-2023 05:51-0400 Heart rate 61 /min DR ALISSA KANG MD [facility] 06-23-2023 05:51-0400 Respiratory rate 18 /min DR ALISSA KANG MD [facility] 06-23-2023 05:51-0400 Systolic Blood Pressure Non-Invasive 122 mm[Hg] DR ALISSA KANG MD [facility] 06-23-2023 05:19-0400 Body weight 32.31 kg/m2 DR ALISSA KANG MD [facility] Encounters Encounter Date Encounter Type Care Provider Facility Start: 12-23-2024 End: 12-23-2024 ambulatory SNOW VILLEGAS DO Facility:[facility] Start: 12-23-2024 End: 12-23-[address] ALISSA KANG MD [facility] Start: 12-14-2024 End: 12-14-2024 ambulatory [facility] Start: 12-14-2024 End: 12-14-2024 Subsequent hospital visit by physician Bentley Escobedo Work Phone: [facility] Radiology Comment on above: Segmental and somati c dysfunction of cervical region; Cervicalgia; Radiculopathy, cervical region Start: 08-13-2024 End: 08-13-2024 ambulatory SNOW VILLEGAS DO Facility[facility] Start: 08-13-2024 End: 08-13-2024 Patient encounter procedure SNOW VILLEGAS DO [facility] Start: 05-30-2024 End: 05-30-2024 ambulatory SNOW VILLEGAS DO Facility[facility] Start: 05-30-2024 End: 05-30-2024 Patient encounter procedure SNOW VILLEGAS DO [facility] Start: 04-07-2024 ambulatory SNOW VILLEGAS DO Facil [facility] Start: 04-07-2024 ambulatory SNOW VILLEGAS DO Facil [facility] Start: 04-01-2024 End: 04-05-2024 ambulatory SNOW VILLEGAS DO Facility:[facility] Start: 04-01-2024 End: 04-05-2024 Encounter for general adult medical examination without abnormal findings SNOW VILLEGAS DO Facility[facility] Start: 04-01-2024 End: 04-05-2024 Outreach Lab SNOW VILLEGAS DO [facility] Start: 01-15-2024 End: 01-15-[address] ALISSA KANG MD Facility[facility] Start: 01-15-2024 End: 01-15-[address] ALISSA KANG MD [facility] Start: 12-22-2023 End: 12-22-[address] ALISSA KANG MD [facility] Start: 12-03-2023 ambulatory SNOW VILLEGAS DO Facil ity:[facility] Start: 12-03-2023 End: 01-19-2024 Physical therapy management SNOW VILLEGAS DO [facility] Start: 11-10-2023 ambulatory SNOW VILLEGAS DO Facil ity:[facility] Start: 09-25-2023 End: 09-25-2023 ambulatory SNOW VILLEGAS DO Facility:[facility] Start: 09-25-2023 End: 09-25-2023 Patient encounter procedure VIRAJ KEONIG PA-C [facility] Start: 09-11-2023 End: 09-11-2023 ambulatory SNOW NELLY DO Facility:[facility] Start: 09-11-2023 End: 09-11-[address] ALISSA KANG MD [facility] Start: 09-08-2023 End: 09-08-2023 ambulatory SNOW NELLY DO Facility:[facility] Start: 09-08-2023 End: 09-08-[address] ALISSA KANG MD [facility] Start: 09-04-2023 End: 09-04-2023 ambulatory SNOWFLAQUITO DINEROLAY DO Facility:[facility] Start: 09-04-2023 End: 09-04-[address] ALISSA KANG MD [facility] Start: 08-27-2023 End: 08-27-2023 ambulatory SNOWFLAQUITO DINEROLAY DO Facility:[facility] Start: 08-27-2023 End: 08-27-2023 Patient encounter procedure HEATHER ROBLES RN X [employer]AY-ACCOUNTS RECEIVABLE ANALYST [facility] Start: 08-25-2023 End: 12-12-2023 ambulatory SNOW NELLY DO Facility:[facility] Start: 08-17-2023 End: 08-17-2023 ambulatory SNOW NELLY DO Facility:[facility] Start: 08-12-2023 End: 08-12-2023 ambulatory SNOW NELLY DO Facility:[facility] Start: 08-12-2023 End: 08-12-2023 Patient encounter procedure HEATHER ROBLES RN X RAY-ACCOUNTS RECEIVABLE ANALYST [facility] Start: 08-12-2023 End: 08-12-2023 ambulatory SNOW NELLY DO Facility:[facility] Start: 08-12-2023 End: 08-12-2023 Patient encounter procedure HEATHER ROBLES RN X RAY-ACCOUNTS RECEIVABLE ANALYST [facility] Start: 08-04-2023 End: 08-04-2023 ambulatory SNOW NELLY DO Facility:[facility] Start: 08-04-2023 End: 08-04-2023 ambulatory SNOW NELLY DO Facility:[facility] Start: 08-04-2023 End: 09-16-2023 ambulatory SNOW NELLY DO Facility:[facility] Start: 07-28-2023 End: 08-02-2023 Evaluation and management of inpatient SHANAE COPOER MD [facility] Start: 07-23-2023 End: 07-23-2023 ambulatory SNOWFLAQUITO DINEROLAY DO Facility:A Start: 07-23-2023 End: 07-23-2023 Patient encounter procedure SHANAE COOPER MD [facility] Start: 07-23-2023 End: 07-23-2023 Admission to establishment SHANAE COOPER MD [facility] Start: 07-23-2023 End: 07-23-2023 ambulatory SNOW UGALDEY DO Facility:[facility] Start: 06-23-2023 End: 06-23-[address] ALISSA KANG MD Facility:[facility] Start: 06-23-2023 End: 06-23-[address] ALISSA KANG MD [facility] Start: 06-20-2023 End: 06-20-2023 ambulatory SNOW DINEROLAY DO Facility:[facility] Start: 06-11-2023 End: 06-15-2023 ambulatory SNOWFLAQUITO DINEROLAY DO Facility:[facility] Start: 06-11-2023 End: 06-15-[address] ALISSA KANG MD [facility] Start: 06-08-2023 End: 06-08-2023 ambulatory SNOWFLAQUITO DINEROLAY DO Facility:[facility] Start: 05-29-2023 End: 05-29-2023 ambulatory SNOW NELLY DO Facility:[facility] Start: 05-29-2023 End: 05-29-[address] ALISSA KANG MD [facility] Start: 05-25-2023 End: 05-25-2023 ambulatory SNOWFLAQUITO UGALDEY DO Facility:[facility] Start: 05-25-2023 End: 05-25-2023 Patient encounter procedure MELISSA MUNIZ SQUAD SERGEANT [facility] Start: 05-08-2023 End: 05-08-2023 ambulatory SNOW UGALDEY DO Facility:[facility] Start: 05-08-2023 End: 05-08-2023 Patient encounter procedure SNOW UGALDEY DO [facility] Start: 04-04-2023 End: 04-04-2023 ambulatory SNOW UGALDEY DO Facility:[facility] Start: 04-04-2023 End: 04-04-2023 Patient encounter procedure SNOW UGALDEY DO [facility] Start: 03-18-2023 End: 03-18-2023 ambulatory SNOW UGALDEY DO Facility:[facility] Start: 01-30-2023 End: 01-30-2023 ambulatory SNOWFLAQUITO UGALDEY DO Facility:[facility] Start: 01-30-2023 End: 01-30-2023 Patient encounter procedure MELISSA MUNIZ [employer]GE[employer] [facility] Start: 01-22-2023 End: 01-22-2023 ambulatory SNOWFLAQUITO UGALDEY DO Facility:[facility] Start: 01-22-2023 End: 01-22-[address] ALISSA KANG MD [facility] Start: 11-14-2022 End: 11-14-[address] ALISSA KANG MD [facility] Start: 11-05-2022 End: 11-05-[address] ALISSA KANG MD [facility] Start: 10-24-2022 End: 10-24-2022 Patient encounter procedure MELISSA MUNIZ [employer]GEANT [facility] Start: 06-06-2022 End: 06-06-[address] ALISSA KANG MD [facility] Start: 04-16-2022 End: 04-16-2022 Patient encounter procedure SNOW VILLEGAS DO [facility] Start: 04-14-2022 End: 04-14-[address] ALISSA KANG MD [facility] Start: 10-30-2021 End: 10-30-[address] ALISSA KANG MD [facility] Start: 10-15-2021 End: 10-15-2021 Patient encounter procedure SPENCER KLINEARSLAN RN X RAY-ACCOUNTS RECEIVABLE ANALYST [facility] Start: 10-15-2021 End: 10-15-[address] ALISSA KANG MD [facility] Procedures Date Procedure Procedure Detail Performing Clinician Start: 07-28-2023 Aortic valve prosthe sis, device (physical object) SHANAE COOPER MD Comment on above: Using an brown mag na ease 25mm valve. Insertion of temporary pacing wires. Start: 07-28-2023 Atrial appendage excision SHANAE COOPER MD Comment on above: Atrial appendage cli pping using a 40mm atriclip Start: 07-28-[address] ALISSA KANG MD Start: 06-23-2023 Cardiac catheterization SHANAE COOPER MD Comment on above: 06/23/2023 SUMMARY: 1. Aortic valve: The annulus is moderately calcified. The valve is bicuspid. The leaflets are mildly calcified. 2. 1st obtuse marginal: Mid-vessel lesion: There is a 50% stenosis. 3. Known severe . IMPRESSIONS: 1. CT surgery consult, interventional cardiology /Dr Burden consult 2. Normal cardiac output, mildly elevated left sided filling pressures, mild PHT. Start: 05-29-[address] JOHN KANG MD Comment on above: 1. Left ventricle: T he cavity size is normal. Wall thickness is severely increased. Concentric Left Ventricular Hypertrophy Systolic function is normal. The estimated ejection fraction is 60-65%. Wall motion is normal; there are no regional wall motion abnormalities. Grade I diastolic dysfunction. 2. Ventricular septum: Thickness is severely increased. 3. Aortic valve: A bicuspid morphology cannot be excluded. The leaflets are moderately thickened and moderately calcified. There is moderate stenosis. There is trivial regurgitation. 4. Aortic root: The aortic root is mildly dilated and 38.0 mm diameter. 5. Right atrium: Echodensity in RA adjacent to septum seen only in A4C views. Color crosses it. Likely artifact 11/14/2022 Summary: 1. Left ventricle: The cavity size is normal. Wall thickness is moderately increased. TomTec GLS is -18.3 % Strain Value is Normal Systolic function is normal. The estimated ejection fraction is 60-65%. Wall motion is normal; there are no regional wall motion abnormalities. Normal diastolic function. 2. Ventricular septum: Thickness is increased ~ 1.4 cm (image 65, 94). 3. Aortic valve: The valve is possibly bicuspid. The leaflets are moderately thickened and moderately calcified. Transvalvular velocity is increased. There is severe stenosis. The peak systolic velocity is 4.3 m/sec. The mean systolic gradient is 40 mm Hg. The LVOT to aortic valve VTI ratio is 0.27. The valve area by peak velocity is 0.8 cm . 4. Aorta: Aortic root ~ 3.8 cm based on available images. 5. Mitral valve: There is mild to moderate regurgitation. 6. Left atrium: The atrium is visually dilated. 7. Right ventricle: The RV systolic pressure by Doppler is 25 mm H 05/29/2023 Summary: 1. Left ventricle: The cavity size is normal. Wall thickness is mildly increased. Systolic function is normal. The estimated ejection fraction is 65-70%. Wall motion is normal; there are no regional wall motion abnormalities. Diastolic dysfunction present but unable to assess severity. 2. Ventricular septum: Thickness is mildly increased. 3. Aortic valve: The valve is bicuspid. The leaflets are moderately thickened and moderately calcified. 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 Transvalvular velocity is increased, due to stenosis. There is severe stenosis at rest and very severe stenosis w/exercise. 4. Mitral valve: There is mild regurgitation. 5. Right ventricle: The RV systolic pressure by Doppler is 24 mm Hg. 6. Right atrium: The estimated right atrial pressure is 3 mm Hg. 7. Stress ECG conclusions: Barnes scoring: exercise time of 7 min; maximum ST deviation of 0.5 mm; no angina; resulting score is 5. This score predicts a moderate risk of cardiac events. Start: 11-14-[address] JOHN KANG MD Comment on above: 1. Left ventricle: T he cavity size is normal. Wall thickness is severely increased. Concentric Left Ventricular Hypertrophy Systolic function is normal. The estimated ejection fraction is 60-65%. Wall motion is normal; there are no regional wall motion abnormalities. Grade I diastolic dysfunction. 2. Ventricular septum: Thickness is severely increased. 3. Aortic valve: A bicuspid morphology cannot be excluded. The leaflets are moderately thickened and moderately calcified. There is moderate stenosis. There is trivial regurgitation. 4. Aortic root: The aortic root is mildly dilated and 38.0 mm diameter. 5. Right atrium: Echodensity in RA adjacent to septum seen only in A4C views. Color crosses it. Likely artifact 11/14/2022 Summary: 1. Left ventricle: The cavity size is normal. Wall thickness is moderately increased. TomTec GLS is -18.3 % Strain Value is Normal Systolic function is normal. The estimated ejection fraction is 60-65%. Wall motion is normal; there are no regional wall motion abnormalities. Normal diastolic function. 2. Ventricular septum: Thickness is increased ~ 1.4 cm (image 65, 94). 3. Aortic valve: The valve is possibly bicuspid. The leaflets are moderately thickened and moderately calcified. Transvalvular velocity is increased. There is severe stenosis. The peak systolic velocity is 4.3 m/sec. The mean systolic gradient is 40 mm Hg. The LVOT to aortic valve VTI ratio is 0.27. The valve area by peak velocity is 0.8 cm . 4. Aorta: Aortic root ~ 3.8 cm based on available images. 5. Mitral valve: There is mild to moderate regurgitation. 6. Left atrium: The atrium is visually dilated. 7. Right ventricle: The RV systolic pressure by Doppler is 25 mm H Start: 10-30-[address] JOHN KANG MD Comment on above: 1. Left ventricle: T he cavity size is normal. Wall thickness is severely increased. Concentric Left Ventricular Hypertrophy Systolic function is normal. The estimated ejection fraction is 60-65%. Wall motion is normal; there are no regional wall motion abnormalities. Grade I diastolic dysfunction. 2. Ventricular septum: Thickness is severely increased. 3. Aortic valve: A bicuspid morphology cannot be excluded. The leaflets are moderately thickened and moderately calcified. There is moderate stenosis. There is trivial regurgitation. 4. Aortic root: The aortic root is mildly dilated and 38.0 mm diameter. 5. Right atrium: Echodensity in RA adjacent to septum seen only in A4C views. Color crosses it. Likely artifact Start: 01-22-2020 Electrocardiographic monitor and recorder, device (physical object) DR ALISSA KANG MD Comment on above: 30 day Start: 12-26-[address] JOHN KANG MD Comment on above: EF 70% Start: 01-28-[address] JOHN KANG MD Comment on above: EF 60-65% Lipoma (disorder) DR ALISSA CAMARA MD Comment on above: multiple removals Loss of teeth due to extraction (disorder) SHANAE COOPER MD Nerve repair w/autog enous vein graft ea nerve DR ALISSA KANG MD Nerve repair w/autog enous vein graft ea nerve SHANAE COOPER MD Comment on above: right shoulder Tonsillectomy DR ALISSA UMANZOR MD Plan of Treatment Date Care Activity Detail Author Start: 2042 RSV Immunization for Adults (1 - 1-dose 75+ series) RSV Immunization for Adults (1 - 1-dose 75+ series) [facility] Start: 10-17-2027 Screening for malign ant neoplasm of colon [facility] Start: 12-12-2024 COVID-19 Vaccine ( season) COVID-19 Vaccine ( season) [facility] Start: 12-12-2024 Influenza vaccination Influenza Vacc ine (#1) [facility] Start: 2017 Pneumococcal Vaccine : 50+ Years (1 of 1 - PCV) Pneumococcal Vaccine: 50+ Years (1 of 1 - PCV) [facility] Start: 2017 Zoster Vaccines (1 of 2) Zoster Vacc jaylyn (1 of 2) [facility] Start: 1986 DTaP/Tdap/Td Vaccine s (1 - Tdap) DTaP/Tdap/Td Vaccines (1 - Tdap) [facility] Start: 1986 Hepatitis B Vaccines (1 of 3 - 19+ 3-dose series) Hepatitis B Vaccines (1 of 3 - 19+ 3-dose series) [facility] Start: 1985 Hepatitis C screening Hepatitis C Sc reening [facility] Start: 1979 Depression Screening Depression Scre ening [facility] Start: 1968 MMR Vaccines (1 of 1 - Standard series) MMR Vaccines (1 of 1 - Standard series) [facility] Start: 1967 HIV screening HIV Screening [facility] Start: 1967 Lipid panel Lipid Panel [facility] Start: 1967 Screening for malign ant neoplasm of colon [facility] End: 12-14-2024 XR Cervical spine 4 or 5 Views [facility] Work Phone: Comment on above: Once for 1 Occurrenc es starting 12/14/2024 until 12/14/2024 Immunizations Immunization Date Immunization Notes Care Provider Rambo jo 04-01-2024 influenza, injectabl e, quadrivalent, contains preservative; Translations: [Fluarix PF Prefilled Syringe ] SNOW VILLEGAS DO [facility] 04-03-2023 influenza, injectabl e, quadrivalent, contains preservative; Translations: [Fluarix PF Quadrivalent ] SNOW VILLEGAS DO [facility] 04-08-2022 influenza, injectabl e, quadrivalent, contains preservative; Translations: [Fluarix PF Quadrivalent ] DR ALISSA KANG MD [facility] 02-22-2021 SARS-CoV-2 mRNA (tozinameran) vaccine DR ALISSA KANG MD [facility] Comment on above: Result Comment: 2021: [id number] 02-06-2021 influenza, injectabl e, quadrivalent, contains preservative; Translations: [Fluarix PF Quadrivalent ] DR ALISSA KANG MD [facility] 02-01-2021 SARS-CoV-2 mRNA (tozinameran) vaccine DR ALISSA KANG MD [facility] Comment on above: Result Comment: 2021: [id number] 02-03-2020 influenza, injectabl e, quadrivalent, preservative free; Translations: [Fluarix PF Quadrivalent ] DR ALISSA KANG MD [facility] 04-03-[address] ALISSA KANG MD [facility] 04-03-2019 zoster vaccine, live DR GWEN KANG MD [facility] Comment on above: Result Comment: [] shingrix (2nd shot) 02-01-[address] ALISSA KANG MD [facility] 02-01-2019 zoster vaccine, live DR GWEN KANG MD [facility] 01-06-2019 influenza, injectabl e, quadrivalent, preservative free; Translations: [Fluarix PF Quadrivalent ] DR ALISSA KANG MD [facility] 02-11-2018 influenza virus vacc ine, unspecified formulation DR ALISSA KANG MD [facility] 02-11-2018 pneumococcal polysaccharide vaccine, [address] ALISSA KANG MD [facility] 02-10-2018 pneumococcal polysaccharide vaccine, [address] ALISSA KANG MD [facility] 01-18-2018 pneumococcal polysaccharide vaccine, [address] ALISSA KANG MD [facility] 03-25-2017 influenza virus vacc ine, unspecified formulation DR ALISSA KANG MD [facility] 06-09-2016 influenza virus vacc ine, unspecified formulation DR ALISSA KANG MD [facility] 06-09-2016 pneumococcal conjuga te vaccine, [address] ALISSA KANG MD [facility] 05-02-2015 influenza virus vacc ine, unspecified formulation DR ALISSA KANG MD [facility] 05-02-2015 tetanus toxoid, redu chino diphtheria toxoid, and acellular pertussis vaccine, adsorbed DR ALISSA KANG MD [facility] 04-13-2015 tetanus toxoid, redu chino diphtheria toxoid, and acellular pertussis vaccine, adsorbed DR ALISSA KANG MD [facility] Payers Date Payer Category Payer Commercial Managed [facility]MED [id number] 2024 Private Health Insurance [id number] 2024 Unknown [id number] 2022 Unknown [id number] 1967 Unknown [id number] ..840.1.054875.3.579. 2. 1967 Unknown [id number] ..840.1.105481.3.579. 2. 1967 Unknown [id number] ..840.1.058694.3.579. 2. 1967 Unknown [id number] 2.16.840.1.944091.3.579. 2. 1967 Unknown [id number] 2.16.840.1.669565.3.579. 2. 1967 Unknown [id number] 2.16.840.1.365290.3.579. 2 1967 Unknown [id number] 2.16.840.1.652534.3.579. 2. 1967 Unknown [id number] 2.16.840.1.039209.3.579. 2 1967 Unknown [id number] 2.16.840.1.121091.3.579. 2 1967 Unknown [id number] 2..840.1.431725.3.579. 2 1967 Unknown [id number] 2.840.1.228632.3.579. 2 1967 Unknown [id number] 2.840.1.407732.3.579. 2 1967 Unknown [id number] 2.16.840.1.954730.3.579. 2 1967 Unknown [id number] 2.16.840.1.157588.3.579. 2 1967 Unknown [id number] 2.16.840.1.834758.3.579. 2 1967 Unknown [id number] 2.16.840.1.300033.3.579. 2 1967 Unknown [id number] 2.16.840.1.494338.3.579. 2 1967 Unknown [id number] 2.16.840.1.150359.3.579. 2 1967 Unknown [id number] 2.16.840.1.222527.3.579. 2. 1967 Unknown [id number] 2.16.840.1.699250.3.579. 2. 1967 Unknown [id number] 2.16.840.1.754770.3.579. 2 1967 Unknown [id number] 2.16.840.1.732694.3.579. 2. 1967 Unknown [id number] 2.16.840.1.431385.3.579. 2. 1967 Unknown [id number] 2.16.840.1.178724.3.579. 2. 1967 Unknown [id number] 2.16.840.1.970792.3.579. 2 1967 Unknown [id number] 2.16.840.1.752237.3.579. 2 1967 Unknown [id number] 2.16.840.1.930455.3.579. 2 1967 Unknown [id number] 2.16.840.1.174732.3.579. 2 1967 Unknown [id number] 2.16.840.1.048005.3.579. 2 1967 Unknown [id number] 2.16.840.1.371260.3.579. 2 1967 Unknown [id number] 2.16.840.1.160589.3.579. 2 1967 Unknown [id number] 2.16.840.1.619005.3.579. 2. 1967 Unknown [id number] 2.16.840.1.224285.3.579. 2 1967 Unknown [id number] 2.16.840.1.912178.3.579. 2. 1967 Unknown [id number] 2.16.840.1.025225.3.579. 2.627 1967 Unknown [id number] 2.16.840.1.897975.3.579. 2.627 1967 Unknown [id number] 2.16.840.1.640055.3.579. 2.627 1967 Unknown [id number] 2.16.840.1.110346.3.579. 2.627 1967 Unknown [id number] 2.16.840.1.449565.3.579. 2.627 Social History Date Type Detail Facility Start: 02-03-2020 End: 09-29-2024 Tobacco smoking status Ex-smoker (finding) [facility] Comment on above: quit 2010 Sex Assigned At Male [facility] Sexual Orientation [facility] Start: 10-06-2018 End: 11-11-2021 Sex Male (finding) [facility] Tobacco smoking stat [facility] Tobacco smoking consumption unknown [facility] Start: 1965 Sex assigned at Not on file [facility] Gender identity Not on file [facility] Functional Status Date Assessment Result Facility 12-03-2023 Functional Status Home Living Ad ditional Information Objective: Cardiovascular Screen: 110/70 BP: HR: 84 BPM O2 sat: 98% Observation: Mild excess thoracic kyphosis. Cervical ROM: Min loss rotation bilat: mod loss flex and extension. MMT: see chart Palpation: Tenderness to palpation L upper trapezius, Denies central spine tenderness grossly cervical and thoracic regions. Neural Tension: inconlusive for median nerve but does have some mild tension at times, - for radial bilat Special tests neuro: Hoffmans and inverted supinator sign: - bilat Segmental Motion: not tested Sensation:Grossly intact light touch bilat UE's Reflexes: 1+ bilat biceps and triceps ROM: Cervical: Flex: no loss, Ext: min loss, Rotation: mod loss bilat, Retraction: Mod loss Posture: Mild forward head and excess thoracic kyphosis, increased flexed posture does increase symptoms and posture correction did improve symptoms. [facility] 08-02-2023 Functional Status Room check performed [facility] 08-02-2023 Functional Status Done [facility] 08-02-2023 Functional Status Done [facility] 08-02-2023 Functional Status [facility] 08-01-2023 Functional Status [facility] 08-01-2023 Functional Status [facility] 08-01-2023 Functional Status bilateral knee high rem alex/off [facility] 08-01-2023 Functional Status [facility] 07-31-2023 Functional Status Nurse John chavez q2hrs Performed 3pm-3am [facility] 07-31-2023 Functional Status Dinner Percent 25 [facility] 07-31-2023 Functional Status [facility] 07-31-2023 Functional Status [facility] 07-31-2023 Functional Status [facility] 07-30-2023 Functional Status [facility] 07-29-2023 Functional Status [facility] 07-29-2023 Functional Status [facility] 07-29-2023 Functional Status [facility] 07-29-2023 Functional Status [facility] 07-28-2023 Functional Status [facility] 07-28-2023 Functional Status Patient Identi fied Identification band, Verbal [facility] 07-28-2023 Functional Status NPO Status Maintained A [facility] 07-28-2023 Functional Status [facility] 07-28-2023 Functional Status [facility] 07-23-2023 Functional Status Sensory Deficits None A [facility] 06-23-2023 Functional Status Independent [facility] 06-23-2023 Functional Status Maintained [facility] Mental Status Date Assessment Result Facility 08-02-2023 Mental Status Follows simple commands [facility]02[facility]23 [facility] Mental Status Orientation Oriented x 4 [facility] 06-23-2023 Mental Status [facility] Clinical Notes 11-14-2022 to 09-11-2023 Note Date & Type Note Facility 09-11-2023 Note Exam Date Time Procedure Performing Provider Status 09/11/23 1:21 PM Echocardiogram, Adult - CV Auth (Verified) [facility] 05-16-2024 Note ORIGINAL HISTORY: Post cardiac surgery, possible paralyzed diaphragm COMPARISON: X-ray 15 days previously FLUOROSCOPY TIME: 0.7 minutes FLUOROSCOPY IMAGES: 67 FINDINGS: There are sternotomy wires. There is a valve prosthesis and there is an appendage clip. There is elevation of the left hemidiaphragm. There is limited excursion of the left hemidiaphragm and there is paradoxical motion on inspiration. IMPRESSION: Paralysis of the left hemidiaphragm. Interpreted by: Cr Winter MD Preliminary Report By: Cr Winter MD Electronically signed By Cr Winter MD Dictated Date: 08/27/2023 2:08:14 PM Prelim Date: 08/27/2023 2:09:59 PM Sign Date: 08/27/2023 2:09:59 PM Ordering Provider: [facility]04-21-2024 Hospital Discharge instructions Patient Education 08/02/2023 14:20:20 Incision Care, Adult, [id number] Incision Care, Adult An incision is a cut that a doctor makes in your skin for surgery (for a procedure). Most times, these cuts are closed after surgery. Your cut from surgery may be closed with stitches (sutures), hiren, skin glue, or skin tape (adhesive strips). You may need to return to your doctor to have stitches or hiren taken out. This may happen many days or many weeks after your surgery. The cut needs to be well cared for so it does not get infected. How to care for your cut Cut care Follow instructions from your doctor about how to take care of your cut. Make sure you: ?Wash your hands with soap and water before you change your bandage (dressing). If you cannot use soap and water, use hand tower erector helper. ?Change your bandage as told by your doctor. ?Leave stitches, skin glue, or skin tape in place. They may need to stay in place for 2 weeks or longer. If tape strips get loose and curl up, you may trim the loose edges. Do not remove tape strips completely unless your doctor says it is okay. Check your cut area every day for signs of infection. Check for: ?More redness, swelling, or pain. ?More fluid or blood. ?Warmth. ?Pus or a bad smell. Ask your doctor how to clean the cut. This may include: ?Using mild soap and water. ?Using a clean towel to pat the cut dry after you clean it. ?Putting a cream or ointment on the cut. Do this only as told by your doctor. ?Covering the cut with a clean bandage. Ask your doctor when you can leave the cut uncovered. Do not take baths, swim, or use a hot tub until your doctor says it is okay. Ask your doctor if youcan take showers. You may only be allowed to take sponge baths for bathing. Medicines If you were prescribed an antibiotic medicine, cream, or ointment, take the antibiotic or put it onthe cut as told by your doctor. Do not stop taking or putting on the antibiotic even if your condition gets better. Take jfvl-bmg-ieuzite and prescription medicines only as told by your doctor. General instructions Limit movement around your cut. This helps healing. ?Avoid straining, lifting, or exercise for the first month, or for as long as told by your doctor. ?Follow instructions from your doctor about going back to your normal activities. ?Ask your doctor what activities are safe. Protect your cut from the sun when you are outside for the first 6 months, or for as long as told by your doctor. Put on sunscreen around the scar or cover up the scar. Keep all follow-up visits as told by your doctor. This is important. Contact a doctor if: Your have more redness, swelling, or pain around the cut. You have more fluid or blood coming from the cut. Your cut feels warm to the touch. You have pus or a bad smell coming from the cut. You have a fever or shaking chills. You feel sick to your stomach (nauseous) or you throw up (vomit). You are dizzy. Your stitches or hiren come undone. Get help right away if: You have a red streak coming from your cut. Your cut bleeds through the bandage and the bleeding does not stop with gentle pressure. The edges of your cut open up and separate. You have very bad (severe) pain. You have a rash. You are confused. You pass out (faint). You have trouble breathing and you have a fast heartbeat. This information is not intended to replace advice given to you by your health care provider. Make sure you discuss any questions you have with your health care provider. Document Released: 06/21/2012 Document Revised: 08/17/2017 Document Reviewed: 12/05/2016 [employer] Patient Education 2020 [employer]. 08/02/2023 14:20:14 3- LEFT ATRIAL APPENDAGE CLOSURE DEVICE Discharge Instructions 04/27/2018 (CUSTOM) LEFT ATRIAL APPENDAGE CLOSURE DEVICE Discharge Instructions DIET INSTRUCTIONS Resume your previous diet as tolerated Drink plenty of fluids for the next 48 hours to help your kidneys flush the dye out of your system ACTIVITIES May go up and down stairs CAREFULLY AFTER [address] FOR 5 DAYS AFTER PROCEDURE No heavy lifting GREATER THAN 10 POUNDS or pushing or straining FOR 5 DAYS Someone must stay with you at home after the procedure FOR 3 DAYS BATHING/SHOWERING May tub bathe in 1 week May shower tomorrow, but cover groin incisions with plastic for 3 days after procedure WOUND CARE You will go home with a Band-Aid over your catheter insertion site. Keep a Band- Aid on for the next24 hours and then leave open to air. Some degree of bruising and tenderness is normal around the catheter insertion site. It will take awhile for any bruising to completely resolve. Keep your site clean and dry. 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 CALL 911 FOR ANY BLEEDING OR SWELLING AT THE PROCEDURE SITE If there is any large amount of bleeding, you or someone else need to apply direct pressure to the site (just like the nurse did in the heart lab after your procedure). It is very important that you hold constant pressure. Do not release the pressure to check if the bleeding has stopped. You then need to be transported to the nearest emergency room. WATCH FOR SIGNS OF INFECTION (Usually appears 36-48 hours after surgery) A temperature above 100.5 Redness or swelling Increased pain Foul odor or drainage If you have any questions, please call your doctor at the number listed on your follow up instructions. Follow all instructions given to you by your doctor 08/02/2023 14:19:41 Surgical Aortic Valve Replacement, Care After Surgical Aortic Valve Replacement, Care After This sheet gives you information about how to care for yourself after your procedure. Your health care provider may also give you more specific instructions. If you have problems or questions, contact your health care provider. What can I expect after the procedure? After the procedure, it is common to have pain around your incision area. Follow these instructions at home: Medicines Take bqpx-snj-jepuwaw and prescription medicines only as told by your health care provider. If you were prescribed an antibiotic medicine, take it as told by your health care provider. Do notstop taking the antibiotic even if you start to feel better. If you have a mechanical prosthesis, you may be given a blood thinner called warfarin. Follow instructions carefully on how to take this medicine. Ask your health care provider if the medicine prescribed to you: ?Requires you to avoid driving or using heavy machinery. ?Can cause constipation. You may need to take actions to prevent or treat constipation, such as: ?Take shgm-gce-voatilv or prescription medicines. ?Eat foods that are high in fiber, such as beans, whole grains, and fresh fruits and vegetables. ?Limit foods that are high in fat and processed sugars, such as fried or sweet foods. Eating and drinking Limit how much caffeine you drink. Caffeine can affect your heart's rate and rhythm. Do not drink alcohol if: ?Your health care provider tells you not to drink. ?You are , may be , or are planning to become . Drink enough fluid to keep your urine pale yellow. Eat a heart-healthy diet that includes fruits, vegetables, whole grains, low-fat dairy products, and lean proteins like poultry and eggs. Incision care Follow instructions from your health care provider about how to take care of your incision. Make sure you: ?Wash your hands with soap and water before and after you change your bandage (dressing). If soap and water are not available, use hand tower erector helper. ?Change your dressing as told by your health care provider. ?Leave stitches (sutures), skin glue, or adhesive strips in place. These skin closures may need to stay in place for 2 weeks or longer. If adhesive strip edges start to loosen and curl up, you may trim the loose edges. Do not remove adhesive strips completely unless your health care provider tells you to do that. Check your incision area every day for signs of infection. Check for: ?Redness, swelling, or increasing pain. ?Fluid or blood. ?Warmth. ?Pus or a bad smell. Activity Return to your normal activities as told by your health care provider. Most patients will need to limit any lifting or strenuous activity for 4 6 weeks. Avoid sitting for a long time without moving. Get up to take short walks every 1 2 hours. Do exercises as told by your health care provider. Do not lift anything that is heavier than 10 lb (4.5 kg), or the limit that you are told, until your health care provider says that it is safe. Avoid pushing or pulling things with your arms until your health care provider approves. This includes pulling on handrails to help you climb stairs. Lifestyle Do not use any products that contain nicotine or tobacco, such as cigarettes, e- cigarettes, and chewing tobacco. These can delay incision healing after surgery. If you need help quitting, ask your health care provider. Resume sexual activity as told by your health care provider. If you have erectile dysfunction, do not use medicines to treat this condition unless your health care provider approves. Work with your health care provider to: ?Keep your blood pressure and cholesterol under control. ?Manage any other heart conditions that you have. ?Maintain a healthy weight. Driving and travel Do not drive until your health care provider approves. Ask your health care provider when it is safe for you to drive. Avoid airplane travel for as long as told by your health care provider. When you travel, bring a list of your medicines and a record of your medical history with you. Carry your medicines with you. General instructions Do not take baths, swim, or use a hot tub until your health care provider approves. Ask your healthcare provider if you may take showers. You may only be allowed to take sponge baths. Do not strain to have a bowel movement. Avoid crossing your legs while sitting down. Check your temperature every day for a fever. A fever may be a sign of infection. If you are a woman and you plan to become , talk with your health care provider before you become . Wear compression stockings as told by your health care provider. These stockings help to prevent blood clots and reduce swelling in your legs. Tell all health care providers who care for you that you have an artificial (prosthetic) aortic valve. Also, tell them if you have or have had heart disease or endocarditis. You will be given a card at discharge. The card indicates the type of prosthetic valve that you have. Keep this card in your wallet or purse for quick reference in case of an emergency. Keep all follow-up visits as told by your health care provider. This is important. Contact a health care provider if: You develop a skin rash. You experience sudden, unexplained changes in your weight. You have redness, swelling, or increasing pain around your incision. You have fluid or blood coming from your incision. Your incision feels warm to the touch. You have pus or a bad smell coming from your incision. You have a fever. Get help right away if you: Develop chest pain that is different from the pain coming from your incision. Develop shortness of breath or difficulty breathing. Start to feel light-headed. These symptoms may represent a serious problem that is an emergency. Do not wait to see if the symptoms will go away. Get medical help right away. Call your local emergency services (911 in the [place] Do not drive yourself to the hospital. Summary After this procedure, it is common to have pain in the incision area. Eat a heart-healthy diet. Follow instructions about alcohol use. Get up to walk often. Avoid pushing and pulling with your arms. Ask what activities are safe for you. Care for your incision as told by your health care provider. Check it daily for signs of infection. Get help right away if you have chest pain that is different from your incisions, develop shortnessof breath or difficulty breathing, or start to feel light-headed. This information is not intended to replace advice given to you by your health care provider. Make sure you discuss any questions you have with your health care provider. Document Released: 10/16/2005 Document Revised: 12/23/2018 Document Reviewed: 12/23/2018 [employer] Patient Education 2020 [employer] Follow Up Care 07/02/2023 09:18:56 With:ILDA BARBOSA MD, Neurology Service Address: [address] [place] [address] [place] [address] [phone] When: Unknown Comments:Call for follow up appointment in 4-6 weeks With:HEATHER ROBLES RN X RAY-ACCOUNTS RECEIVABLE ANALYST Address: [address] [facility] [address] [facility] [place] [address] [phone] When: Unknown Comments:The office will call you tomorrow with a follow up appointment on Thursday. Have a BMP drawn prior to your office visitHave a PA LAT CXR done here at [facility] one hour prior to your office visit With:[facility] Address: When: Unknown Comments:Provider will contact you after discharge to schedule home nursing visits. Please call [phone] you have questions related to home healthcare. . With:[facility] will contact you for an appointment in 4- 6weeks If you have any questions please call:[phone]. Address: When: Unknown With:SNOW VILLEGAS DO Address: [address], [place] [id number]- [phone] When: Unknown Comments:PLEASE CALL THIS OFFICE TO SCHEDULE A HOSPITAL FOLLOW UP APPOINTMENT. With:ALISSA KNAG MD Address: [address] [place] [address] [address] [facility] [place], [place] [address]- [phone] When:09/25/2023 08:30:00 [facility] 04-21-2024 Note Discharge Instructions Thank you for allowing [facility] to assist you with your healthcare needs. The following is importantdischarge information regarding your hospital visit. Your Care Team SNOW VILLEGAS DO Your Diagnosis Acute blood loss anemia Aortic stenosis s/p AVR, ALONDRA Clipping 07/28/23, EF 55% Atrial fibrillation Bicuspid aortic valve Chronic diastolic HF (heart failure) Dyslipidemia Hyperglycemia, HgB A1C 5.3% Hypothyroidism Insomnia Mild CAD What to do next Instructions From Your Doctor Wash incisions daily with soap and water, Use a clean wash cloth each time Continue to use your acapella and incentive spirometer Keep legs elevated when sitting Weigh yourself daily and keep an log to bring to your appointments Call for fever greater than 101, or any purulent drainage from incisions Scheduled Follow-Up Appointments Appointment Type When With Where Contact InformationCV OV 09/25/2023 08:30 AM EDT [facility] Annual 04/01/2024 09:00 AM EST SNOW VILLEGAS DO [address] [phone] Follow Up Appointments Follow Up with ALISSA KANG MD When 09/25/2023 08:30 AM EDT Where: [address] [facility] [address] [place], [place] [address]- [phone] Follow Up with ILDA BARBOSA MD, Neurology Service When Why: Call for follow up appointment in 4-6 weeks Where: [address] [facility] [address] [facility] [place] [address]- [phone] Follow Up with HEATHER ROBLES When Why: The office will call you tomorrow with a follow up appointment on Thursday. Have a BMP drawn prior to your office visit Have a PA LAT CXR done here at [facility] one hour prior to your office visit Where: [address] [facility] [address] [facility] [place] [address]- [phone] Follow Up with [facility] When Why: Provider will contact you after discharge to schedule home nursing visits. Please call [phone] if you have questions related to home healthcare. . Where: Follow Up with [facility] will contact you for an appointment in 4-6weeks If you have any questions please call:[phone]. When Where: Follow Up with SNOW VILLEGAS DO When Why: PLEASE CALL THIS OFFICE TO SCHEDULE A HOSPITAL FOLLOW UP APPOINTMENT. Where: [address], [place] [address]- [phone] The Following Activity and Diet Have Been Ordered for You Discharge Activity - Ordered -- Lifting Restricted less than 10 pounds May Shower, Driving is Restricted, 08/02/23 13:29:00 EDT Discharge Diet - Ordered -- Diet Restrictions: Cardiac diet, Sodium limit: Low, Fats limit: Low, 08/02/23 13:29:00 EDT The Following Equipment Has Been Ordered for You Discharge Home Equipment Discharge Wound Care - Ordered -- Wash incisiions daily with soap and water Use a clean wash cloth each time, 08/02/23 13:29:00 EDT The Following Treatments Have Been Ordered for You Discharge Labs Discharge Outpatient Labwork - Ordered -- BMP, Diuresis, Have a BMP drawn on 08/02/23 13:29:00 EDT Discharge Radiology Discharge Outpatient Radiology - Ordered -- PA LAT PA LAT Chest Xray, Pleural effusions, Have a PA LAT CXR done here at [facility] one hour prior to your office visit, 08/02/23 13:29:00 EDT Other Therapies No qualifying data available. Post Acute Orders No qualifying data available. Someone Will Contact You Regarding These Home Health Referrals No home referrals have been ordered for you. No one will call you. Allergies NKA Medications Please ask your primary doctor or pharmacist before taking any other medication not listed, including over the counter drugs, herbal medications, vitamins and or supplements as they may interact withyour home medications. What How Much When Why Instructions Last Dose New amiodarone (amiodarone 200 mg oral tablet) 2 tab(s) by mouth Twice daily with meals Take 2 tabs (400mg) twice a day through August 08 Take 1 tab (200mg) one a day starting August 09 for one month Pickup at [facility] New bumetanide (bumetanide 2 mg oral tablet) 1 tab(s) by mouth Two (2) times a day Duration: [address] [facility] New ferrous sulfate (ferrous sulfate 325 mg (65 mg elemental iron) oral tablet) 1 tab(s) by mouth Twice daily with meals Duration: [address] [facility] New folic acid (folic acid 0.4 mg oral tablet) 2 tab(s) by mouth Once a day Duration: [address] [facility] New midodrine (midodrine 5 mg oral tablet) 2 tab(s) by mouth Two (2) times a day Pickup at [facility] New potassium chloride (potassium chloride 20 mEq oral tablet, extended release) 1 tab(s) by mouth Two (2) times a day Duration: 5 Days take for 5 days with Bumex Pickup at [facility] New traMADol (traMADol 50 mg oral tablet) 1 tab(s) by mouth Every 6 hours as needed for Pain, scale 4-10 Aortic stenosis s/p AVR, ALONDRA Clipping 07/28/23, EF 55% Duration: [address] [facility] Changed acetaminophen 650 Milligram by mouth Every 4 hours as needed for Pain, scale 1-3 Changed aspirin (aspirin 81 mg oral delayed release tablet) 1 tab(s) by mouth Once a day with a meal Changed metoprolol (metoprolol tartrate 25 mg oral tablet) 1 tab(s) by mouth Twice daily with meals Pickup at [facility] Unchanged betamethasone-clotrimazole topical (betamethasone-clotrimazole 0.05%- 1% topical cream) 1 Applicatorful Topical Two (2) times a day Tinea pedis Unchanged levothyroxine (levothyroxine 100 mcg (0.1 mg) oral tablet) 1 tab(s) by mouth Once a day (in the morning) Unchanged traZODone (traZODone 100 mg oral tablet) 1 tab(s) by mouth Daily at bedtime Insomnia please be scored tablets Pharmacy Information [facility]: [address] [place], [place] [id number] [phone] What How Much When Comments Stop Taking ibuprofen (ibuprofen 200 mg oral tablet) 2 tab(s) by mouth Every 6 hours as needed for for pain Take with food or milk. Stop Taking mupirocin topical (mupirocin 2% topical ointment) 1 application Topical Three (3) times a day APPLY IN BOTH NOSTRILS TWICE A DAY DIRECTED. START 5 DAYS PRIOR TO SURGERY Stop Taking rosuvastatin (rosuvastatin 40 mg oral tablet) 1 tab(s) by mouth Daily at bedtime Please take this list to your next doctor s visit. Bring all medications you take, including over the counter medications, herbals and other supplements with you to your doctor s visit. Patients and families are reminded to discard old lists and to update any records with all medication providers or retail pharmacies. Education Materials Incision Care, Adult An incision is a cut that a doctor makes in your skin for surgery (for a procedure). Most times, these cuts are closed after surgery. Your cut from surgery may be closed with stitches (sutures), hiren, skin glue, or skin tape (adhesive strips). You may need to return to your doctor to have stitches or hiren taken out. This may happen many days or many weeks after your surgery. The cut needs to be well cared for so it does not get infected. How to care for your cut Cut care Follow instructions from your doctor about how to take care of your cut. Make sure you: ? Wash your hands with soap and water before you change your bandage (dressing). If you cannot use soap and water, use hand tower erector helper. ? Change your bandage as told by your doctor. ? Leave stitches, skin glue, or skin tape in place. They may need to stay in place for 2 weeks or longer. If tape strips get loose and curl up, you may trim the loose edges. Do not remove tape strips completely unless your doctor says it is okay. Check your cut area every day for signs of infection. Check for: ? More redness, swelling, or pain. ? More fluid or blood. ? Warmth. ? Pus or a bad smell. Ask your doctor how to clean the cut. This may include: ? Using mild soap and water. ? Using a clean towel to pat the cut dry after you clean it. ? Putting a cream or ointment on the cut. Do this only as told by your doctor. ? Covering the cut with a clean bandage. Ask your doctor when you can leave the cut uncovered. Do not take baths, swim, or use a hot tub until your doctor says it is okay. Ask your doctor if youcan take showers. You may only be allowed to take sponge baths for bathing. Medicines If you were prescribed an antibiotic medicine, cream, or ointment, take the antibiotic or put it onthe cut as told by your doctor. Do not stop taking or putting on the antibiotic even if your condition gets better. Take gluc-jpr-gzelmxi and prescription medicines only as told by your doctor. General instructions Limit movement around your cut. This helps healing. ? Avoid straining, lifting, or exercise for the first month, or for as long as told by your doctor. ? Follow instructions from your doctor about going back to your normal activities. ? Ask your doctor what activities are safe. Protect your cut from the sun when you are outside for the first 6 months, or for as long as told by your doctor. Put on sunscreen around the scar or cover up the scar. Keep all follow-up visits as told by your doctor. This is important. Contact a doctor if: Your have more redness, swelling, or pain around the cut. You have more fluid or blood coming from the cut. Your cut feels warm to the touch. You have pus or a bad smell coming from the cut. You have a fever or shaking chills. You feel sick to your stomach (nauseous) or you throw up (vomit). You are dizzy. Your stitches or hiren come undone. Get help right away if: You have a red streak coming from your cut. Your cut bleeds through the bandage and the bleeding does not stop with gentle pressure. The edges of your cut open up and separate. You have very bad (severe) pain. You have a rash. You are confused. You pass out (faint). You have trouble breathing and you have a fast heartbeat. This information is not intended to replace advice given to you by your health care provider. Make sure you discuss any questions you have with your health care provider. Document Released: 06/21/2012 Document Revised: 08/17/2017 Document Reviewed: 12/05/2016 Elsevier Patient Education 2020 [employer] LEFT ATRIAL APPENDAGE CLOSURE DEVICE Discharge Instructions DIET INSTRUCTIONS Resume your previous diet as tolerated Drink plenty of fluids for the next 48 hours to help your kidneys flush the dye out of your system ACTIVITIES May go up and down stairs CAREFULLY AFTER [address] FOR 5 DAYS AFTER PROCEDURE No heavy lifting GREATER THAN 10 POUNDS or pushing or straining FOR 5 DAYS Someone must stay with you at home after the procedure FOR 3 DAYS BATHING/SHOWERING May tub bathe in 1 week May shower tomorrow, but cover groin incisions with plastic for 3 days after procedure WOUND CARE You will go home with a Band-Aid over your catheter insertion site. Keep a Band- Aid on for the next24 hours and then leave open to air. Some degree of bruising and tenderness is normal around the catheter insertion site. It will take awhile for any bruising to completely resolve. Keep your site clean and dry. 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 CALL 911 FOR ANY BLEEDING OR SWELLING AT THE PROCEDURE SITE If there is any large amount of bleeding, you or someone else need to apply direct pressure to the site (just like the nurse did in the heart lab after your procedure). It is very important that you hold constant pressure. Do not release the pressure to check if the bleeding has stopped. You then need to be transported to the nearest emergency room. WATCH FOR SIGNS OF INFECTION (Usually appears 36-48 hours after surgery) A temperature above 100.5 Redness or swelling Increased pain Foul odor or drainage If you have any questions, please call your doctor at the number listed on your follow up instructions. Follow all instructions given to you by your doctor Surgical Aortic Valve Replacement, Care After This sheet gives you information about how to care for yourself after your procedure. Your health care provider may also give you more specific instructions. If you have problems or questions, contact your health care provider. What can I expect after the procedure? After the procedure, it is common to have pain around your incision area. Follow these instructions at home: Medicines Take evbm-nns-wedwfub and prescription medicines only as told by your health care provider. If you were prescribed an antibiotic medicine, take it as told by your health care provider. Do notstop taking the antibiotic even if you start to feel better. If you have a mechanical prosthesis, you may be given a blood thinner called warfarin. Follow instructions carefully on how to take this medicine. Ask your health care provider if the medicine prescribed to you: ? Requires you to avoid driving or using heavy machinery. ? Can cause constipation. You may need to take actions to prevent or treat constipation, such as: ? Take gtdp-qiw-ftasltl or prescription medicines. ? Eat foods that are high in fiber, such as beans, whole grains, and fresh fruits and vegetables. ? Limit foods that are high in fat and processed sugars, such as fried or sweet foods. Eating and drinking Limit how much caffeine you drink. Caffeine can affect your heart's rate and rhythm. Do not drink alcohol if: ? Your health care provider tells you not to drink. ? You are , may be , or are planning to become . Drink enough fluid to keep your urine pale yellow. Eat a heart-healthy diet that includes fruits, vegetables, whole grains, low-fat dairy products, and lean proteins like poultry and eggs. Incision care Follow instructions from your health care provider about how to take care of your incision. Make sure you: ? Wash your hands with soap and water before and after you change your bandage (dressing). If soap and water are not available, use hand tower erector helper. ? Change your dressing as told by your health care provider. ? Leave stitches (sutures), skin glue, or adhesive strips in place. These skin closures may need to stay in place for 2 weeks or longer. If adhesive strip edges start to loosen and curl up, you may trim the loose edges. Do not remove adhesive strips completely unless your health care provider tells you to do that. Check your incision area every day for signs of infection. Check for: ? Redness, swelling, or increasing pain. ? Fluid or blood. ? Warmth. ? Pus or a bad smell. Activity Return to your normal activities as told by your health care provider. Most patients will need to limit any lifting or strenuous activity for 4 6 weeks. Avoid sitting for a long time without moving. Get up to take short walks every 1 2 hours. Do exercises as told by your health care provider. Do not lift anything that is heavier than 10 lb (4.5 kg), or the limit that you are told, until your health care provider says that it is safe. Avoid pushing or pulling things with your arms until your health care provider approves. This includes pulling on handrails to help you climb stairs. Lifestyle Do not use any products that contain nicotine or tobacco, such as cigarettes, e- cigarettes, and chewing tobacco. These can delay incision healing after surgery. If you need help quitting, ask your health care provider. Resume sexual activity as told by your health care provider. If you have erectile dysfunction, do not use medicines to treat this condition unless your health care provider approves. Work with your health care provider to: ? Keep your blood pressure and cholesterol under control. ? Manage any other heart conditions that you have. ? Maintain a healthy weight. Driving and travel Do not drive until your health care provider approves. Ask your health care provider when it is safe for you to drive. Avoid airplane travel for as long as told by your health care provider. When you travel, bring a list of your medicines and a record of your medical history with you. Carry your medicines with you. General instructions Do not take baths, swim, or use a hot tub until your health care provider approves. Ask your healthcare provider if you may take showers. You may only be allowed to take sponge baths. Do not strain to have a bowel movement. Avoid crossing your legs while sitting down. Check your temperature every day for a fever. A fever may be a sign of infection. If you are a woman and you plan to become , talk with your health care provider before you become . Wear compression stockings as told by your health care provider. These stockings help to prevent blood clots and reduce swelling in your legs. Tell all health care providers who care for you that you have an artificial (prosthetic) aortic valve. Also, tell them if you have or have had heart disease or endocarditis. You will be given a card at discharge. The card indicates the type of prosthetic valve that you have. Keep this card in your wallet or purse for quick reference in case of an emergency. Keep all follow-up visits as told by your health care provider. This is important. Contact a health care provider if: You develop a skin rash. You experience sudden, unexplained changes in your weight. You have redness, swelling, or increasing pain around your incision. You have fluid or blood coming from your incision. Your incision feels warm to the touch. You have pus or a bad smell coming from your incision. You have a fever. Get help right away if you: Develop chest pain that is different from the pain coming from your incision. Develop shortness of breath or difficulty breathing. Start to feel light-headed. These symptoms may represent a serious problem that is an emergency. Do not wait to see if the symptoms will go away. Get medical help right away. Call your local emergency services (911 in the [place] Do not drive yourself to the hospital. Summary After this procedure, it is common to have pain in the incision area. Eat a heart-healthy diet. Follow instructions about alcohol use. Get up to walk often. Avoid pushing and pulling with your arms. Ask what activities are safe for you. Care for your incision as told by your health care provider. Check it daily for signs of infection. Get help right away if you have chest pain that is different from your incisions, develop shortnessof breath or difficulty breathing, or start to feel light-headed. This information is not intended to replace advice given to you by your health care provider. Make sure you discuss any questions you have with your health care provider. Document Released: 10/16/2005 Document Revised: 12/23/2018 Document Reviewed: 12/23/2018 [employer] Patient Education 2020 [employer]. Additional Information VACCINATE! IT SAVES LIVES! Members of the community who have not yet received the COVID-19 vaccine and would like to receive it can visit one of [facility] vaccine clinics. There are many vaccine clinic locations within the [facility]. For locations and available times, please visit https://gettheshot.coronavirus.[place].gov/. It is important to note that some COVID mobile vaccine clinics are held outdoors and may be canceled in rainy or stormy conditions. To learn more about pediatric vaccinations (ages 5-11), we invite you to visit the [facility] webpage. https://www.[facility].org/pages/9472-Oosur-Ozujjfyqfjv-Qdkhmugjsj-Vbebv-Xug stions.htmlTo learn more about the COVID-19 vaccine, we invite you to visit the CDC website for a list of frequently asked questions.https://www.cdc.gov/coronavirus/2019-ncov/vaccines/faq.html [facility] Patient Portal Access Instructions: Stay connected with your healthcare team and access your personal medical information anytime with the [facility] Patient Portal. Please follow the directions below to create your [employer] account: 1.Access the email account you provided upon registration to the hospital/physician office.2.Look for an invitation email from [facility].3.Open the email and access the invitation link: AcceptInvitation to [facility].4.Fill in the required greene to create your account. To access your account, visit [employer]. Click the blue button labeled Access Patient Portal and then log in with the username and password that you created in the steps above. You will be able to view your test results, lab results, a summary of your visits, upcoming appointments and more. There is also a convenient messaging option where you can send secure messages to your p rovider. In addition, you will have the ability to download any documents or summaries to your computer and/or send the information securely to a physician. Remember that your healthcare information is confidential, so carefully consider who you will allowto register on the [facility] Patient Portal for access to your information. You can also access the [facility] Patient Portal on the [facility] cyril. Simply click on Patient Portal and then log into your account. If you would like to receive a full copy of your medical records, please contact the [facility] Medical Records Department by calling [phone], Thursday through Thursday between 8 a.m. and 4:30 p.m. HOW TO SAFELY DISPOSE OF PRESCRIPTION MEDICATIONS Please use one of the following methods to safely dispose of your unused medications. 1.Use a drug disposal kit: the drug disposal pouch allows you to safely discard your old and unuseddrugs. Ask your nurse to give you one when you are discharged.2.Visit a local take-back location: Many local pharmacies and police departments have programs that collect old and unwanted prescriptiondrugs. Call your local pharmacy or go to http://One Parts Bill.Deemelo/4S8Ki0h to find one close to you.3.Make use of household items: Use cat litter or old coffee grounds to dispose medications if other options arenot available. Mix your drugs with these household products, seal them in an airtight container andthrow it into the garbage. Call [facility]: [phone] to be sure your drugs can be disposed of in this way. Some medicines may require a different approach.4.Never flush your medications down the toilet. IF YOU HAVE BEEN PRESCRIBED AN OPIOID FOR PAIN If you have been prescribed an opioid (such as hydrocodone, oxycodone or morphine), it is critical to understand the possible side effects and risks of opioid pain medications. Even when taken as directed, opioids can have several side effects including: Tolerance, meaning you might need to take more of a medication for the same pain relief. Nausea, vomiting and/or constipation. Sleepiness, dizziness, dry mouth, confusion, depression or itching. Physical dependence, meaning you have withdrawal symptoms when a medication is stopped, can develop within a few days. KNOW YOUR RESPONSIBILITIES It is important to know exactly how much and how often to take the opioid pain medications you are prescribed. Never take opioids in higher amounts or more often than prescribed. Do not combine opioids with alcohol or other drugs that cause drowsiness, such as benzodiazepines, also known as benzos, including diazepam and alprazolam, muscle relaxants or sleep aids. Never sell or share prescription opioids. This is illegal. Store opioids in a secure place and out of reach of others (including children, family, friends and visitors). The last page of this document has been signed and retained as a CHART COPY. Signatures Patient Education Materials Incision Care, Adult, Sldh-yf-Oyev 3- SH LEFT ATRIAL APPENDAGE CLOSURE DEVICE Discharge Instructions 04/27/2018 (CUSTOM) Surgical Aortic Valve Replacement, Care After Medication Leaflets My discharge plan and instructions have been reviewed and explained to me and I,YAA SILVA understand my current condition and have read and understand these discharge instructions. I have received a written copy of the plan/instructions. If I have questions, I am aware that I should contact my doctor. 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: Date/Time: Relationship to Patient: Witness Name/Signature: Date/Time: [id number] Note Date of Service 08/02/2023 Discharge Diagnosis Nonrheumatic aortic (valve) stenosis (I35.0 - ICD-10-CM) Acute posthemorrhagic anemia (D62 - ICD-10-CM) Chronic diastolic (congestive) heart failure (I50.32 - ICD-10-CM) Hyperlipidemia, unspecified (E78.5 - ICD-10-CM) Hypothyroidism, unspecified (E03.9 - ICD-10-CM) Atherosclerotic heart disease of [place] coronary artery without angina pectoris (I25.10 - ICD-10-CM) Hyperglycemia, unspecified (R73.9 - ICD-10-CM) Unspecified atrial fibrillation (I48.91 - ICD-10-CM) Acute blood loss anemia (D62 - ICD-10-CM) Aortic stenosis s/p AVR, ALONDRA Clipping 07/28/23, EF 55% (I35.0 - ICD-10-CM) Ordered: traMADol 50 mg oral tablet; Dose : 50 mg = 1 tab(s), Oral, q6hr, PRN Pain, scale 4-10, X 7 day(s), # 28 tab(s), 0 Refill(s), 08/09/23 13:49:00 EDT, Pharmacy: [id number], Aortic stenosis s/p AVR, ALONDRA Clipping 07/28/23, EF 55%, 175.3, cm, 07/28/23 6:13:00 EDT, Height, 96.... Atrial fibrillation (I48.91 - ICD-10-CM) Bicuspid aortic valve (Q23.1 - ICD-10-CM) Chronic diastolic HF (heart failure) (I50.32 - ICD-10-CM) Dyslipidemia (E78.5 - ICD-10-CM) Hyperglycemia, HgB A1C 5.3% (R73.9 - ICD-10-CM) Hypothyroidism (E03.9 - ICD-10-CM) Insomnia (G47.00 - ICD-10-CM) Mild CAD (I25.10 - ICD-10-CM) Additional Orders: Other status: CBC,08/02/23 5:00:00 EDT, Next AM Draw (one day only), Blood, Once, Preferred Lab: [facility], Stop date 08/02/23 5:00:00 EDT(Complete) Other status: CMP,08/02/23 5:00:00 EDT, Next AM Draw (one day only), Blood, Once, Preferred Lab: [facility], Stop date 08/02/23 5:00:00 EDT(Complete) Other status: Chest XR 2 Views (PA & Lateral),08/02/23 5:00:00 EDT, 08/02/23 5:00:00 EDT, Routine, abnormal lung sounds, Full code, MTT with Monitor, Isolation: None, IV: Yes, Oxygen: No, Diabetes: No, : N/A, Wt k.5, [facility], [facility], CVSD(Complete) Ordered: Discharge,08/02/23 13:29:00 EDT, Discharged to: Home Ordered: Discharge Activity,Lifting Restricted less than 10 pounds May Shower, Driving is Restricted, 08/02/23 13:29:00 EDT Ordered: Discharge Diet,Diet Restrictions: Cardiac diet, Sodium limit: Low, Fats limit: Low, 08/02/23 13:29:00 EDT Ordered: Discharge Outpatient Labwork,BMP, Diuresis, Have a BMP drawn on 08/02/23 13:29:00 EDT Ordered: Discharge Outpatient Radiology,PA LAT PA LAT Chest Xray, Pleural effusions, Have a PA LAT CXR done here at [facility] one hour prior to your office visit, 08/02/23 13:29:00 EDT Ordered: Discharge Wound Care,Wash incisiions daily with soap and water Use a clean wash cloth eachtime, 08/02/23 13:29:00 EDT Ordered: acetaminophen,Dose : 650 mg = 2 tab(s), Oral, q4h, PRN Pain, scale 1-3, 0 Refill(s) Ordered: amiodarone 200 mg oral tablet,Dose : 400 mg = 2 tab(s), Oral, BIDM, Take 2 tabs (400mg) twice a day through August 08 Take 1 tab (200mg) one a day starting August 09 for one month, # 56 tab(s), 0 Refill(s), Pharmacy: [id number], 175.3, cm, 07/28/23 6:13:00 EDT, Sho.Nitin Ordered: aspirin 81 mg oral delayed release tablet,Dose : 81 mg = 1 tab(s), Oral, qDayM, 0 Refill(s) Ordered: bumetanide 2 mg oral tablet,Dose : 2 mg = 1 tab(s), Oral, BID, # 10 tab(s), 0 Refill(s), Pharmacy: [id number], 175.3, cm, 07/28/23 6:13:00 EDT, Height, kg, 07/28/23 6:13:00 EDT, Dosing Weight Ordered: ferrous sulfate 325 mg (65 mg elemental iron) oral tablet,Dose : 325 mg = 1 tab(s), Oral, BIDM, # 60 tab(s), 0 Refill(s), Pharmacy: [id number], 175.3, cm, 07/28/23 6:13:00 EDT, Height, kg, 07/28/23 6:13:00 EDT, Dosing Weight Ordered: folic acid 0.4 mg oral tablet,Dose : 0.8 mg = 2 tab(s), Oral, qDay, # 60 tab(s), 0 Refill(s), Pharmacy: [id number], 175.3, cm, 07/28/23 6:13:00 EDT, Height, kg, 07/28/23 6:13:00 EDT, Dosing Weight Ordered: metoprolol tartrate 25 mg oral tablet,Dose : 25 mg = 1 tab(s), Oral, BIDM, # 60 tab(s), 1 Refill(s), Pharmacy: [id number], 175.3, cm, 07/28/23 6:13:00 EDT, Height, kg, 07/28/23 6:13:00 EDT, Dosing Weight Ordered: midodrine 5 mg oral tablet,Dose : 10 mg = 2 tab(s), Oral, BID, # 120 tab(s), 0 Refill(s), Pharmacy: [id number], 175.3, cm, 07/28/23 6:13:00 EDT, Height, kg, 07/28/23 6:13:00 EDT, Dosing Weight Ordered: potassium chloride 20 mEq oral tablet, extended release,Dose : 20 mEq = 1 tab(s), Oral, BID, take for 5 days with Bumex, # 10 tab(s), 0 Refill(s), Pharmacy: [id number], 175.3, cm, 07/28/23 6:13:00 EDT, Height, kg, 07/28/23 6:13:00 EDT, Dosing Weight End of Orders Hospital Course This is a 58-year-old male with past medical history of chronic diastolic heart failure, hypothyroidism, aortic stenosis, and mild CAD who presented yesterday for an aortic valve replacement. Intraoperative OMAIRA was reviewed by both Dr. Ly and Dr. Bhatti and neither felt at that time that the echo parameters supported severe aortic stenosis. Surgery was aborted. Patient recovered in the CV SICU, a CT calcium score of the aortic valve was completed and the score was elevated at 2556. Patient also had a CT of the head secondary to his symptom of dizziness and a neurology consult. CT of the head was negative for any acute findings. Neurology is recommending MRI of the head/brain. Results discussed with Dr. Cooper, and he discussed with Dr. Kang and the family and it was decided to proceed with surgery. Patient underwent an aortic valve replacement and left atrial appendage clipping with Dr. Cooper on 07/28/2023. He tolerated the surgery well, was transferred to the CV SICU in stable condition, on the vent. He had increased chest tube output in the evening and required 2 units of platelets and a dose of DDAVP for total output of 846 cc. Drainage subsided. He was extubated on overnight and tolerated nasal cannula without difficulty. Postop day #1. He is sitting up in the chair, on room air, heart rate 90s low 100s, blood pressures in the 120s and he is only complaint right now is incisional discomfort. Will start beta-waqas, give one-time dose of Lasix, 1 g of calcium chloride. Patient developed hypotension therefore beta-waqas discontinued and patient received 250 cc of albumin and calcium chloride. Kept in unit due to hypotension. POD #2: Heart rate ranging 87-1 24. Will start Lopressor 12.5 mg twice daily. Start midodrine 10 mg 3 times daily and Lasix 20 mg IV twice daily. Discontinue chest tubes. Transfer to stepdown. POD #3: Patient developed atrial fibrillation earlier this morning. Started on amiodarone protocol. Remains in atrial fibrillation thismorning. Will increase Lopressor to 25 mg twice daily. Patient continues to report shortness of breath while sleeping. Chest x-ray shows mild left basilar atelectasis. Continue Lasix 20 mg IV push twice daily. Postop day #4. Lasix discontinued. Bumex 4 mg p.o. twice daily added. Statin placed on hold secondary to an increase in LFTs. Midodrine decreased to twice daily. Postop day #5. Discharge home today. Bumex decreased to 2 mg p.o. twice daily with potassium 20 mEq p.o. twice daily for 5 days. Follow-up appointment on Thursday with BMP and chest x-ray. Statin remains on hold secondary to elevated LFT levels. Will need reevaluated at his cardiology office visit. He is to follow-up with neurology in 4 to 6 weeks. He went to MRI prior to discharge for tests ordered by neurology. He was unable to complete secondary to claustrophobia. Neurology to decide if he needs them as outpatient. Allergies NKA Consults Consult to Cardiac Rehabilitation - Ordered -- 07/29/23 8:23:00 EDT, CABG Consult to Physician - Ordered -- 07/28/23 9:27:00 EDT, ILDA BARBOSA MD, Routine, dizziness, near syncopal episodes, AV surgery cancelled today, needs further workup Imaging Results and Diagnostics (08/02/2023 05:31 EDT XR Chest 2 Views) ORIGINAL EXAMINATION: TWO XRAY VIEWS OF THE CHEST 08/02/2023 5:32 am COMPARISON: None. HISTORY: ORDERING SYSTEM PROVIDED HISTORY: Reason for Exam: abnormal lung sounds IMPRESSION: Sternotomy wires are present the chest wall. Left subclavian central venous catheter tube tip is in the SVC. Left atrial appendage clip is noted. Heart valve prosthesis is noted. There are small bilateral effusions. Mild hazy airspace disease at the lung bases. Heart size is mildly enlarged. Atherosclerotic calcification of the aorta is noted. No pneumothorax. Mild interstitial opacities are present bilaterally. Findings could represent mild congestion/edema versus developing infectious or inflammatory process. [1] Objective Vitals and Measurements T: 36.7 C (Oral) TMIN: 36.6 C (Oral) TMAX: 36.8 C (Oral) HR: 76(Monitored) RR: 18 BP: 105/76 SpO2: 95% WT: 95.6 kg Weight Current Weight Dosing Weight: 96.5 kg (07/28/23) Current Weight: 95.6 kg (08/02/23) Current Weight: 97.7 kg (08/01/23) Lungs: Bilateral, clear, diminished in the left base, respirations easy regular nonlabored, on roomair with SaO2 of 94% Heart: Regular S1-S2, monitor normal sinus rhythm Incision: Midsternal incision open to air without drainage Abdomen: Soft, nontender, bowel sounds present, + BM Neurological: Intact Voice slightly hoarse Extremities: Well-perfused, mild bilateral lower leg edema Pending Labs and Studies 08/02/2023 WBC 6.4 hemoglobin 7.7 hematocrit 22.3 platelets 213 Glucose 119 sodium 137 potassium 3.8 BUN 20 creatinine 0.93 SGOT 55 SGPT 63 Code Status Code Status - Ordered -- 07/28/23 13:21:00 EDT, Full Code, Constant Order Admission Date 07/28/2023 Discharge Date 08/02/2023 Patient Instructions Wash incisions daily with soap and water, Use a clean wash cloth each time Continue to use your acapella and incentive spirometer Keep legs elevated when sitting Weigh yourself daily and keep an log to bring to your appointments Call for fever greater than 101, or any purulent drainage from incisions Medications New Prescription amiodarone (amiodarone 200 mg oral tablet)2 tab(s) by mouth twice daily with meals. Take 2 tabs (400mg) twice a day through August 08 Take 1 tab (200mg) one a day starting August 09 for one month. Refills: 0. bumetanide (bumetanide 2 mg oral tablet)1 tab(s) by mouth two (2) times a day for 5 Days. Refills: 0. ferrous sulfate (ferrous sulfate 325 mg (65 mg elemental iron) oral tablet)1 tab(s) by mouth twice daily with meals for 30 Days. Refills: 0. folic acid (folic acid 0.4 mg oral tablet)2 tab(s) by mouth once a day for 30 Days. Refills: 0. midodrine (midodrine 5 mg oral tablet)2 tab(s) by mouth two (2) times a day. Refills: 0. potassium chloride (potassium chloride 20 mEq oral tablet, extended release)1 tab(s) by mouth two (2) times a day for 5 Days. take for 5 days with Bumex. Refills: 0. traMADol (traMADol 50 mg oral tablet)1 tab(s) by mouth every 6 hours as needed Pain, scale 4-10 for7 Days. Refills: 0. Changed [id number] Milligram by mouth every 4 hours as needed Pain, scale 1-3. aspirin (aspirin 81 mg oral delayed release tablet)1 tab(s) by mouth once a day with a meal. metoprolol (metoprolol tartrate 25 mg oral tablet)1 tab(s) by mouth twice daily with meals. Refills: 1. Unchanged betamethasone-clotrimazole topical (betamethasone-clotrimazole 0.05%-1% topical cream)1 Applicatorful Topical two (2) times a day. Refills: 1. levothyroxine (levothyroxine 100 mcg (0.1 mg) oral tablet)1 tab(s) by mouth once a day (in the morning). traZODone (traZODone 100 mg oral tablet)1 tab(s) by mouth daily at bedtime. please be scored tablets. Refills: 3. Discontinued ibuprofen (ibuprofen 200 mg oral tablet)2 tab(s) by mouth every 6 hours as needed for pain. Take with food or milk.. mupirocin topical (mupirocin 2% topical ointment)1 application Topical three (3) times a day. APPLYIN BOTH NOSTRILS TWICE A DAY DIRECTED. START 5 DAYS PRIOR TO SURGERY. rosuvastatin (rosuvastatin 40 mg oral tablet)1 tab(s) by mouth daily at bedtime. Refills: 0. I have reviewed the [place] Automated Rx Reporting System (OARRS) report for this patient for refill pattern and other prescriber involvement as part of the appropriate surveillance for the provision ofacute and chronic controlled medications. The report was requested and reviewed on the date of thisentry, and was considered in the prescribing process Follow Up Follow Up with ALISSA KANG MD When 09/25/2023 08:30 AM EDT Where: [address] [facility] [address] [facility] [place] [address]- [phone] Follow Up with ILDA BARBOSA MD, Neurology Service When Why: Call for follow up appointment in 4-6 weeks Where: [address] [place] [address]- [phone] Follow Up with HEATHER ROBLES APRN-DANG When Why: The office will call you tomorrow with a follow up appointment on Thursday. Have a BMP drawn prior to your office visit Have a PA LAT CXR done here at [facility] one hour prior to your office visit Where: [address] [facility] [place] [address]- [phone] Follow Up with [facility] When Why: Provider will contact you after discharge to schedule home nursing visits. Please call [phone] if you have questions related to home healthcare. . Where: Follow Up with [facility] will contact you for an appointment in 4-6weeks If you have any questions please call:[phone]. When Where: Follow Up with SNOW VILLEGAS DO When Why: PLEASE CALL THIS OFFICE TO SCHEDULE A HOSPITAL FOLLOW UP APPOINTMENT. Where: [address] [facility] [place], [place] [id number]- [phone] Follow Up Appointments No qualifying data available. Follow Up Labs/Studies Discharge Labs Discharge Outpatient Labwork - Ordered -- BMP, Diuresis, Have a BMP drawn on 08/02/23 13:29:00 EDT Discharge Studies Discharge Outpatient Radiology - Ordered -- PA LAT PA LAT Chest Xray, Pleural effusions, Have a PA LAT CXR done here at [facility] one hour prior to your office visit, 08/02/23 13:29:00 EDT Discharge Diet Discharge Diet - Ordered -- Diet Restrictions: Cardiac diet, Sodium limit: Low, Fats limit: Low, 08/02/23 13:29:00 EDT Discharge Activity Discharge Activity - Ordered -- Lifting Restricted less than 10 pounds May Shower, Driving is Restricted, 08/02/23 13:29:00 EDT Condition on Discharge Stable Readmission Risk/Palliative Score No qualifying data available. Discharge Disposition Home with [facility] Information Provided To Patient and [1] XR Chest 2 Views; ZUNILDA BERG MD 08/02/2023 05:31 EDT Digitally Signed by CARROLL BOYKIN on 08/02/2023 04:07 PM [id number] Note Date of Service 08/02/2023 AV temporary pacemaker wires removed without problems Digitally Signed by CARROLL BOYKIN RN X RAY-FULL STACK NET DEVELOPER on 08/02/2023 11:12 AM [id number] Note ORIGINAL EXAMINATION: TWO XRAY VIEWS OF THE CHEST 08/02/2023 5:32 am COMPARISON: None. HISTORY: ORDERING SYSTEM PROVIDED HISTORY: Reason for Exam: abnormal lung sounds IMPRESSION: Sternotomy wires are present the chest wall. Left subclavian central venous catheter tube tip is in the SVC. Left atrial appendage clip is noted. Heart valve prosthesis is noted. There are small bilateral effusions. Mild hazy airspace disease at the lung bases. Heart size is mildly enlarged. Atherosclerotic calcification of the aorta is noted. No pneumothorax. Mild interstitial opacities are present bilaterally. Findings could represent mild congestion/edema versus developing infectious or inflammatory process. Interpreted by: Zunilda Berg MD Preliminary Report By: Zunilda Berg MD Electronically signed By Zunilda Berg MD Dictated Date: 08/02/2023 6:05:48 AM Prelim Date: 08/02/2023 6:06:51 AM Sign Date: 08/02/2023 6:06:51 AM Ordering Provider: [facility]Sum[id number] Note Date of Service 08/01/2023 postop day #4 Chief Complaint This is a 58-year-old male with past medical history of chronic diastolic heart failure, hypothyroidism, aortic stenosis, and mild CAD who presented yesterday for an aortic valve replacement. Intraoperative OMAIRA was reviewed by both Dr. Ly and Dr. Bhatti and neither felt at that time that the echo parameters supported severe aortic stenosis. Surgery was aborted. Patient recovered in the CV SICU, a CT calcium score of the aortic valve was completed and the score was elevated at 2556. Patient also had a CT of the head secondary to his symptom of dizziness and a neurology consult. CT of the head was negative for any acute findings. Neurology is recommending MRI of the head/brain. Results discussed with Dr. Cooper, and he discussed with Dr. Kang and the family and it was decided to proceed with surgery. Patient underwent an aortic valve replacement and left atrial appendage clipping with Dr. Cooper on 07/28/2023. He tolerated the surgery well, was transferred to the CV SICU in stable condition, on the vent. He had increased chest tube output in the evening and required 2 units of platelets and a dose of DDAVP for total output of 846 cc. Drainage subsided. He was extubated on overnight and tolerated nasal cannula without difficulty. Postop day #1. He is sitting up in the chair, on room air, heart rate 90s low 100s, blood pressures in the 120s and he is only complaint right now is incisional discomfort. Will start beta-waqas, give one-time dose of Lasix, 1 g of calcium chloride. Patient developed hypotension therefore beta-waqas discontinued and patient received 250 cc of albumin and calcium chloride. Kept in unit due to hypotension. POD #2: Heart rate ranging 87-1 24. Will start Lopressor 12.5 mg twice daily. Start midodrine 10 mg 3 times daily and Lasix 20 mg IV twice daily. Discontinue chest tubes. Transfer to stepdown. POD #3: Patient developed atrial fibrillation earlier this morning. Started on amiodarone protocol. Remains in atrial fibrillation thismorning. Will increase Lopressor to 25 mg twice daily. Patient continues to report shortness of breath while sleeping. Chest x-ray shows mild left basilar atelectasis. Continue Lasix 20 mg IV push twice daily. Postop day #4. Lasix discontinued. Bumex 4 mg p.o. twice daily added. Statin placed on hold secondary to an increase in LFTs. Midodrine decreased to twice daily. Subjective Sitting up in the chair, states he feels very good today, will ready to go home Objective Vitals and Measurements T: 36.8 C (Oral) TMIN: 36.2 C (Oral) TMAX: 37.2 C (Oral) HR: 77(Apical) RR: 20 BP: 119/62 SpO2: 94%WT: 97.7 kg Intake and Output 7AM Yesterday to 7AM Today Intake and Output (Last 24 hours) Intake Oral Intake 1610.00 Output Urine Voided 200.00 Stool Count 3.00 Urine Count 4.00 Total Summary Total Intake 1610.00 Total Output 200.00 Fluid Balance 1410.00 Physical Exam Lungs: Bilateral, clear, respirations easy regular nonlabored, on room air with SaO2 of 94% Heart: Regular S1-S2, monitor normal sinus rhythm Incision: Midsternal incision open to air without drainage Abdomen: Soft, nontender, bowel sounds present, + BM Neurological: Intact Extremities: Well-perfused Temporary pacemaker wires in place Central line continue poor IV access Discharge plan: Home Weight Current Weight Dosing Weight: 96.5 kg (07/28/23) Current Weight: 97.7 kg (08/01/23) Current Weight: 97.8 kg (07/31/23) Medications Medications (33) Active Scheduled: (17) amiodarone 200 mg tablet 400 mg 2 tab(s), Oral, BIDM amiodarone 200 mg tablet 200 mg 1 tab(s), Oral, qDayM aspirin 81 mg EC 81 mg 1 tab(s), Oral, qDayM bumetanide 1 mg tablet 4 mg 4 tab(s), Oral, BID docusate calcium 240 mg Capsule 240 mg 1 cap(s), Oral, BID enoxaparin 40 mg/ 0.4mL syringe 40 mg 0.4 mL, Subcutaneous, qDay ferrous sulfate 325 mg Tablet 325 mg 1 tab(s), Oral, BIDM folic acid 0.4 mg tablet 0.8 mg 2 tab(s), Oral, qDay insulin lispro 100 units/mL Soln (3 mL) Give 0-5 units/dose, Subcutaneous, TIDAC levothyroxine 100 mcg tablet 100 mcg 1 tab(s), Oral, qDayAC metoprolol tartrate 25 mg tablet 25 mg 1 tab(s), Oral, BIDM midodrine 5 mg tablet 10 mg 2 tab(s), Oral, BID multivitamin (Chromagen Forte) with iron Vitamin B Complex with C, Folic Acid and Iron tablet 1 tab(s), Oral, qDay mupirocin 2% Ointment 22 Gram(s) tube 1 cyril, Nostril, each, BID pantoprazole 40 mg EC tablet 40 mg 1 tab(s), Oral, qDayAC potassium chloride 20 mEq ER tablet 20 mEq 1 tab(s), Oral, TIDM traZODONE 100 mg Tablet 100 mg 1 tab(s), Oral, qHS Continuous: (1) amiodarone 450 mg [0.5 mg/min] + sodium chloride PABLO 250 mL 250 mL, Intravenous, 16.67 mL/hr PRN: (15) acetaminophen 325 mg Tablet 650 mg 2 tab(s), Oral, q4h Al hydrox/Mg hydrox/simethicone 200-200-20 mg/5 mL Susp UD 30 mL, Oral, q2h bisacodyl 10 mg Suppository 10 mg 1 supp, Rectal, qDay bismuth subsalicylate 262 mg/15 mL 240 mL 30 mL, Oral, AsDirected dextrose 50% Solution Disp syringe 50 mL 12.5 gram(s) 25 mL, IV Push, AsDirected magnesium hydroxide 8% Suspension 30 mL UD 30 mL, Oral, qDay magnesium sulfate 4g/50mL PMX 4 g 50 mL, IV Piggyback, AsDirected melatonin 3 mg tablet 3 mg 1 tab(s), Oral, qHS ondansetron 2 mg/ 1 mL 2 mL INJ 4 mg 2 mL, IV Push, q4h phenol topical 1.4% Spr 1 spray(s), Topical, q1h polyethylene glycol 3350 - UD packet 17 gram(s) 15 mL, Oral, qDay potassium chloride (PMX) 20 mEq 50 mL, IV Piggyback, AsDirected potassium chloride (PMX) 10 mEq 50 mL, IV Piggyback, AsDirected tramadol 50 mg Tablet 25 mg 0.5 tab(s), Oral, q4h tramadol 50 mg Tablet 50 mg 1 tab(s), Oral, q4h Lab Results 07/31 03:31 WBC: 7.4 Hgb: 7.3 L Hct: 21.4 L Platelet: 171 Neutrophil %: 67.9 Glucose Level: 99 Sodium Level: 132 L Potassium Level: 4.7 BUN: 21.0 Creatinine Lvl (s): 0.89 07/30 04:40 WBC: 10.1 Hgb: 8.0 L Hct: 22.9 L Platelet: 137 L Neutrophil %: 73.5 Glucose Level: 130 H Sodium Level: 136 Potassium Level: 4.6 BUN: 20.0 Creatinine Lvl (s): 0.84 07/30 02:15 Potassium Level: 4.5 Imaging Results and Diagnostics (08/01/2023 06:22 EDT XR Chest 2 Views) ORIGINAL EXAMINATION: TWO XRAY VIEWS OF THE CHEST08/01/2023 6:22 am COMPARISON: 07/31/2023 HISTORY: ORDERING SYSTEM PROVIDED HISTORY: Reason for Exam: abnormal breath sounds FINDINGS: Left subclavian approach central venous catheter, valve prosthesis, left atrial appendage clip, and median sternotomy wires are unchanged. Grossly stable cardiomediastinal silhouette. No visible pneumothorax. Similar appearing small left pleural effusion with adjacent atelectasis/infiltrate. Right mid/lower lung atelectasis is similar to before. Osseous structures are stable. IMPRESSION: Small left pleural effusion and adjacent atelectasis/infiltrate is not significantly changed. [1] Assessment/Plan 1. Aortic stenosis s/p AVR, ALONDRA Clipping 07/28/23, EF 55% On ASA, Lopressor, and midodrine No plans for further anticoagulation per Dr. Cooper 2. Acute blood loss anemia Hemoglobin 7.3/hematocrit 21.4 Ferrous sulfate and folic acid added 3. Chronic diastolic HF (heart failure) OMAIRA intraoperatively revealed an EF greater than 55% On Lasix 20 mg IV twice daily 4. Dyslipidemia Statin placed on hold AST 82, ALT 64 5. Hypothyroidism On levothyroxine 6. Mild CAD On ASA, and beta-waqas 7. Hyperglycemia, HgB A1C 5.3% Resolved, glucose this morning 99 On Humalog sliding scale insulin if needed 8. Insomnia On trazodone 9. Atrial fibrillation Currently in normal sinus rhythm On amiodarone and Lopressor Discontinue Lasix Bumex 4 mg p.o. twice daily Continue potassium chloride 3 times daily Statin placed on hold Midodrine decreased to twice daily CBC, CMP, chest x-ray in a.m. Ambulate Continue aggressive pulmonary toilet Patient seen and discussed with Dr. Shultz [1] XR Chest 2 Views; ZUNILDA BERG MD 08/01/2023 06:22 EDT Digitally Signed by CARROLL BOYKIN on 08/01/2023 10:52 AM [id number] ORIGINAL EXAMINATION: TWO XRAY VIEWS OF THE CHEST08/01/2023 6:22 am COMPARISON: 07/31/2023 HISTORY: ORDERING SYSTEM PROVIDED HISTORY: Reason for Exam: abnormal breath sounds FINDINGS: Left subclavian approach central venous catheter, valve prosthesis, left atrial appendage clip, and median sternotomy wires are unchanged. Grossly stable cardiomediastinal silhouette. No visible pneumothorax. Similar appearing small left pleural effusion with adjacent atelectasis/infiltrate. Right mid/lower lung atelectasis is similar to before. Osseous structures are stable. IMPRESSION: Small left pleural effusion and adjacent atelectasis/infiltrate is not significantly changed. I have personally reviewed the images of this examination and agree with the resident's findings and interpretation. Interpreted by: Zunilda Berg MD Preliminary Report By: Jacinto Tate Electronically signed By Zunilda Berg MD Dictated Date: 08/01/2023 6:26:28 AM Prelim Date: 08/01/2023 6:28:46 AM Sign Date: 08/01/2023 6:42:47 AM Ordering Provider: [facility]04-20-2024 NoteSINUS RHYTHM LVH WITH SECONDARY REPOLARIZATION ABNORMALITY MINIMAL ST ELEVATION, INFERIOR LEADS Electronic Signature: DEJAN BHATTI MD 08/01/2023 17:04:23[facility] 04-19-2024 Note Date of Service 07/31/2023 Chief Complaint POD #3 This is a 58-year-old male with past medical history of chronic diastolic heart failure, hypothyroidism, aortic stenosis, and mild CAD who presented yesterday for an aortic valve replacement. Intraoperative OMAIRA was reviewed by Both Dr. Ly and Dr. Bhatti and neither felt at that time that the echo parameters supported severe aortic stenosis. Surgery was aborted. Patient recovered in the CV SICU, a CT calcium score of the aortic valve was completed and the score was elevated at 2556. Patient also had a CT of the head secondary to his symptom of dizziness and a neurology consult. CT of the head was negative for any acute findings. Neurology is recommending MRI of the head/brain which is pending. Discussed with Dr. Cooper, he discussed with Dr. Kang. This was discussed with the family and then surgery was completed. Patient had a aortic valve replacement and left atrial appendageclipping with Dr. Cooper. He tolerated the surgery well, was transferred to the CV SICU in stablecondition, on the vent, on no vasoactive drips. He did have increased chest tube output in the evening and required 2 units of platelets and a dose of DDAVP for total output of 846 cc. Drainage subsided. He was extubated on overnight and tolerated nasal cannula without difficulty. Postop day 1 he is sitting up in the chair, on room air, heart rate 90s low 100s, blood pressures in the 120s and he is only complaint right now is incisional discomfort. Will start beta-waqas, give one- time dose ofLasix, gram calcium chloride. Patient may transfer to the CV stepdown. [1] patient developed hypotension therefore beta-waqas discontinued and patient received 250 cc of albumin and calcium chloride. Kept in unit due to hypotension. POD #2: Heart rate ranging 87-1 24. Will start Lopressor 12.5 mg twice daily. Start midodrine 10 mg 3 times daily and Lasix 20 mg IV twice daily. Discontinue chest tubes. Transfer to stepdown unit. [1] POD #3: Patient developed atrial fibrillation earlier this morning. Started on amiodarone protocol. Remains in atrial fibrillation this morning. Will increase Lopressor to 25 mg twice daily. Dulcolax suppository and Fleet enema for bowel movement.Patient continues to report shortness of breath while sleeping. Chest x-ray shows mild left basilar atelectasis. Continue Lasix 20 mg IV push twice daily. Subjective Patient sitting up in chair at side of bed. States that he continues to feel short of breath while sleeping. Objective Vitals and Measurements T: 37.0 C (Oral) TMIN: 36.5 C (Oral) TMAX: 37.7 C (Oral) HR: 106(Apical) RR: 18 BP: 99/69 SpO2: 96%WT: 97.8 kg Intake and Output 7AM Yesterday to 7AM Today Intake and Output (Last 24 hours) Intake Oral Intake 960.00 Output Urine Voided 2300.00 Total Summary Total Intake 960.00 Total Output 2300.00 Fluid Balance -1340.00 Physical Exam Constitutional: Alert, oriented, drowsy HEENT: Normocephalic, atraumatic Lungs: Unlabored, shallow respirations, lung sounds Clear and diminished in bilateral bases, SpO2 94 to 96% on room air Heart: Atrial fibrillation, S1-S2, no murmur or rub, heart rate ranging 10 6-1 79, temporary atrialand ventricular wires intact Abdomen: Rounded, semifirm, bowel sounds hypoactive, positive flatus, no bowel movement Extremities: Well-perfused, pedal pulses +2 bilaterally, +1 bilateral lower leg edema Integumentary: Midline sternal incision open to air, show approximated, no drainage Central venous access: Left subclavian triple-lumen Disposition: Home with spouse Weight Current Weight Dosing Weight: 96.5 kg (07/28/23) Current Weight: 97.8 kg (07/31/23) Current Weight: 95.9 kg (07/30/23) Medications Medications (35) Active Scheduled: (19) amiodarone 200 mg tablet 400 mg 2 tab(s), Oral, BIDM amiodarone 200 mg tablet 200 mg 1 tab(s), Oral, qDayM aspirin 81 mg EC 81 mg 1 tab(s), Oral, qDayM bisacodyl 10 mg Suppository 10 mg 1 supp, Rectal, Once docusate calcium 240 mg Capsule 240 mg 1 cap(s), Oral, BID enoxaparin 40 mg/ 0.4mL syringe 40 mg 0.4 mL, Subcutaneous, qDay furosemide 20 mg/2 mL vial 20 mg 2 mL, IV Push, BID insulin lispro 100 units/mL Soln (3 mL) Give 0-5 units/dose, Subcutaneous, TIDAC levothyroxine 100 mcg tablet 100 mcg 1 tab(s), Oral, qDayAC metoprolol tartrate 25 mg tablet 25 mg 1 tab(s), Oral, BIDM midodrine 5 mg tablet 10 mg 2 tab(s), Oral, TID Misc communication order 1 EA, Miscellaneous, Daily multivitamin (Chromagen Forte) with iron Vitamin B Complex with C, Folic Acid and Iron tablet 1 tab(s), Oral, qDay mupirocin 2% Ointment 22 Gram(s) tube 1 ycril, Nostril, each, BID pantoprazole 40 mg EC tablet 40 mg 1 tab(s), Oral, qDayAC potassium chloride 20 mEq ER tablet 20 mEq 1 tab(s), Oral, TIDM rosuvastatin 20 mg tablet 40 mg 2 tab(s), Oral, qHS sodium biphosphate-sodium phosphate 19 gm-7 gm Enema 133 mL, Rectal, Once traZODONE 100 mg Tablet 100 mg 1 tab(s), Oral, qHS Continuous: (1) amiodarone 450 mg [0.5 mg/min] + sodium chloride PALBO 250 mL 250 mL, Intravenous, 16.67 mL/hr PRN: (15) acetaminophen 325 mg Tablet 650 mg 2 tab(s), Oral, q4h Al hydrox/Mg hydrox/simethicone 200-200-20 mg/5 mL Susp UD 30 mL, Oral, q2h bisacodyl 10 mg Suppository 10 mg 1 supp, Rectal, qDay bismuth subsalicylate 262 mg/15 mL 240 mL 30 mL, Oral, AsDirected dextrose 50% Solution Disp syringe 50 mL 12.5 gram(s) 25 mL, IV Push, AsDirected magnesium hydroxide 8% Suspension 30 mL UD 30 mL, Oral, qDay magnesium sulfate 4g/50mL PMX 4 g 50 mL, IV Piggyback, AsDirected melatonin 3 mg tablet 3 mg 1 tab(s), Oral, qHS ondansetron 2 mg/ 1 mL 2 mL INJ 4 mg 2 mL, IV Push, q4h phenol topical 1.4% Spr 1 spray(s), Topical, q1h polyethylene glycol 3350 - UD packet 17 gram(s) 15 mL, Oral, qDay potassium chloride (PMX) 20 mEq 50 mL, IV Piggyback, AsDirected potassium chloride (PMX) 10 mEq 50 mL, IV Piggyback, AsDirected tramadol 50 mg Tablet 25 mg 0.5 tab(s), Oral, q4h tramadol 50 mg Tablet 50 mg 1 tab(s), Oral, q4h Lab Results 07/30 04:40 WBC: 10.1 Hgb: 8.0 L Hct: 22.9 L Platelet: 137 L Neutrophil %: 73.5 Glucose Level: 130 H Sodium Level: 136 Potassium Level: 4.6 BUN: 20.0 Creatinine Lvl (s): 0.84 07/30 02:15 Potassium Level: 4.5 07/29 04:32 WBC: 10.1 Hgb: 8.0 L Hct: 23.0 L Platelet: 117 L Neutrophil %: 72.2 Glucose Level: 122 H Sodium Level: 135 L Potassium Level: 4.1 BUN: 22.0 Creatinine Lvl (s): 0.85 Imaging Results and Diagnostics XR Chest 1 View Result Date: July 31, 2023 Verified By: ZUNILDA BERG MD CLINICAL STATEMENT: IMPRESSION: Mild left basilar atelectasis or other airspace disease. Small left pleural effusion not excluded. Low lung volumes. I have personally reviewed the images of this examination and agree with theresident's findings and interpretation. EKG EKG - Completed -- 07/29/23 12:33:00 EDT Electrocardiogram (EKG) - InProcess -- 07/28/23 16:54:00 EDT Electrocardiogram (EKG) - Ordered -- 07/31/23 2:01:00 EDT Assessment/Plan 1. Aortic stenosis s/p AVR, ALONDRA Clipping 07/28/23, EF 55% Atrial fibrillation. Heart rate ranging 10 6-1 79. Blood pressures ranging 99/69 to 132/94. On aspirin. No plans for further anticoagulation per Dr. Cooper. 2. Acute blood loss anemia H&H 8 and 29.9. No signs of active bleeding 3. Chronic diastolic HF (heart failure) Echocardiogram on 05/29/2023 had revealed an EF of 65 to 70%. OMAIRA intraoperatively revealing an EF greater than 55%. Fluid balance -507 cc over 24 hours. On Lasix 20 mg IV push twice daily. 4. Dyslipidemia On rosuvastatin 5. Hypothyroidism On levothyroxine 6. Mild CAD Heart catheterization on 06/23/2023 revealed 50% stenosis of the mid first obtuse marginal. On aspirin, metoprolol tartrate, and rosuvastatin. 7. Hyperglycemia, HgB A1C 5.3% Glucoses ranging 1 15-1 49. On Humalog sliding scale insulin 8. Insomnia On trazodone 9. Atrial fibrillation Patient developed atrial fibrillation with RVR with heart rate as high as 179 earlier this morning subsequently started on amiodarone protocol. Remains in atrial fibrillation this morning. Will increase Lopressor to 25 mg twice daily. If patient were to remain in atrial fibrillation, will need to evaluate for initiation of anticoagulation. Plan: Dulcolax suppository and Fleet enema for bowel movement Increase Lopressor to 25 mg twice daily Continue to encourage aggressive pulmonary toileting with use of incentive spirometry and Acapella Encourage ambulation Fourth day studies in a.m. Patient seen and discussed with Dr. Shultz. This note was generated using a voice recognition system. As a result, errors are possible and common, including incorrect words, spellings, grammar, gender, phrases, and punctuation that may be out of context or that were missed in checking this note before saving. Reasonable effort is made to correct such errors, but with demands of normal work flow, many are missed. [1] Progress Note; JOSE DYLANORIANA JAIMES 07/30/2023 09:24 EDT Digitally Signed by DYLAN GARCIA on 07/31/2023 10:25 AM [id number] Note ORIGINAL EXAMINATION: ONE XRAY VIEW OF THE CHEST07/31/2023 4:42 am COMPARISON: 07/30/2023. HISTORY: ORDERING SYSTEM PROVIDED HISTORY: Reason for Exam: decreased breath sounds FINDINGS: Unchanged central venous catheter, median sternotomy wires, valve prosthesis, and left atrial appendage clip. Low lung volumes. Grossly unchanged cardiomediastinal silhouette. No pneumothorax. Right mid to lower lung atelectasis is unchanged. No significant right-sided pleural effusion. There is hazy left basilar opacification. No acute osseous abnormality identified. IMPRESSION: Mild left basilar atelectasis or other airspace disease. Small left pleural effusion not excluded. Low lung volumes. I have personally reviewed the images of this examination and agree with the resident's findings and interpretation. Interpreted by: Zunilda Berg MD Preliminary Report By: Jacinto Tate Electronically signed By Zunilda Berg MD Dictated Date: 07/31/2023 5:00:34 AM Prelim Date: 07/31/2023 5:03:11 AM Sign Date: 07/31/2023 5:16:06 AM [facility] NoteATRIAL FIBRILLATION WITH RAPID V-RATE LVH WITH SECONDARY REPOLARIZATION ABNORMALITY PROBABLE INFERIOR INFARCT, ACUTE Electronic Signature: RESEE VIDES MD 07/31/2023 17:05:02[facility] 04-18-2024 Note If ancillary studies were utilized, the following Laboratory Developed Test (LDT) disclaimer will apply: Under CLIA requirements, [facility] is qualified to perform high complexity testing. For all ancillary stains, positive and negative controls stain appropriately. Performance characteristics of immunohistochemical and chromogenic in-situ hybridization tests have been deter mined by [facility]. These tests are used for clinical purposes, They should not be regarded as investigational or for research. [facility] 04-18-2024 Note ORIGINAL HISTORY: Chest tube removal COMPARISON: Earlier same day FINDINGS: Sternotomy wires, valve prosthesis and an appendage clip are unchanged. Lung volumes are low. There is subsegmental atelectasis on the right. The pulmonary vasculature is unremarkable in appearance. IMPRESSION: Mediastinal drain removal, otherwise no change. Interpreted by: Cr Winter MD Preliminary Report By: Cr Winter MD Electronically signed By Cr Winter MD Dictated Date: 07/30/2023 9:42:06 AM Prelim Date: 07/30/2023 9:43:20 AM Sign Date: 07/30/2023 9:43:20 AM Ordering Provider: [facility]04-18-2024 Note ORIGINAL EXAMINATION: ONE XRAY VIEW OF THE CHEST07/30/2023 5:06 am COMPARISON: 07/29/2023 HISTORY: ORDERING SYSTEM PROVIDED HISTORY: Reason for Exam: pleural effusion FINDINGS: Central venous catheter, median sternotomy wires, valve prosthesis, left atrial appendage clip, mediastinal drain, and left chest tube are unchanged. Cardiomediastinal silhouette is unchanged. No visible pneumothorax. Small left pleural effusion, with worsening left basilar/retrocardiac opacification. Unchanged right mid lung scarring/atelectasis. No acute osseous abnormality. IMPRESSION: Worsening left basilar/retrocardiac opacification. No significant interval change otherwise. I have personally reviewed the images of this examination and agree with the resident's findings and interpretation. Interpreted by: Zunilda Berg MD Preliminary Report By: Jacinto Tate Electronically signed By Zunilda Berg MD Dictated Date: 07/30/2023 5:23:05 AM Prelim Date: 07/30/2023 5:26:34 AM Sign Date: 07/30/2023 5:40:29 AM Ordering Provider: [facility]04-17-2024 NoteSINUS RHYTHM LEFT VENTRICULAR HYPERTROPHY INFERIOR INFARCT, OLD LATERAL INFARCT, ACUTE ANTERIOR ST ELEVATION, PROBABLY DUE TO LVH Electronic Signature: REESE VIDES MD 07/30/2023 23:16:36[facility] 04-17-2024 Note If ancillary studies were utilized, the following Laboratory Developed Test (LDT) disclaimer will apply: Under CLIA requirements, [facility] is qualified to perform high complexity testing. For all ancillary stains, positive and negative controls stain appropriately. Performance characteristics of immunohistochemical and chromogenic in-situ hybridization tests have been deter mined by [facility]. These tests are used for clinical purposes, They should not be regarded as investigational or for research. [facility] 04-17-2024 Note If ancillary studies were utilized, the following Laboratory Developed Test (LDT) disclaimer will apply: Under CLIA requirements, [facility] is qualified to perform high complexity testing. For all ancillary stains, positive and negative controls stain appropriately. Performance characteristics of immunohistochemical and chromogenic in-situ hybridization tests have been deter mined by [facility]. These tests are used for clinical purposes, They should not be regarded as investigational or for research. [facility] 04-17-2024 Note If ancillary studies were utilized, the following Laboratory Developed Test (LDT) disclaimer will apply: Under CLIA requirements, [facility] is qualified to perform high complexity testing. For all ancillary stains, positive and negative controls stain appropriately. Performance characteristics of immunohistochemical and chromogenic in-situ hybridization tests have been deter mined by [facility]. These tests are used for clinical purposes, They should not be regarded as investigational or for research. [facility] 04-17-2024 Note If ancillary studies were utilized, the following Laboratory Developed Test (LDT) disclaimer will apply: Under CLIA requirements, [facility] is qualified to perform high complexity testing. For all ancillary stains, positive and negative controls stain appropriately. Performance characteristics of immunohistochemical and chromogenic in-situ hybridization tests have been deter mined by [facility]. These tests are used for clinical purposes, They should not be regarded as investigational or for research. [facility] 04-17-2024 Note If ancillary studies were utilized, the following Laboratory Developed Test (LDT) disclaimer will apply: Under CLIA requirements, [facility] is qualified to perform high complexity testing. For all ancillary stains, positive and negative controls stain appropriately. Performance characteristics of immunohistochemical and chromogenic in-situ hybridization tests have been deter mined by [facility]. These tests are used for clinical purposes, They should not be regarded as investigational or for research. [facility] 04-17-2024 Note If ancillary studies were utilized, the following Laboratory Developed Test (LDT) disclaimer will apply: Under CLIA requirements, [facility] is qualified to perform high complexity testing. For all ancillary stains, positive and negative controls stain appropriately. Performance characteristics of immunohistochemical and chromogenic in-situ hybridization tests have been deter mined by [facility]. These tests are used for clinical purposes, They should not be regarded as investigational or for research. [facility] 04-17-2024 Note ORIGINAL EXAMINATION: ONE XRAY VIEW OF THE CHEST07/29/2023 5:16 am COMPARISON: 07/28/2023 HISTORY: ORDERING SYSTEM PROVIDED HISTORY: Reason for Exam: post surgery FINDINGS: Interval removal of enteric and endotracheal tubes. Mediastinal drain, left chest tube, valve prosthesis, left atrial appendage clip, and central venous catheter are unchanged. Grossly stable cardiomediastinal silhouette. No visible pneumothorax. Right midlung scarring/atelectasis is unchanged. Similar appearing appearing small left pleural effusion. No acute bony abnormality. IMPRESSION: Interval removal of enteric and endotracheal tubes. Otherwise, no significant interval change. I have personally reviewed the images of this examination and agree with the resident's findings and interpretation. Interpreted by: Zunilda Berg MD Preliminary Report By: Jacinto Tate Electronically signed By Zunilda Berg MD Dictated Date: 07/29/2023 5:18:39 AM Prelim Date: 07/29/2023 5:21:17 AM Sign Date: 07/29/2023 5:32:16 AM Ordering Provider: [facility]04-16-2024 Note ORIGINAL EXAMINATION: ONE XRAY VIEW OF THE CHEST 07/28/2023 7:21 pm COMPARISON: AP chest radiograph 07/28/2023. HISTORY: ORDERING SYSTEM PROVIDED HISTORY: Reason for Exam: increase chest output FINDINGS: Stable aeration is noted with suspected small left pleural effusion. No visible pneumothoraces. Stable scarring versus atelectasis to the right mid lung. Stable appearance of the cardiomediastinal silhouette with redemonstration of prosthetic valve, left atrial appendage clip, median sternotomy wires, and mediastinal drains. Stable appearance also of a left subclavian central line, enteric and endotracheal tubes. IMPRESSION: Stable examination with unchanged aeration and supportive devices Interpreted by: Elvis Gleason Preliminary Report By: Elvis Gleason Electronically signed By Elvis Gleason Dictated Date: 07/28/2023 7:28:06 PM Prelim Date: 07/28/2023 7:31:31 PM Sign Date: 07/28/2023 7:31:31 PM Ordering Provider: [facility]04-16-2024 Note ORIGINAL EXAMINATION: ONE XRAY VIEW OF THE CHEST07/28/2023 5:10 pm COMPARISON: 03/18/2023 HISTORY: ORDERING SYSTEM PROVIDED HISTORY: Reason for Exam: pleural effusion ET/OG placement FINDINGS: Endotracheal tube terminates approximately 3.6 cm above the ira. Enteric tube side port and tip project over the proximal stomach. Suspected mediastinal drains as well as external hardware. Left subclavian central venous catheter tip projects over the suspected mid SVC. Prosthetic cardiac valve and left atrial appendage clip. Sternotomy wires. The cardiomediastinal silhouette is within normal limits given portable technique and poor inspiratory effort. Atherosclerotic calcification of the aorta. Bandlike linear opacity in the right mid lung, likely atelectasis. Known pneumothorax, focal consolidation or large volume pleural effusion. No acute osseous abnormality. IMPRESSION: Endotracheal tube and enteric tube in appropriate position. Additional devices as above. Low lung volumes with suspected atelectasis in the right mid lung. I have personally reviewed the images of this examination and agree with the resident's findings and interpretation. Interpreted by: Naga Otero DO Preliminary Report By: Alisha Bacon Electronically signed By Naga Otero DO Dictated Date: 07/28/2023 5:16:48 PM Prelim Date: 07/28/2023 5:20:41 PM Sign Date: 07/28/2023 5:26:07 PM [facility] History of Present Illness Patient history of COVID infection, hypothyroidism, aortic stenosis , chronic diastolic heart failure 06/23/2023 bicuspid aortic valve mid OM1 50% stenosis known to have severe aortic stenosis normal cardiac output mildly elevated left-sided filling pressures mild pulmonary hypertension check index 3.1, heart rate 54, RA mean 13, RV 39/3, PA 35/14 mean 23, wedge 24/22 mean 17, SVR 927 05/29/2023 LVEF 65 to 70% bicuspid aortic valve fused right and left commissure severe aortic stenosis at rest, very severe aortic stenosis with exercise. At peak mean gradient 84 mmHg, velocity 5.8 m/s, UMESH 1.0cm2 by Vm and 1.4cm2 by VTI. At rest mean gradient 43 mmHg; valve area by VTI was1.0 and by peak velocity was 1.1 DVI 0.27 01/22/2023 OMAIRA LVEF 60 to 65% bicuspid aortic valve moderate severe stenosis 11/14/2022 LVEF 60 to 65% GLS 18 ventricle septum 1.4 cm, possible bicuspid AV, severe aortic stenosis mean gradient 40 mmHg DVI 0.27 valve area 1.8 mildly dilated aortic root, mild to moderate MR 10/30/2021 LVEF 60 to 65% severe LVH cannot exclude bicuspid aortic valve , moderate stenosis DVI 0.3, mean gradient 31, valve area 1.2 trivial AI. Echodensity in right atrium adjacent to septum seen only on four-chamber views likely artifact. Aortic root mildly dilated 3.8 12/26/2019 LVEF 70% for aortic valve visualization mild/moderate aortic stenosis mild AI Physical Exam Vitals and Measurements T: 36.7 C (Oral) TMIN: 35.25 C TMAX: 36.7 C (Oral) HR: 62(Monitored) RR: 18 BP: 114/84 BP: 133/80(Line) SpO2: 97% HT: 175.3 cm WT: 96.5 kg BMI: 31.4 Oxygen Therapy: Room air Oxygen Flow Rate: 2 Social History Alcohol Frequency: 3-5 times per week., 08/13/2021 Home/Environment Living situation: Home/Independent. Safe place to go: Yes. Lives In: Multilevel home., 07/23/2023 Nutrition/Health Caffeine intake amount: one daily., 02/03/2020 Substance Abuse Use: Never., 02/03/2020 Tobacco Nicotine Use: Former smoker, quit more than 30 days ago. Type: Cigarettes., 07/01/2023 Nicotine Use: Former smoker, quit more than 30 days ago. Exposure to Tobacco Smoke Lives in non-smoking home., 03/18/2023 Family History Aortic valve replacement and aortoplasty: Mother (Dx at 75). Coronary artery disease: Father. Heart disease: Mother and Father. [place] - myocardial infarction: Father (Dx at 75). Assessment/Plan 1. Aortic stenosis Reviewed the images Both today's OMAIRA, prior OMAIRA and stress echo. (On stress echo even at rest it was suggestive severe aortic stenosis) patient symptoms are getting worse and interfering with his daily life and job. As a further workup today aortic valve calcium score was high 2556. Further suggestive severe aortic stenosis. From cardiac standpoint patient benefits from aortic valve surgery due to symptoms and objective findings Patient and family agree Case was discussed with surgical team Ordered: CT Coronary Calcium Score w/o Contrast Comments: calcium score of aortic valve Medication Administration Given Plasma-Lyte A PH-7.4 (ANES) 1000 mL, 1000 mL, Intravenous tranexamic acid (ANES) 1000 mg, 1000 mg, IV Piggyback cefz2s, 2 gram(s), IV Push (INT) diph5s, 50 mg, IV Push fam2, 20 mg, IV Push fen5, 150 mcg, IV Push mid2v, 6 mg, IV Push mid2v, 2 mg, IV Push thocxs65, 15 mL, Swish & Spit prop5, 100 mg, Intravenous roc10, 100 mg, IV Push suga2v, 200 mg, IV Push [id number], 1500 mg, IV Piggyback. For: Problem List/Past Medical History Ongoing Acute sinusitis with symptoms greater than 10 days Aortic stenosis BMI 30.0-30.9,adult BMI 32.0-32.9,adult Chronic diastolic HF (heart failure) Cough Dyslipidemia Former smoker Hypothyroidism Insomnia Left foot drop Left foot pain Mild CAD Mitral regurgitation Need for hepatitis C screening test Need for influenza vaccination Orthopnea Paresthesia of left foot Postnasal drip Pre-syncope Preoperative clearance Psoriasis Screening due Screening for colon cancer Screening for depression Screening for diabetes mellitus Screening for ischemic heart disease Screening for lung cancer Screening for prostate cancer Seasonal allergies Severe aortic stenosis Tinea pedis Tricuspid regurgitation Valvular heart disease Well adult exam Historical No qualifying data Procedure/Surgical History Cardiac catheterization: 06/23/23 Echocardiogram: 05/29/23 Echocardiogram: 10/30/21 CT angiography of head and neck with contrast: 07/04/20 Holter monitor: 01/22/20 Holter monitor: 01/22/20 Echocardiogram: 12/26/19 Echocardiogram: 12/26/19 Holter monitor: 2019 Echocardiogram: 01/28/16 Echocardiogram: 01/28/16 Loss of teeth due to extraction Lipoma Nerve repair; with autogenous vein graft (includes harvest of vein graft), each nerve Tonsillectomy Allergies NKA Medications What How Much When Why Instructions Last Dose Unchanged acetaminophen (Tylenol Extra Strength 500 mg oral tablet) 2 tab(s) by mouth Every 4 hours as needed for as needed for pain Unchanged aspirin (aspirin 81 mg oral delayed release tablet) 1 tab(s) by mouth Daily at bedtime pt was not told to stop ASA but will ask tomorrow when talsk to cvc to verify Unchanged betamethasone-clotrimazole topical (betamethasone-clotrimazole 0.05%- 1% topical cream) 1 Applicatorful Topical Two (2) times a day Tinea pedis Unchanged ibuprofen (ibuprofen 200 mg oral tablet) 2 tab(s) by mouth Every 6 hours as needed for for pain Take with food or milk. Unchanged levothyroxine (levothyroxine 100 mcg (0.1 mg) oral tablet) 1 tab(s) by mouth Once a day (in the morning) Unchanged metoprolol (metoprolol succinate 25 mg oral TABLET extended release) 0.5 tab(s) by mouth Daily at bedtime Do not crush or chew (controlled release) Unchanged mupirocin topical (mupirocin 2% topical ointment) 1 application Topical Three (3) times a day APPLY IN BOTH NOSTRILS TWICE A DAY DIRECTED. START 5 DAYS PRIOR TO SURGERY Unchanged rosuvastatin (rosuvastatin 40 mg oral tablet) 1 tab(s) by mouth Daily at bedtime Unchanged traZODone (traZODone 100 mg oral tablet) 1 tab(s) by mouth Daily at bedtime Insomnia please be scored tablets Digitally Signed by ALISSA KANG MD on 07/28/2023 01:24 PM [id number] Note ADDENDUM ADDENDUM: Additional impression: Borderline aneurysmal dilatation of the ascending thoracic aorta. Interpreted by: Andrae Connell MD Preliminary Report By: Andrae Connell MD Electronically signed By Andrae Connell MD Dictated Date: 07/28/2023 4:42:30 PM Prelim Date: 07/28/2023 4:43:26 PM Sign Date: 07/28/2023 4:43:26 PM Ordering Provider: ALISSA KANG ORIGINAL EXAMINATION: CT aortic valve calcium scoring, 07/28/2023 HISTORY: CT OF THE HEART WITHOUT CONTRAST, CORONARY ARTERY CALCIUM SCREENING COMPARISON: None TECHNIQUE: CT of the heart was obtained without intravenous contrast. Calcium scoring analysis was performed using a separate workstation. Dose modulation, iterative reconstruction, and/or weight based adjustment of the mA/kV was utilized to reduce the radiation dose to as low as reasonably achievable. FINDINGS: Aortic valve calcium score is 2556.8. Coronary artery calcium scoring not performed. There are coronary artery calcifications. EXTRACARDIAC STRUCTURES: The heart is borderline in size. The ascending thoracic aorta measures 4.4 cm at the level the right main pulmonary artery. Consolidations seen in the bilateral lower lobes. Nonspecific clustered nodular foci seen in the posterior right upper lobe, measuring up 10 mm. Associated scattered ground-glass opacities. The upper abdomen is not evaluated in detail. IMPRESSION: Aortic valve calcium score is 2556.8 Significant coronary artery calcifications. Calcium scoring of the coronary arteries was not performed. Right solid pulmonary nodule within the upper lobe measuring 10 mm detected on incomplete chest CT. Per Fleischner Society Guidelines, recommend prompt non-contrast Chest CT for further evaluation. These guidelines do not apply to immunocompromised patients and patients with cancer. Follow up in patients with significant comorbidities as clinically warranted. For lung cancer screening, adhere to Lung-RADS guidelines. Reference: Radiology. 2017; 284(1):228-43. Nonspecific bilateral lower lobe consolidations The findings were sent to the Radiology Results Communication Center at 1:43 pm on 07/28/2023 to be communicated to a licensed caregiver. Calcium Score Interpretation Percentile ranges: < 25%: Patient has less coronary calcification than can be expected based on gender and age. Based on the calcium score alone, no further evaluation is recommended. 25% to 75%: Patient has coronary calcification as can be expected based on gender and age. Based on the calcium score alone, no further evaluation is recommended. > 75%: Patient has more coronary calcification than can be expected based on gender and age. Based on the calcium score alone, further evaluation of cardiovascular risk is recommended. In all patients, consider further evaluation if multi-vessel or left-main predominant disease is present. CALCIUM SCORING OVERVIEW: Coronary calcium is a marker for plaque in a blood vessel or atherosclerosis (hardening of the arteries). The presence and amount of calcium detected in the coronary artery by the CT scan estimates the presence and amount of atherosclerotic plaque. These calcium deposits can appear years before the development of heart disease symptoms such as chest pain and shortness of breath. A calcium score is computed for each of the coronary arteries based upon the volume and density of the calcium deposits. This can be referred to as your calcified plaque burden. It does not correspond directly to the percentage of narrowing in the artery, but does correlate with the severity of the overall coronary atherosclerotic burden. This score is then used to determine the calcium percentile which compares your calcified plaque burden to that of other asymptomatic men and women of the same age. The calcium score, in combination with the percentile, enables your physician to determine your risk of developing symptomatic coronary artery disease, and to measure the progression of disease as well as the effectiveness of treatment. A score of zero indicates that there is no calcified plaque burden. This implies that there is no significant coronary artery narrowing and very low likelihood of a cardiac event over at least the next 3 years. It does not absolutely rule out the presence of soft, noncalcified plaque or totally eliminate the possibility of a cardiac event. A score greater than zero indicates at least some coronary artery disease. As the score increases, so does the likelihood of a significant coronary narrowing and the likelihood of a coronary event over the next 3 years. Similarly, the likelihood of a coronary event increases with increasing calcium percentiles. Interpreted by: Andrae Connell MD Preliminary Report By: Andrae Connell MD Electronically signed By Andrae Connell MD Dictated Date: 07/28/2023 1:30:58 PM Prelim Date: 07/28/2023 1:43:49 PM Sign Date: 07/28/2023 1:43:49 PM Ordering Provider: [facility]04-16-2024 Note ORIGINAL HISTORY: Dizziness COMPARISON: No TECHNIQUE: CT of the head prior to and following intravenous contrast, with sagittal and coronal reconstructions This exam was performed according to our departmental dose optimization program, and includes the following measures where applicable: automated exposure control, adjustment of the mAs and/or kVp according to patient size and/or exam, and an iterative reconstruction algorithm. FINDINGS: The ventricles and sulci are normal in size and configuration. There are no abnormal intra or extra-axial fluid collections. Crowley-white matter differentiation is maintained. There is no abnormal enhancement of the brain or its coverings. The calvaria and the bones of the base of the skull are intact. IMPRESSION: Normal examination. Interpreted by: Cr Winter MD Preliminary Report By: Cr Winter MD Electronically signed By Cr Winter MD Dictated Date: 07/28/2023 1:07:26 PM Prelim Date: 07/28/2023 1:08:25 PM Sign Date: 07/28/2023 1:08:25 PM Ordering Provider: [facility]04-16-2024 Neurology Consult note Date of Service 07/28/2023 Reason for Consultation dizziness Referring Physician CVICU team History of Present Illness 58 yr M admitted with dizziness. Per patient he has been having dizziness and light headedness for the past 4 weeks. Neurology consulted for dizziness. Patient found to have sever aortic stenosis. History obtained from medical records and documentation as well as from patient. At present patient denies any new onset focal neurological deficits, sensory loss, speech disturbances, visual disturbances, GARCIA. PMH HLD, severe aortic stenosis, CHF, hypothyroidism. Heart rate 58/min, BP 132/81 mmHg. On aspirin and statins at baseline. Review of Systems Complete ROS negative except as documented in HPI. Physical Exam Vitals and Measurements T: 36.7 C (Oral) TMIN: 35.25 C TMAX: 36.7 C (Oral) HR: 58(Monitored) RR: 18 BP: 114/84 BP: 132/81(Line) SpO2: 94% HT: 175.3 cm WT: 96.5 kg BMI: 31.4 Weight Dosing Weight: 96.5 kg (07/28/23) General Examination: conscious,awake HEENT: normocephalic, pupils BERL Heart: normal S1 S2 Lungs: Bilateral air entry present Abdomen: bowel sounds present Neuro: Conscious,awake, CN II-XII normal, no Nystagmus, EOMI, pupils BERL, No facial sensory loss, no facial asymmetry, tongue protrudes in midline, no uvula deviation, normal shoulder shrug, Power 5/5 B/L UE and LE, tone normal all 4 extremities, No tremors, No pronator drift, Reflexes + B/S/T/K/A, Plantars B/L flexor, No cerebellar signs, Romberg s deferred, No sensory loss to light touch/temperature, gait deferred, No frontal release signs. No involuntary movements, No NR, No Kernig s sign, No Brudzinski s sign, NIHSS 0 Lab Results WBC: 4.8 10^3/mcL (07/23/23:32:00) RBC: 4.14 10^6/mcL Low (07/23/23:32:00) Hgb: 13.5 G/dL (07/23/23:32:00) Hct: 39 % Low (07/23/23:32:00) MCV: 94.3 fL (07/23/23:32:00) MCH: 32.7 pg (07/23/23:32:00) MCHC: 34.6 G/dL (07/23/23:32:00) RDW: 14 % (07/23/23:32:00) Platelet: 198 10^3/mcL (07/23/23:32:00) MPV: 9.1 fL (07/23/23:32:00) Neutrophil %: 53.9 % (07/23/23 09:32:00) Lymphocyte %: 30.9 % (07/23/23 09:32:00) Monocyte %: 11.5 % (07/23/23:32:00) Eosinophil %: 2.7 % (07/23/23:32:00) Basophil %: 1 % (07/23/23:32:00) Neutrophil, Absolute: 2.6 10^3/mcL (07/23/23:32:00) Lymphocyte, Absolute: 1.5 10^3/mcL (07/23/23:32:00) Monocyte, Absolute: 0.5 10^3/mcL (07/23/23:32:00) Eosinophil, Absolute: 0.1 10^3/mcL (07/23/23 09:32:00) Basophil, Absolute: 0.1 10^3/mcL (07/23/23:32:00) Heparin dose (APTT): Unknown (07/23/23:32:00) APTT: 32.7 seconds (07/23/23:32:00) Protime: 10.8 seconds (07/23/23:32:00) PT International Ratio: 1 ratio (07/23/23:32:00) Fibrinogen: 485 mg/dL (07/23/23 09:32:00) UA Specimen Type: Clean Catch (07/23/23:32:00) UA Color: Yellow (07/23/23:32:00) UA Appear: Clear (07/23/23:32:00) UA Spec Grav: 1.020 (07/23/23:32:00) UA Glucose: Negative. (07/23/23:32:00) UA Bili: Negative. (07/23/23:32:00) UA Ketones: Negative.1 (07/23/23:32:00) UA Blood: Negative. (07/23/23:32:00) UA pH: 5.5 (07/23/23:32:00) UA Protein: Negative.1 (07/23/23:32:00) UA Urobilinogen: 0.2 (07/23/23:32:00) UA Nitrite: Negative. (07/23/23:32:00) UA Leuk Est: Negative. (07/23/23:32:00) Glucose Level: 94 mg/dL (07/23/23 09:32:00) Sodium Level: 139 mEq/L (07/23/23:32:00) Potassium Level: 5.1 mEq/L High (07/23/23:32:00) Chloride: 105 mEq/L (07/23/23:32:00) CO2: 28 mEq/L (07/23/23:32:00) Electrolyte Balance: 6 mEq/L (07/23/23:32:00) BUN: 17 mg/dL (07/23/23 09:32:00) Creatinine Lvl (s): 0.83 mg/dL (07/23/23 09:32:00) BUN/Creatinine Ratio: 20.5 ratio (07/23/23:32:00) Calcium Lvl: 9.9 mg/dL (07/23/23 09:32:00) Total Protein: 7 G/dL (07/23/23 09:32:00) Albumin Level: 4.1 G/dL (07/23/23 09:32:00) Globulin: 2.9 G/dL (07/23/23 09:32:00) A/G Ratio: 1.4 ratio (07/23/23 09:32:00) Bili Total: 0.5 mg/dL (07/23/23 09:32:00) Alk Phos: 73 U/L (07/23/23 09:32:00) AST/SGOT: 25 U/L (07/23/23 09:32:00) ALT/SGPT: 30 U/L (07/23/23 09:32:00) GFR Non-: >60 (07/23/23 09:32:00) GFR : >60 (07/23/23 09:32:00) Hgb A1c: 5.3 % (07/23/23 09:32:00) TSH: 2.819 mIU/mL (07/23/23 09:32:00) ABO/Rh Interp: A POS (07/28/23 06:15:00) ABSC Interp (Gel): Negative ABSC (07/28/23 06:15:00) Crossmatch, Immediate Spin: Compatible (07/28/23 06:15:00) Crossmatch, Immediate Spin: Compatible (07/28/23 06:15:00) RBC Product Ready: RBC Ready for Pickup (07/28/23 05:00:00) Platelet Product Ready: Platelet Ready for Pickup (07/28/23 05:30:00) pH (poct) - POC: 7.364 Low (07/28/23 07:41:00) PCO2 - POC: 42.8 mm Hg (07/28/23 07:41:00) PO2 - POC: 457.7 mm Hg High (07/28/23 07:41:00) Bicarbonate - POC: 23.9 mmol/L (07/28/23 07:41:00) Total CO2 - POC: 25.2 mmol/L (07/28/23 07:41:00) Base Excess - POC: -1.6 mmol/L (07/28/23 07:41:00) O2 Saturation - POC: 99.7 % High (07/28/23 07:41:00) Sodium - POC: 141 mEq/L (07/28/23 07:41:00) Potassium - POC: 4 mEq/L (07/28/23 07:41:00) Chloride - POC: 103 mEq/L (07/28/23 07:41:00) Ionized Calcium - POC: 1.2 mmol/L (07/28/23 07:41:00) Glucose - POC: 81 mg/dL (07/28/23 07:41:00) Hemoglobin (POC): 13.4 G/dL (07/28/23 07:41:00) Hematocrit (POC): 39 % Low (07/28/23 07:41:00) Imaging Results and Diagnostics CT Coronary Calcium Scoring w/o Contrast Result Date: July 28, 2023 Verified By: TANYA MORAN, ANDRAE Arias CLINICAL STATEMENT: IMPRESSION: Aortic valve calcium score is 2556.8 Significant coronary artery calcifications. Calcium scoring of the coronaryarteries was not performed. Right solid pulmonary nodule within the upper lobe measuring [address] chest [address] Per Fleischner Society Guidelines, recommend promptnon- contrast Chest CT for further evaluation. These guidelines do not apply to immunocompromised patients and patients withcancer. Follow up in patients with significant comorbidities as clinicallywarranted. For lung cancer screening, adhere to Lung-RADS guidelines.Reference: Radiology. 2017; 284(1):228-43. Nonspecific bilateral lower lobe consolidations The findings were sent to the Radiology Results Communication Center at 1:43pm on 07/28/2023 to be communicated to a licensed caregiver. Calcium Score Interpretation Percentile ranges: < 25%: Patient has less coronary calcification than can be expected based ongender and age. Based on the calcium score alone, no further evaluation isrecommended. 25% to 75%: Patient has coronary calcification as can be expected based ongender and age. Based on the calcium score alone, no further evaluation isrecommended. > 75%: Patient has more coronary calcification than can be expected based ongender and age. Based on the calcium score alone, further evaluation ofcardiovascular risk is recommended. In all patients, consider further evaluation if multi-vessel or left-mainpredominant disease is present. CALCIUM SCORING OVERVIEW: Coronary calcium is a marker for plaque in a blood vessel or atherosclerosis(hardening of the arteries). The presence and amount of calcium detected inthe coronary artery by the CT scan estimates the presence andamount ofatherosclerotic plaque. These calcium deposits can appear years before thedevelopment of heart disease symptoms such as chest pain and shortness ofbreath. A calcium score is computed for each of the coronary arteries based upon thevolume and density of the calcium deposits. This can be referred to as yourcalcified plaque burden. It does not correspond directly to the percentageof narrowing in the artery, but does correlate with the severity of theoverall coronary atherosclerotic burden. This score is then used to determine the calcium percentile which comparesyour calcified plaque burden to that of other asymptomatic men and women ofthe same age. The calcium score, in combination wi th the percentile, enablesyour physician to determine your risk of developing symptomatic coronaryartery disease, and to measure the progression of disease as well as theeffectiveness of treatment. Ascore of zero indicates that there is no calcified plaque burden. Thisimplies that there is no significant coronary artery narrowing and very lowlikelihood of a cardiac event over at least the next 3years. It does notabsolutely rule out the presence of soft, noncalcified plaque or totallyeliminatethe possibility of a cardiac event. A score greater than zero indicates at least some coronary artery disease.As the score increases, so does the likelihood of a significant coronarynarrowing and the likelihood of a coronary event over the next 3 years.Similarly, the likelihood of a coronary event increases with increasingcalcium percentiles. CT Head or Brain w/ + w/o Contrast Result Date: July 28, 2023 Verified By: CR WINTER MD CLINICAL STATEMENT: IMPRESSION: Normal examination. Assessment/Plan 58 yr M admitted with dizziness. Per patient he has been having dizziness and light headedness for the past 4 weeks. Neurology consulted for dizziness. Patient found to have sever aortic stenosis. History obtained from medical records and documentation as well as from patient. At present patient denies any new onset focal neurological deficits, sensory loss, speech disturbances, visual disturbances, GARCIA. Impressions: Dizziness likely peripheral etiology Will R/O central etiology Plan: -MRI brain w/o contrast -MRA head/neck -CT head nothing acute -Labs reviewed -Symptoms likely secondary to severe Aortic stenosis, likely plan for AVR. -Check orthostatic vitals -Defer Cardiology work up to primary medical team -Hospitalist admission H&P documentation reviewed -ED attending note reviewed -GI/DVT prophylaxis -PT/OT/ST -Fall precautions -Further medical management per medical team -Case d/w patient's and daughter at bedside. -Follow up with Neurology in 4-6 weeks as outpatient -Please call with questions if any. -Thank you for allowing us to participate in patients care and management. -All questions were answered -Will follow MRI brain and pending neurological test results peripherally when done and follow up patient as needed based on the test results. Will sign off at present. Please call with questions if any in the interim. This note has been generated using [employer] dictation software. It may contain incorrect words, punctuation's and spellings that were not noted in the review of the note prior to signing. Problem List/Past Medical History Ongoing Acute sinusitis with symptoms greater than 10 days Aortic stenosis BMI 30.0-30.9,adult BMI 32.0-32.9,adult Chronic diastolic HF (heart failure) Cough Dyslipidemia Former smoker Hypothyroidism Insomnia Left foot drop Left foot pain Mild CAD Mitral regurgitation Need for hepatitis C screening test Need for influenza vaccination Orthopnea Paresthesia of left foot Postnasal drip Pre-syncope Preoperative clearance Psoriasis Screening due Screening for colon cancer Screening for depression Screening for diabetes mellitus Screening for ischemic heart disease Screening for lung cancer Screening for prostate cancer Seasonal allergies Severe aortic stenosis Tinea pedis Tricuspid regurgitation Valvular heart disease Well adult exam Historical No qualifying data Procedure/Surgical History Cardiac catheterization: 06/23/23 Echocardiogram: 05/29/23 Echocardiogram: 10/30/21 CT angiography of head and neck with contrast: 07/04/20 Holter monitor: 01/22/20 Holter monitor: 01/22/20 Echocardiogram: 12/26/19 Echocardiogram: 12/26/19 Holter monitor: 2019 Echocardiogram: 01/28/16 Echocardiogram: 01/28/16 Loss of teeth due to extraction Lipoma Nerve repair; with autogenous vein graft (includes harvest of vein graft), each nerve Tonsillectomy Medications Inpatient Adrenalin 4 mg + Normal Saline 250 mL Cardioplegic [place], 1052.8 mL, Miscellaneous, Once Cleocin, 600 mg= 50 mL, IV Piggyback, PREOP pharm Heparin 10,000 units/mL insulin regular 100 unit(s) + Normal Saline 100 mL norepinephrine 8 mg + Normal Saline 250 mL NS 500 mL + cefuroxime 1.5 gram(s) Toprol-XL, 12.5 mg= 0.5 tab(s), Oral, PREOP pharm tranexamic acid 1 gram(s), 1 gram(s)= 100 mL, IV Piggyback tranexamic acid 1 gram(s), 1 gram(s)= 100 mL, IV Piggyback tranexamic acid 1 gram(s), 1 gram(s)= 100 mL, IV Piggyback Home aspirin 81 mg oral delayed release tablet, 81 mg= 1 tab(s), Oral, qHS, 3 refills betamethasone-clotrimazole 0.05%-1% topical cream, 1 appl, Topical, BID, 1 refills ibuprofen 200 mg oral tablet, 400 mg= 2 tab(s), Oral, q6h, PRN levothyroxine 100 mcg (0.1 mg) oral tablet, 100 mcg= 1 tab(s), Oral, qAM metoprolol succinate 25 mg oral TABLET extended release, 12.5 mg= 0.5 tab(s), Oral, qHS, 6 refills mupirocin 2% topical ointment, 1 cyril, Topical, TID rosuvastatin 40 mg oral tablet, 40 mg= 1 tab(s), Oral, qHS traZODone 100 mg oral tablet, 100 mg= 1 tab(s), Oral, qHS, 3 refills Tylenol Extra Strength 500 mg oral tablet, 1000 mg= 2 tab(s), Oral, q4h, PRN Allergies NKA Social History Alcohol Frequency: 3-5 times per week., 08/13/2021 Home/Environment Living situation: Home/Independent. Safe place to go: Yes. Lives In: Multilevel home., 07/23/2023 Nutrition/Health Caffeine intake amount: one daily., 02/03/2020 Substance Abuse Use: Never., 02/03/2020 Tobacco Nicotine Use: Former smoker, quit more than 30 days ago. Type: Cigarettes., 07/01/2023 Nicotine Use: Former smoker, quit more than 30 days ago. Exposure to Tobacco Smoke Lives in non-smoking home., 03/18/2023 Family History Aortic valve replacement and aortoplasty: Mother (Dx at 75). Coronary artery disease: Father. Heart disease: Mother and Father. [place] - myocardial infarction: Father (Dx at 75). Immunizations pneumococcal 13-valent conjugate vaccine: 0 unknown unit (06/09/16) pneumococcal 23-valent vaccine(Pneumovax: 0 unknown unit (02/11/18) pneumococcal 23-valent vaccine(Pneumovax: 0 unknown unit (02/10/18) pneumococcal 23-valent vaccine(Pneumovax: 0.5 unknown unit (01/18/18) SARS-CoV-2 mRNA (tozinameran) vaccine: 0.3 unknown unit (02/22/21) SARS-CoV-2 mRNA (tozinameran) vaccine: 0.3 unknown unit (02/01/21) tetanus/diphth/pertuss (Tdap) adult/adol: 0 unknown unit (05/02/15) tetanus/diphth/pertuss (Tdap) adult/adol: 0 unknown unit (04/13/15) zoster vaccine, inactivated: 0 unknown unit (04/03/19) zoster vaccine, inactivated: 0 unknown unit (02/01/19) Digitally Signed by ILDA BARBOSA MD on 07/28/2023 02:05 PM [id number]* Exam Date Time Procedure Performing Provider Status 07/28/23 10:40 AM [facility] in [facility] 04-16-2024 Anesthesiology Consult note Patient: YAA SILVA Age: 58 years Sex: Male : 1965 Associated Diagnoses: None Author: DAYNA RENDON MD Preoperative Information Greater than 8 hours Anesthesia history Patient's history: negative. Family's history: negative. History of Present Illness 58yo M w/ pmhx of HLD, CHF, CAD, hypothyroid, depression, obesity, severe presenting for AVR. Walks 2 flights of stairs, limited by SOA. Denies CP. Echo- EF-56%, severe , bicuspid, UMESH-1cm2, mean gradient-84mmHg, mild MR, TR. Cath- LCx-50% lesion, LAD and RCA clear Tobacco- quit 11yrs ago, 30pack years. Alcohol use once a night. Denies drug use Review of Systems Ear/Nose/Mouth/Throat: Negative except as documented in history of present illness. Respiratory: Negative except as documented in history of present illness. Cardiovascular: Negative except as documented in history of present illness, CAD, [place], HTN, CHF, Cardiomyopathy, Arrhythmia. Gastrointestinal: Negative except as documented in history of present illness. Genitourinary: Negative except as documented in history of present illness. Endocrine: Negative except as documented in history of present illness. Musculoskeletal: Negative except as documented in history of present illness. Integumentary: Negative except as documented in history of present illness. Neurologic: Negative except as documented in history of present illness. Health Status Allergies: Allergic Reactions (Selected) NKA, Allergies (1) ActiveReaction NKANone Documented Current medications: (Selected) Inpatient Medications Ordered Adrenalin 4 mg + Normal Saline 250 mL: Infuse as directed for CVOR, Intravenous, Stop: 07/28/23 22:59:00 EDT Cardioplegic [place]: 1,052.8 mL, 0 mL/hr, Miscellaneous, Once Cleocin: 600 mg, 50 mL, 100 mL/hr, IV Piggyback, PREOP pharm Heparin 10,000 units/mL: 10,000 unit(s), 1 mL, mL/hr, Miscellaneous, PREOP pharm Kefzol: 2 gram(s), 20 mL, 240 mL/hr, IV Push (INT), PREOP pharm NS 500 mL + cefuroxime 1.5 gram(s): Use as directed in CVOR, Topical (CONT), Stop: 07/28/23 22:59:00 EDT NS 500 mL 500 mL: 20 mL/hr, Intravenous, Stop: 07/28/23 10:59:00 EDT Toprol-XL: 12.5 mg, 0.5 tab(s), Oral, PREOP pharm insulin regular 100 unit(s) + Normal Saline 100 mL: Infuse as directed for CVOR, Intravenous, Stop:07/28/23 22:59:00 EDT norepinephrine 8 mg + Normal Saline 250 mL: Infuse as directed for CVOR, Intravenous, Stop: 07/28/23 22:59:00 EDT tranexamic acid 1 gram(s): As directed in CVOR, IV Piggyback, Stop: 07/28/23 22:59:00 EDT tranexamic acid 1 gram(s): As directed in CVOR, IV Piggyback, Stop: 07/28/23 22:59:00 EDT tranexamic acid 1 gram(s): As directed in CVOR, IV Piggyback, Stop: 07/28/23 22:59:00 EDT Prescriptions Prescribed aspirin 81 mg oral delayed release tablet: 81 mg, 1 tab(s), Oral, qHS, pt was not told to stop ASA but will ask tomorrow when talsk to cvc to verify, 90 tab(s), 3 Refill(s) betamethasone-clotrimazole 0.05%-1% topical cream: 1 appl, Topical, BID, 45 gram(s), 1 Refill(s) metoprolol succinate 25 mg oral TABLET extended release: 12.5 mg, 0.5 tab(s), Oral, qHS, Do not crush or chew (controlled release), 15 tab(s), 6 Refill(s) rosuvastatin 40 mg oral tablet: 40 mg, 1 tab(s), Oral, qHS, 90 tab(s), 0 Refill(s) traZODone 100 mg oral tablet: 100 mg, 1 tab(s), Oral, qHS, please be scored tablets, 90 tab(s), 3 Refill(s) Documented Medications Documented Tylenol Extra Strength 500 mg oral tablet: 1,000 mg, 2 tab(s), Oral, q4h, PRN: as needed for pain, 120 tab(s), 0 Refill(s) ibuprofen 200 mg oral tablet: 400 mg, 2 tab(s), Oral, q6h, Take with food or milk., PRN: for pain, 0 Refill(s) levothyroxine 100 mcg (0.1 mg) oral tablet: 100 mcg, 1 tab(s), Oral, qAM, 0 Refill(s) mupirocin 2% topical ointment: 1 cyril, Topical, TID, APPLY IN BOTH NOSTRILS TWICE A DAY DIRECTED.START 5 DAYS PRIOR TO SURGERY, Medications (13) Active Scheduled: (5) cardioplegic [place] Nido formula 1,052.8 mL, Miscellaneous, Once ceFAZolin syringe 2 gram(s) 20 mL, IV Push (INT), PREOP pharm clindamycin PMX 600 mg 50 mL, IV Piggyback, PREOP pharm heparin 10,000 unit(s) 1 mL, Miscellaneous, PREOP pharm metoprolol succinate 25 mg ER tablet 12.5 mg 0.5 tab(s), Oral, PREOP pharm Continuous: (8) epinephrine 4 mg + Sodium Chloride 0.9% 250 mL 250 mL, Intravenous insulin regular 100 unit(s) + Sodium Chloride 0.9% 100 mL 100 mL, Intravenous norepinephrine 8 mg + Sodium Chloride 0.9% 250 mL 250 mL, Intravenous NS (0.9% nacl) 500 mL 500 mL, Intravenous, 20 mL/hr NS (0.9% nacl) 500 mL + cefuroxime 1.5 gram(s) 500 mL, Topical (CONT) tranexamic acid PMX 1 gram(s) , IV Piggyback tranexamic acid PMX 1 gram(s) , IV Piggyback tranexamic acid PMX 1 gram(s) , IV Piggyback PRN: (0) Problem list: Medical Acute sinusitis with symptoms greater than 10 days / SNOMED CT 58732198 / Confirmed Aortic stenosis / SNOMED CT 712810347 / Confirmed BMI 30.0-30.9,adult / SNOMED CT 090974438 / Confirmed BMI 32.0-32.9,adult / SNOMED CT 020705639 / Confirmed Chronic diastolic HF (heart failure) / SNOMED CT 3713912779 / Confirmed Mild CAD / SNOMED CT 03749065 / Confirmed Cough / SNOMED CT 65255811 / Confirmed Dyslipidemia / SNOMED CT 9937013004 / Confirmed Former smoker / SNOMED CT 23942936 / Confirmed Left foot pain / SNOMED CT 394405579 / Confirmed Left foot drop / SNOMED CT 94998324 / Confirmed Valvular heart disease / SNOMED CT 6992185 / Confirmed Hypothyroidism / SNOMED CT 34477535 / Confirmed Insomnia / SNOMED CT 891480993 / Confirmed Mitral regurgitation / SNOMED CT 95143977 / Confirmed Pre-syncope / SNOMED CT 3430135330 / Confirmed Need for influenza vaccination / SNOMED CT 835659095 / Confirmed Orthopnea / SNOMED CT 049827789 / Confirmed Paresthesia of left foot / SNOMED CT 373493473 / Confirmed Well adult exam / SNOMED CT 062368466 / Confirmed Screening for colon cancer / SNOMED CT 302270343 / Confirmed Screening for prostate cancer / SNOMED CT 002219693 / Confirmed Screening for ischemic heart disease / SNOMED CT 084485313 / Confirmed Screening for diabetes mellitus / SNOMED CT 015374278 / Confirmed Screening for depression / SNOMED CT 342540024 / Confirmed Screening for lung cancer / SNOMED CT 271570785 / Confirmed Postnasal drip / SNOMED CT 517646427 / Confirmed Preoperative clearance / SNOMED CT 251953419 / Confirmed Psoriasis / SNOMED CT 02615086 / Confirmed Screening due / SNOMED CT 080169019 / Confirmed Seasonal allergies / SNOMED CT 9922112244 / Confirmed Severe aortic stenosis / SNOMED CT 8216736606 / Confirmed Tinea pedis / SNOMED CT 61368068 / Confirmed Tricuspid regurgitation / SNOMED CT 872457097 / Confirmed Need for hepatitis C screening test / SNOMED CT 029013290 / Confirmed Canceled: Aortic stenosis / SNOMED CT 940926782 Canceled: Hyperlipidemia / SNOMED CT 06989895, Active Problems (51) Acute sinusitis with symptoms greater than 10 days Aortic stenosis At risk for sleep apnea Back pain Balance disorder BMI 30.0-30.9,adult BMI 32.0-32.9,adult Chronic diastolic HF (heart failure) Cough COVID Depression Dizziness Dyslipidemia Former smoker Glasses Headache Hx of vertigo Hypothyroidism Insomnia Irregular heart rate Left foot drop Left foot pain Long-term use of aspirin therapy Mild CAD Mitral regurgitation Need for hepatitis C screening test Need for influenza vaccination Orthopnea Orthostatic hypertension Palpitations Paresthesia of left foot Postnasal drip Pre-syncope Preoperative clearance Psoriasis Screening due Screening for colon cancer Screening for depression Screening for diabetes mellitus Screening for ischemic heart disease Screening for lung cancer Screening for prostate cancer Seasonal allergies Severe aortic stenosis Snores SOB (shortness of breath) on exertion Tinea pedis Tricuspid regurgitation Valvular heart disease Vitamin D deficiency Well adult exam Histories Past Medical History: No active or resolved past medical history items have been selected or recorded. Family History: Aortic valve replacement and aortoplasty Mother: onset at 75 . Heart disease Father Mother Coronary artery disease Father [place] - myocardial infarction Father: onset at 75 . Procedure history: Cardiac catheterization ([id number]) on 06/23/2023 at 58 Years. Comments: 06/26/2023 9:38 Ansley James LPN 06/23/2023 SUMMARY: 1. Aortic valve: The annulus is moderately calcified. The valve is bicuspid. The leaflets are mildly calcified. 2. 1st obtuse marginal: Mid-vessel lesion: There is a 50% stenosis. 3. Known severe . IMPRESSIONS: 1. CT surgery consult, interventional cardiology /Dr Burden consult 2. Normal cardiac output, mildly elevated left sided filling pressures, mild PHT. Echocardiogram ([id number]) on 05/29/2023 at 57 Years. Comments: 06/09/2023 10:56 Ansley Porter LPN 05/29/2023 Summary: 1. Left ventricle: The cavity size is normal. Wall thickness is mildly increased. Systolic functionis normal. The estimated ejection fraction is 65-70%. Wall motion is normal; there are no regional wall motion abnormalities. Diastolic dysfunction present but unable to assess severity. 2. Ventricular septum: Thickness is mildly increased. 3. Aortic valve: The valve is bicuspid. The leaflets are moderately thickened and moderately calcified. 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 Transvalvular velocity is increased, due to stenosis. There is severe stenosis at rest and very severe stenosis w/exercise. 4. Mitral valve: There is mild regurgitation. 5. Right ventricle: The RV systolic pressure by Doppler is 24 mm Hg. 6. Right atrium: The estimated right atrial pressure is 3 mm Hg. 7. Stress ECG conclusions: Barnes scoring: exercise time of 7 min; maximum ST deviation of 0.5 mm; noangina; resulting score is 5. This score predicts a moderate risk of cardiac events. 11/17/2022 11:10 Ansley James LPN 11/14/2022 Summary: 1. Left ventricle: The cavity size is normal. Wall thickness is moderately increased. TomTec GLS is-18.3 % Strain Value is Normal Systolic function is normal. The estimated ejection fraction is 60-65%. Wall motion is normal; there are no regional wall motion abnormalities. Normal diastolic function. 2. Ventricular septum: Thickness is increased ~ 1.4 cm (image 65, 94). 3. Aortic valve: The valve is possibly bicuspid. The leaflets are moderately thickened and moderately calcified. Transvalvular velocity is increased. There is severe stenosis. The peak systolic velocity is 4.3 m/sec. The mean systolic gradient is 40 mm Hg. The LVOT to aortic valve VTI ratio is 0.27. The valve area by peak velocity is 0.8 cm . 4. Aorta: Aortic root ~ 3.8 cm based on available images. 5. Mitral valve: There is mild to moderate regurgitation. 6. Left atrium: The atrium is visually dilated. 7. Right ventricle: The RV systolic pressure by Doppler is 25 mm H 06/06/2022 8:36 Mary Gamino MA (ABR-OE) 1. Left ventricle: The cavity size is normal. Wall thickness is severely increased. Concentric LeftVentricular Hypertrophy Systolic function is normal. The estimated ejection fraction is 60-65%. Wall motion is normal; there are no regional wall motion abnormalities. Grade I diastolic dysfunction. 2. Ventricular septum: Thickness is severely increased. 3. Aortic valve: A bicuspid morphology cannot be excluded. The leaflets are moderately thickened and moderately calcified. There is moderate stenosis. There is trivial regurgitation. 4. Aortic root: The aortic root is mildly dilated and 38.0 mm diameter. 5. Right atrium: Echodensity in RA adjacent to septum seen only in A4C views. Color crosses it. Likely artifact Holter monitor ([id number]) on 01/22/2020 at 54 Years. Comments: 10/08/2021 10:06 Mary Sebastian MA (ABR-OE) 30 day Tonsillectomy ([id number]). Nerve repair; with autogenous vein graft (includes harvest of vein graft), each nerve (45560). Comments: 07/23/2023 9:[address] RN right shoulder Lipoma ([id number]). Comments: 01/05/2019 11:57 Marjorie Jacobson LPN multiple removals Loss of teeth due to extraction ([id number]). Social History Social & Psychosocial Habits Alcohol 07/23/2023 Frequency: 3-5 times per week Substance Abuse 07/23/2023 Use: Never Tobacco 07/23/2023 Tobacco Use: Former smoker, quit more Exposure to Tobacco Smoke Lives in non-smoking home 07/23/2023 Tobacco Use: Former smoker, quit more Type: Cigarettes Comment: quit 201007/01/2023 09:34 - Yoko Nova RN Home/Environment 07/23/2023 Living situation: Home/Independent Safe place to go: Yes Lives In Multilevel home Nutrition/Health 07/23/2023 Caffeine intake amount: one daily . Physical Examination Vital Signs 07/28/2023 6:06 EDT Temperature Oral 36.0 DegC Peripheral Pulse Rate 70 bpm Respiratory Rate 20 br/min Systolic Blood Pressure Non-Invasive 114 mmHg Diastolic Blood Pressure Non-Invasive 84 mmHg Vital Signs(last 24 hrs) Last Charted Temp Oral36.0 DegC (JUL 27 06:06) GJD563 mmHg (JUL 27:06) DBP84 mmHg (JUL 27:) BMI31.4 (JUL 27:) Measurements from flowsheet : Measurements 07/28/2023 6:06 EDT Height 175.3 cm Height in inches 69 inch(es) Admission Weight 96.5 kg Weight Lbs 212.3 lb Weight Method Actual [place] Body Weight 70.74 kg Type of Scale Used Standing Body Mass Index 31.4 kg/m2 Admission Body Mass Index 31.4 m2 07/28/2023 6:02 EDT Body Mass Index 31.4 kg/m2 Pain assessment: Pain Assessment 07/28/2023 6:06 EDT Primary Pain Intensity 0 Pain Scale Type 0-10 Pain scale . General: Alert and oriented. Airway: Normal temporomandibular joint mobility, Normal mouth, Normal throat, Normal neck range of motion, Trachea midline. Mallampati classification: I (soft palate, fauces, uvula, pillars visible). Head: Normocephalic. Dentition Evaluation: Intact, Own teeth, Denies loose/chipped teeth. Neck: Supple. Respiratory: Lungs are clear to auscultation, Respirations are non-labored. Cardiovascular: Normal rate, Regular rhythm, systolic murmur 07/17. Heart Sounds: Normal. Gastrointestinal: Soft. Musculoskeletal Normal range of motion. Integumentary: Intact, Warm, Dry. Neurologic: Alert, Oriented. Review / Management Results review: No qualifying data available , Lab results 07/28/2023 6:46 EDT vancomycin 1,500 mg mg 07/28/2023 6:28 EDT OMAIRA in [facility] Ordered (In Progress) 07/28/2023 6:26 EDT SN - Preop - CTm - Pt in HL SD Room 07/28/2023 5:40 SN - Preop - CTm - HL Pt Ready for Procedure 07/28/2023 6:26 07/28/2023 6:24 EDT chlorhexidine topical 15 mL mL 07/28/2023 6:22 EDT Forearm Left 07/28/2023 20 gauge Peripheral IV Activity: Insert new site Peripheral IV Dressing Condition: Clean, Dry, Intact Peripheral IV Dressing Activity: Applied, Transparent dressing Peripheral IV Line Status/Patency: Flushes easily, 10ml normal saline flush, Good blood return Peripheral IV Site Condition: No complications Peripheral IV Equipment: PRN Adaptor Peripheral IV Number of Attempts: 1 07/28/2023 6:06 EDT Height 175.3 cm Height in inches 69 inch(es) Admission Weight 96.5 kg Weight Lbs 212.3 lb Weight Method Actual [place] Body Weight 70.74 kg Type of Scale Used Standing Body Mass Index 31.4 kg/m2 Admission Body Mass Index 31.4 m2 Temperature Oral 36.0 DegC Peripheral Pulse Rate 70 bpm Respiratory Rate 20 br/min Systolic Blood Pressure Non-Invasive 114 mmHg Diastolic Blood Pressure Non-Invasive 84 mmHg Primary Pain Intensity 0 Pain Scale Type 0-10 Pain scale Murmur Auscultated Yes Dorsalis Pedis Pulse, Left 2+ Normal Dorsalis Pedis Pulse, Right 2+ Normal Posttibial Pulse, Left 2+ Normal Posttibial Pulse, Right 2+ Normal Brachial Pulse Left 2+ Normal Brachial Pulse Right 2+ Normal Ulnar Pulse Left 2+ Normal Ulnar Pulse Right 2+ Normal Radial Pulse, Left 2+ Normal Radial Pulse, Right 2+ Normal Respirations Unlabored Respiratory Pattern Regular Breath Sounds Auscultated Anterior and posterior All Lobes Breath Sounds Clear Cough and Deep Breathe Done Cough None Oxygen Therapy Room air Oxygen Saturation 97 % Abdomen Description Non-distended, Soft Passing Flatus Yes Bowel Sounds All Quadrants Present Urinary Elimination Voiding, no difficulties Skin Temperature Warm Skin Description [place], Dry Skin Integrity Intact Mucous Membrane Color [place] Skin Moisture General Dry IV Present Present Neurological Symptoms Patient denies Extremity Movement Equal Characteristics of Speech Clear Level of Consciousness Alert CHANEL Yes Strength All Extremities Strong Sensation All Extremities Intact Affect/Behavior Appropriate, Calm, Cooperative Orientation Oriented x 4 Allergies No Consent Form Signed Yes Patient Dressed In Hospital gown, No undergarments Pre-op Preparation Jewelry removed, Undergarments removed CHG Preoperative Wash/Wipe Site specific wipe Preop Nasal Swab Povidone-Iodine CHG Skin Prep Completed for Eligible Surgery History & Physical On Chart Yes Obstructive Sleep Apnea Assess Completed Yes MRSA/MSSA Protocol Yes Assistive Device None Positioning Repositions self Activity Status ADL Awake, Resting NPO Status Maintained Standard Safety ID band on, Call device within reach, Bed in low position, Wheels locked, Upper/Half-Length side-rails up, Phone within reach, Visitor at bedside, Safety level maintained, Non-Slip footwear, Precautions maintained Demonstrates Correct Call Light Use Yes Allergy Band on and Verified No Patient ID Band on and Verified Yes Blood Consent Signed Yes Last Fluid Intake 07/27/2023 22:00 Last Food Intake 07/27/2023 22:00 Last Void 07/28/2023 6:07 07/28/2023 6:02 EDT Designated Person #1 We May Share PHI Alexia [phone] Designated Person #1 Relationship Spouse Designated Person #2 We May Share PHI alessandra francis [phone] Designated Person #2 Relationship Daughter Additional Designated Person Share PHI Neeta Duran [phone] Privacy Restrictions Requested None Body Mass Index 31.4 kg/m2 Status N/A Sensory Deficits None Sleep Apnea Snore Yes Sleep Apnea Tired Yes Sleep Apnea Obstruction No Sleep Apnea Pressure Yes Sleep Apnea BMI No Sleep Apnea Age Yes Sleep Apnea Neck No Sleep Apnea Gender Yes Sleep Apnea Score 5 HI Diagnosed With Sleep Apnea No Advanced Directives Yes Advance Directive Type [place] Durable Power of [employer]ra[employer] 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[place], [place] Declaration (Living Will) Advance Directive Location Indicates that Case has been given copy Infectious Disease Symptoms Patient states no symptoms Infectious Disease Recent Exposure No Alcohol and Drug Use No Employee of Institutional Living No Health Care Employee No History of Exposure to TB No History of Positive Chest X-Ray for TB No History of Positive TB Skin Test No Homeless No Known Immunosuppression No Recent Immigrant No Resident of Institutional Living No Bloody Sputum No Fatigue No Fever No Loss of Appetite No Night Sweats No Persistent Cough > 3 Weeks No Weight Loss No Pre-Op Patient Education Instructed to bring home medications, VTE prevention handout given, SSI prevention handout given, MRSA protocol education provided Individuals Taught Patient, Spouse, Daughter Learning Readiness Willing to learn Barriers to Learning None evident Teaching Method Explanation, Printed materials Preferred Spoken Language Cuban Preferred Written Language Cuban Teaching Evaluation Verbalizes/Nonverbally indicates understanding Pre Procedure/Surgery Education Appropriate expectations, Date/Time of procedure/surgery, Transfer to ICU after surgery Post op Activity Education Bedrest Procedure/Surgery Testing Education EKG, Lab tests Safety Brochure Information Reviewed Yes Case Combs Video Viewed No Information Given by Patient Patient's Current Physicians Patient's Current Physicians Discharge To, Anticipated Home independently Prev Test Positive/Diagnosis w/COVID-19 Yes (Modified) Previous COVID-19 Positive Date 2019 Current Quarantine/Isolated any Illness No Any Contact with Sick Animals/Birds No Traveled Anywhere in Last 30 Days No Lost Weight Unintentionally Recently No Eat Poorly Due to Decreased Appetite No Total MST Score 0 N/A Personal Devices, Patient Valuables None Anesthesia/Transfusions Prior anesthesia, Prior anesthesia reaction Type of Anesthesia Reaction pt has only had MAC Admission Note-Nursing Same Day Patient History (Modified) 07/28/2023 5:30 EDT Platelet Product Ready Platelet Ready for Pickup . Assessment and Plan [place] [employer] Anesthesiologists (ASA) physical status classification: Class IV. Anesthetic Preoperative Plan Premedication: None. Anesthetic technique: General. Induction: intravenously. Maintenance airway: Oral endotracheal tube. Special techniques: Warming device, Extracorporeal. Special Monitoring: Arterial line, Central venous catheter, Continuous transesophageal echocardiogram. Postoperative pain management: Per surgeon. Risks discussed: nausea, vomiting, headache, sore throat, dental injury, hypotension, allergic reaction, serious complications. Informed consent: signed by patient. Beta Waqas: Beta Waqas Taken Within 24 Hrs: Yes. Digitally Signed by DAYNA RENDON MD on 07/28/2023 07:01 AM [id number]* Exam Date Time Procedure Performing Provider Status 07/23/23 11:45 AM VL Arterial US/Doppler Both Legs Auth (Verified) [facility] 04-11-2024 Note* Exam Date Time Procedure Performing Provider Status 07/23/23 11:38 AM VL Carotid US/Dopple r Complete - CV Auth (Verified) [facility] 03-12-2024 Hospital Discharge instructions Patient Education 06/23/2023 09:04:46 Moderate Conscious Sedation, Adult, Care After Moderate Conscious Sedation, Adult, Care After These instructions provide you with information about caring for yourself after your procedure. Your health care provider may also give you more specific instructions. Your treatment has been plannedaccording to current medical practices, but problems sometimes occur. Call your health care provider if you have any problems or questions after your procedure. What can I expect after the procedure? After your procedure, it is common: To feel sleepy for several hours. To feel clumsy and have poor balance for several hours. To have poor judgment for several hours. To vomit if you eat too soon. Follow these instructions at home: Do not: ?Participate in activities where you could fall or become injured. ?Drive. ?Use heavy machinery. ?Drink alcohol. ?Take sleeping pills or medicines that cause drowsiness. ?Make important decisions or sign legal documents. ?Take care of children on your own. Rest. Eating and drinking Follow the diet recommended by your health care provider. If you vomit: ?Drink water, juice, or soup when you can drink without vomiting. ?Make sure you have little or no nausea before eating solid foods. General instructions Have a responsible adult stay with you until you are awake and alert. Take [id number] and prescription medicines only as told by your health care provider. If you smoke, do not smoke without supervision. Keep all follow-up visits as told by your health care provider. This is important. Contact a health care provider if: You keep feeling nauseous or you keep vomiting. You feel light-headed. You develop a rash. You have a fever. Get help right away if: You have trouble breathing. This information is not intended to replace advice given to you by your health care provider. Make sure you discuss any questions you have with your health care provider. Document Released: 01/18/2014 Document Revised: 03/12/2018 Document Reviewed: 07/19/2016 Elsevier Patient Education 2020 [employer] 06/23/2023 09:04:46 3- Heart Cath/PCI radial (01/2018) (CUSTOM) HEART CATHETERIZATION/PCI (radial) Discharge Instructions DIET Drink plenty of fluids for the next 48 hours to help your kidneys flush the heart cath dye out of your system ACTIVITY For the next 48 hours: Do not deep bend the wrist Do not lift, push, or pull anything over 5 pounds Do not use the hand/arm to support your weight when rising from a chair or bed Do not drive For the next 7 days: Do not submerse your procedure site in water Do not swim, wash dishes, or take tub baths You may write, eat, type, and shower WOUND CARE Remove right wrist dressing tomorrow after 9am carefully and then place a band aid over procedure site Keep a Band-Aid on your procedure site for the next 3-4 days Change the Band-Aid daily or if it gets wet/soiled AFTER YOU GO HOME, CALL YOUR DOCTOR FOR: Any increase in bruising or tenderness from the procedure site Any redness, pus, or other signs of infection at the site A temperature above 100.5 Severe pain at the site DIAL 911 AND RETURN TO THE HOSPITAL FOR: Any bleeding from the procedure site. The site may be bruised or tender, but it should not be bleeding at any time. If your site begins to bleed, hold firm pressure on it and dial 911 to return to the hospital Any increase in swelling at the procedure site. An increase in swelling could mean the area is bleeding under the skin. Hold firm pressure to the site and dial 911 to return to the hospital Document Released: 03/30/2006 Document Revised: 03/16/2013 Document Reviewed: 03/31/2014 ExitCare Patient Information 2015 [employer]. This information is not intended to replace advicegiven to you by your health care provider. Make sure you discuss any questions you have with your health care provider. Follow Up Care 2023 10:47:39 With:ALISSA KANG MD Address: [address] [facility] [address] [facility] [place] [address]- [phone] When:06/30/2023 09:15:00 With:SNOW VILLEGAS DO Address: [address] [facility] [place] [address]- [phone] When: Unknown [facility] 03-12-2024 Summary of episode note Discharge Instructions Thank you for allowing [facility] to assist you with your healthcare needs. The following is importantdischarge information regarding your hospital visit. Your Care Team SNOW VILLEGAS DO What to do next Scheduled Follow-Up Appointments Appointment Type When With Where Contact InformationCV OV 06/30/2023 09:15 AM EDT [facility] 04/01/2024 09:00 AM EST SNOW VILLEGAS DO [address] [id number] Follow Up Appointments Follow Up with SNOW VILLEGAS DO When Where: [address] [place] [phone] The Following Activity and Diet Have Been Ordered for You Discharge Activity - Ordered -- Lifting Restricted less than 5 pounds, 06/23/23 8:26:00 EDT No qualifying data available. Allergies NKA Medications Please ask your primary doctor or pharmacist before taking any other medication not listed, including over the counter drugs, herbal medications, vitamins and or supplements as they may interact withyour home medications. What How Much When Why Instructions Last Dose Unchanged aspirin (aspirin 81 mg oral delayed releasetablet) 1 tab(s) by mouth Once a day Unchanged betamethasone-clotrimazole topical (betamethasone-clotrimazole 0.05%- 1% topical cream) 1 Applicatorful Topical Two (2) times a day Tinea pedis Unchanged levothyroxine (levothyroxine 100 mcg (0.1 mg) oral tablet) Unchanged metoprolol (metoprolol succinate 25 mg oral TABLET extended release) 1 tab(s) by mouth Once a day Do not crush or chew (controlled release) Unchanged rosuvastatin (rosuvastatin 40 mg oral tablet) 1 tab(s) by mouth Once a day Unchanged traZODone (traZODone 100 mg oral tablet) 1 tab(s) by mouth Daily at bedtime Insomnia please be scored tablets Please take this list to your next doctor s visit. Bring all medications you take, including over the counter medications, herbals and other supplements with you to your doctor s visit. Patients and families are reminded to discard old lists and to update any records with all medication providers or retail pharmacies. Education Materials Moderate Conscious Sedation, Adult, Care After These instructions provide you with information about caring for yourself after your procedure. Your health care provider may also give you more specific instructions. Your treatment has been plannedaccording to current medical practices, but problems sometimes occur. Call your health care provider if you have any problems or questions after your procedure. What can I expect after the procedure? After your procedure, it is common: To feel sleepy for several hours. To feel clumsy and have poor balance for several hours. To have poor judgment for several hours. To vomit if you eat too soon. Follow these instructions at home: Do not: ? Participate in activities where you could fall or become injured. ? Drive. ? Use heavy machinery. ? Drink alcohol. ? Take sleeping pills or medicines that cause drowsiness. ? Make important decisions or sign legal documents. ? Take care of children on your own. Rest. Eating and drinking Follow the diet recommended by your health care provider. If you vomit: ? Drink water, juice, or soup when you can drink without vomiting. ? Make sure you have little or no nausea before eating solid foods. General instructions Have a responsible adult stay with you until you are awake and alert. Take tceh-spn-fcpbvrd and prescription medicines only as told by your health care provider. If you smoke, do not smoke without supervision. Keep all follow-up visits as told by your health care provider. This is important. Contact a health care provider if: You keep feeling nauseous or you keep vomiting. You feel light-headed. You develop a rash. You have a fever. Get help right away if: You have trouble breathing. This information is not intended to replace advice given to you by your health care provider. Make sure you discuss any questions you have with your health care provider. Document Released: 01/18/2014 Document Revised: 03/12/2018 Document Reviewed: 07/19/2016 [employer] Patient Education 2020 [employer] HEART CATHETERIZATION/PCI (radial) Discharge Instructions DIET Drink plenty of fluids for the next 48 hours to help your kidneys flush the heart cath dye out of your system ACTIVITY For the next 48 hours: Do not deep bend the wrist Do not lift, push, or pull anything over 5 pounds Do not use the hand/arm to support your weight when rising from a chair or bed Do not drive For the next 7 days: Do not submerse your procedure site in water Do not swim, wash dishes, or take tub baths You may write, eat, type, and shower WOUND CARE Remove right wrist dressing tomorrow after 9am carefully and then place a band aid over procedure site Keep a Band-Aid on your procedure site for the next 3-4 days Change the Band-Aid daily or if it gets wet/soiled AFTER YOU GO HOME, CALL YOUR DOCTOR FOR: Any increase in bruising or tenderness from the procedure site Any redness, pus, or other signs of infection at the site A temperature above 100.5 Severe pain at the site DIAL 911 AND RETURN TO THE HOSPITAL FOR: Any bleeding from the procedure site. The site may be bruised or tender, but it should not be bleeding at any time. If your site begins to bleed, hold firm pressure on it and dial 911 to return to the hospital Any increase in swelling at the procedure site. An increase in swelling could mean the area is bleeding under the skin. Hold firm pressure to the site and dial 911 to return to the hospital Document Released: 03/30/2006 Document Revised: 03/16/2013 Document Reviewed: 03/31/2014 ExitCare Patient Information 2015 [employer]. This information is not intended to replace advicegiven to you by your health care provider. Make sure you discuss any questions you have with your health care provider. Additional Information VACCINATE! IT SAVES LIVES! Members of the community who have not yet received the COVID-19 vaccine and would like to receive it can visit one of [facility] vaccine clinics. There are many vaccine clinic locations within the [facility]. For locations and available times, please visit https://gettheshot.coronavirus.[place].gov/. It is important to note that some COVID mobile vaccine clinics are held outdoors and may be canceled in rainy or stormy conditions. To learn more about pediatric vaccinations (ages 5-11), we invite you to visit the [facility] webpage. [email or web address].[email or web address].org/pages/[email or web address]-Hsrrg-Eijocqxwviy-Lsoxtycvfw-[email or web address]-[email or web address] stions.htmlTo learn more about the COVID-19 vaccine, we invite you to visit the CDC website for a list of frequently asked questions.https://www.cdc.gov/coronavirus/2019-ncov/vaccines/faq.html [facility] Patient Portal Access Instructions: Stay connected with your healthcare team and access your personal medical information anytime with the [facility] Patient Portal. Please follow the directions below to create your [employer] account: 1.Access the email account you provided upon registration to the hospital/physician office.2.Look for an invitation email from [facility].3.Open the email and access the invitation link: AcceptInvitation to [employer].4.Fill in the required greene to create your account. To access your account, visit [email or web address]. Click the blue button labeled Access Patient Portal and then log in with the username and password that you created in the steps above. You will be able to view your test results, lab results, a summary of your visits, upcoming appointments and more. There is also a convenient messaging option where you can send secure messages to your Pet[employer] Managmentvider. In addition, you will have the ability to download any documents or summaries to your computer and/or send the information securely to a physician. Remember that your healthcare information is confidential, so carefully consider who you will allowto register on the [facility] Patient Portal for access to your information. You can also access the [facility] Patient Portal on the [employer] cyril. Simply click on Patient Portal and then log into your account. If you would like to receive a full copy of your medical records, please contact the [facility] Medical Records Department by calling [phone], Thursday through Thursday between 8 a.m. and 4:30 p.m. HOW TO SAFELY DISPOSE OF PRESCRIPTION MEDICATIONS Please use one of the following methods to safely dispose of your unused medications. 1.Use a drug disposal kit: the drug disposal pouch allows you to safely discard your old and unuseddrugs. Ask your nurse to give you one when you are discharged.2.Visit a local take-back location: Many local pharmacies and police departments have programs that collect old and unwanted prescriptiondrugs. Call your local pharmacy or go to http://bit.ly/6S3Xi8q to find one close to you.3.Make use of household items: Use cat litter or old coffee grounds to dispose medications if other options arenot available. Mix your drugs with these household products, seal them in an airtight container andthrow it into the garbage. Call [facility]: [phone] to be sure your drugs can be disposed of in this way. Some medicines may require a different approach.4.Never flush your medications down the toilet. IF YOU HAVE BEEN PRESCRIBED AN OPIOID FOR PAIN If you have been prescribed an opioid (such as hydrocodone, oxycodone or morphine), it is critical to understand the possible side effects and risks of opioid pain medications. Even when taken as directed, opioids can have several side effects including: Tolerance, meaning you might need to take more of a medication for the same pain relief. Nausea, vomiting and/or constipation. Sleepiness, dizziness, dry mouth, confusion, depression or itching. Physical dependence, meaning you have withdrawal symptoms when a medication is stopped, can develop within a few days. KNOW YOUR RESPONSIBILITIES It is important to know exactly how much and how often to take the opioid pain medications you are prescribed. Never take opioids in higher amounts or more often than prescribed. Do not combine opioids with alcohol or other drugs that cause drowsiness, such as benzodiazepines, also known as benzos, including diazepam and alprazolam, muscle relaxants or sleep aids. Never sell or share prescription opioids. This is illegal. Store opioids in a secure place and out of reach of others (including children, family, friends and visitors). The last page of this document has been signed and retained as a CHART COPY. Signatures Patient Education Materials Moderate Conscious Sedation, Adult, Care After 3- Heart Cath/PCI radial (01/2018) (CUSTOM) Medication Leaflets My discharge plan and instructions have been reviewed and explained to me and IRICARDO THOMAS R understand my current condition and have read and understand these discharge instructions. I have received a written copy of the plan/instructions. If I have questions, I am aware that I should contact my doctor. 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: Date/Time: Relationship to Patient: Witness Name/Signature: Date[facility]Time[id number] Discharge summary Procedure: Left and Right Heart Catheterization Indication: pre op cardiac for Post Op diagnosis: moderate CAD Condition: stable Discharge: Home Follow up: 1-2 weeks in Office Digitally Signed by ALISSA KANG MD on 06/23/2023 08:05 AM [id number]* Exam Date Time Procedure Performing Provider Status 06/23/23 7:11 AM Cardiac Catheterization -CV Modified [facility] 02-16-2024 Note* Exam Date Time Procedure Performing Provider Status 05/29/23 11:58 AM Echocardiogram Stress - CV Auth (Verified) [facility] 10-12-2023 Note* Exam Date Time Procedure Performing Provider Status 01/22/23 8:43 AM Transesophageal Echo cardiogram - CV Auth (Verified) [facility] 08-04-2023 Note* Exam Date Time Procedure Performing Provider Status 11/14/22 10:47 AM Echocardiogram Compl ete w/Strain (AOH) Auth (Verified) [facility] Evaluation + Plan note Future Appointments Appointment Date:10/30/2021 11:00:00 AM Scheduled Provider: Location:[facility] Appointment Type:CV Procedure - AOH Echo Appointment Date:02/05/2022 08:00:00 AM Scheduled Provider:SNOW VILLEGAS DO Location:[facility] Appointment Type:PC Wellness Annual Future Scheduled Tests Laboratory* Prostate Specific Antigen 02/20/21 * Thyroid Stimulating Hormone 02/20/21 * N-Terminal proBNP 04/13/22 [facility] Evaluation + Plan note Future Appointments Appointment Date:02/05/2022 08:00:00 AM Scheduled Provider:SNOW VILLEGAS DO Location:[facility] Appointment Type:PC Wellness Annual Future Scheduled Tests Laboratory* Prostate Specific Antigen 02/20/21 * Thyroid Stimulating Hormone 02/20/21 * N-Terminal proBNP 04/13/22 [facility] evaluation + Plan note Future Appointments Appointment Date:05/09/2022 08:45:00 AM Scheduled Provider: Location:[facility] Appointment Type:CV OV [facility] Evaluation + Plan note Future Appointments Appointment Date:05/09/2022 08:45:00 AM Scheduled Provider: Location:[facility] Appointment Type:CV OV Diagnostic Tests Pending * Hepatitis C Antibody IgG 04/14/22 [facility] Evaluation + Plan note Future Scheduled Tests Laboratory* Lipid Profile 12/04/22 * N-Terminal proBNP 12/04/22 [facility] evaluation + Plan note Future Appointments Appointment Date:10/31/2022 09:45:00 AM Scheduled Provider: Location:[facility] Appointment Type:CV OV Appointment Date:11/25/2022 10:00:00 AM Scheduled Provider: Location:[facility] Appointment Type:CV Procedure - AOH Echo Appointment Date:04/10/2023 03:00:00 PM Scheduled Provider:SNOW VILLEGAS DO Location:[facility] Appointment Type:PC Wellness Annual Future Scheduled Tests Laboratory* Prostate Specific Antigen 04/10/23 * Complete Blood Count 04/10/23 * Lipid Profile 12/04/22 * Lipid Profile 04/10/23 * Complete Metabolic Panel 04/10/23 * N-Terminal proBNP 12/04/22 [facility] evaluation + Plan note Future Appointments Appointment Date:11/14/2022 10:00:00 AM Scheduled Provider: Location:[facility] Appointment Type:CV Procedure - AOH Echo Appointment Date:11/25/2022 03:00:00 PM Scheduled Provider: Location:[facility] Appointment Type:CV OV Appointment Date:12/19/2022 08:30:00 AM Scheduled Provider: Location:[facility] Appointment Type:CV OV Appointment Date:04/10/2023 03:00:00 PM Scheduled Provider:SNOW VILLEGAS DO Location:[facility] Appointment Type:PC Wellness Annual Future Scheduled Tests Laboratory* Prostate Specific Antigen 04/10/23 * Complete Blood Count 04/10/23 * Lipid Profile 04/10/23 * Complete Metabolic Panel 04/10/23 [facility] Evaluation + Plan note Future Appointments Appointment Date:11/25/2022 03:00:00 PM Scheduled Provider: Location:[facility] Appointment Type:CV OV Appointment Date:12/19/2022 08:30:00 AM Scheduled Provider: Location:[facility] Appointment Type:CV OV Appointment Date:04/10/2023 03:00:00 PM Scheduled Provider:SNOW VILLEGAS DO Location:[facility] Appointment Type:PC Wellness Annual Future Scheduled Tests Laboratory* Prostate Specific Antigen 04/10/23 * Complete Blood Count 04/10/23 * Lipid Profile 04/10/23 * Complete Metabolic Panel 04/10/23 [facility] Evaluation + Plan note Future Appointments Appointment Date:03/20/2023 11:00:00 AM Scheduled Provider: Location:[facility] Appointment Type:CV Procedure - Echo (Adult) Appointment Date:03/23/2023 08:30:00 AM Scheduled Provider: Location:[facility] Appointment Type:CV OV Appointment Date:04/10/2023 03:00:00 PM Scheduled Provider:SNOW VILLEGAS DO Location:[facility] Appointment Type:PC Wellness Annual Future Scheduled Tests Laboratory* Prostate Specific Antigen 04/10/23 * Complete Blood Count 04/10/23 * Lipid Profile 04/10/23 * Complete Metabolic Panel 04/10/23 * N-Terminal proBNP 03/20/23 [facility] Evaluation + Plan note Future Appointments Appointment Date:05/29/2023 11:00:00 AM Scheduled Provider: Location:[facility] Appointment Type:CV Procedure - Echo (Adult) Appointment Date:06/02/2023 08:30:00 AM Scheduled Provider: Location:[facility] Appointment Type:CV OV Appointment Date:04/01/2024 09:00:00 AM Scheduled Provider:SNOW VILLEGAS DO Location:[facility] Appointment Type:PC Wellness Annual Future Scheduled Tests Radiology* CT Low Dose Lung Cancer Screening (LDCT) 04/03/23 [facility] evaluation + Plan note Future Appointments Appointment Date:05/29/2023 11:00:00 AM Scheduled [facility] Type:CV Procedure - Echo (Adult) Appointment Date:06/02/2023 08:30:00 AM Scheduled Provider: Location:[facility] Appointment Type:CV OV Appointment Date:04/01/2024 09:00:00 AM Scheduled Provider:SNOW VILLEGAS DO Location:[facility] Appointment Type: Wellness Annual [facility] evaluation + Plan note Future Appointments Appointment Date:2023 10:00:00 AM Scheduled Provider: Location:[facility] Appointment Type:CV OV Appointment Date:04/01/2024 09:00:00 AM Scheduled Provider:SNOW VILLEGAS DO Location:[facility] Appointment Type:PC Wellness Annual Future Scheduled Tests Laboratory* Vitamin B12 Level 08/26/23 * Complete Blood Count 08/26/23 * Vitamin D Level 08/26/23 [facility] evaluation + Plan note Future Appointments Appointment Date:06/23/2023 07:00:00 AM Scheduled Provider: Location:[facility] Appointment Type:CV Procedure - Heart Lab/Hybrid OR Appointment Date:06/30/2023 09:15:00 AM Scheduled Provider: Location:[facility] Appointment Type:CV OV Appointment Date:04/01/2024 09:00:00 AM Scheduled Provider:SNOW VILLEGAS DO Location:[facility] Appointment Type:PC Wellness Annual Future Scheduled Tests Laboratory* Basic Metabolic Panel 06/01/23 * Magnesium Level 06/01/23 * Vitamin B12 Level 08/26/23 * Complete Blood Count 06/01/23 * Complete Blood Count 08/26/23 * Prothrombin Time - Panel 06/01/23 * Vitamin D Level 08/26/23 [facility] Evaluation + Plan note Future Appointments Appointment Date:06/30/2023 09:15:00 AM Scheduled Provider: Location:[facility] Appointment Type:CV OV Appointment Date:04/01/2024 09:00:00 AM Scheduled Provider:SNOW VILLEGAS DO Location:[facility] Appointment Type: Wellness Annual Diagnostic Tests Pending * Complete Blood Count 06/23/23 * Basic Metabolic Panel 06/23/23 * Prothrombin Time - Panel 06/23/23 Future Scheduled Tests Laboratory* Vitamin B12 Level 08/26/23 * Complete Blood Count 08/26/23 * Vitamin D Level 08/26/23 [facility] evaluation + Plan note Future Appointments Appointment Date:09/25/2023 08:30:00 AM Scheduled Provider: Location:[facility] Appointment Type:CV OV Appointment Date:04/01/2024 09:00:00 AM Scheduled Provider:SNOW VILLEGAS DO Location:[facility] Appointment Type: Wellness Annual Future Scheduled Tests Laboratory* Vitamin B12 Level 08/26/23 * Complete Blood Count 08/26/23 * Lipid Profile 09/30/23 * Vitamin D Level 08/26/23 * N-Terminal proBNP 09/30/23 [facility] evaluation + Plan note Future Appointments Appointment Date:08/25/2023 01:00:00 PM Scheduled Provider: Location:[facility] Appointment Type:CR Phase 2 Initial Appointment Date:08/26/2023 08:45:00 AM Scheduled Provider:HEATHER ROBLES Location:[facility] Appointment Type:Telephone Appointment Date:08/27/2023 08:00:00 AM Scheduled Provider: Location:[facility] Appointment Type:CT Chest w/o Contrast Appointment Date:08/27/2023 08:30:00 AM Scheduled Provider: Location:[facility] Appointment Type:XR Chest Fluoroscopy (Sniff Test) Appointment Date:09/25/2023 08:30:00 AM Scheduled Provider: Location:[facility] Appointment Type:CV OV Appointment Date:04/01/2024 09:00:00 AM Scheduled Provider:SNOW VILLEGAS DO Location:[facility] Appointment Type: Wellness Annual Future Scheduled Tests Laboratory* Vitamin B12 Level 08/26/23 * Complete Blood Count 08/26/23 * Lipid Profile 09/30/23 * Vitamin D Level 08/26/23 * Complete Metabolic Panel 08/19/23 * N-Terminal proBNP 09/30/23 Radiology* CT Thorax w/o Contrast 08/27/23 * XR Chest Fluoroscopy (Sniff Test) 08/27/23 [facility] Evaluation + Plan note Future Appointments Appointment Date:09/01/2023 09:45:00 AM Scheduled Provider: Location:[facility] Appointment Type:CV OV Appointment Date:04/01/2024 09:00:00 AM Scheduled Provider:SNOW VILLEGAS DO Location:[facility] Appointment Type: Wellness Annual Future Scheduled Tests Laboratory* Complete Blood Count 10/18/23 Radiology* XR Chest Fluoroscopy (Sniff Test) 08/27/23 [facility] evaluation + Plan note Future Appointments Appointment Date:09/08/2023 10:00:00 AM Scheduled Provider: Location:[facility] Appointment Type:PF PFT w/Bronchodiltor Appointment Date:09/11/2023 01:00:00 PM Scheduled Provider: Location:[facility] Appointment Type:Echo - Echocardiogram Adult Appointment Date:12/31/2023 09:30:00 AM Scheduled Provider: Location:[facility] Appointment Type:CV OV Appointment Date:04/01/2024 09:00:00 AM Scheduled Provider:SNOW VILLEGAS DO Location:[facility] Appointment Type: Wellness Annual Future Scheduled Tests Laboratory* Basic Metabolic Panel 09/08/23 * Basic Metabolic Panel 09/22/23 * Complete Blood Count 10/18/23 * Lipid Profile 12/02/23 * N-Terminal proBNP 12/02/23 * N-Terminal proBNP 09/22/23 Radiology* XR Chest Fluoroscopy (Sniff Test) 08/27/23 * XR Chest Fluoroscopy (Sniff Test) 02/01/24 [facility] evaluation + Plan note Future Appointments Appointment Date:09/11/2023 01:00:00 PM Scheduled Provider: Location:[facility] Appointment Type:Echo - Echocardiogram Adult Appointment Date:12/31/2023 09:30:00 AM Scheduled Provider: Location:[facility] Appointment Type:CV OV Appointment Date:04/01/2024 09:00:00 AM Scheduled Provider:SNOW VILLEGAS DO Location:[facility] Appointment Type: Wellness Annual Future Scheduled Tests Laboratory* Basic Metabolic Panel 09/08/23 * Basic Metabolic Panel 09/22/23 * Complete Blood Count 10/18/23 * Lipid Profile 12/02/23 * N-Terminal proBNP 12/02/23 * N-Terminal proBNP 09/22/23 Radiology* XR Chest Fluoroscopy (Sniff Test) 08/27/23 * XR Chest Fluoroscopy (Sniff Test) 02/01/24 [facility] [place] [facility] Plan note Future Appointments Appointment Date:12/31/2023 09:30:00 AM Scheduled Provider: Location:[facility] Appointment Type:CV OV Appointment Date:04/01/2024 09:00:00 AM Scheduled Provider:SNOW VILLEGAS DO Location:[facility] Appointment Type: Wellness Annual Future Scheduled Tests Laboratory* TSH with Reflex to FT4 09/10/23 * Basic Metabolic Panel 09/08/23 * Basic Metabolic Panel 09/22/23 * Complete Blood Count 10/18/23 * Lipid Profile 12/02/23 * N-Terminal proBNP 12/02/23 * N-Terminal proBNP 09/22/23 Radiology* XR Chest Fluoroscopy (Sniff Test) 02/01/24 [facility] [place] [facility] + Plan note Future Appointments Appointment Date:12/31/2023 09:30:00 AM Scheduled Provider: Location:[facility] Appointment Type:CV OV Appointment Date:04/01/2024 09:00:00 AM Scheduled Provider:SNOW VILLEGAS DO Location:[facility] Appointment Type: Wellness Annual Future Scheduled Tests Laboratory* TSH with Reflex to FT4 09/10/23 * Basic Metabolic Panel 09/08/23 * Complete Blood Count 10/18/23 * Lipid Profile 12/02/23 * N-Terminal proBNP 12/02/23 Radiology* XR Chest Fluoroscopy (Sniff Test) 02/01/24 [facility] Evaluation + Plan note Future Appointments Appointment Date:12/31/2023 09:30:00 AM Scheduled Provider: Location:[facility] Appointment Type:CV OV Appointment Date:02/04/2024 11:15:00 AM Scheduled Provider: Location:[facility] Appointment Type:XR Chest Fluoroscopy (Sniff Test) Appointment Date:04/01/2024 09:00:00 AM Scheduled Provider:SNOW VILLEGAS DO Location:[facility] Appointment Type:PC Wellness Annual Future Scheduled Tests Laboratory* TSH with Reflex to FT4 09/10/23 * Basic Metabolic Panel 09/08/23 * Complete Blood Count 10/18/23 Radiology* XR Chest Fluoroscopy (Sniff Test) 02/04/24 [facility] Evaluation + Plan note Future Appointments Appointment Date:02/04/2024 11:15:00 AM Scheduled Provider: Location:[facility] Appointment Type:XR Chest Fluoroscopy (Sniff Test) Appointment Date:04/01/2024 09:00:00 AM Scheduled Provider:SNOW VILLEGAS DO Location:[facility] Appointment Type: Wellness Annual Future Scheduled Tests Laboratory* TSH with Reflex to FT4 09/10/23 * Basic Metabolic Panel 09/08/23 * Basic Metabolic Panel 01/21/24 * Complete Blood Count 10/18/23 * Lipid Profile 06/29/24 * N-Terminal proBNP 06/29/24 * N-Terminal proBNP 01/21/24 Radiology* XR Chest Fluoroscopy (Sniff Test) 02/04/24 [facility] Evaluation + Plan note Future Appointments Appointment Date:04/14/2024 04:40:00 PM Scheduled Provider: Location:[facility] Appointment Type:CT Thorax Screening w/o Contrast Appointment Date:09/29/2024 08:30:00 AM Scheduled Provider:SNOW VILLEGAS DO Location:[facility] Appointment Type: OV Future Scheduled Tests Laboratory* TSH with Reflex to FT4 09/10/23 * TSH with Reflex to FT4 05/17/24 * Basic Metabolic Panel 09/08/23 * Basic Metabolic Panel 01/21/24 * Complete Blood Count 10/18/23 * Lipid Profile 06/29/24 * N-Terminal proBNP 06/29/24 * N-Terminal proBNP 01/21/24 Radiology* CT Low Dose Lung Cancer Screening (LDCT) 04/14/24 [facility] evaluation + Plan note Future Appointments Appointment Date:09/29/2024 08:30:00 AM Scheduled Provider:SNOW VILLEGAS DO Location:[facility] Appointment Type:PC OV Future Scheduled Tests Laboratory* TSH with Reflex to FT4 09/10/23 * Basic Metabolic Panel 09/08/23 * Basic Metabolic Panel 01/21/24 * Complete Blood Count 10/18/23 * Lipid Profile 06/29/24 * N-Terminal proBNP 06/29/24 * N-Terminal proBNP 01/21/24 Radiology* CT Low Dose Lung Cancer Screening (LDCT) 04/14/24 [facility] Evaluation + Plan note Future Appointments Appointment Date:09/29/2024 08:30:00 AM Scheduled Provider:SNOW VILLEGAS DO Location:[facility] Appointment Type:PC OV Future Scheduled Tests Laboratory* TSH with Reflex to FT4 07/12/24 * Basic Metabolic Panel 01/21/24 * N-Terminal proBNP 06/29/24 Radiology* CT Low Dose Lung Cancer Screening (LDCT) 04/14/24 [facility] Evaluation + Plan note Future Appointments Appointment Date:01/26/2025 08:45:00 AM Scheduled Provider:TONI KANG Location:[facility] Appointment Type:CV OV Appointment Date:04/21/2025 09:00:00 AM Scheduled Provider:SNOW VILLEGAS DO Location:[facility] Appointment Type:PC Wellness Annual Future Scheduled Tests Laboratory* TSH with Reflex to FT4 07/12/24 * Basic Metabolic Panel 01/21/24 * N-Terminal proBNP 06/29/24 Radiology* CT Low Dose Lung Cancer Screening (LDCT) 04/14/24 * XR Spine Cervical AP/LAT/Flex/Ext 10/25/24 [facility] Evaluation note* Diagnosis Segmental and somatic dysfunction of cervical region Cervicalgia Radiculopathy, cervical region Brachial neuritis or radiculitis nos [facility] No data available for this section [facility] Hospital Discharge instructions No data available for this section [facility] Progress note No data available for this section [facility] Summary Purpose Family History No Family History Records Found No data available for this section No data available for this section No data available for this section No data available for this section No data available for this section No data available for this section No data available for this section No data available for this section No data available for this section No data available for this section No data available for this section No data available for this section No data available for this section No data available for this section No data available for this section No data available for this section No data available for this section No data available for this section No data available for this section No data available for this section No data available for this section No data available for this section No data available for this section No data available for this section No Family History Records Found No data available for this section No Family History Records Found No data available for this section No data available for this section No data available for this section No data available for this section No data available for this section No Family History Records Found No data available for this section No Family History Records Found Advance Directives No Advanced Directives Records FoundNo Advanced Directives Records FoundNo Advanced Directives Records FoundNo Advanced Directives Records FoundNo Advanced Directives Records Found Additional Source Comments (unrecognized sect ion and content) No Status Records FoundNo Status Records FoundNo Status Records FoundNo Status Records FoundNo Status Records Found INFORMATION SOURCE (unrecogn ized section and content) DATE CREATED AUTHOR 12/11/2020 [facility] DATE CREATED AUTHOR AUTHOR'S ORGANIZ ATION 12/07/2023 [facility] ([place]) DATE CREATED AUTHOR AUTHOR'S ORGANIZ ATION 01/09/2024 [facility] DATE CREATED AUTHOR AUTHOR'S ORGANIZ ATION 12/19/2024 [facility] DATE CREATED AUTHOR AUTHOR'S ASHLEY ATION 12/25/2024 [facility] Care Team (unrecognized sect ion and content) Care Team Personnel Name: Chuy Rivera PT Position: P3 Scheduling - Rapid Outsole Stitcher Advanced Member Role: Other Name: ALISSA KANG MD Position: P4 Physician - Cardiology Med Service: Active Provider Member Role: Beef Grinder Address: Address: [address] [place] [address]- Name: SNOW VILLEGAS DO Position: P4 Physician - Primary Care Med Service: Active Provider Member Role: Primary Care Physician Address: Address: [address] [place] [address] Name: RUPERTO VILLANUEVA MD Member Role: Beef Grinder Address: Address: [address] [place] [address] Care Team Related Persons Name: ALEXIA SILVA Address: Home [address] Care Team Personnel Name: Chuy Rivera PT Position: P3 Scheduling - Rapid Outsole Stitcher Advanced Member Role: Other Name: ALISSA KANG MD Position: P4 Physician - Cardiology Med Service: Active Provider Member Role: Beef Grinder Address: Address: [address] [place] [address]- Name: SNOW VILLEGAS DO Position: P4 Physician - Primary Care Med Service: Active Provider Member Role: Primary Care Physician Address: Address: [address] [place] [address] Name: RUPERTO VILLANUEVA MD Member Role: Beef Grinder Address: Address: [address] [address]- Care Team Related Persons Name: ALEXIA SILVA Address: Home [address] [place], [place] [id number] Care Team Personnel Name: Chuy Rivera PT Position: P3 Scheduling - Rapid Outsole Stitcher Advanced Member Role: Other Name: ALISSA KANG MD Position: P4 Physician - Cardiology Med Service: Active Provider Member Role: Beef Grinder Address: Address: [address] [place] [address] [address] [place] [id number]- Name: SNOW VILLEGAS DO Position: P4 Physician - Primary Care Med Service: Active Provider Member Role: Primary Care Physician Address: Address: [address] [place] [id number]- Name: RUPERTO VILLANUEVA MD Member Role: Beef Grinder Address: Address: [address] [place] [address] [address] [place] [address]- [place] Care Team Related Persons Name: ALEXIA SILVA Address: Home [address] [place], [place] [phone] [place] Care Team Personnel Name: Chuy Rivera Clerk Rosetta PT Position: P3 Scheduling - Rapid Outsole Stitcher Advanced Member Role: Other Name: ALISSA KANG MD Position: P4 Physician - Cardiology Member Role: Beef Grinder Address: Address: [address] [place] [address] [address] [place] [id number]- Name: SNOW VILLEGAS DO Position: P4 Physician - Primary Care Member Role: Primary Care Physician Address: Address: [address] [place] [address]- Care Team Related Persons Name: ALEXIA SILVA Address: Home [address] [place], [place] [phone] [place] Care Team Personnel Name: Chuy Rivera Clerk Rosetta PT Position: P3 Scheduling - Rapid Outsole Stitcher Advanced Member Role: Other Name: ALISSA KANG MD Position: P4 Physician - Cardiology Member Role: Beef Grinder Address: Address: [address] [place] [address] [address] [place] [address]- Name: SNOW VILLEGAS DO Position: P4 Physician - Primary Care Member Role: Primary Care Physician Address: Address: [address] [place] [id number]- Care Team Related Persons Name: ALEXIA SILVA Address: Home [address] [place], [place] [phone] [place] Care Team Personnel Name: Chuy Rivera Clerk Rosetta PT Position: P3 Scheduling - Rapid Outsole Stitcher Advanced Member Role: Other Name: ALISSA KANG MD Position: P4 Physician - Cardiology Member Role: Beef Grinder Address: Address: [address] [place] [address] Name: SNOW VILLEGAS DO Position: P4 Physician - Primary Care Member Role: Primary Care Physician Address: Address: [address] [place] [address] Care Team Related Persons Name: ALEXIA SILVA Address: [address] [id number] Care Team Personnel Name: Chuy Rivera Clerlukasz Sargent PT Position: P3 Scheduling - Rapid Outsole Stitcher Advanced Member Role: Other Name: ALISSA KANG MD Position: P4 Physician - Cardiology Member Role: Beef Grinder Address: Address: [address] [place] [address] Name: SNOW VILLEGAS DO Position: P4 Physician - Primary Care Member Role: Primary Care Physician Address: Address: [address] [place] [address] Care Team Related Persons Name: ALEXIA SILVA Address: [address] [phone] Patient Care team informatio n (unrecognized section and content) Senior Data Integration Developer Relationship Specialty Start Date End Date Snow Villegas DO [address] [place] [id number] PCP - General Family Medicine 12/14/24 FOR RECORDS PERTAINING TO PATIENTS WHO ARE OR HAVE BEEN ENROLLED IN A CHEMICAL DEPENDENCY/SUBSTANCEABUSE PROGRAM, SOME INFORMATION MAY BE OMITTED. This clinical summary was aggregated from multiple sources. Caution should be exercised in using it in the provision of clinical care. This summary normalizes information from multiple sources, and as a consequence, information in this document may materially change the coding, format and clinical context of patient data. In addition, data may be omitted in some cases. CLINICAL DECISIONS SHOULD BE BASED ON THE PRIMARY CLINICAL RECORDS. [facility]. provides no warranty or guarantee of the accuracy or completeness of information in this document.
== END | disposition home or self-care (01) ==
LOC: CT 06:19
PROVIDERS: PCP Family Medicine; Referring Provider Ophthalmology; Visit Provider Ophthalmology
DX: H53.123 Transient visual loss, bilateral (principal); S09.90XA Unspecified injury of head, initial encounter; X58.XXXA Exposure to other specified factors, initial encounter; S19.9XXA Unspecified injury of neck, initial encounter
CPT/HCPCS: 70496; 70498; Q9967